=== PATIENT | male | born 1955 | race American Indian/Alaskan Native ===

== ENCOUNTER 2019-07-21 01:32 | Emergency (ER) | payer OTHER ==
[2019-07-21] MEDS ORDERED: ONDANSETRON 4 MG/2 ML INJ ONE ×2 (02:03)
[2019-07-21] MEDS ORDERED: fentaNYL 100 MCG/2 ML INJ ONE (02:03)
[2019-07-21] MEDS ORDERED: fentaNYL 100 MCG/2 ML INJ IV ONE ×2 (02:05→20:05)
[2019-07-21] MEDS ORDERED: ONDANSETRON 4 MG/2 ML INJ IV ONE ×2 (02:05→20:05)
[2019-07-21] MEDS ORDERED: diphenhydrAMINE 50 MG/ML VIAL IV ONE (02:40)
[2019-07-21] MEDS ORDERED: HYDROmorphone 1 MG/1 ML INJ IV ONE (02:40)
[2019-07-21] MEDS ORDERED: methylPREDNISolone Sod Succinate 125 MG/2 ML INJ IV ONE (02:48)
--- NOTE | 2019-07-21 02:55 | Emergency Department Report ---
HPI - General Chief Complaint: Pain General Time Seen by Provider: 07/21/19 02:33 - HPI HPI: Room 26 The patient is a 64-year-old male presenting with chief complaint of pain from his pyoderma gangrenosum. Patient complains of pain in his left lower extremity and right ankle since yesterday. Patient states the pain is consistent with a "flareup" of his pyoderma gangrenosum. Patient states the pain is constant and he gives a score of 10/10. Patient denies any history of fever. Patient states he was unable to go to the [place] to receive his medication secondary to the pain Location: [See above] Duration: [See above] Quality: [See above] Severity: [See above] Timing: [See above] Context: [See above] Modifying factors: [See above] Associated signs and symptoms: [see above] ED Past Medical Hx - Past Medical History Previous Medical History?: Yes Hx Hypertension: Yes Additional medical history: pyoderma gangrenosum - Surgical History Past Surgical History?: No - Family History Family history: no significant - Social History Smoking Status: Never Smoker Substance Use Type: None - Medications Home Medications: Home Medications Medication Instructions Recorded Confirmed Last Taken Type Prednisone [predniSONE 10 mg 10 mg PO .TAPER #1 tab.ds.pk 07/21/19 Unknown Rx (6-Day Pack, 21 Tabs)] traMADol [Ultram] 50 mg PO Q6HR PRN #10 tablet 07/21/19 Unknown Rx ED Review of Systems ROS: Stated complaint: OPEN WOUNDS/PAIN Other details as noted in HPI Constitutional: denies: fever Eyes: denies: eye pain ENT: denies: throat pain Respiratory: no symptoms reported Cardiovascular: denies: chest pain Endocrine: no symptoms reported Gastrointestinal: denies: abdominal pain Genitourinary: denies: dysuria Musculoskeletal: myalgia Skin: lesions Physical Exam - Physical Exam Vital Signs: Vital Signs 07/21/19 07/21/19 01:51 02:08 Temperature 98.2 F Pulse Rate 98 H Respiratory 21 19 Rate Blood Pressure 131/106 Blood Pressure 131/106 [Right] O2 Sat by Pulse 95 Oximetry Physical Exam: GENERAL: The patient is well-developed well-nourished male lying on stretcher rocking back and forth appearing to be in moderate discomfort. [] HEENT: Normocephalic. Atraumatic. Extraocular motions are intact. Patient has moist mucous membranes. NECK: Supple. Trachea midline CHEST/LUNGS: Clear to auscultation. There is no respiratory distress noted. HEART/CARDIOVASCULAR: Regular. There is no tachycardia. There is no gallop rub or murmur. ABDOMEN: Abdomen is soft, nontender. Patient has normal bowel sounds. There is no abdominal distention. SKIN: There is a chronic appearing ulcer to the lateral aspect of the right ankle/heel. Multiple open sores to the left lower extremity. There is no diaphoresis. NEURO: The patient is awake, alert, and oriented. The patient is cooperative. The patient has normal speech MUSCULOSKELETAL: There is no evidence of acute injury. ED Course Vital Signs 07/21/19 07/21/19 01:51 02:08 Temperature 98.2 F Pulse Rate 98 H Respiratory 21 19 Rate Blood Pressure 131/106 Blood Pressure 131/106 [Right] O2 Sat by Pulse 95 Oximetry ED Medical Decision Making - Lab Data Result diagrams: 07/21/19 03:10 07/21/19 03:10 Laboratory Tests 07/21/19 07/21/19 03:10 03:10 WBC 11.8 H RBC 5.09 H Hgb 15.3 H Hct 45.5 MCV 89 MCH 30 MCHC 34 RDW 14.2 Plt Count 276 Lymph % (Auto) 12.8 L Hartley % (Auto) 6.8 Eos % (Auto) 0.6 Baso % (Auto) 0.6 Lymph # 1.5 Hartley # 0.8 Eos # 0.1 Baso # 0.1 Seg Neutrophils % 79.2 H Seg Neutrophils # 9.3 H Sodium 135 L Potassium 4.3 Chloride 98.2 Carbon Dioxide 19 L Anion Gap 22 BUN 17 Creatinine 1.2 Estimated GFR > 60 BUN/Creatinine Ratio 14 Glucose 119 H Calcium 8.8 - Differential Diagnosis pyoderma gangrenosum Critical care attestation.: If time is entered above; I have spent that time in minutes in the direct care of this critically ill patient, excluding procedure time. ED Disposition Clinical Impression: Left leg pain, Pyoderma gangrenosum Disposition: TO HOME OR SELFCARE Is pt being admited?: No Does the pt Need Aspirin: No Condition: Stable Additional Instructions: Return to the emergency department should you develop worsening symptoms, inability to tolerate food or liquids, high fever or any other concerns Prescriptions: Prednisone [predniSONE 10 mg (6-Day Pack, 21 Tabs)] 10 mg PO .TAPER #1 tab.ds.pk traMADol [Ultram] 50 mg PO Q6HR PRN #10 tablet PRN Reason: Pain Referrals: [facility] [Outside] - 3-5 Days Time of Disposition: 04:16
[2019-07-21 03:41] LABS: Basophils # (Auto) 0.1 K/mm3 (0.0-0.1); Basophils % (Auto) 0.6 % (0.0-1.8); Eosinophils # (Auto) 0.1 K/mm3 (0.0-0.4); Eosinophils % (Auto) 0.6 % (0.0-4.3); Hematocrit 45.5 % (35.5-45.6); Hemoglobin 15.3 gm/dl (11.8-15.2); Lymphocytes # (Auto) 1.5 K/mm3 (1.2-5.4); Lymphocytes % (Auto) 12.8 % (13.4-35.0); Mean Corpuscular HGB Conc 34 % (32-34); Mean Corpuscular Volume 89 fl (84-94); Monocytes # (Auto) 0.8 K/mm3 (0.0-0.8); Monocytes % (Auto) 6.8 % (0.0-7.3); Platelet Count 276 K/mm3 (140-440); Red Blood Count 5.09 M/mm3 (3.65-5.03); Red Cell Distribution Width 14.2 % (13.2-15.2)
[2019-07-21] MEDS ORDERED: KETOROLAC 30 MG/1 ML INJ IV ONE (03:51)
[2019-07-21] MEDS ORDERED: KETOROLAC 30 MG/1 ML INJ ONE (03:54)
[2019-07-21 04:04] LABS: BUN/Creatinine Ratio 14; Blood Urea Nitrogen 17 mg/dL (9-20); Calcium 8.8 mg/dL (8.4-10.2); Hemolysis Index 6
[2019-07-21 05:58] VITALS: BP 128/75
== END 2019-07-21 05:48 | disposition home or self-care (01) ==
LOC: ED 01:32
DX: L88 Pyoderma gangrenosum (principal); I10 Essential (primary) hypertension; Z79.899 Other long term (current) drug therapy
CPT/HCPCS: 36415; 80048; 85025; 96374; 96375; 99284; J1170; J1200; J1885; J2405; J2930; J3010

== ENCOUNTER 2020-07-05 21:40 | Observation (INO) | payer OTHER ==
[2020-07-05] MEDS ORDERED: ONDANSETRON 4 MG/2 ML INJ IV ONE (23:37)
[2020-07-05] MEDS ORDERED: HYDROmorphone 1 MG/1 ML INJ IV ONE (23:37)
--- NOTE | 2020-07-05 23:39 | Emergency Department Report ---
ED General Adult HPI - General Chief complaint: Chest Pain Stated complaint: CHEST PAIN PUI?: No Time Seen by Provider: 07/05/20 23:27 Source: patient, EMS ( EMS documentation not available at time of chart dictation ), RN notes reviewed, old records reviewed Mode of arrival: Wheelchair Limitations: Physical Limitation, Other (The patient is a very poor historian) - History of Present Illness Initial comments: The patient was evaluated in the emergency department for symptoms described in the history of present illness. He/she was evaluated in the context of the global COVID-19 pandemic, which necessitated consideration that the patient might be at risk for infection with the virus that causes COVID-19. Institutional protocols and algorithms that pertain to the evaluation of patients at risk for COVID-19 are in a state of rapid change based on information released by regulatory bodies including the CDC and federal and state organizations. These policies and algorithms were followed during the patient's care in the emergency department. Please note that these policies, procedures and recommendations changed on a rapid basis. The patient is a 65-year-old gentleman. He is not known to myself previously. Patient is a poor historian. He states he was recently diagnosed with blood clots at the [facility], and recently admitted to the [facility] this past Monday through Monday. He was subsequently discharged. He does not know what medications he was discharged on. He also states "my heart pumps at 20%." He presents to the ER today with complaint of nontraumatic diffuse abdominal pain, left upper quadrant pain, and left-sided numbing thoracic pain. He states his pain started earlier on this afternoon. He states this is more intense than previous previous pain. He states he has been having this left-sided pain for the past week. He feels mildly nauseous. He is not homicidal or suicidal. He denies recreational drug use. He denies dysuria. He denies defecation of blood. He reports that he coughed or spit up blood earlier on today. He also reports a history of pyoderma, and reports that he is currently on Humira. He reports that all of his prescriptions are through the [facility]. He does not know what prescriptions he takes. He is not accompanied by friends or family at this time to provide additional information or collateral information. -: Gradual, hour(s) Location: chest, abdomen Consistency: constant Improves with: rest Worsens with: movement - Related Data Previous Rx's Medication Instructions Recorded Last Taken Type Prednisone [predniSONE 10 mg 10 mg PO .TAPER #1 tab.ds.pk 07/21/19 Unknown Rx (6-Day Pack, 21 Tabs)] Allergies Allergy/AdvReac Type Severity Reaction Status Date / Time No Known Allergies Allergy Verified 07/21/19 02:06 ED Review of Systems ROS: Stated complaint: CHEST PAIN Other details as noted in HPI Constitutional: malaise. denies: fever Eyes: denies: eye discharge Respiratory: cough Cardiovascular: chest pain Gastrointestinal: abdominal pain, nausea Genitourinary: denies: dysuria Musculoskeletal: myalgia Skin: lesions (Chronic lower extremity lesion) Neurological: weakness (Chronic global weakness) Hematological/Lymphatic: denies: easy bleeding ED Past Medical Hx - Past Medical History Previous Medical History?: Yes Hx Hypertension: Yes Hx Congestive Heart Failure: Yes Hx Pulmonary Embolism: Yes (Recent blood clot) Additional medical history: pyoderma gangrenosum - Surgical History Past Surgical History?: No - Social History Smoking Status: Never Smoker - Medications Home Medications: Home Medications Medication Instructions Recorded Confirmed Last Taken Type Prednisone [predniSONE 10 mg 10 mg PO .TAPER #1 tab.ds.pk 07/21/19 04/18/20 Unknown Rx (6-Day Pack, 21 Tabs)] ED Physical Exam - General Limitations: Physical Limitation General appearance: alert, anxious - Head Head exam: Present: atraumatic, normocephalic - Eye Eye exam: Present: normal appearance, EOMI. Absent: nystagmus - ENT ENT exam: Present: normal exam, normal orophraynx, mucous membranes moist, normal external ear exam - Neck Neck exam: Present: normal inspection, full ROM. Absent: tenderness, meningismus - Respiratory Respiratory exam: Present: normal lung sounds bilaterally. Absent: respiratory distress, wheezes, rales, rhonchi, stridor, decreased breath sounds - Cardiovascular Cardiovascular Exam: Present: normal rhythm, tachycardia, normal heart sounds. Absent: bradycardia, irregular rhythm, systolic murmur, diastolic murmur, rubs, gallop - GI/Abdominal GI/Abdominal exam: Present: soft, tenderness, other (There is mild diffuse abdominal tenderness). Absent: distended, guarding, rebound, rigid, pulsatile mass - Rectal Rectal exam: Present: deferred - Extremities Exam Extremities exam: Present: full ROM (Chronic pyoderma lesions noted on the left lower extremity. There is no pus, streaking or tenderness. Superficial varicosities are noted. There is no lower extremity tenderness.), pedal edema, other (2+ pulses noted in the bilateral upper and lower extremities. There is no palpable cord. negative Homans sign. Muscular compartments are soft. The pelvis is stable.). Absent: normal inspection, calf tenderness - Back Exam Back exam: Present: normal inspection, full ROM. Absent: tenderness, CVA tenderness (R), muscle spasm, paraspinal tenderness, vertebral tenderness - Neurological Exam Neurological exam: Present: alert, other (No facial droop. Tongue midline. Extraocular movements intact bilaterally. Facial sensation intact to light touch in V1, V2, V3 distribution bilaterally. 5 and a 5 strength in 4 extremities. Sensation intact to light touch in 4 extremities.). Absent: motor sensory deficit - Psychiatric Psychiatric exam: Present: anxious - Skin Skin exam: Present: warm ED Course Vital Signs 07/05/20 07/05/20 07/06/20 23:06 23:52 00:01 Temperature 97.4 F L Pulse Rate 100 H 100 H 103 H Respiratory 16 17 Rate Blood Pressure 101/80 81/59 Blood Pressure [Left] O2 Sat by Pulse 97 95 Oximetry 07/06/20 07/06/20 07/06/20 00:07 00:15 00:25 Temperature Pulse Rate 100 H 101 H Respiratory 16 13 Rate Blood Pressure 114/79 Blood Pressure 122/82 [Left] O2 Sat by Pulse 93 96 98 Oximetry 07/06/20 07/06/20 07/06/20 00:30 00:45 01:10 Temperature Pulse Rate 98 H 102 H 90 Respiratory 11 L 14 Rate Blood Pressure 120/73 121/83 121/83 Blood Pressure [Left] O2 Sat by Pulse 96 96 Oximetry 07/06/20 07/06/20 07/06/20 01:15 01:30 01:45 Temperature Pulse Rate 97 H 94 H 96 H Respiratory 15 11 L 11 L Rate Blood Pressure 126/78 125/81 117/82 Blood Pressure [Left] O2 Sat by Pulse 99 96 97 Oximetry - Reevaluation(s) Reevaluation #1: 07/05/20 23:46 Differential diagnosis, including but not limited to: Pneumonia, pneumothorax, pulmonary embolism, pericarditis, myocarditis, acute coronary syndrome, AAA, intraperitoneal bleed, colitis, diverticulitis, pancreatitis Assessment and plan: 65-year-old gentleman who is a very poor historian, does not know the exact details of his past medical history, reports what peers to be cardiomyopathy, re ports recent diagnosis of pulmonary embolism, presenting today with left-sided chest pain, abdominal pain, nausea, malaise and fatigue. EKG abnormal, with changes when compared to prior EKG. EKG today is not consistent with a STEMI. We will treat his pain aggressively. We will obtain CT scan of the chest, abdomen/pelvis. We have requested old medical records from the [facility]. Anticipate admission to this medical service once initial diagnostics have resulted. Discussed plan of care with the patient, who verbalized understanding, and who is amenable to this plan of care. Reevaluation #2: 07/06/20 00:33 Feeling improved. Resting comfortably in stretcher, and in no acute distress. Repeat EKG shows sinus, with sinus arrhythmia. Laboratory studies pending. Old medical records are reviewed. Patient had a CT scan performed on July 01, which showed an acute pulmonary emboli extending from the distal right main pulmonary artery into the right upp er lobe artery, interlobar artery, proximal right middle lobar artery, as well as segmental branches of the right lower lobe. He was also found to have cardiomegaly with IV contrast within the right-sided heart chambers, and intra- hepatic IVC, hepatic veins, suspicious for elevated right-sided cardiac pressures. He also had vague groundglass opacities present in the upper lobes, suspicious for inflammatory versus infectious pathology, with small bilateral pleural effusions. In addition, it appears that the patient left the [facility] AGAINST MEDICAL ADVICE. 07/06/20 00:39 Reevaluation #3: 07/06/20 00:45 Elevated troponin reviewed and appreciated. However, we will need to withhold systemic anticoagulation pending results of CT scan of the abdomen pelvis and chest, to make certain that there is no acute surgical condition. Reevaluation #4: 07/06/20 01:57 CT scan shows pulmonary emboli, pneumonia versus pneumonitis, question bladder outlet obstruction. Antibiotics ordered, Lovenox ordered, fluids ordered DR Rachele Joyce to admit Patient had a positive COVID test at this hospital March 2020, therefore, I think this is unlikely to be COVID. Patient resting comfortably in his stretcher at this time, and he is in no acute distress. 07/06/20 02:02 ED Medical Decision Making - Lab Data Result diagrams: 07/05/20 23:27 07/05/20 23:27 Vital Signs 07/05/20 23:06 Temperature 97.4 F L Pulse Rate 100 H Respiratory 16 Rate Blood Pressure 101/80 O2 Sat by Pulse 97 Oximetry Vital Signs 07/05/20 07/06/20 07/06/20 23:06 00:07 00:25 Temperature 97.4 F L Pulse Rate 100 H 100 H Respiratory 16 16 Rate Blood Pressure 101/80 Blood Pressure 122/82 [Left] O2 Sat by Pulse 97 93 98 Oximetry Lab Results 07/05/20 07/05/20 07/05/20 Range/Units 23:27 23:39 23:39 Sodium 137 (137-145) mmol/L Potassium 3.3 L (3.6-5.0) mmol/L Chloride 99.6 (98-107) mmol/L Carbon Dioxide 19 L (22-30) mmol/L Anion Gap 22 mmol/L BUN 21 H (9-20) mg/dL Creatinine 1.5 H (0.8-1.3) mg/dL Estimated GFR 57 ml/min BUN/Creatinine Ratio 14 % Glucose 130 H (75-100) mg/dL Calcium 9.0 (8.4-10.2) mg/dL Magnesium 2.60 H (1.7-2.3) mg/dL Total Bilirubin 0.60 (0.1-1.2) mg/dL Direct Bilirubin < 0.2 (0-0.2) mg/dL Indirect Bilirubin 0.4 mg/dL AST 14 (5-40) units/L ALT 13 (7-56) units/L Alkaline Phosphatase 65 (35-129) units/L Total Creatine Kinase 51 L (55-170) units/L Troponin T 0.047 H (0.00-0.029) ng/mL NT-Pro-B Natriuret Pep 4906 H (0-900) pg/mL Total Protein 7.7 (6.3-8.2) g/dL Albumin 3.3 L (3.9-5) g/dL Albumin/Globulin Ratio 0.8 % Lipase 29 (13-60) units/L Acetaminophen 5.0 L (10.0-30.0) ug/mL Plasma/Serum Alcohol (0-0.07) % 07/05/20 Range/Units 23:39 Sodium (137-145) mmol/L Potassium (3.6-5.0) mmol/L Chloride (98-107) mmol/L Carbon Dioxide (22-30) mmol/L Anion Gap mmol/L BUN (9-20) mg/dL Creatinine (0.8-1.3) mg/dL Estimated GFR ml/min BUN/Creatinine Ratio % Glucose (75-100) mg/dL Calcium (8.4-10.2) mg/dL Magnesium (1.7-2.3) mg/dL Total Bilirubin (0.1-1.2) mg/dL Direct Bilirubin (0-0.2) mg/dL Indirect Bilirubin mg/dL AST (5-40) units/L ALT (7-56) units/L Alkaline Phosphatase (35-129) units/L Total Creatine Kinase (55-170) units/L Troponin T (0.00-0.029) ng/mL NT-Pro-B Natriuret Pep (0-900) pg/mL Total Protein (6.3-8.2) g/dL Albumin (3.9-5) g/dL Albumin/Globulin Ratio % Lipase (13-60) units/L Acetaminophen (10.0-30.0) ug/mL Plasma/Serum Alcohol < 0.01 (0-0.07) % - EKG Data -: EKG Interpreted by Tx EKG shows normal: sinus rhythm Rate: tachycardia - EKG Data 07/05/20 23:48 EKG has motion artifact. Sinus rhythm, tachycardia, 110 bpm, the QTC is prolonged, 489 ms, T wave inversions which are new and 2, aVF, V4, V5 and V6. Atrial enlargement. Significant motion artifact. Not a STEMI. When compared to prior EKG from March 2020, nonspecific changes are noted. - Radiology Data Radiology results: pending, report reviewed, image reviewed Print Report Referring Physician: ANUSHA BURROUGHS Patient Name: JORGE LUIS KING Date of : 1955 Sex: Male Report Date: 2020-07-05 Report Status: Finalized Findings [facility] [address] [address] XRay Report Signed Patient: JORGE LUIS KING MR#: [id number] : 1955 Acct:[id number] Age/Sex: 65 / M ADM Date: 07/05/20 Loc: ED Attending Dr: Ordering Physician: ANUSHA BURROUGHS MD Date of Service: 07/05/20 Procedure(s): XR chest 1V ap Accession Number(s): [id number] cc: ANUSHA BURROUGHS MD Fluoro Time In Minutes: CHEST 1 VIEW INDICATION: Chest Pain. COMPARISON: 04/18/2020. FINDINGS: Support devices: None. Heart: Stable cardiomegaly. Lungs/Pleura: Moderate infiltrate right lower lobe. Infiltrate was also seen in this region on the previous exam but more prominent. Additional findings: None. IMPRESSION: Infiltrate right base has the appearance of pneumonia. Follow-up to complete resolution is recommended to exclude an underlying mass as infiltrate was seen in this region on the previous exam. Signer Name: Wild Frazier MD Signed: 07/05/2020 11:48 PM Workstation Name: [id number] Transcribed By: ES Dictated By: Wild Frazier MD Electronically Authenticated By: Wild Frazier MD Signed Date/Time: 07/05/202347 DD/ 46 TD/TT: Print Report Referring Physician: ANUSHA BURROUGHS Patient Name: JORGE LUIS KING Date of : 1955 Sex: Male Report Date: 2020-07-06 Report Status: Finalized Findings [address] [address] Cat Scan Report Signed Patient: JORGE LUIS KING MR#: [id number] : 1955 Acct:[id number] Age/Sex: 65 / M ADM Date: 07/05/20 Loc: ED Attending Dr: Ordering Physician: ANUSHA BURROUGHS MD Date of Service: 07/05/20 Procedure(s): CT angio chest Accession Number(s): [id number] cc: ANUSHA BURROUGHS MD CT abdomen pelvis w con, CT angio chest INDICATION / CLINICAL INFORMATION: diffuse abd pain, left chest pain. TECHNIQUE: Axial CT images were obtained after injection of Omnipaque 350, 100 cc IV injection. IV contrast using CTA protocol. 3 plane MIP / 3D reconstructions were produced. All CT scans at this location are performed using CT dose reduction for ALARA by means of automated exposure control. COMPARISON: CT abdomen and pelvis 04/18/2020. CTA CHEST: Evaluation of the lungs demonstrates mild parenchymal change at the lingula laterally and the left base posteriorly. More extensive changes are seen at the left base where there are areas of soft tissue with mild underlying mixed cystic change and a small amount of fluid. No significant pleural fluid. Contracted appearing clot seen at the right main pulmonary artery extending into the lower lobe greater than the middle and upper lobe. A small amount of similar appearing clot is seen at the left lower lobe. No mediastinal mass or adenopathy. CT abdomen: Evaluation of the parenchymal organs demonstrates a few small low- density liver lesions which are too small to characterize. The right kidney contains small cysts. The remaining parenchymal organs are unremarkable. Negative for abdominal mass, fluid or inflammation. The bowel is not dilated or thickened. Fluid is scattered within the colon and small bowel. CT PELVIS: Persistent prostate enlargement. The bladder is distended and demonstrates a diverticulum superiorly. Negative for pelvic mass or fluid collection. The reji endix is normal. IMPRESSION: 1. Bilateral pulmonary emboli right greater than left have a chronic appearance. 2. Changes at the lung bases right greater than left are favored to be infectious/inflammatory. Follow-up is recommended to ensure clearing. 3. Enlarged prostate with element of bladder outlet obstruction. 4. Small liver lesions are likely incidental cysts. Signer Name: Wild Frazier MD Signed: 07/06/2020 1:45 AM Workstation Name: [id number] Transcribed By: ES Dictated By: Wild Frazier MD Electronically Authenticated By: Wild Frazier MD Signed Date/Time: 07/06/20 0145 DD/ 0130 Critical Care Time: Yes Critical care time in (mins) excluding proc time.: 35 Critical care attestation.: If time is entered above; I have spent that time in minutes in the direct care of this critically ill patient, excluding procedure time. ED Disposition Clinical Impression: Elevated troponin, Dehydration, Hypokalemia, Metabolic acidosis, Acute abdominal pain, Acute chest pain, SIRS (systemic inflammatory response syndrome), Acute electrocardiogram changes Pulmonary embolism Qualifiers: Pulmonary embolism type: other Chronicity: unspecified Acute cor pulmonale presence: without acute cor pulmonale Qualified Code(s): I26.99 - Other pulmonary embolism without acute cor pulmonale Disposition: OP ADMIT IP TO THIS HOSP Is pt being admited?: Yes Does the pt Need Aspirin: No Condition: Serious Instructions: Chest Pain (ED) Referrals: PRIMARY CARE, [Primary Care Provider] - 3-5 Days
[2020-07-05] MEDS ORDERED: NITROGLYCERIN 0.4 MG TAB SUBL SL PRN (23:48)
--- NOTE | 2020-07-05 23:53 | XRay Report ---
CHEST 1 VIEW INDICATION: Chest Pain. COMPARISON: 04/18/2020. FINDINGS: Support devices: None. Heart: Stable cardiomegaly. Lungs/Pleura: Moderate infiltrate right lower lobe. Infiltrate was also seen in this region on the pr evious exam but more prominent. Additional findings: None. IMPRESSION: Infiltrate right base has the appearance of pneumonia. Follow-up to complete resolution i s recommended to exclude an underlying mass as infiltrate was seen in this region on the previous exa m. Signer Name: Wild Frazier MD Signed: 07/05/2020 11:48 PM Workstation Name: [id number]
[2020-07-06 00:39] LABS: Alanine Aminotransferase 13 units/L (7-56); Albumin 3.3 g/dL (3.9-5)
[2020-07-06] MEDS ORDERED: POTASSIUM CHLORIDE 20 MEQ 20 MEQ/100 ML BAG IV ONE (00:43)
[2020-07-06] MEDS ORDERED: SODIUM CHLORIDE 0.9% 250ML 250 ML IV ONE (00:43)
[2020-07-06 00:44] LABS: Bilirubin,Direct < 0.2 mg/dL (0-0.2)
[2020-07-06 00:50] LABS: Hematocrit 44.4 % (35.5-45.6); Hemoglobin 15.1 gm/dl (11.8-15.2); Mean Corpuscular HGB Conc 34 % (32-34); Mean Corpuscular Volume 92 fl (84-94); Platelet Count 369 K/mm3 (140-440); Red Blood Count 4.84 M/mm3 (3.65-5.03); Red Cell Distribution Width 14.3 % (13.2-15.2)
[2020-07-06 01:21] LABS: Chol/HDL Ratio 3.8 %
[2020-07-06] MEDS: POTASSIUM CHLORIDE ER 20 MEQ TAB PO ONE ×2 (01:28→01:32)
--- NOTE | 2020-07-06 01:50 | Cat Scan Report ---
CT abdomen pelvis w con, CT angio chest INDICATION / CLINICAL INFORMATION: diffuse abd pain, left chest pain. TECHNIQUE: Axial CT images were obtained after injection of Omnipaque 350, 100 cc IV injection. IV contrast usin g CTA protocol. 3 plane MIP / 3D reconstructions were produced. All CT scans at this location are per formed using CT dose reduction for ALARA by means of automated exposure control. COMPARISON: CT abdomen and pelvis 04/18/2020. CTA CHEST: Evaluation of the lungs demonstrates mild parenchymal change at the lingula laterally and the left base posteriorly. More extensive changes are seen at the left base where there are areas of soft tissue with mild underlying mixed cystic change and a small amount of fluid. No significant pleu ral fluid. Contracted appearing clot seen at the right main pulmonary artery extending into the lower lobe great er than the middle and upper lobe. A small amount of similar appearing clot is seen at the left lower lobe. No mediastinal mass or adenopathy. CT abdomen: Evaluation of the parenchymal organs demonstrates a few small low-density liver lesions w hich are too small to characterize. The right kidney contains small cysts. The remaining parenchymal organs are unremarkable. Negative for abdominal mass, fluid or inflammation. The bowel is not dilated or thickened. Fluid is s cattered within the colon and small bowel. CT PELVIS: Persistent prostate enlargement. The bladder is distended and demonstrates a diverticulum superiorly. Negative for pelvic mass or fluid collection. The appendix is normal. IMPRESSION: 1. Bilateral pulmonary emboli right greater than left have a chronic appearance. 2. Changes at the lung bases right greater than left are favored to be infectious/inflammatory. Follo w-up is recommended to ensure clearing. 3. Enlarged prostate with element of bladder outlet obstruction. 4. Small liver lesions are likely incidental cysts. Signer Name: Wild Frazier MD Signed: 07/06/2020 1:45 AM Workstation Name: [id number]
[2020-07-06] MEDS ORDERED: ENOXAPARIN 100 MG/1 ML INJ SUB-Q ONE ×2 (01:53→03:10)
[2020-07-06] MEDS ORDERED: AZITHROMYCIN 500 MG in SODIUM CHLORIDE 0.9% 250ML 250 ML IV ONE (01:53)
[2020-07-06] MEDS ORDERED: cefTRIAXone/NS 1 GM/50 ML 1 GM/50 ML BAG IV ONE (01:53)
[2020-07-06] MEDS ORDERED: ASPIRIN 81 MG TAB CHEW PO ONE (01:55)
[2020-07-06] MEDS ORDERED: SODIUM CHLORIDE 0.9% IV ONE (01:56)
[2020-07-06] MEDS ORDERED: SODIUM CHLORIDE 0.9% 250ML 250 ML ONE (02:26)
[2020-07-06] MEDS ORDERED: ONDANSETRON 4 MG/2 ML INJ IV PRN (02:33)
[2020-07-06] MEDS ORDERED: ACETAMINOPHEN 325 MG TAB PO PRN (02:33)
[2020-07-06] MEDS ORDERED: MAGNESIUM HYDROXIDE (MOM) ORAL LIQD UDC PO PRN (02:33)
--- NOTE | 2020-07-06 02:57 | History and Physical Report ---
History of Present Illness Date of examination: 07/06/20 Date of admission: 07/06/20 02:05 Chief complaint: Chest Pain History of present illness: Patient is a 65-year-old -Luxembourger male with known history of hypertension and CHF presents to the emergency room today complaining of left- sided chest pain and abdominal pain. Symptoms were said to have started earlier this afternoon. Patient was recently diagnosed with blood clots at the [facility] and admitted for couple of days however patient was said to have signed out AGAINST MEDICAL ADVICE because he had to go home to take care of his dog. Patient indicates that a cardiac catheterization was planned for later this week at the [facility] because of abnormalities found during his work-up. Patient is not a very good historian. He has had some mild nausea but no vomiting, no fever or chills, no headache or dizziness, no vomiting or diarrhea, no hematuria or dysuria. He had some cough today which has been productive of mildly blood-tinged sputum. Work-up in the emergency room today reveals significant leukocytosis of about 20, mild hypokalemia, elevated troponin, CT angiogram reveals pneumonia and pulmonary embolism. Patient has been started on empiric IV antibiotics and also started on subcutaneous Lovenox. Past History Past Medical History: heart failure, hypertension, other (Pyoderma Gangrenosum) Past Surgical History: No surgical history Social history: no significant social history Family history: no significant family history Medications and Allergies Allergies Allergy/AdvReac Type Severity Reaction Status Date / Time No Known Allergies Allergy Verified 07/21/19 02:06 Home Medications Medication Instructions Recorded Confirmed Last Taken Type Prednisone [predniSONE 10 mg 10 mg PO .TAPER #1 tab.ds.pk 07/21/19 04/18/20 Unknown Rx (6-Day Pack, 21 Tabs)] Active Meds: Active Medications Acetaminophen (Tylenol) 650 mg PO Q4H PRN PRN Reason: Pain MILD(1-3)/Fever >100.5/SARMIENTO Aspirin (Ecotrin) 325 mg PO QDAY MELVINA Sodium Chloride (Nacl 0.9% 1000 Ml) 1,000 mls @ 75 mls/hr IV DIRECT MELVINA Ceftriaxone Sodium (Rocephin/Ns 2 Gm/100 Ml) 2 gm in 100 mls @ 200 mls/hr IV Q24H MELVINA; Protocol Azithromycin 500 mg/ Sodium (Chloride) 250 mls @ 250 mls/hr IV Q24H MELVINA; Protocol Magnesium Hydroxide (Milk Of Magnesia) 30 ml PO Q4H PRN PRN Reason: Constipation Morphine Sulfate (Morphine) 2 mg IV Q5MIN PRN PRN Reason: Chest Pain unrelieved by NTG Nitroglycerin (Nitrostat) 0.4 mg SL .Q5MIN PRN PRN Reason: Chest Pain Ondansetron HCl (Zofran) 4 mg IV Q8H PRN PRN Reason: Nausea And Vomiting Sodium Chloride (Sodium Chloride Flush Syringe 10 Ml) 10 ml IV BID MELVINA Sodium Chloride (Sodium Chloride Flush Syringe 10 Ml) 10 ml IV PRN PRN PRN Reason: LINE FLUSH Review of Systems Constitutional: no fever, no chills Ears, nose, mouth and throat: no nasal congestion, no sore throat Cardiovascular: chest pain, no palpitations Respiratory: shortness of breath, no cough Gastrointestinal: no abdominal pain, no nausea, no vomiting, no diarrhea Genitourinary Male: no dysuria, no hematuria, no flank pain Musculoskeletal: no neck pain, no low back pain Integumentary: no rash, no pruritis Neurological: no headaches, no confusion Psychiatric: no anxiety, no depression Exam - Constitutional Vitals: Temp Pulse Resp BP Pulse Ox 97.4 F L 96 H 11 L 117/82 97 07/05/20 23:06 07/06/20 01:45 07/06/20 01:45 07/06/20 01:45 07/06/20 01:45 General appearance: Present: no acute distress, well-nourished - EENT Eyes: Present: PERRL, EOM intact. Absent: scleral icterus ENT: hearing intact, clear oral mucosa, dentition normal - Neck Neck: Present: supple, normal ROM - Respiratory Respiratory effort: normal Respiratory: bilateral: diminished - Cardiovascular Rhythm: regular Heart Sounds: Present: S1 & S2. Absent: gallop, systolic murmur, diastolic murmur, rub - Extremities Extremities: no ischemia, pulses intact, pulses symmetrical, No edema, Full ROM Extremity abnormal: other (Multiple areas of healed ulcers in both lower extremities) Peripheral Pulses: within normal limits - Abdominal General gastrointestinal: Present: soft, non-tender, non-distended, normal bowel sounds. Absent: mass - Integumentary Integumentary: Present: clear, warm, dry - Musculoskeletal Musculoskeletal: strength equal bilaterally - Psychiatric Psychiatric: appropriate mood/affect, intact judgment & insight, memory intact, cooperative - Neurologic Neurologic: CNII-XII intact, no focal deficits, moves all extremities HEART Score - HEART Score Troponin: Troponin T 0.047 ng/mL (0.00-0.029) H 07/05/20 23:27 Results - Labs CBC & Chem 7: 07/05/20 23:27 07/05/20 23:27 Labs: Abnormal lab results 07/05/20 07/05/20 07/05/20 Range/Units 23:27 23:27 23:39 WBC 20.3 H (4.5-11.0) K/mm3 Potassium 3.3 L (3.6-5.0) mmol/L Carbon Dioxide 19 L (22-30) mmol/L BUN 21 H (9-20) mg/dL Creatinine 1.5 H (0.8-1.3) mg/dL Glucose 130 H (75-100) mg/dL Magnesium 2.60 H (1.7-2.3) mg/dL Total Creatine Kinase 51 L (55-170) units/L Troponin T 0.047 H (0.00-0.029) ng/mL NT-Pro-B Natriuret Pep 4906 H (0-900) pg/mL Albumin 3.3 L (3.9-5) g/dL Cholesterol 209 H (50-199) mg/dL LDL Cholesterol Direct 135 H (50-130) mg/dL Salicylates (2.8-20.0) mg/dL Acetaminophen (10.0-30.0) ug/mL 07/05/20 07/05/20 Range/Units 23:39 23:39 WBC (4.5-11.0) K/mm3 Potassium (3.6-5.0) mmol/L Carbon Dioxide (22-30) mmol/L BUN (9-20) mg/dL Creatinine (0.8-1.3) mg/dL Glucose (75-100) mg/dL Magnesium (1.7-2.3) mg/dL Total Creatine Kinase (55-170) units/L Troponin T (0.00-0.029) ng/mL NT-Pro-B Natriuret Pep (0-900) pg/mL Albumin (3.9-5) g/dL Cholesterol (50-199) mg/dL LDL Cholesterol Direct (50-130) mg/dL Salicylates < 0.3 L (2.8-20.0) mg/dL Acetaminophen 5.0 L (10.0-30.0) ug/mL Assessment and Plan - Patient Problems (1) Pneumonia Current Visit: Yes Status: Acute Plan to address problem: Patient placed on empiric IV antibiotics (2) Acute chest pain Current Visit: Yes Status: Acute Plan to address problem: We will check serial cardiac enzymes and continue anticoagulation. Consult has been placed to installation technician for evaluation and further recommendation. (3) History of pyoderma gangrenosum Current Visit: Yes Status: Acute Plan to address problem: Patient currently on Humira. Dose unknown. (4) Pulmonary embolism Current Visit: Yes Status: Acute Qualifiers: Pulmonary embolism type: other Chronicity: unspecified Acute cor pulmonale presence: without acute cor pulmonale Qualified Code(s): I26.99 - Other pulmonary embolism without acute cor pulmonale Plan to address problem: Patient has been placed on anticoagulation. (5) Full code status Current Visit: Yes Status: Acute
[2020-07-06] MEDS ORDERED: ASPIRIN 81 MG TAB CHEW ONE (03:11)
[2020-07-06] MEDS ORDERED: SODIUM CHLORIDE 0.9% 1000 ML 1,000 ML ONE (03:12)
[2020-07-06 04:27] LABS: Bacteria,Urine 1+ /HPF (Negative); Bilirubin,Urine NEG (Negative); Blood,Urine MOD (Negative); Color,Urine Yellow (Yellow); Hyaline Casts,Urine 13 /LPF; Mucus,Urine 3+ /HPF; Urobilinogen,Urine < 2.0 mg/dL (<2.0)
[2020-07-06 04:39] LABS: Basophils % (Manual) 0 % (0.0-1.8); Eosinophils % (Manual) 0 % (0.0-4.3); Total Cells Counted 100
[2020-07-06 04:41] LABS: Anisocytosis Few; Burr Cells Rare; Platelet Estimate Consistent w Auto
[2020-07-06] MEDS: SODIUM CHLORIDE 0.9% 1000 ML 1,000 ML IV SCH ×2 (05:17→16:03)
--- NOTE | 2020-07-06 10:58 | Consultation ---
History of Present Illness Consult date: 07/06/20 Requesting physician: TONE UREÑA Consult reason: chest pain, elevated troponin History of present illness: The patient is a 65-year-old male with a past medical history of HTN, reported HF, pyoderma. He is previously unknown to our practice, is seen at the [place]. He is COVID-19 PUI and thus HPI is obtained per the chart. He presented with c/o left- sided chest pain and abdominal pain which were present for approx 1 day prior to arrival. Patient reports he was recently diagnosed with blood clots at the [facility] and admitted for couple of days however patient was said to have signed out AGAINST MEDICAL ADVICE because he had to go home to take care of his dog. Patient indicates that a cardiac catheterization was planned for later this week at the [facility] because of abnormalities found during his work-up. Patient is not a very good historian. He has had some mild nausea but no vomiting, no fever or chills, no headache or dizziness, no vomiting or diarrhea, no hematuria or dysuria. He had some cough today which has been productive of mildly blood- tinged sputum. Work-up in the ED revealed leukocytosis with WBC 20, Cr 1.5, mild hypokalemia, elevated troponin (0.047 -> 0.046 -> 0.029). Chest CTA, abd/pelvis CTA shows bilateral PE R>L with chronic appearance, changes at lung bases R>L c/w infectious/inflammatory process, enlarged prostate with element of bladder outlet obstruction. Patient has been started on empiric IV antibiotics and also started on subcutaneous Lovenox. Past History Past Medical History: heart failure, hypertension, other (Pyoderma Gangrenosum) Past Surgical History: No surgical history Social history: no significant social history Family history: no significant family history Medications and Allergies Allergies Allergy/AdvReac Type Severity Reaction Status Date / Time No Known Allergies Allergy Verified 07/21/19 02:06 Active Meds: Active Medications Acetaminophen (Tylenol) 650 mg PO Q4H PRN PRN Reason: Pain MILD(1-3)/Fever >100.5/SARMIENTO Aspirin (Ecotrin) 325 mg PO QDAY MELVINA Enoxaparin Sodium (Enoxaparin) 100 mg SUB-Q Q12H MELVINA; Protocol Sodium Chloride (Nacl 0.9% 1000 Ml) 1,000 mls @ 75 mls/hr IV DIRECT MELVINA Last Admin: 07/06/20 05:17 Dose: 75 mls/hr Documented by: Ceftriaxone Sodium (Rocephin/Ns 2 Gm/100 Ml) 2 gm in 100 mls @ 200 mls/hr IV Q24H MELVINA; Protocol Azithromycin 500 mg/ Sodium (Chloride) 250 mls @ 250 mls/hr IV Q24H MELVINA; Protocol Magnesium Hydroxide (Milk Of Magnesia) 30 ml PO Q4H PRN PRN Reason: Constipation Morphine Sulfate (Morphine) 2 mg IV Q5MIN PRN PRN Reason: Chest Pain unrelieved by NTG Nitroglycerin (Nitrostat) 0.4 mg SL .Q5MIN PRN PRN Reason: Chest Pain Ondansetron HCl (Zofran) 4 mg IV Q8H PRN PRN Reason: Nausea And Vomiting Sodium Chloride (Sodium Chloride Flush Syringe 10 Ml) 10 ml IV BID MELVINA Sodium Chloride (Sodium Chloride Flush Syringe 10 Ml) 10 ml IV PRN PRN PRN Reason: LINE FLUSH Review of Systems All systems: negative (as per HPI) Physical Examination Vital Signs Temp Pulse Resp BP Pulse Ox 97.4 F L 100 H 16 101/80 97 07/05/20 23:06 07/05/20 23:06 07/05/20 23:06 07/05/20 23:06 07/05/20 23:06 Narrative exam: agree with physical examination per primary Results 07/05/20 23:27 07/05/20 23:27 Cardiac Enzymes 07/05/20 Range/Units 23:39 AST 14 (5-40) units/L Lipids 07/05/20 Range/Units 23:27 Triglycerides 137 (2-149) mg/dL Cholesterol 209 H (50-199) mg/dL HDL Cholesterol 55 (40-59) mg/dL Cholesterol/HDL Ratio 3.80 % CBC 07/05/20 Range/Units 23:27 WBC 20.3 H (4.5-11.0) K/mm3 RBC 4.84 (3.65-5.03) M/mm3 Hgb 15.1 (11.8-15.2) gm/dl Hct 44.4 (35.5-45.6) % Plt Count 369 (140-440) K/mm3 Comprehensive Metabolic Panel 09/13/20 09/13/20 Range/Units 23:27 23:39 Sodium 137 (137-145) mmol/L Potassium 3.3 L (3.6-5.0) mmol/L Chloride 99.6 (98-107) mmol/L Carbon Dioxide 19 L (22-30) mmol/L BUN 21 H (9-20) mg/dL Creatinine 1.5 H (0.8-1.3) mg/dL Glucose 130 H (75-100) mg/dL Calcium 9.0 (8.4-10.2) mg/dL Direct Bilirubin < 0.2 (0-0.2) mg/dL Indirect Bilirubin 0.4 mg/dL AST 14 (5-40) units/L ALT 13 (7-56) units/L Alkaline Phosphatase 65 (35-129) units/L Total Protein 7.7 (6.3-8.2) g/dL Albumin 3.3 L (3.9-5) g/dL - Imaging and Cardiology Echo: pending EKG: report reviewed, image reviewed EKG interpretations - Telemetry EKG Rhythm: Sinus Rhythm - EKG Sinus rhythms and dysrhythmias: sinus rhythm Repolarization changes or abnormalities: nonspecific abnormality, ST segment, and/or T wave Assessment and Plan Currently stable cardiac status. Agree with present cardiac management. Minimal troponin elevation appears nonspecific at this time. Cont to trend Ailyn and f/u ECG in AM. Can consider stress testing once medically stabilized - can be done as OP. COVID-19 testing is pending. Plan to obtain echo pending COVID test results. Will follow. The patient has been seen in conjunction with Dr. Sands who agrees with the assessment and plan of care. - Patient Problems (1) Bilateral pulmonary embolism Current Visit: Yes Status: Acute (2) Pneumonia Current Visit: Yes Status: Suspected (3) Suspected COVID-19 virus infection Current Visit: Yes Status: Acute (4) Elevated troponin Current Visit: Yes Status: Acute (5) ROBSON (acute kidney injury) Current Visit: Yes Status: Acute (6) Bladder outlet obstruction Current Visit: Yes Status: Chronic (7) Hypokalemia Current Visit: Yes Status: Acute
[2020-07-06] MEDS: ENOXAPARIN 100 MG/1 ML INJ SUB-Q SCH ×2 (12:18→21:56)
[2020-07-06] MEDS: MORPHINE 2 MG/1 ML INJ IV PRN ×3 (12:19→21:56)
--- NOTE | 2020-07-06 18:38 | Progress Note ---
Assessment and Plan Assessment and plan: --Recently diagnosed COVID-19/04/19/2020 Current Visit: Yes Status: Acute Plan to address problem: Patient reports that his phobic testing [facility] was negative Will maintain contact and droplet isolation Check COVID-19 test Obtain medical records from [place] -- Pneumonia possible community-acquired Current Visit: Yes Status: Acute Plan to address problem: Patient placed on empiric IV antibiotics --Atypical chest pain Current Visit: Yes Status: Acute Plan to address problem: We will check serial cardiac enzymes and continue anticoagulation. Cardiology evaluated --History of pyoderma gangrenosum Current Visit: Yes Status: Acute Plan to address problem: Patient currently on Humira. Supportive care, ID consult if needed -- Pulmonary embolism Current Visit: Yes Status: Acute Plan to address problem: Patient has been placed on anticoagulation. Oxygen titrate O2 sats to more than 90% Check lower extremity venous Doppler --Full code status Current Visit: Yes Status: Acute We will closely monitor the patient and adjust management as needed Plan of care reviewed with the patient and his nurse Advance care 35 minutes History Interval history: 65-year-old male patient was admitted early this morning with chest pain Work-up is consistent with PE on full dose Lovenox Cardiology consulted for chest pain Patient feels slightly better still has intermittent chest pain Mild shortness of breath Vital signs reviewed Hospitalist Physical - Constitutional Vitals: Temp Pulse Resp BP Pulse Ox 97.6 F 74 15 123/82 98 07/06/20 12:05 07/06/20 15:00 07/06/20 16:26 07/06/20 12:05 07/06/20 13:04 General appearance: Present: no acute distress, well-nourished - EENT Eyes: Present: PERRL, EOM intact - Neck Neck: Present: supple, normal ROM - Respiratory Respiratory effort: normal Respiratory: bilateral: diminished, rhonchi, negative: rales, wheezing - Cardiovascular Rhythm: regular Heart Sounds: Present: S1 & S2 - Extremities Extremities: no ischemia, No edema - Abdominal General gastrointestinal: soft, non-tender, non-distended, normal bowel sounds - Integumentary Integumentary: Present: clear, warm - Psychiatric Psychiatric: appropriate mood/affect, cooperative - Neurologic Neurologic: moves all extremities HEART Score - HEART Score Troponin: Troponin T 0.029 ng/mL (0.00-0.029) 07/06/20 07:09 Results - Labs CBC & Chem 7: 07/05/20 23:27 07/05/20 23:27 Labs: Laboratory Last Values WBC 20.3 K/mm3 (4.5-11.0) H 07/05/20 23:27 RBC 4.84 M/mm3 (3.65-5.03) 07/05/20 23:27 Hgb 15.1 gm/dl (11.8-15.2) 07/05/20 23: Hct 44.4 % (35.5-45.6) 07/05/20 23: MCV 92 fl (84-94) 07/05/20 23: MCH 31 pg (28-32) 07/05/20 23: MCHC 34 % (32-34) 07/05/20 23: RDW 14.3 % (13.2-15.2) 07/05/20 23:27 Plt Count 369 K/mm3 (140-440) 07/05/20 23:27 Add Manual Diff Complete 07/05/20 23: Total Counted 100 07/05/20 23:27 Seg Neuts % (Manual) 78.0 % (40.0-70.0) H 07/05/20 23:27 Band Neutrophils % 0 % 07/05/20 23:27 Lymphocytes % (Manual) 13.0 % (13.4-35.0) L 07/05/20 23:27 Reactive Lymphs % (Man) 0 % 07/05/20 23:27 Monocytes % (Manual) 9.0 % (0.0-7.3) H 07/05/20 23:27 Eosinophils % (Manual) 0 % (0.0-4.3) 07/05/20 23:27 Basophils % (Manual) 0 % (0.0-1.8) 07/05/20 23:27 Metamyelocytes % 0 % 07/05/20 23:27 Myelocytes % 0 % 07/05/20 23:27 Promyelocytes % 0 % 07/05/20 23:27 Blast Cells % 0 % 07/05/20 23:27 Nucleated RBC % Not Reportable 07/05/20 23: Seg Neutrophils # Man 15.8 K/mm3 (1.8-7.7) H 07/05/20 23:27 Band Neutrophils # 0.0 K/mm3 07/05/20 23:27 Lymphocytes # (Manual) 2.6 K/mm3 (1.2-5.4) 07/05/20 23:27 Abs React Lymphs (Man) 0.0 K/mm3 07/05/20 23:27 Monocytes # (Manual) 1.8 K/mm3 (0.0-0.8) H 07/05/20 23:27 Eosinophils # (Manual) 0.0 K/mm3 (0.0-0.4) 07/05/20 23:27 Basophils # (Manual) 0.0 K/mm3 (0.0-0.1) 07/05/20 23:27 Metamyelocytes # 0.0 K/mm3 07/05/20 23:27 Myelocytes # 0.0 K/mm3 07/05/20 23:27 Promyelocytes # 0.0 K/mm3 07/05/20 23:27 Blast Cells # 0.0 K/mm3 07/05/20 23:27 WBC Morphology Not Reportable 07/05/20 23:27 Hypersegmented Neuts Not Reportable 07/05/20 23:27 Hyposegmented Neuts Not Reportable 07/05/20 23:27 Hypogranular Neuts Not Reportable 07/05/20 23:27 Smudge Cells Not Reportable 07/05/20 23:27 Toxic Granulation Not Reportable 07/05/20 23:27 Toxic Vacuolation Not Reportable 07/05/20 23:27 Dohle Bodies Not Reportable 07/05/20 23:27 Pelger-Huet Anomaly Not Reportable 07/05/20 23:27 Kalyani Rods Not Reportable 07/05/20 23:27 Platelet Estimate Consistent w auto 07/05/20 23:27 Clumped Platelets Not Reportable 07/05/20 23:27 Plt Clumps, EDTA Not Reportable 07/05/20 23:27 Large Platelets Not Reportable 07/05/20 23:27 Giant Platelets Not Reportable 07/05/20 23:27 Platelet Satelliting Not Reportable 07/05/20 23:27 Plt Morphology Comment Not Reportable 07/05/20 23:27 RBC Morphology Not Reportable 07/05/20 23:27 Dimorphic RBCs Not Reportable 07/05/20 23:27 Polychromasia Not Reportable 07/05/20 23:27 Hypochromasia Not Reportable 07/05/20 23:27 Poikilocytosis Not Reportable 07/05/20 23:27 Anisocytosis Few 07/05/20 23:27 Microcytosis Not Reportable 07/05/20 23:27 Macrocytosis Not Reportable 07/05/20 23:27 Spherocytes Not Reportable 07/05/20 23:27 Pappenheimer Bodies Not Reportable 07/05/20 23:27 Sickle Cells Not Reportable 07/05/20 23:27 Target Cells Not Reportable 07/05/20 23:27 Tear Drop Cells Not Reportable 07/05/20 23:27 Ovalocytes Not Reportable 07/05/20 23:27 Helmet Cells Not Reportable 07/05/20 23:27 Cline-Mccaulley Bodies Not Reportable 07/05/20 23:27 [place] Rings Not Reportable 07/05/20 23:27 Ripley Cells Rare 07/05/20 23:27 Bite Cells Not Reportable 07/05/20 23:27 Crenated Cell Not Reportable 07/05/20 23:27 Elliptocytes Not Reportable 07/05/20 23:27 Acanthocytes (Spur) Not Reportable 07/05/20 23:27 Rouleaux Not Reportable 07/05/20 23:27 Hemoglobin C Crystals Not Reportable 07/05/20 23:27 Schistocytes Not Reportable 07/05/20 23:27 Malaria parasites Not Reportable 07/05/20 23:27 Pradeep Bodies Not Reportable 07/05/20 23:27 Hem Pathologist Commnt No 07/05/20 23:27 Sodium 137 mmol/L (137-145) 07/05/20 23:27 Potassium 3.3 mmol/L (3.6-5.0) L 07/05/20 23:27 Chloride 99.6 mmol/L (98-107) 07/05/20 23:27 Carbon Dioxide 19 mmol/L (22-30) L 07/05/20 23:27 Anion Gap 22 mmol/L 07/05/20 23:27 BUN 21 mg/dL (9-20) H 07/05/20 23:27 Creatinine 1.5 mg/dL (0.8-1.3) H 07/05/20 23:27 Estimated GFR 57 ml/min 07/05/20 23:27 BUN/Creatinine Ratio 14 % 07/05/20 23:27 Glucose 130 mg/dL (75-100) H 07/05/20 23:27 Lactic Acid 1.10 mmol/L (0.7-2.0) 07/06/20 02:26 Calcium 9.0 mg/dL (8.4-10.2) 07/05/20 23:27 Magnesium 2.60 mg/dL (1.7-2.3) H 07/05/20 23:39 Total Bilirubin 0.60 mg/dL (0.1-1.2) 07/05/20 23:39 Direct Bilirubin < 0.2 mg/dL (0-0.2) 07/05/20 23:39 Indirect Bilirubin 0.4 mg/dL 07/05/20 23:39 AST 14 units/L (5-40) 07/05/20 23:39 ALT 13 units/L (7-56) 07/05/20 23:39 Alkaline Phosphatase 65 units/L (35-129) 07/05/20 23:39 Total Creatine Kinase 51 units/L (55-170) L 07/05/20 23:39 Troponin T 0.029 ng/mL (0.00-0.029) 07/06/20 07:09 NT-Pro-B Natriuret Pep 4906 pg/mL (0-900) H 07/05/20 23:39 Total Protein 7.7 g/dL (6.3-8.2) 07/05/20 23:39 Albumin 3.3 g/dL (3.9-5) L 07/05/20 23:39 Albumin/Globulin Ratio 0.8 % 07/05/20 23:39 Triglycerides 137 mg/dL (2-149) 07/05/20 23:27 Cholesterol 209 mg/dL (50-199) H 07/05/20 23:27 LDL Cholesterol Direct 135 mg/dL (50-130) H 07/05/20 23:27 HDL Cholesterol 55 mg/dL (40-59) 07/05/20 23:27 Cholesterol/HDL Ratio 3.80 % 07/05/20 23:27 Lipase 29 units/L (13-60) 07/05/20 23:39 Urine Color Yellow (Yellow) 07/06/20 03:36 Urine Turbidity Slightly-cloudy (Clear) 07/06/20 03:36 Urine pH 5.0 (5.0-7.0) 07/06/20 03:36 Ur Specific Amalia 1.023 (1.003-1.030) 07/06/20 03:36 Urine Protein 30 mg/dl mg/dL (Negative) 07/06/20 03:36 Urine Glucose (UA) Neg mg/dL (Negative) 07/06/20 03:36 Urine Ketones 20 mg/dL (Negative) 07/06/20 03:36 Urine Blood Mod (Negative) 07/06/20 03:36 Urine Nitrite Neg (Negative) 07/06/20 03:36 Urine Bilirubin Neg (Negative) 07/06/20 03:36 Urine Urobilinogen < 2.0 mg/dL (<2.0) 07/06/20 03:36 Ur Leukocyte Esterase Neg (Negative) 07/06/20 03:36 Urine WBC (Auto) 10.0 /HPF (0.0-6.0) H 07/06/20 03:36 Urine RBC (Auto) 8.0 /HPF (0.0-6.0) 07/06/20 03:36 U Epithel Cells (Auto) 4.0 /HPF (0-13.0) 07/06/20 03:36 Urine Bacteria (Auto) 1+ /HPF (Negative) 07/06/20 03:36 Hyaline Casts 13 /LPF 07/06/20 03:36 Urine Mucus 3+ /HPF 07/06/20 03:36 Salicylates < 0.3 mg/dL (2.8-20.0) L 07/05/20 23:39 Acetaminophen 5.0 ug/mL (10.0-30.0) L 07/05/20 23:39 Plasma/Serum Alcohol < 0.01 % (0-0.07) 07/05/20 23:39 Microbiology: Microbiology 07/06/20 02:24 Peripheral/Venous Blood Culture - Preliminary Culture in Progress 07/06/20 02:30 Peripheral/Venous Blood Culture - Preliminary Culture in Progress Justin/IV: Voiding Method Urinal IV Catheter Type [Left INT / Saline Lock Antecubital] Active Medications - Current Medications Current Medications: Generic Name Dose Route Start Last Admin Trade Name Freq PRN Reason Stop Dose Admin Acetaminophen 650 mg 07/06/20 02:33 Tylenol PO Q4H PRN Pain MILD(1-3)/Fever >100.5/SARMIENTO Aspirin 81 mg 07/07/20 10:00 Baby Aspirin PO QDAY MELVINA Enoxaparin Sodium 90 mg 07/06/20 11:00 07/06/20 12:18 Enoxaparin SUB-Q 90 mg Q12HR MELVINA Administration Protocol Sodium Chloride 1,000 mls @ 75 mls/hr 07/06/20 02:45 07/06/20 16:03 Nacl 0.9% 1000 Ml IV 75 mls/hr DIRECT MELVINA Administration Ceftriaxone Sodium 2 gm in 100 mls @ 200 mls/hr 07/06/20 22:00 Rocephin/Ns 2 Gm/100 Ml IV Q24H [facility] Protocol Azithromycin 500 mg/ Sodium 250 mls @ 250 mls/hr 07/06/20 22:00 Chloride IV Q24H [facility] Protocol Magnesium Hydroxide 30 ml 07/06/20 02:33 Milk Of Magnesia PO Q4H PRN Constipation Morphine Sulfate 2 mg 07/06/20 02:44 07/06/20 15:56 Morphine IV 2 mg Q5MIN PRN Administration Chest Pain unrelieved by NTG Nitroglycerin 0.4 mg 07/05/20 23:48 Nitrostat SL .Q5MIN PRN Chest Pain Ondansetron HCl 4 mg 07/06/20 02:33 Zofran IV Q8H PRN Nausea And Vomiting Sodium Chloride 10 ml 07/06/20 10:00 07/06/20 12:19 Sodium Chloride Flush Syringe 10 Ml IV 10 ml BID MELVINA Administration Sodium Chloride 10 ml 07/06/20 02:33 Sodium Chloride Flush Syringe 10 Ml IV PRN PRN LINE FLUSH
[2020-07-06] MEDS ORDERED: cefTRIAXone/NS 2 GM/100 ML 2 GM/100 ML BAG IV SCH (22:00)
[2020-07-06] MEDS ORDERED: AZITHROMYCIN 500 MG in SODIUM CHLORIDE 0.9% 250ML 250 ML IV SCH (22:00)
[2020-07-07 05:00] LABS: Basophils # (Auto) 0.1 K/mm3 (0.0-0.1); Basophils % (Auto) 0.7 % (0.0-1.8); Eosinophils # (Auto) 0.1 K/mm3 (0.0-0.4); Hematocrit 37.4 % (35.5-45.6); Hemoglobin 12.9 gm/dl (11.8-15.2); Lymphocytes # (Auto) 2.1 K/mm3 (1.2-5.4); Lymphocytes % (Auto) 18.1 % (13.4-35.0); Mean Corpuscular HGB Conc 34 % (32-34); Mean Corpuscular Volume 88 fl (84-94); Monocytes % (Auto) 8.5 % (0.0-7.3); Platelet Count 248 K/mm3 (140-440); Red Blood Count 4.25 M/mm3 (3.65-5.03); Red Cell Distribution Width 14.4 % (13.2-15.2)
[2020-07-07 05:09] LABS: INR 1.16 (0.87-1.13)
[2020-07-07 05:10] LABS: Partial Thromboplastin Time 32.3 Sec. (24.2-36.6)
[2020-07-07 05:18] LABS: Blood Urea Nitrogen 10 mg/dL (9-20); Calcium 8.2 mg/dL (8.4-10.2); Hemolysis Index 17
[2020-07-07 05:19] LABS: BUN/Creatinine Ratio 14
[2020-07-07] MEDS: SODIUM CHLORIDE 0.9% 1000 ML 1,000 ML IV SCH (06:46)
[2020-07-07] MEDS ORDERED: POTASSIUM CHLORIDE ER 20 MEQ TAB PO ONE (09:00)
[2020-07-07] MEDS ORDERED: ASPIRIN EC 325 MG TAB PO SCH (10:00)
[2020-07-07] MEDS ORDERED: APIXABAN 5 MG TAB PO SCH (10:00)
[2020-07-07] MEDS ORDERED: ASPIRIN 81 MG TAB CHEW PO SCH (10:00)
--- NOTE | 2020-07-07 10:11 | Progress Note ---
Assessment and Plan Currently stable cardiac status. Agree with present cardiac management. Minimal troponin elevation appears nonspecific at this time. Can consider stress testing once medically stabilized - can be done as OP. COVID-19 testing is pending. Plan to obtain echo pending COVID test results. Will follow. The patient has been seen in conjunction with Dr. Sands who agrees with the assessment and plan of care. - Patient Problems (1) Bilateral pulmonary embolism Current Visit: Yes Status: Acute (2) Pneumonia Current Visit: Yes Status: Suspected (3) Suspected COVID-19 virus infection Current Visit: Yes Status: Acute (4) Elevated troponin Current Visit: Yes Status: Acute (5) ROBSON (acute kidney injury) Current Visit: Yes Status: Acute (6) Bladder outlet obstruction Current Visit: Yes Status: Chronic (7) Hypokalemia Current Visit: Yes Status: Acute Subjective Date of service: 07/07/20 Principal diagnosis: PE; PNA; ? COVID Interval history: tele reviewed - in SR/ST overnight, 3 beat run NSVT noted yesterday evening. Objective Last Vital Signs Temp 98.9 F 07/07/20 04:00 Pulse 110 H 07/07/20 04:00 Resp 18 07/07/20 05:00 BP 127/87 07/07/20 04:00 Pulse Ox 94 07/07/20 07:30 - Physical Examination Narrative exam: agree with physical examination per primary - Labs and Meds Coagulation 07/07/20 Range/Units 04:14 PT 14.9 (12.2-14.9) Sec. INR 1.16 H (0.87-1.13) APTT 32.3 (24.2-36.6) Sec. CBC 07/07/20 Range/Units 04:14 WBC 11.8 H (4.5-11.0) K/mm3 RBC 4.25 (3.65-5.03) M/mm3 Hgb 12.9 (11.8-15.2) gm/dl Hct 37.4 D (35.5-45.6) % Plt Count 248 (140-440) K/mm3 Lymph # 2.1 (1.2-5.4) K/mm3 [place] # 1.0 H (0.0-0.8) K/mm3 Eos # 0.1 (0.0-0.4) K/mm3 Baso # 0.1 (0.0-0.1) K/mm3 Comprehensive Metabolic Panel 07/07/20 Range/Units 04:14 Sodium 137 (137-145) mmol/L Potassium 3.4 L (3.6-5.0) mmol/L Chloride 102.5 (98-107) mmol/L Carbon Dioxide 19 L (22-30) mmol/L BUN 10 (9-20) mg/dL Creatinine 0.7 L D (0.8-1.3) mg/dL Glucose 94 (75-100) mg/dL Calcium 8.2 L (8.4-10.2) mg/dL - Imaging and Cardiology EKG: report reviewed, image reviewed Echo: pending - EKG Sinus rhythms and dysrhythmias: sinus rhythm Repolarization changes or abnormalities: nonspecific abnormality, ST segment, and/or T wave
[2020-07-07] MEDS: MORPHINE 2 MG/1 ML INJ IV PRN (11:00)
--- NOTE | 2020-07-07 15:26 | Discharge Summary ---
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 Patient reports he was recently diagnosed with blood clots at the [facility] and admitted for couple of days however patient was said to have signed out AGAINST MEDICAL ADVICE because he had to go home to take care of his dog. Work-up in the ED revealed leukocytosis with WBC 20, Cr 1.5, mild hypokalemia, elevated troponin (0.047 -> 0.046 -> 0.029). Chest CTA, abd/pelvis CTA shows bilateral PE R>L with chronic appearance, changes at lung bases R>L c/w infectious/inflammatory process, enlarged prostate with element of bladder outlet obstruction. Patient has been started on empiric IV antibiotics and also started on subcutaneous Lovenox, admitted to telemetry for further evaluation and management. Patient denies any issue with urination, he refused 2D echocardiogram. COVID-19 test was negative. Patient was seen by cardiology and recommended medical management. Patient was then placed on therapeutic dose of Eliquis and recommended to follow-up at the [place]. Patient also recommended to follow-up with urologist at the [place]. Discharge diagnosis: --Recently diagnosed COVID-19/04/19/2020 Repeat test today was negative -- Pneumonia possible community-acquired continue zithromax to complete regimen --Atypical chest pain/NSTEMI type 2 Likely from underlying PE and bilateral pneumonia Cardiology recommended medical management and patient refused 2D echocardiogram Can consider stress testing once medically stabilized - can be done as OP. --History of pyoderma gangrenosum Patient currently on Humira. --Bilateral pulmonary embolism Placed on Eliquis, will follow-up at [place] --Hypokalemia, repleted --Enlarged prostate/BPH Placed on Flomax and recommended to follow-up outpatient Patient did not have any issue with urination Disposition: DC-01 TO HOME OR SELFCARE Time spent for discharge: 34 minutes Core Measure Documentation - Palliative Care Palliative Care/ Comfort Measures: Not Applicable - Core Measures Any of the following diagnoses?: history only Exam - Physical Exam Narrative exam: General appearance: Present: no acute distress, well-nourished - EENT Eyes: Present: PERRL, EOM intact - Neck Neck: Present: supple, normal ROM - Respiratory Respiratory effort: normal Respiratory: bilateral: diminished, rhonchi, negative: rales, wheezing - Cardiovascular Rhythm: regular Heart Sounds: Present: S1 & S2 - Extremities Extremities: no ischemia, No edema - Abdominal General gastrointestinal: soft, non-tender, non-distended, normal bowel sounds - Integumentary Integumentary: Present: clear, warm - Psychiatric Psychiatric: appropriate mood/affect, cooperative - Neurologic Neurologic: moves all extremities - Constitutional Vitals: Temp Pulse Resp BP Pulse Ox 98.9 F 110 H 18 127/87 94 07/07/20 04:00 07/07/20 04:00 07/07/20 05:00 07/07/20 04:00 07/07/20 07:30 Plan Activity: advance as tolerated Weight Bearing Status: Non-Weight Bearing Diet: low fat, low salt Additional Instructions: Follow-up with Dr. Saldaña at [place] Follow up with: PRIMARY CARE, [Primary Care Provider] - 3-5 Days Forms: AMA Form Prescriptions: Apixaban [Eliquis] 5 mg PO Q12HR #60 tablet Tamsulosin [Flomax] 0.4 mg PO QDAY #30 cap Azithromycin [Zithromax TAB] 500 mg PO Q24H #4 tablet
[2020-07-07 18:13] VITALS: BP 154/96
[2020-07-07] MEDS ORDERED: AZITHROMYCIN 250 MG TAB PO SCH (22:00)
== END 2020-07-07 16:00 | disposition home or self-care (01) ==
LOC: ED 21:40 → 4A 07-06 02:05
PROVIDERS: ADMIT Internal Medicine Geriatric Medicine; ATTEND Internal Medicine
DX: J18.9 Pneumonia, unspecified organism (principal); Z20.828 Contact with and (suspected) exposure to other viral communicable diseases; R65.10 Systemic inflammatory response syndrome (SIRS) of non-infectious origin without acute organ dysfunction; R07.89 Other chest pain; I11.0 Hypertensive heart disease with heart failure; I50.9 Heart failure, unspecified; I26.99 Other pulmonary embolism without acute cor pulmonale; E87.2 Acidosis; E87.6 Hypokalemia; E86.0 Dehydration; R79.89 Other specified abnormal findings of blood chemistry; R94.31 Abnormal electrocardiogram [ECG] [EKG]; L88 Pyoderma gangrenosum; R10.9 Unspecified abdominal pain; Z79.82 Long term (current) use of aspirin
CPT/HCPCS: 36415; 71045; 71275; 74177; 80048; 80061; 80076; 81001; 82140; 82550; 83690; 83735; 83880; 84484; 85007; 85025; 85610; 85730; 87040; 87086; 87116; 93005; 94760; 96361; 96365; 96366; 96367; 96368; 96372; 96375; 96376; 99291; G0378; J0456; J0696; J1170; J1650; J2270; J2405; J3480; J7030; J7050; Q9967; U0003; 80320; 87641; G0480

== ENCOUNTER 2020-07-24 12:03 | Observation (INO) | payer OTHER ==
[2020-07-24] MEDS ORDERED: APIXABAN 5 MG TAB PO STA (12:18)
[2020-07-24] MEDS ORDERED: SODIUM CHLORIDE 0.9% 500 ML 500 ML IV ONE (12:20)
[2020-07-24] MEDS ORDERED: SUCRALFATE 1 GM/10 ML ORAL LIQD PO ONE (12:20)
[2020-07-24] MEDS ORDERED: FAMOTIDINE 20 MG TAB PO ONE (12:20)
[2020-07-24] MEDS ORDERED: ACETAMINOPHEN 325 MG TAB PO ONE (12:20)
--- NOTE | 2020-07-24 12:21 | Emergency Department Report ---
<ANUSHA BURROUGHS - Last Filed: 07/24/20 15:56> ED General Adult HPI - General Chief complaint: Medical Clearance Stated complaint: CHEST PAIN PUI?: No Time Seen by Provider: 07/24/20 12:05 Source: patient, police, EMS ( EMS documentation not available at time of chart dictation ), RN notes reviewed, old records reviewed Mode of arrival: Stretcher Limitations: No Limitations - History of Present Illness Initial comments: The patient was evaluated in the emergency department for symptoms described in the history of present illness. He/she was evaluated in the context of the global COVID-19 pandemic, which necessitated consideration that the patient might be at risk for infection with the virus that causes COVID-19. Institutional protocols and algorithms that pertain to the evaluation of patie nts at risk for COVID-19 are in a state of rapid change based on information released by regulatory bodies including the CDC and federal and state organizations. These policies and algorithms were followed during the patient's care in the emergency department. Please note that these policies, procedures and recommendations changed on a rapid basis. This is a 65-year-old gentleman. I have evaluated this patient in the past. The patient was recently admitted to this hospital by myself. His past medical history includes hypertension, reported heart failure, and pyoderma. He typically follows at the [facility]. Recently admitted to this hospital with a complaint of chest pain and abdominal pain, reportedly diagnosed with "blood clots" at the [facility], where he subsequently signed out AGAINST MEDICAL ADVICE, recently admitted to this hospital with a right lower lobe pneumonia/pneumonitis, and chronic pulmonary emboli. Seen in consultation with cardiology, who advised outpatient stress testing, and outpatient echocardiogram. It was felt that the patient had probable community-acquired pneumonia, a type II myocardial infarction, and they specifically recommended outpatient stress testing. Today, the patient is brought to the hospital in police custody with a complaint of coughing up blood, and persistent left-sided chest pressure. The patient states that he was taking his prescription medications, up until 3 days ago, when he got arrested. While in [facility], the patient did not receive his outpatient medications, including Eliquis. Patient denies headache, neck pain, right lower quadrant abdominal pain, denies urinary symptoms, denies extremity weakness/numbness, denies hematemesis and bright red blood per rectum, and states "I think I will get checked out while I am here." He is not homicidal or suicidal. He states he is excited to be discharged because "I made Bail and I can go home." -: days(s) Location: chest Quality: aching Consistency: intermittent Improves with: none Worsens with: none - Related Data Previous Rx's Medication Instructions Recorded Last Taken Type Apixaban [Eliquis] 5 mg PO Q12HR #60 tablet 07/07/20 Unknown Rx Azithromycin [Zithromax TAB] 500 mg PO Q24H #4 tablet 07/07/20 Unknown Rx Tamsulosin [Flomax] 0.4 mg PO QDAY #30 cap 07/07/20 Unknown Rx Allergies Allergy/AdvReac Type Severity Reaction Status Date / Time No Known Allergies Allergy Verified 07/21/19 02:06 ED Review of Systems Constitutional: denies: malaise Eyes: denies: eye discharge ENT: denies: throat pain Respiratory: cough Cardiovascular: chest pain Gastrointestinal: denies: nausea, vomiting, hematemesis, melena, hematochezia Genitourinary: denies: dysuria Skin: lesions (Chronic skin lesion) Psychiatric: denies: suicidal thoughts ED Past Medical Hx - Past Medical History Hx Hypertension: Yes Hx Congestive Heart Failure: Yes Hx Diabetes: No Hx Pulmonary Embolism: Yes (Recent blood clot) Hx COPD: No Additional medical history: pyoderma gangrenosum - Social History Smoking Status: Never Smoker - Medications Home Medications: Home Medications Medication Instructions Recorded Confirmed Last Taken Type Apixaban [Eliquis] 5 mg PO Q12HR #60 tablet 07/07/20 Unknown Rx Azithromycin [Zithromax TAB] 500 mg PO Q24H #4 tablet 07/07/20 Unknown Rx Tamsulosin [Flomax] 0.4 mg PO QDAY #30 cap 07/07/20 Unknown Rx ED Physical Exam - General Limitations: No Limitations General appearance: alert, in no apparent distress - Head Head exam: Present: atraumatic, normocephalic - Eye Eye exam: Present: normal appearance, EOMI. Absent: nystagmus - ENT ENT exam: Present: normal exam, normal orophraynx, mucous membranes moist, normal external ear exam - Neck Neck exam: Present: normal inspection, full ROM. Absent: tenderness, meningismus - Respiratory Respiratory exam: Present: normal lung sounds bilaterally. Absent: respiratory distress, wheezes, rales, rhonchi, stridor, decreased breath sounds - Cardiovascular Cardiovascular Exam: Present: regular rate, normal rhythm, normal heart sounds. Absent: bradycardia, tachycardia, irregular rhythm, systolic murmur, diastolic murmur, rubs, gallop - GI/Abdominal GI/Abdominal exam: Present: soft. Absent: distended, tenderness, rebound, rigid, pulsatile mass - Rectal Rectal exam: Present: deferred - Extremities Exam Extremities exam: Present: normal inspection (Chronic findings consistent with pyoderma noted in the right lower extremity), other (2+ pulses noted in the bilateral upper and lower extremities. There is no palpable cord. negative Homans sign. Muscular compartments are soft. The pelvis is stable.). Absent: tenderness, calf tenderness - Back Exam Back exam: Present: normal inspection. Absent: tenderness, CVA tenderness (R), CVA tenderness (L), paraspinal tenderness, vertebral tenderness - Neurological Exam Neurological exam: Present: alert, oriented X3, other (No facial droop. Tongue midline. Extraocular movements intact bilaterally. Facial sensation intact to light touch in V1, V2, V3 distribution bilaterally. 5 and a 5 strength in 4 extremities. Sensation intact to light touch in 4 extremities.). Absent: motor sensory deficit - Psychiatric Psychiatric exam: Present: normal affect, normal mood. Absent: homicidal ideation, suicidal ideation - Skin Skin exam: Present: warm, dry, intact, normal color. Absent: rash ED Course - Reevaluation(s) Reevaluation #1: 07/24/20 15:23 Differential diagnosis, including but not limited to: Bronchitis, bronchiectasis, pneumonia, pulmonary embolism, costochondritis, coronary artery disease Assessment and plan: 65-year-old gentleman with numerous chronic medical issues. He reports that after being discharged from this hospital last month, he followed up with his communications administrator at the [place], who is planning on catheterizing him next week, and he reports that he had an echocardiogram, which he felt was unremarkable, but he is not quite sure. In the emergency room, he is afebrile with reassuring vital signs, with resolved tachycardia. He is saturating well on room air, and his physical exam today appears to be consistent with my prior examination from a few weeks ago. EKG appears to be unchanged x2. Troponin negative x1, EKG also unchanged from prior. Patient does not have focal pulmonary findings, his chest x-ray appears to be more impressive than on prior examination, but this may be the natural radiographic history of right lower lobe pneumonia/pneumonitis. Clinically we do not suspect that he has an acute pneumonia today. We will check troponin x2, d-dimer was elevated, therefore, CT scan of the chest will be obtained. If patient does not have any significant findings on CT scan, would consider him suitable for discharge with outpatient follow-up. Reevaluation #2: 07/24/20 15:26 X-ray of the chest is reviewed and appreciated. Patient is not having right- sided chest pain. He has no focal pulmonary findings on his examination. I do not clinically suspect acute pneumonitis. CT scan of the chest is pending. Hypokalemia reviewed and appreciated. Potassium supplementation is ordered Reevaluation #3: 07/24/20 15:56 Care will be transferred to the oncoming ER physician, Dr. Sandi Mullins, to follow-up on CT scan of the chest and arrange final disposition. ED Medical Decision Making - Lab Data Result diagrams: 07/24/20 12:35 07/24/20 12:35 Vital Signs 07/24/20 07/24/20 07/24/20 12:19 12:32 13:23 Temperature 98.2 F Pulse Rate 105 H Respiratory 18 18 18 Rate Blood Pressure 160/96 Blood Pressure 160/96 [Right] O2 Sat by Pulse 100 100 Oximetry 07/24/20 14:52 Temperature Pulse Rate 89 Respiratory Rate Blood Pressure 147/93 Blood Pressure [Right] O2 Sat by Pulse Oximetry Lab Results 07/24/20 07/24/20 07/24/20 Range/Units 12:35 12:35 12:35 Hgb 13.1 (11.8-15.2) gm/dl Hct 37.2 (35.5-45.6) % Plt Count 205 (140-440) K/mm3 PT 13.4 (12.2-14.9) Sec. INR 1.00 (0.87-1.13) D-Dimer 1250.15 H (0-234) ng/mlDDU Sodium 143 (137-145) mmol/L Potassium 2.9 L* (3.6-5.0) mmol/L Chloride 100.3 (98-107) mmol/L Carbon Dioxide 21 L (22-30) mmol/L Anion Gap 25 mmol/L BUN 12 (9-20) mg/dL Creatinine 1.2 (0.8-1.3) mg/dL Estimated GFR > 60 ml/min BUN/Creatinine Ratio 10 % Glucose 80 (75-100) mg/dL Calcium 9.2 (8.4-10.2) mg/dL Magnesium 2.00 (1.7-2.3) mg/dL Total Creatine Kinase 66 (55-170) units/L Troponin T 0.017 (0.00-0.029) ng/mL - EKG Data 07/24/20 15:25 EKG #1, EKG #2 appears to be unchanged when compared to prior EKG from June 2020 EKG #1 shows a sinus rhythm, tachycardia, 102 bpm, there is a borderline leftward axis deviation, PVCs, left ventricular hypertrophy and motion artifact. This EKG is not a STEMI. This EKG is abnormal. EKG #2 appears to be unchanged from prior EKGs. Again, neither EKG is a STEMI. - Radiology Data Radiology results: report reviewed, image reviewed Print Report Referring Physician: ANUSHA BURROUGHS Patient Name: JORGE LUIS KING Date of : 1955 Sex: Male Report Date: 2020-07-24 Report Status: Finalized Findings [address] [address] XRay Report Signed Patient: JORGE LUIS KING MR#: [id number] : 1955 Acct:[id number] Age/Sex: 65 / M ADM Date: 07/24/20 Loc: ED Attending Dr: Ordering Physician: ANUSHA BURROUGHS MD Date of Service: 07/24/20 Procedure(s): XR chest 1V ap Accession Number(s): [id number] cc: ANUSHA BURROUGHS MD Fluoro Time In Minutes: CHEST 1 VIEW 1222 INDICATION / CLINICAL INFORMATION: Chest Pain COMPARISON: 07/05/2020 FINDINGS: SUPPORT DEVICES: None HEART / MEDIASTINUM: No significant abnormality. LUNGS / PLEURA: Infiltrate seen previously in the right base has significantly worsened. There is also now mild patchy infiltrate in the left base. No pneumothorax. ADDITIONAL FINDINGS: No significant additional findings. IMPRESSION: Worsening of infiltrates, particularly on the right, consistent with worsening pneumonitis Signer Name: Shayne De Santiago MD Signed: 07/24/2020 1:18 PM Workstation Name: [id number] Transcribed By: TIARRA Dictated By: Shayne De Santiago MD Electronically Authenticated By: Shayne De Santiago MD Signed Date/Time: 07/24/201317 DD/ 16 TD/TT: ED Disposition Clinical Impression: Elevated troponin, Suspected COVID-19 virus infection, Hypokalemia Bilateral pneumonia Qualifiers: Pneumonia type: due to unspecified organism Lung location: unspecified part of lung Qualified Code(s): J18.9 - Pneumonia, unspecified organism Disposition: DC-09 OP ADMIT IP TO THIS HOSP Condition: Critical <ZANDER MULLINS III - Last Filed: 07/24/20 16:50> ED Review of Systems ROS: Stated complaint: CHEST PAIN Other details as noted in HPI ED Course Vital Signs 07/24/20 07/24/20 07/24/20 12:19 12:32 13:23 Temperature 98.2 F Pulse Rate 105 H Respiratory 18 18 18 Rate Blood Pressure 160/96 Blood Pressure 160/96 [Right] O2 Sat by Pulse 100 100 Oximetry 07/24/20 07/24/20 14:23 14:52 Temperature Pulse Rate 89 Respiratory 18 Rate Blood Pressure 147/93 Blood Pressure [Right] O2 Sat by Pulse Oximetry - Reevaluation(s) Reevaluation #3: Patient was signed out to me from previous physician to follow-up on pending CTA. 07/24/20 16:01 Reevaluation #4: Patient CTA resulted and shows a worsening bilateral pneumonia. Patient's antibiotics ordered. I discussed all results with patient. I discussed plan of care with patient. Patient agrees with plan of care and admission. Patient to be admitted to the hospitalist service. 07/24/20 16:48 - Consultations Consultation #1: Hospitalist consulted for admission. Hospitalist to admit patient. Dr. Chong to assume care. 07/24/20 16:49 Consultation #2: Infectious disease consulted. COVID-19 panel ordered. 07/24/20 16:50 ED Medical Decision Making - Lab Data Result diagrams: 07/24/20 12:35 07/24/20 12:35 Critical care attestation.: If time is entered above; I have spent that time in minutes in the direct care of this critically ill patient, excluding procedure time. ED Disposition Is pt being admited?: Yes Does the pt Need Aspirin: No Time of Disposition: 16:50
[2020-07-24 13:03] LABS: Hematocrit 37.2 % (35.5-45.6); Hemoglobin 13.1 gm/dl (11.8-15.2)
--- NOTE | 2020-07-24 13:22 | XRay Report ---
CHEST 1 VIEW 1222 INDICATION / CLINICAL INFORMATION: Chest Pain COMPARISON: 07/05/2020 FINDINGS: SUPPORT DEVICES: None HEART / MEDIASTINUM: No significant abnormality. LUNGS / PLEURA: Infiltrate seen previously in the right base has significantly worsened. There is als o now mild patchy infiltrate in the left base. No pneumothorax. ADDITIONAL FINDINGS: No significant additional findings. IMPRESSION: Worsening of infiltrates, particularly on the right, consistent with worsening pneumoniti s Signer Name: Shayne De Santiago MD Signed: 07/24/2020 1:18 PM Workstation Name: [id number]
[2020-07-24 13:26] LABS: BUN/Creatinine Ratio 10; Blood Urea Nitrogen 12 mg/dL (9-20); Calcium 9.2 mg/dL (8.4-10.2); Hemolysis Index 3
[2020-07-24] MEDS ORDERED: POTASSIUM CHLORIDE ER 20 MEQ TAB PO ONE (13:43)
[2020-07-24] MEDS ORDERED: METOPROLOL TARTRATE 50 MG TAB PO ONE (13:44)
[2020-07-24] MEDS: POTASSIUM CHLORIDE 10 MEQ 10 MEQ/100 ML BAG IV SCH ×4 (14:53→18:28)
[2020-07-24] MEDS: TAMSULOSIN 0.4 MG CAP PO SCH (15:13)
--- NOTE | 2020-07-24 16:08 | Cat Scan Report ---
CTA CHEST WITH IV CONTRAST INDICATION: cp, pna, hemoptysis, hx of pe CONTRAST: 100 cc Omnipaque 350 IV COMPARISON: CTA chest 07/05/2020, portable chest x-ray today Three-plane MIP reconstructions were produced. All CT scans at this location are performed using CT d ose reduction for ALARA by means of automated exposure control. FINDINGS: No significant axillary or chest wall abnormalities are seen. Visualized portions of the up per abdomen show fatty infiltration of the liver. The kidneys are only partially visualized but there is now the appearance of bilateral moderate collecting system dilatation which was not obvious previ ously. Heart is mildly enlarged. No mediastinal masses are seen. Multiple small mediastinal nodes are seen. A precarinal node is mildly enlarged and has a short axis diameter of 12 mm. This area was difficult to visualize previously due to artifact but does not appear obviously changed. There probably is mild bilateral hilar adenopathy which is more noticeable. Small bilateral pleural effusions have increased in prominence, greater on the right. No pneumothorax or pneumomediastinum are seen. No endobronchial lesions are noted. Bilateral lower lobe atelectatic changes are seen. Patchy pneumonitis in the right lower lobe and right middle lobe are not significan tly changed. Increased markings in the left lower lobe have improved however. Mild probable atelectas is is seen in the lingula. The aorta is not opacified for internal evaluation but shows no aneurysmal dilatation. Good opacification of the pulmonary arterial system was achieved. I do not currently see evidence of pulmonary thromboembolism. The bilateral PTE seen on previous examination has resolved. In a mid leve l right lower lobe artery there is a cyst small peripheral and which is probably minimal chronic watkins ge. IMPRESSION: 1. No evidence of acute pulmonary thromboembolism with resolution of previous bilateral PTE 2. Continued evidence of moderate pneumonitis in the right lower lobe and to a lesser degree in the r ight middle lobe. Infiltrate in the left lower lobe has nearly cleared. 3. Small bilateral pleural effusions, greater on the right, increase from previous study. 4. Mild mediastinal and hilar faustino prominence, probably reactive. Recommend follow-up. 5. An interval change from study 2 weeks ago is the partially visualized appearance of moderate bilat eral renal collecting system dilatation. This would suggest bilateral obstruction which in a male of this age particularly might indicate bladder outlet obstruction. CT abdomen and pelvis may be useful in further evaluation. Signer Name: Shayne De Santiago MD Signed: 07/24/2020 4:04 PM Workstation Name: [id number]
[2020-07-24] MEDS ORDERED: cefTRIAXone/NS 2 GM/100 ML 2 GM/100 ML BAG IV ONE ×2 (16:44→17:19)
[2020-07-24] MEDS ORDERED: dexAMETHasone 4 MG/ML VIAL IV ONE (16:44)
[2020-07-24] MEDS ORDERED: AZITHROMYCIN 500 MG in SODIUM CHLORIDE 0.9% 250ML 250 ML IV ONE (16:44)
--- NOTE | 2020-07-24 16:55 | History and Physical Report ---
History of Present Illness Chief complaint: I am sick, I am coughing and it has a little blood in it History of present illness: 65 YO Male with HTN, PG, CHF, Covid 19 Infection S/P Full coarse treatment presents to ED for evaluation. Patient states that he had experienced generalized weakness, malaise, cough productive of blood-tinged sputum, nausea. Patient is currently in the custody of law enforcement. Patient transported to [facility] for further care and evaluation of the aforementioned symptoms. Patient seen and evaluated in the emergency department. All lab and imaging studies reviewed. Patient underwent chest x-ray and was found to have evidence of bilateral pneumonia. Patient initiated on coronavirus protocol prior to my evaluation in the emergency department. Patient admitted to medical floor and treated with supportive care. Patient also found to have hypokalemia, acidosis and accelerated hypertension. Patient denies chills, chest pain, palpitations, skin rash, recent ill contacts. Patient is uncertain regarding exposure to COVID-19. Prior admission on 07/06/2020 reviewed. All medication listed at time of admission has been reconciled. Advanced care planning conducted in ED. Past History Past Medical History: heart failure, hypertension, other (See HPI) Past Surgical History: No surgical history, Other (Reviewed) Social history: single. denies: smoking, alcohol abuse, prescription drug abuse Family history: hypertension Medications and Allergies Allergies Allergy/AdvReac Type Severity Reaction Status Date / Time No Known Allergies Allergy Verified 07/21/19 02:06 Home Medications Medication Instructions Recorded Confirmed Last Taken Type Apixaban [Eliquis] 5 mg PO Q12HR #60 tablet 07/07/20 Unknown Rx Azithromycin [Zithromax TAB] 500 mg PO Q24H #4 tablet 07/07/20 Unknown Rx Tamsulosin [Flomax] 0.4 mg PO QDAY #30 cap 07/07/20 Unknown Rx Active Meds: Active Medications Potassium Chloride (Kcl 10meq/100ml) 10 meq in 100 mls @ 100 mls/hr IV Q1H MELVINA Stop: 07/24/20 17:59 Last Admin: 07/24/20 16:08 Dose: 100 mls/hr Documented by: Azithromycin 500 mg/ Sodium (Chloride) 250 mls @ 250 mls/hr IV ONCE ONE; Protocol Stop: 07/24/20 17:43 Ceftriaxone Sodium (Rocephin/Ns 2 Gm/100 Ml) 2 gm in 100 mls @ 200 mls/hr IV ONCE ONE; Protocol Stop: 07/24/20 17:13 Tamsulosin HCl (Flomax) 0.4 mg PO QDAY MELVINA Last Admin: 07/24/20 15:13 Dose: 0.4 mg Documented by: Review of Systems Constitutional: fever, weakness, malaise, lethargy, no sweats, no night sweats Ears, nose, mouth and throat: no ear pain, no ear discharge, no tinnitis, no decreased hearing, no nasal congestion Cardiovascular: no chest pain, no orthopnea, no palpitations Respiratory: cough, cough with sputum, hemoptysis, no dyspnea on exertion, no pain, no pain on inspiration Gastrointestinal: no abdominal pain, no nausea, no vomiting, no diarrhea Genitourinary Male: no hematuria, no flank pain, no discharge Rectal: no pain, no incontinence, no bleeding Musculoskeletal: no neck stiffness, no neck pain, no shooting arm pain, no low back pain, no leg numbness/tingling Integumentary: no rash, no pruritis, no redness, no sores, no wounds Neurological: no head injury, no transient paralysis, no paralysis, no parathesias, no tingling, no seizures, no syncope Psychiatric: no anxiety, no memory loss, no change in sleep habits, no insomnia, no change in libido, no suicidal ideation, no disorientation Endocrine: no cold intolerance, no heat intolerance, no excessive thirst, no polyuria, no nocturia Hematologic/Lymphatic: no easy bruising, no easy bleeding, no lymphedema Allergic/Immunologic: no urticaria, no allergic rhinitis, no persistent infections Exam - Constitutional Vitals: Temp Pulse Resp BP Pulse Ox 98.5 F 89 18 147/93 100 07/24/20 12:19 07/24/20 14:52 07/24/20 14:23 07/24/20 14:52 07/24/20 12:32 General appearance: Present: mild distress - EENT Eyes: Present: PERRL ENT: hearing intact, clear oral mucosa - Neck Neck: Present: supple, normal ROM - Respiratory Respiratory effort: labored, accessory muscle use, stridor Respiratory: bilateral: diminished - Cardiovascular Heart Sounds: Present: S1 & S2. Absent: rub, click - Extremities Extremities: pulses symmetrical, No edema Peripheral Pulses: within normal limits - Abdominal General gastrointestinal: Present: soft, non-tender, non-distended, normal bowel sounds Male genitourinary: Present: normal - Integumentary Integumentary: Present: clear, warm, dry - Musculoskeletal Musculoskeletal: gait normal, strength equal bilaterally - Psychiatric Psychiatric: appropriate mood/affect, intact judgment & insight - Neurologic Neurologic: CNII-XII intact, moves all extremities HEART Score - HEART Score Troponin: Troponin T 0.015 ng/mL (0.00-0.029) 07/24/20 14:45 Results - Labs CBC & Chem 7: 07/24/20 16:44 07/24/20 16:50 Labs: Abnormal lab results 07/24/20 07/24/20 Range/Units 12:35 12:35 D-Dimer 1250.15 H (0-234) ng/mlDDU Potassium 2.9 L* (3.6-5.0) mmol/L Carbon Dioxide 21 L (22-30) mmol/L Assessment and Plan - Patient Problems (1) Bilateral pneumonia Current Visit: Yes Status: Acute Qualifiers: Pneumonia type: due to unspecified organism Lung location: unspecified part of lung Qualified Code(s): J18.9 - Pneumonia, unspecified organism Plan to address problem: Pneumonia protocol: CBC, CMP, chest x-ray, supplemental oxygen, pulse oximetry, nebulizer therapy, noninvasive positive pressure ventilation as clinically indicated, blood culture. (2) Hypokalemia Current Visit: Yes Status: Acute Plan to address problem: Dietary repletion, repeat BMP in a.m. (3) Acidosis Current Visit: Yes Status: Acute Plan to address problem: BMP, repeat BMP in a.m. (4) CHF (congestive heart failure) Current Visit: Yes Status: Acute Qualifiers: Heart failure chronicity: chronic Plan to address problem: Strict I's/O, monitor urine output every shift, daily weight, blood pressure control, supportive care. (5) Suspected COVID-19 virus infection Current Visit: Yes Status: Acute Plan to address problem: Coronavirus protocol: Coronavirus PCR ordered in the emergency department. Prone positioning while in bed, isolation precautions, contact precautions, IV steroid therapy, pulse oximetry. (6) Accelerated hypertension Current Visit: Yes Status: Acute Plan to address problem: Monitor blood pressure every shift, continue medical management. (7) DVT prophylaxis Current Visit: Yes Status: Acute Plan to address problem: SCD to bilateral lower extremities while in bed, prophylactic anticoagulation (8) Advance care planning Current Visit: Yes Status: Acute Plan to address problem: Disease education conducted, prognosis discussed, patient is full code, patient knowledges understanding and agreement with care plan, +30 minutes.
[2020-07-24] MEDS ORDERED: ALBUTEROL 2.5 MG/3 ML NEBU IH PRN (17:00)
[2020-07-24] MEDS ORDERED: ACETAMINOPHEN 325 MG TAB PO PRN (17:00)
[2020-07-24] MEDS ORDERED: ONDANSETRON 4 MG/2 ML INJ IV PRN (17:00)
[2020-07-24 17:04] LABS: Basophils # (Auto) 0.1 K/mm3 (0.0-0.1); Basophils % (Auto) 0.8 % (0.0-1.8); Eosinophils # (Auto) 0.1 K/mm3 (0.0-0.4); Eosinophils % (Auto) 0.5 % (0.0-4.3); Hematocrit 35.2 % (35.5-45.6); Hemoglobin 12.6 gm/dl (11.8-15.2); Lymphocytes # (Auto) 1.7 K/mm3 (1.2-5.4); Lymphocytes % (Auto) 17.4 % (13.4-35.0); Mean Corpuscular HGB Conc 36 % (32-34); Mean Corpuscular Volume 88 fl (84-94); Monocytes # (Auto) 0.9 K/mm3 (0.0-0.8); Monocytes % (Auto) 8.8 % (0.0-7.3); Platelet Count 197 K/mm3 (140-440); Red Blood Count 4.02 M/mm3 (3.65-5.03); Red Cell Distribution Width 14.5 % (13.2-15.2)
[2020-07-24] MEDS ORDERED: oxyCODONE /ACETAMINOPHEN 5-325MG TAB ONE (17:17)
[2020-07-24] MEDS: oxyCODONE /ACETAMINOPHEN 5-325MG TAB PO PRN (17:19)
[2020-07-24] MEDS ORDERED: POTASSIUM CHLORIDE 10 MEQ 10 MEQ/100 ML BAG IV ONE (18:26)
[2020-07-24] MEDS ORDERED: amLODIPine 5 MG TAB PO SCH (20:40)
[2020-07-24] MEDS ORDERED: hydroCHLOROthiazide 12.5 MG CAP PO SCH (20:40)
[2020-07-24] MEDS: methylPREDNISolone Sod Succinate 40 MG/1 ML INJ IV SCH (21:06)
[2020-07-24] MEDS: LISINOPRIL 5 MG TAB PO SCH (21:06)
[2020-07-24] MEDS: METOPROLOL TARTRATE 25 MG TAB PO SCH (21:06)
[2020-07-25 05:10] LABS: Basophils % (Auto) 0.4 % (0.0-1.8); Hematocrit 33.9 % (35.5-45.6); Hemoglobin 12.1 gm/dl (11.8-15.2); Lymphocytes # (Auto) 0.7 K/mm3 (1.2-5.4); Lymphocytes % (Auto) 17.4 % (13.4-35.0); Mean Corpuscular HGB Conc 36 % (32-34); Mean Corpuscular Volume 87 fl (84-94); Monocytes # (Auto) 0.1 K/mm3 (0.0-0.8); Monocytes % (Auto) 1.7 % (0.0-7.3); Platelet Count 212 K/mm3 (140-440); Red Blood Count 3.89 M/mm3 (3.65-5.03); Red Cell Distribution Width 14.4 % (13.2-15.2)
[2020-07-25 05:30] LABS: Alanine Aminotransferase 13 units/L (7-56); Albumin 3.5 g/dL (3.9-5); BUN/Creatinine Ratio 8; Blood Urea Nitrogen 11 mg/dL (9-20); Calcium 8.5 mg/dL (8.4-10.2); Hemolysis Index 6
--- NOTE | 2020-07-25 08:45 | Progress Note ---
Assessment and Plan Assessment and plan: 65 YO Male with HTN, PG, CHF, Covid 19 Infection S/P Full coarse treatment presents to ED for evaluation. Patient states that he had experienced generalized weakness, malaise, cough productive of blood-tinged sputum, nausea. Patient is currently in the custody of law enforcement. Patient transported to [facility] for further care and evaluation of the aforementioned symptoms. Patient seen and evaluated in the emergency department. All lab and imaging studies reviewed. Patient underwent chest x-ray and was found to have evidence of bilateral pneumonia. Patient initiated on coronavirus protocol prior to my evaluation in the emergency department. Patient admitted to medical floor and treated with supportive care. Patient also found to have hypokalemia, acidosis and accelerated hypertension. Patient denies chills, chest pain, palpitations, skin rash, recent ill contacts. Patient is uncertain regarding exposure to COVID-19. Prior admission on 07/06/2020 reviewed. All medication listed at time of admission has been reconciled. Advanced care planning conducted in ED. (1) Bilateral pneumonia Current Visit: Yes Status: Acute Qualifiers: Pneumonia type: due to unspecified organism Lung location: unspecified part of lung Qualified Code(s): J18.9 - Pneumonia, unspecified organism Plan to address problem: Pneumonia protocol: CBC, CMP, chest x-ray, supplemental oxygen, pulse oximetry, nebulizer therapy, noninvasive positive pressure ventilation as clinically indicated, blood culture. (2) Hypokalemia Current Visit: Yes Status: Acute Plan to address problem: Dietary repletion, repeat BMP in a.m. (3) Acidosis Current Visit: Yes Status: Acute Plan to address problem: BMP, repeat BMP in a.m. (4) CHF (congestive heart failure) Current Visit: Yes Status: Acute Qualifiers: Heart failure chronicity: chronic Plan to address problem: Strict I's/O, monitor urine output every shift, daily weight, blood pressure control, supportive care. (5) Suspected COVID-19 virus infection Current Visit: Yes Status: Acute Plan to address problem: Coronavirus protocol: Coronavirus PCR ordered in the emergency department. Prone positioning while in bed, isolation precautions, contact precautions, IV steroid therapy, pulse oximetry. (6) Accelerated hypertension Current Visit: Yes Status: Acute Plan to address problem: Monitor blood pressure every shift, continue medical management. (7) DVT prophylaxis Current Visit: Yes Status: Acute Plan to address problem: SCD to bilateral lower extremities while in bed, prophylactic anticoagulation (8) Advance care planning Current Visit: Yes Status: Acute Plan to address problem: Disease education conducted, prognosis discussed, patient is full code, patient knowledges understanding and agreement with care plan, +30 minutes. Hospitalist Physical - Constitutional Vitals: Temp Pulse Resp BP Pulse Ox 98.0 F 106 H 20 127/83 94 07/25/20 06:21 07/25/20 06:21 07/25/20 06:21 07/25/20 06:21 07/25/20 06:21 General appearance: Present: mild distress HEART Score - HEART Score Troponin: Troponin T 0.015 ng/mL (0.00-0.029) 07/24/20 14:45 Results - Labs CBC & Chem 7: 07/25/20 04:09 07/25/20 04:09 Labs: Laboratory Last Values WBC 3.9 K/mm3 (4.5-11.0) L 07/25/20 04:09 RBC 3.89 M/mm3 (3.65-5.03) 07/25/20 04:09 Hgb 12.1 gm/dl (11.8-15.2) 07/25/20 04:09 Hct 33.9 % (35.5-45.6) L 07/25/20 04:09 MCV 87 fl (84-94) 07/25/20 04:09 MCH 31 pg (28-32) 07/25/20 04:09 MCHC 36 % (32-34) H 07/25/20 04:09 RDW 14.4 % (13.2-15.2) 07/25/20 04:09 Plt Count 212 K/mm3 (140-440) 07/25/20 04:09 Lymph % (Auto) 17.4 % (13.4-35.0) 07/25/20 04:09 Benzie % (Auto) 1.7 % (0.0-7.3) 07/25/20 04:09 Eos % (Auto) 0.0 % (0.0-4.3) 07/25/20 04:09 Baso % (Auto) 0.4 % (0.0-1.8) 07/25/20 04:09 Lymph # (Auto) 0.7 K/mm3 (1.2-5.4) L 07/25/20 04:09 Benzie # (Auto) 0.1 K/mm3 (0.0-0.8) 07/25/20 04:09 Eos # (Auto) 0.0 K/mm3 (0.0-0.4) 07/25/20 04:09 Baso # (Auto) 0.0 K/mm3 (0.0-0.1) 07/25/20 04:09 Seg Neutrophils % 80.5 % (40.0-70.0) H 07/25/20 04:09 Seg Neutrophils # 3.2 K/mm3 (1.8-7.7) 07/25/20 04:09 PT 13.4 Sec. (12.2-14.9) 07/24/20 12:35 INR 1.00 (0.87-1.13) 07/24/20 12:35 D-Dimer 1089.24 ng/mlDDU (0-234) H 07/24/20 16:50 Sodium 137 mmol/L (137-145) 07/25/20 04:09 Potassium 3.6 mmol/L (3.6-5.0) D 07/25/20 04:09 Chloride 98.8 mmol/L (98-107) 07/25/20 04:09 Carbon Dioxide 21 mmol/L (22-30) L 07/25/20 04:09 Anion Gap 21 mmol/L 07/25/20 04:09 BUN 11 mg/dL (9-20) 07/25/20 04:09 Creatinine 1.3 mg/dL (0.8-1.3) 07/25/20 04:09 Estimated GFR > 60 ml/min 07/25/20 04:09 BUN/Creatinine Ratio 8 % 07/25/20 04:09 Glucose 165 mg/dL (75-100) H 07/25/20 04:09 Calcium 8.5 mg/dL (8.4-10.2) 07/25/20 04:09 Magnesium 2.00 mg/dL (1.7-2.3) 07/24/20 12:35 Ferritin 384.6 ng/mL (30.0-300.0) H 07/24/20 16:50 Total Bilirubin 0.60 mg/dL (0.1-1.2) 07/25/20 04:09 AST 16 units/L (5-40) 07/25/20 04:09 ALT 13 units/L (7-56) 07/25/20 04:09 Alkaline Phosphatase 93 units/L (35-129) 07/25/20 04:09 Lactate Dehydrogenase 286 units/L (91-180) H 07/24/20 16:50 Total Creatine Kinase 66 units/L (55-170) 07/24/20 12:35 Troponin T 0.015 ng/mL (0.00-0.029) 07/24/20 14:45 C-Reactive Protein 3.00 mg/dL (0.00-1.30) H 07/24/20 16:50 Total Protein 6.6 g/dL (6.3-8.2) 07/25/20 04:09 Albumin 3.5 g/dL (3.9-5) L 07/25/20 04:09 Albumin/Globulin Ratio 1.1 % 07/25/20 04:09 Justin/IV: Voiding Method Bedside Commode IV Catheter Type [Left Forearm INT / Saline Lock ] Active Medications - Current Medications Current Medications: Generic Name Dose Route Start Last Admin Trade Name Freq PRN Reason Stop Dose Admin Acetaminophen 650 mg 07/24/20 17:00 Tylenol PO Q4H PRN Pain MILD(1-3)/Fever >100.5/SARMIENTO Albuterol 2.5 mg 07/24/20 17:00 Proventil IH Q4HRT PRN Shortness Of Breath Enoxaparin Sodium 30 mg 07/25/20 10:00 Enoxaparin SUB-Q QDAY [facility] Protocol Furosemide 20 mg 07/25/20 10:00 Lasix IV QDAY MELVINA Ceftriaxone Sodium 2 gm in 100 mls @ 200 mls/hr 07/25/20 10:00 Rocephin/Ns 2 Gm/100 Ml IV Q24HR MELVINA Protocol Azithromycin 500 mg/ Sodium 250 mls @ 250 mls/hr 07/25/20 10:00 Chloride IV Q24HR [facility] Protocol Lisinopril 5 mg 07/24/20 20:41 07/24/20 21:06 Zestril PO 5 mg QDAY MELVINA Administration Methylprednisolone Sodium Succinate 40 mg 07/24/20 22:00 07/24/20 21:06 Solu-Medrol IV 40 mg Q8HR MELVINA Administration Metoprolol Tartrate 25 mg 07/24/20 22:00 07/24/20 21:06 Metoprolol PO 25 mg BID MELVINA Administration Ondansetron HCl 4 mg 07/24/20 17:00 07/24/20 17:22 Zofran IV 4 mg Q8H PRN Administration Nausea And Vomiting Oxycodone/Acetaminophen 1 tab 07/24/20 17:00 07/24/20 17:19 Percocet 5/325 PO 1 tab Q6H PRN Administration Pain, Moderate (4-6) Sodium Chloride 10 ml 07/24/20 22:00 07/24/20 21:09 Sodium Chloride Flush Syringe 10 Ml IV 10 ml BID MELVINA Administration Sodium Chloride 10 ml 07/24/20 17:00 Sodium Chloride Flush Syringe 10 Ml IV PRN PRN LINE FLUSH Tamsulosin HCl 0.4 mg 07/24/20 14:00 07/24/20 15:13 Flomax PO 0.4 mg QDAY MELVINA Administration
[2020-07-25] MEDS: LISINOPRIL 5 MG TAB PO SCH (09:21)
[2020-07-25] MEDS: METOPROLOL TARTRATE 25 MG TAB PO SCH (09:22)
[2020-07-25] MEDS: TAMSULOSIN 0.4 MG CAP PO SCH (09:23)
[2020-07-25] MEDS: oxyCODONE /ACETAMINOPHEN 5-325MG TAB PO PRN (09:34)
[2020-07-25] MEDS: methylPREDNISolone Sod Succinate 40 MG/1 ML INJ IV SCH (09:34)
[2020-07-25] MEDS ORDERED: FUROSEMIDE 20 MG/2 ML INJ IV SCH (10:00)
[2020-07-25] MEDS ORDERED: ENOXAPARIN 30 MG/0.3 ML INJ SUB-Q SCH (10:00)
[2020-07-25] MEDS ORDERED: cefTRIAXone/NS 2 GM/100 ML 2 GM/100 ML BAG IV SCH (10:00)
[2020-07-25] MEDS ORDERED: APIXABAN 5 MG TAB PO SCH ×2 (10:00→22:00)
[2020-07-25] MEDS ORDERED: AZITHROMYCIN 500 MG in SODIUM CHLORIDE 0.9% 250ML 250 ML IV SCH (10:00)
--- NOTE | 2020-07-25 11:30 | Cat Scan Report ---
CT ABDOMEN AND PELVIS WITHOUT CONTRAST INDICATION: History of pneumonia. Evaluate for bladder outlet obstruction. TECHNICAL: Multiple axial CT images of the abdomen and pelvis were acquired without intravenous contr ast. Sagittal and coronal reformats were obtained. All CTs at this facility utilize dose reduction techniques including automated exposure control, iterative reconstruction and weight based dosing whe n appropriate to reduce patient radiation dose to as low as reasonable achievable. COMPARISON: CT of the abdomen and pelvis, 07/06/2020 FINDINGS: Limited imaging of the bilateral lung bases again demonstrate right lower lobe airspace disease which has a nodular appearance with small bilateral pleural effusions. Abdomen: Within the limitations of today's noncontrast study, the liver, gallbladder, spleen, pancrea s and bilateral adrenal glands show no evidence of acute abnormality. There is mild bilateral hydrone phrosis and hydroureter. Contrast is noted within the collecting system from patient's recent CT of t he chest. The abdominal aorta is normal in caliber. There is no evidence of bowel obstruction or free fluid. The appendix is visualized and appears normal. Pelvis: The urinary bladder is moderately distended, as demonstrated on prior studies. The prostate g land is moderately enlarged and indents the base of the bladder. Bones and Soft Tissues: Evaluation of bony structures demonstrates a nonspecific 9 mm sclerotic lesi on in the right iliac wing. There are minimally displaced fractures of the left lateral eighth, ninth , 10th and 11th ribs. IMPRESSION: 1. Mild bilateral hydronephrosis and moderate distention of the urinary bladder. If the patient has a history of bladder outlet obstruction, the cause may be the markedly enlarged prostate gland. 2. Nonspecific sclerotic lesion within the right iliac wing. 3. Stable appearance of right lower lobe airspace disease with small bilateral pleural effusions. 4. Minimally displaced left-sided rib fractures of indeterminate age. Signer Name: Betty Acosta MD Signed: 07/25/2020 11:26 AM Workstation Name: [id number]
--- NOTE | 2020-07-25 14:10 | Discharge Summary ---
<SILKE ZHENG - Last Filed: 07/25/20 14:43> Providers - Providers Date of Admission: 07/24/20 17:01 Date of discharge: 07/25/20 Attending physician: JOSÉ MIGUEL SUAZO MD Primary care physician: SCALE AGENT Hospitalization Condition: Stable Hospital course: 65 YO Male with HTN, PG, CHF, Covid 19 Infection S/P Full coarse treatment pres ents to ED for evaluation. Patient states that he had experienced generalized weakness, malaise, cough productive of blood-tinged sputum, nausea. Patient is currently in the custody of law enforcement. Patient transported to [facility] for further care and evaluation of the aforementioned symptoms. Patient seen and evaluated in the emergency department. All lab and imaging studies reviewed. Patient underwent chest x-ray and was found to have evidence of bilateral pneumonia. Patient initiated on coronavirus protocol prior to my evaluation in the emergency department. Patient admitted to medical floor and treated with supportive care. Patient also found to have hypokalemia, acidosis and accelerated hypertension. Patient denies chills, chest pain, palpitations, skin rash, recent ill contacts. Patient is uncertain regarding exposure to COVID-19. Prior admission on 07/06/2020 reviewed. All medication listed at time of admission has been reconciled. Advanced care planning conducted in ED. Bilateral pneumonia Will d/c on oral antibiotic with augmentin (2) Hypokalemia-replaced and resolved (3) Acidosis-resolved (4) CHF (congestive heart failure) Seen by oyster culturist in this admission-advised to follow up out patient for stress test and ECHO Patient advised to monitor I/O at home and monitor blood pressure at home. (5) Suspected COVID-19 virus infection patient seen sitting at the side of the bed Patient not in any distress-on room air (6) Accelerated hypertension-stable 118/77 Advised to Monitor blood pressure at home Discussed medication compliance and follow up appointment-pt voiced understanding. (7) Hx of pulmonary embolism Discharged on eliqis Bilateraly Hydronephrolsis CT of the abdomen and pelvis Shows- 1. Mild bilateral hydronephrosis and hydroureter. 2. There is no evidence of bowel obstruction or free fluid. Patient advised to follow up with Urologist Diarrhea Patient reports episode of diarrhea today He denies abdominal pain, nausea and vomiting Will d/c on Imodium PRN Patient seen at bedside-with officer in the room. Patient denies chest pain, abdominal pain and n/v Reviewed lab, mar, and v/s. patient calm and not acute distress Reviewed ED noted-patient hx of CHF-oyster culturist recommended out patient follow up for stress test and ECHO Patient advised and education on the importance of medication compliance and follo wup appointment. Disposition: DC- TO HOME OR SELFCARE Core Measure Documentation - Palliative Care Palliative Care/ Comfort Measures: Not Applicable - Core Measures Any of the following diagnoses?: none Exam - Constitutional Vitals: Temp Pulse Resp BP Pulse Ox 97.5 F L 94 H 22 118/77 95 07/25/20 11:32 07/25/20 11:32 07/25/20 11:32 07/25/20 11:32 07/25/20 11:32 General appearance: Present: no acute distress, well-nourished - EENT Eyes: Present: PERRL ENT: hearing intact, clear oral mucosa - Neck Neck: Present: supple, normal ROM - Respiratory Respiratory effort: normal Respiratory: bilateral: CTA - Cardiovascular Heart Sounds: Present: S1 & S2. Absent: rub, click - Extremities Extremities: pulses symmetrical, No edema Peripheral Pulses: within normal limits - Abdominal General gastrointestinal: Present: soft, non-tender, non-distended, normal bowel sounds Male genitourinary: Present: normal - Integumentary Integumentary: Present: clear, warm, dry - Musculoskeletal Musculoskeletal: gait normal, strength equal bilaterally - Psychiatric Psychiatric: appropriate mood/affect, intact judgment & insight - Neurologic Neurologic: CNII-XII intact, moves all extremities Plan Diet: low fat, low cholesterol, low salt, low carbohydrate Follow up with: PRIMARY CAREMD [Primary Care Provider] - 7 Days AMY HAMPTON MD [Staff Physician] - 7 Days Prescriptions: Amoxicillin/K Clav Tab [Augmentin 875MG TAB] 1 each PO Q12HR 10 Days #20 tablet Apixaban [Eliquis] 10 mg PO Q12HR 7 Days #14 tablet Apixaban [Eliquis] 5 mg PO Q12HR 30 Days #60 tablet Tamsulosin [Flomax] 0.4 mg PO QDAY 30 Days #30 capsule Tamsulosin [Flomax] 0.4 mg PO QDAY 30 Days #30 cap Loperamide [Imodium] 2 mg PO Q2H PRN 4 Days #14 capsule PRN Reason: Diarrhea Metoprolol [Lopressor TAB] 25 mg PO BID 30 Days #60 tablet lisinopriL [Zestril TAB] 5 mg PO QDAY 30 Days #30 tablet Azithromycin [Zithromax TAB] 500 mg PO Q24H 5 Days #4 tablet <JOSÉ MIGUEL SUAZO - Last Filed: 07/26/20 07:22> Providers - Providers Date of Admission: 07/24/20 17:01 Attending physician: JOSÉ MIGUEL SUAZO MD Primary care physician: SCALE AGENT Hospitalization Hospital course: I saw and evaluated the patient. I agree with the findings and the plan of care as documented in the Nurse Practitioner's~note, with the following corrections and additions. Exam - Constitutional Vitals: Temp Pulse Resp BP Pulse Ox 97.9 F 105 H 20 137/94 99 07/25/20 17:12 07/25/20 17:12 07/25/20 17:12 07/25/20 17:12 07/25/20 17:12
[2020-07-25] MEDS ORDERED: LOPERAMIDE 2 MG CAP PO PRN (14:28)
[2020-07-25] MEDS ORDERED: AMOXICILLIN/K CLAV 875/125MG TAB PO SCH (16:00)
[2020-07-25] MEDS ORDERED: APIXABAN 5 MG TAB PO ONE (16:00)
[2020-07-25 17:47] VITALS: BP 137/94
[2020-08-01] MEDS ORDERED: APIXABAN 5 MG TAB PO SCH (22:00)
== END 2020-07-25 19:54 | disposition home or self-care (01) ==
LOC: ED 12:03 → 3A 17:01 → EEVIPCON 17:01 → INTOOBSV 17:01 → 3A 17:19
PROVIDERS: ADMIT Internal Medicine; ATTEND Internal Medicine
DX: J18.9 Pneumonia, unspecified organism (principal); Z20.828 Contact with and (suspected) exposure to other viral communicable diseases; E87.6 Hypokalemia; E87.2 Acidosis; I11.0 Hypertensive heart disease with heart failure; I50.9 Heart failure, unspecified; Z86.711 Personal history of pulmonary embolism; N13.30 Unspecified hydronephrosis; Z79.01 Long term (current) use of anticoagulants; Z79.899 Other long term (current) drug therapy
CPT/HCPCS: 36415; 71045; 71275; 74176; 80048; 80053; 82550; 82728; 82947; 83615; 83735; 84145; 84484; 85014; 85018; 85025; 85049; 85379; 85610; 86140; 93005; 96365; 96366; 96367; 96375; 96376; 99285; G0378; J0456; J0696; J1100; J1940; J2405; J2920; J3480; J7040; J7050; Q9967; U0003; 96372

== ENCOUNTER 2020-09-03 04:42 | Emergency (ER) | payer OTHER ==
[2020-09-03 05:51] VITALS: BP 140/108
--- NOTE | 2020-09-03 08:38 | XRay Report ---
CHEST 2 VIEWS INDICATION / CLINICAL INFORMATION: SOB. COMPARISON: 07/24/2020 FINDINGS: SUPPORT DEVICES: None. HEART / MEDIASTINUM: No significant abnormality. LUNGS / PLEURA: Right basilar pleural-parenchymal disease is present. This was present on prior chest 07/24/2020 but appears slightly worse and now with loculated appearing small right pleural effusion. Right upper lung field is clear. Patchy parenchymal disease now present in the left lung base. No pne umothorax. ADDITIONAL FINDINGS: No significant additional findings. IMPRESSION: 1. Bibasilar parenchymal disease. Small loculated appearing right pleural effusion. Findings are worr isome for pneumonia. Please correlate clinically. Signer Name: Clara Baer MD Signed: 09/03/2020 6:26 AM Workstation Name: [id number]
[2020-09-03 08:39] LABS: Basophils # (Auto) 0.1 K/mm3 (0.0-0.1); Eosinophils % (Auto) 0.4 % (0.0-4.3); Hematocrit 38.6 % (35.5-45.6); Hemoglobin 13.1 gm/dl (11.8-15.2); Lymphocytes # (Auto) 1.8 K/mm3 (1.2-5.4); Lymphocytes % (Auto) 17.1 % (13.4-35.0); Mean Corpuscular HGB Conc 34 % (32-34); Mean Corpuscular Volume 88 fl (84-94); Platelet Count 228 K/mm3 (140-440); Red Blood Count 4.38 M/mm3 (3.65-5.03); Red Cell Distribution Width 15.5 % (13.2-15.2)
[2020-09-03 08:48] LABS: Albumin 3.7 g/dL (3.9-5); Calcium 9.1 mg/dL (8.4-10.2)
== END 2020-09-03 10:15 | disposition left against medical advice (07) ==
LOC: ED 04:42
DX: R06.02 Shortness of breath (principal); Z53.21 Procedure and treatment not carried out due to patient leaving prior to being seen by health care provider
CPT/HCPCS: 36415; 71046; 80053; 85025; 93005

== ENCOUNTER 2020-12-26 19:52 | Inpatient (IN) | payer OTHER, MEDICARE ==
[2020-12-26] MEDS ORDERED: SODIUM CHLORIDE 0.9% 500 ML 500 ML IV ONE ×2 (20:26→22:59)
[2020-12-26] MEDS ORDERED: ONDANSETRON 4 MG/2 ML INJ IV ONE (20:34)
--- NOTE | 2020-12-26 20:38 | Emergency Department Report ---
ED General Adult HPI - General Stated complaint: TAO,LOW BP,LOW BGL Time Seen by Provider: 12/26/20 20:24 Source: patient, EMS - History of Present Illness Initial comments: Patient is 65 years old male with history of hypertension congestive heart failure. Patient tested positive for COVID-19 in July of last year. Patient brought to the emergency room via EMS from home for evaluation of failure to thrive. Patient stated that he did not eat food for approximately 2 weeks because he does not have appetite and he does not have taste. Patient denied any fever, cough, chest pain or shortness of breath. Patient stated that he was admitted to [facility] approximately 10 days ago for 3 days and discharge. He stated that he tested negative for COVID-19 at that time. - Related Data Previous Rx's Medication Instructions Recorded Last Taken Type Apixaban [Eliquis] 5 mg PO Q12HR 30 Days #60 tablet 07/25/20 Unknown Rx Apixaban [Eliquis] 10 mg PO Q12HR 7 Days #14 tablet 07/25/20 Unknown Rx Loperamide [Imodium] 2 mg PO Q2H PRN 4 Days #14 capsule 07/25/20 Unknown Rx Metoprolol [Lopressor TAB] 25 mg PO BID 30 Days #60 tablet 07/25/20 Unknown Rx Tamsulosin [Flomax] 0.4 mg PO QDAY 30 Days #30 cap 07/25/20 Unknown Rx lisinopriL [Zestril TAB] 5 mg PO QDAY 30 Days #30 tablet 07/25/20 Unknown Rx Allergies Allergy/AdvReac Type Severity Reaction Status Date / Time No Known Allergies Allergy Verified 07/21/19 02:06 ED Review of Systems ROS: Stated complaint: TAO,LOW BP,LOW BGL Other details as noted in HPI Comment: All other systems reviewed and negative Constitutional: denies: chills, fever Respiratory: denies: cough, shortness of breath, SOB with exertion, SOB at rest Cardiovascular: denies: chest pain, palpitations Gastrointestinal: nausea. denies: abdominal pain, vomiting, diarrhea, constipation, hematemesis, melena, hematochezia Musculoskeletal: denies: back pain Neurological: weakness. denies: headache, numbness, paresthesias, confusion, abnormal gait ED Past Medical Hx - Past Medical History Hx Hypertension: Yes Hx Heart Attack/AMI: No Hx Congestive Heart Failure: Yes Hx Diabetes: No Hx Deep Vein Thrombosis: No Hx Pulmonary Embolism: Yes Hx GERD: No Hx Liver Disease: No Hx Renal Disease: No Hx Sickle Cell Disease: No Hx Arthritis: No Hx Seizures: No Hx Kidney Stones: No Hx Asthma: No Hx COPD: No Hx Tuberculosis: No Hx Dementia: No Hx HIV: No Additional medical history: pyoderma gangrenosum - Surgical History Hx Coronary Stent: No Hx Pacemaker: No Hx Internal Defibrillator: No - Social History Smoking Status: Never Smoker Substance Use Type: None - Medications Home Medications: Home Medications Medication Instructions Recorded Confirmed Last Taken Type Apixaban [Eliquis] 5 mg PO Q12HR 30 Days #60 tablet 07/25/20 12/27/20 Unknown Rx Apixaban [Eliquis] 10 mg PO Q12HR 7 Days #14 tablet 07/25/20 12/27/20 Unknown Rx Loperamide [Imodium] 2 mg PO Q2H PRN 4 Days #14 capsule 07/25/20 12/27/20 Unknown Rx Metoprolol [Lopressor TAB] 25 mg PO BID 30 Days #60 tablet 07/25/20 12/27/20 Unknown Rx Tamsulosin [Flomax] 0.4 mg PO QDAY 30 Days #30 cap 07/25/20 12/27/20 Unknown Rx lisinopriL [Zestril TAB] 5 mg PO QDAY 30 Days #30 tablet 07/25/20 12/27/20 Unknown Rx ED Physical Exam - General General appearance: alert, in no apparent distress, cachectic - Head Head exam: Present: atraumatic - Eye Eye exam: Present: normal appearance, PERRL - ENT ENT exam: Present: mucous membranes dry - Neck Neck exam: Present: normal inspection, full ROM. Absent: tenderness, meningismus - Respiratory Respiratory exam: Present: normal lung sounds bilaterally - Cardiovascular Cardiovascular Exam: Present: regular rate, normal rhythm, normal heart sounds - GI/Abdominal GI/Abdominal exam: Present: soft, normal bowel sounds. Absent: distended, tenderness, guarding, rebound, rigid, organomegaly, mass, bruit, pulsatile mass, hernia - Extremities Exam Extremities exam: Present: normal inspection, full ROM, normal capillary refill. Absent: tenderness - Back Exam Back exam: Present: normal inspection, full ROM. Absent: CVA tenderness (R), CVA tenderness (L) - Neurological Exam Neurological exam: Present: alert, oriented X3, CN II-XII intact - Psychiatric Psychiatric exam: Present: flat affect. Absent: homicidal ideation, suicidal ideation - Skin Skin exam: Present: warm, intact, normal color ED Course Vital Signs 12/26/20 12/26/20 12/26/20 20:27 20:30 20:31 Temperature 97.5 F L Pulse Rate 83 86 Respiratory 15 23 19 Rate Blood Pressure Blood Pressure 85/49 [Right] O2 Sat by Pulse 95 100 Oximetry 12/26/20 12/26/20 12/26/20 20:45 21:01 21:15 Temperature Pulse Rate 94 H 83 82 Respiratory 20 20 24 Rate Blood Pressure 85/45 87/57 Blood Pressure [Right] O2 Sat by Pulse 66 L Oximetry 12/26/20 12/26/20 12/26/20 21:31 21:45 22:01 Temperature Pulse Rate 93 H 89 87 Respiratory 13 20 13 Rate Blood Pressure 87/57 95/54 97/58 Blood Pressure [Right] O2 Sat by Pulse Oximetry 12/26/20 12/26/20 12/26/20 22:03 22:15 22:31 Temperature Pulse Rate 82 85 Respiratory 23 11 L 12 Rate Blood Pressure 101/64 94/61 Blood Pressure [Right] O2 Sat by Pulse 93 100 Oximetry 12/26/20 12/26/20 12/26/20 22:45 23:01 23:15 Temperature Pulse Rate 81 82 89 Respiratory 19 11 L 13 Rate Blood Pressure 97/55 92/62 92/62 Blood Pressure [Right] O2 Sat by Pulse 100 95 Oximetry 12/26/20 12/26/20 12/26/20 23:31 23:44 23:45 Temperature Pulse Rate 96 H 89 88 Respiratory 19 21 19 Rate Blood Pressure 76/52 95/67 95/67 Blood Pressure [Right] O2 Sat by Pulse 51 L Oximetry 12/27/20 12/27/20 12/27/20 00:01 00:15 00:30 Temperature Pulse Rate 84 107 H Respiratory 16 21 Rate Blood Pressure 100/67 100/67 106/77 Blood Pressure [Right] O2 Sat by Pulse Oximetry ED Medical Decision Making - Lab Data Result diagrams: 12/27/20 07:03 12/27/20 07:03 - EKG Data -: EKG Interpreted by [facility] EKG shows normal: sinus rhythm Rate: normal - EKG Data Interpretation: no acute changes - Radiology Data Radiology results: report reviewed - Medical Decision Making Patient is 65 years old male with history of hypertension congestive heart failure. Patient tested positive for COVID-19 in July of last year. Patient brought to the emergency room via EMS from home for evaluation of failure to thrive. Patient stated that he did not eat food for approximately 2 weeks because he does not have appetite and he does not have taste. Patient denied any fever, cough, chest pain or shortness of breath. Patient stated that he was admitted to [facility] approximately 10 days ago for 3 days and discharge. He stated that he tested negative for COVID-19 at that time. Labs reviewed and showed a hemoglobin of 6.7. Patient BNP is more than 4000. Order for 1 units of PRBC. Lactic acid of 3.5. Patient received normal saline. Chest x-ray is unremarkable. I discussed the patient with Dr. Joyce, He agreed to admit the patient to medical service for further management. Critical care attestation.: If time is entered above; I have spent that time in minutes in the direct care of this critically ill patient, excluding procedure time. ED Disposition Clinical Impression: Metabolic acidosis, Acute anemia, CHF exacerbation, Generalized weakness, Failure to thrive Disposition: DC09 OP ADMIT IP TO THIS HOSP Is pt being admited?: Yes Condition: Stable
[2020-12-26 20:46] LABS: Basophils # (Auto) 0.1 K/mm3 (0.0-0.1); Basophils % (Auto) 1.4 % (0.0-1.8); Eosinophils % (Auto) 0.6 % (0.0-4.3); Hemoglobin 6.7 gm/dl (11.8-15.2); Lymphocytes # (Auto) 1.5 K/mm3 (1.2-5.4); Lymphocytes % (Auto) 20.5 % (13.4-35.0); Mean Corpuscular HGB Conc 34 % (32-34); Mean Corpuscular Volume 83 fl (84-94); Monocytes # (Auto) 0.4 K/mm3 (0.0-0.8); Monocytes % (Auto) 6.1 % (0.0-7.3); Platelet Count 154 K/mm3 (140-440); Red Blood Count 2.34 M/mm3 (3.65-5.03); Red Cell Distribution Width 19.8 % (13.2-15.2)
[2020-12-26 20:55] LABS: INR 1.06 (0.87-1.13)
[2020-12-26 20:56] LABS: Partial Thromboplastin Time 30.1 Sec. (24.2-36.6)
--- NOTE | 2020-12-26 21:03 | XRay Report ---
CHEST 1 VIEW 12/26/2020 8:49 PM INDICATION / CLINICAL INFORMATION: Weakness. COMPARISON: 2 views of the chest from 09/03/2020. FINDINGS: SUPPORT DEVICES: None. HEART / MEDIASTINUM: No significant abnormality. LUNGS / PLEURA: Chronic-appearing parenchymal changes are seen along the lung bases. The lungs are ot herwise clear. No significant pleural effusion. No pneumothorax. ADDITIONAL FINDINGS: No significant additional findings. IMPRESSION: 1. No acute abnormality of the chest. Signer Name: Jan Nugent MD Signed: 12/26/2020 8:59 PM Workstation Name: [id number]
[2020-12-26 21:08] LABS: BUN/Creatinine Ratio 51; Blood Urea Nitrogen 61 mg/dL (9-20); Calcium 8.6 mg/dL (8.4-10.2); Hemolysis Index 4
[2020-12-26 21:11] LABS: Albumin 2.8 g/dL (3.9-5); Bilirubin,Direct 0.5 mg/dL (0-0.2)
[2020-12-26] MEDS ORDERED: ONDANSETRON 4 MG/2 ML INJ IV PRN (23:35)
[2020-12-26] MEDS ORDERED: MORPHINE 2 MG/1 ML INJ IV PRN (23:35)
--- NOTE | 2020-12-26 23:58 | History and Physical Report ---
History of Present Illness Date of examination: 12/26/20 Date of admission: 12/26/2020 Chief complaint: Decreased oral intake Generalized weakness. History of present illness: 65-year-old male with known history of hypertension, congestive heart failure and history of pulmonary embolism on Eliquis presenting to the emergency room today via EMS for evaluation of failure to thrive. Patient indicates that he has been having loss of appetite, generalized weakness over the past 2 weeks. He has also been losing his sense of taste. He denies any nausea or vomiting, no diarrhea and no abdominal pain. He denies any chest pain or shortness of breath. He however indicates that he has been having progressive loss of weight over the past few months. Denies any night sweats. He denies any sick contacts and no recent travel. Denies any contact with any one with COVID-19. Patient tested positive for COVID-19 sometime in July 2020 however he states he was Covid negative about a week ago. Records of recent visits sometime in July 2020 were reviewed. Patient had a CT of the abdomen and pelvis in July 2020 which reveals:1. Mild bilateral hydronephrosis and moderate distention of the urinary bladder. If the patient has a history of bladder outlet obstruction, the cause may be the markedly enlarged prostate gland. 2. Nonspecific sclerotic lesion within the right iliac wing. 3. Stable appearance of right lower lobe airspace disease with small bilateral pleural effusions. 4. Minimally displaced left-sided rib fractures of indeterminate age. Evaluation in the emergency room today reveals a lactic acid of 3.5, elevated BNP of about 4000. Hemoglobin was found to be about 6.7. Chest x-ray was unremarkable. Was found to be slightly hypotensive upon arrival in the emergency room and got a bolus of IV fluid. During the course of his stay in the emergency room, patient was said to have had a bloody stool. Patient is being admitted for failure to thrive, CHF exacerbation and anemia. Past History Past Medical History: heart failure, hypertension, pulmonary embolism, other (Pyoderma Gangrenosum) Past Surgical History: No surgical history Social history: no significant social history Family history: no significant family history Medications and Allergies Allergies Allergy/AdvReac Type Severity Reaction Status Date / Time No Known Allergies Allergy Verified 07/21/19 02:06 Home Medications Medication Instructions Recorded Confirmed Last Taken Type Apixaban [Eliquis] 5 mg PO Q12HR #60 tablet 07/07/20 Unknown Rx Amoxicillin/K Clav Tab [Augmentin 1 each PO Q12HR 10 Days #20 tablet 07/25/20 Unknown Rx 875MG TAB] Apixaban [Eliquis] 5 mg PO Q12HR 30 Days #60 tablet 07/25/20 Unknown Rx Apixaban [Eliquis] 10 mg PO Q12HR 7 Days #14 tablet 07/25/20 Unknown Rx Azithromycin [Zithromax TAB] 500 mg PO Q24H 5 Days #4 tablet 07/25/20 Unknown Rx Loperamide [Imodium] 2 mg PO Q2H PRN 4 Days #14 capsule 07/25/20 Unknown Rx Metoprolol [Lopressor TAB] 25 mg PO BID 30 Days #60 tablet 07/25/20 Unknown Rx Tamsulosin [Flomax] 0.4 mg PO QDAY 30 Days #30 cap 07/25/20 Unknown Rx Tamsulosin [Flomax] 0.4 mg PO QDAY 30 Days #30 capsule 07/25/20 Unknown Rx lisinopriL [Zestril TAB] 5 mg PO QDAY 30 Days #30 tablet 07/25/20 Unknown Rx Active Meds: Active Medications Acetaminophen (Acetaminophen 325 Mg Tab) 650 mg PO Q4H PRN PRN Reason: Pain MILD(1-3)/Fever >100.5/SARMIENTO Furosemide (Furosemide 20 Mg/2 Ml Inj) 20 mg IV BID@0600,1800 MELVINA Morphine Sulfate (Morphine 2 Mg/1 Ml Inj) 2 mg IV Q4H PRN PRN Reason: Pain, Moderate (4-6) Ondansetron HCl (Ondansetron 4 Mg/2 Ml Inj) 4 mg IV Q8H PRN PRN Reason: Nausea And Vomiting Sodium Chloride (Sodium Chloride 0.9% 10 Ml Flush Syringe) 10 ml IV BID MELVINA Sodium Chloride (Sodium Chloride 0.9% 10 Ml Flush Syringe) 10 ml IV PRN PRN PRN Reason: LINE FLUSH Review of Systems Constitutional: weight loss, weakness, poor appetite, no fever, no chills Ears, nose, mouth and throat: no nasal congestion, no sore throat Cardiovascular: no chest pain, no palpitations Respiratory: no cough, no shortness of breath Gastrointestinal: loss of appetite, no abdominal pain, no nausea, no vomiting Genitourinary Male: no dysuria, no hematuria, no nocturia Musculoskeletal: no neck pain, no low back pain Integumentary: no rash, no pruritis Neurological: changes in smell/taste, no headaches, no confusion Psychiatric: no anxiety, no depression Exam - Constitutional Vitals: Temp Pulse Resp BP Pulse Ox 97.5 F L 96 H 19 76/52 51 L 12/26/20 20:30 12/26/20 23:31 12/26/20 23:31 12/26/20 23:31 12/26/20 23:31 General appearance: Present: no acute distress, well-nourished, cachectic - EENT Eyes: Present: PERRL, EOM intact. Absent: scleral icterus ENT: hearing intact, clear oral mucosa, dentition normal - Neck Neck: Present: supple, normal ROM - Respiratory Respiratory effort: normal Respiratory: bilateral: CTA - Cardiovascular Rhythm: regular Heart Sounds: Present: S1 & S2. Absent: gallop, systolic murmur, diastolic murmur, rub, click - Extremities Extremities: no ischemia, pulses intact, pulses symmetrical, No edema, normal temperature, normal color, Full ROM, abnormal (Areas of healed ulcers on lower extremities bilaterally. Skin appears very dry.) Peripheral Pulses: within normal limits - Abdominal General gastrointestinal: Present: soft, non-tender, non-distended, normal bowel sounds. Absent: mass - Integumentary Integumentary: Present: clear, warm, dry, pale. Absent: rash - Musculoskeletal Musculoskeletal: strength equal bilaterally - Psychiatric Psychiatric: appropriate mood/affect, intact judgment & insight, memory intact, cooperative - Neurologic Neurologic: CNII-XII intact, no focal deficits, moves all extremities HEART Score - HEART Score Troponin: Troponin T < 0.010 ng/mL (0.00-0.029) 12/26/20 22:36 Results - Labs CBC & Chem 7: 12/26/20 20:36 12/26/20 20:36 Labs: Abnormal lab results 12/26/20 12/26/20 12/26/20 Range/Units 20:31 20:36 20:36 RBC 2.34 L (3.65-5.03) M/mm3 Hgb 6.7 L (11.8-15.2) gm/dl Hct 20.0 L (35.5-45.6) % MCV 83 L (84-94) fl RDW 19.8 H (13.2-15.2) % Seg Neutrophils % 71.4 H (40.0-70.0) % Sodium 136 L (137-145) mmol/L Carbon Dioxide 21 L (22-30) mmol/L BUN 61 H (9-20) mg/dL POC Glucose 62 L (70-105) mg/dL Lactic Acid (0.7-2.0) mmol/L Direct Bilirubin (0-0.2) mg/dL NT-Pro-B Natriuret Pep (0-900) pg/mL Total Protein (6.3-8.2) g/dL Albumin (3.9-5) g/dL 12/26/20 12/26/20 12/26/20 Range/Units 20:36 20:36 20:59 RBC (3.65-5.03) M/mm3 Hgb (11.8-15.2) gm/dl Hct (35.5-45.6) % MCV (84-94) fl RDW (13.2-15.2) % Seg Neutrophils % (40.0-70.0) % Sodium (137-145) mmol/L Carbon Dioxide (22-30) mmol/L BUN (9-20) mg/dL POC Glucose (70-105) mg/dL Lactic Acid 3.50 H* (0.7-2.0) mmol/L Direct Bilirubin 0.5 H (0-0.2) mg/dL NT-Pro-B Natriuret Pep 4048 H (0-900) pg/mL Total Protein 5.5 L (6.3-8.2) g/dL Albumin 2.8 L (3.9-5) g/dL 12/26/20 Range/Units 22:36 RBC (3.65-5.03) M/mm3 Hgb (11.8-15.2) gm/dl Hct (35.5-45.6) % MCV (84-94) fl RDW (13.2-15.2) % Seg Neutrophils % (40.0-70.0) % Sodium (137-145) mmol/L Carbon Dioxide (22-30) mmol/L BUN (9-20) mg/dL POC Glucose (70-105) mg/dL Lactic Acid 2.30 H* (0.7-2.0) mmol/L Direct Bilirubin (0-0.2) mg/dL NT-Pro-B Natriuret Pep (0-900) pg/mL Total Protein (6.3-8.2) g/dL Albumin (3.9-5) g/dL Assessment and Plan - Patient Problems (1) Acute anemia Current Visit: Yes Status: Acute Plan to address problem: Probably chronic. Patient will be transfused with packed red blood cells and will monitor CBC. (2) CHF exacerbation Current Visit: Yes Status: Acute Plan to address problem: We will monitor inputs and outputs and also monitor daily weights. Patient be scheduled for echocardiogram. Patient will be gently diuresed in view of his low blood pressure. We will place consult to cardiology for evaluation and recommendation. (3) Failure to thrive Current Visit: Yes Status: Acute Plan to address problem: Etiology unclear. We will place dietary consult for evaluation and recommendation. (4) Generalized weakness Current Visit: Yes Status: Acute Plan to address problem: Possibly secondary to decreased oral intake. We will await dietary consult evaluation. (5) Pulmonary embolism Current Visit: No Status: Acute Qualifiers: Pulmonary embolism type: other Chronicity: unspecified Acute cor pulmonale presence: without acute cor pulmonale Qualified Code(s): I26.99 - Other pulmonary embolism without acute cor pulmonale Plan to address problem: Patient currently on anticoagulation. (6) GI bleed Current Visit: Yes Status: Acute Plan to address problem: Patient will be made n.p.o. Consult placed to gastroenterology for evaluation. (7) DVT prophylaxis Current Visit: No Status: Acute Plan to address problem: Patient on anticoagulation. (8) Full code status Current Visit: No Status: Acute Plan to address problem: Patient is full code.
[2020-12-27] MEDS: ACETAMINOPHEN 325 MG TAB PO PRN (01:40)
[2020-12-27] MEDS ORDERED: SODIUM CHLORIDE 0.9% 500 ML 500 ML IV ONE ×3 (02:30→06:43)
[2020-12-27 04:17] LABS: Bilirubin,Urine NEG (Negative); Blood,Urine LG (Negative); Color,Urine Red (Yellow); RBC,Urine > 182.0 /HPF (0.0-6.0); Urobilinogen,Urine < 2.0 mg/dL (<2.0); WBC,Urine > 182.0 /HPF (0.0-6.0)
[2020-12-27] MEDS ORDERED: FUROSEMIDE 20 MG/2 ML INJ IV SCH (06:00)
[2020-12-27 07:20] LABS: Basophils # (Auto) 0.1 K/mm3 (0.0-0.1); Eosinophils # (Auto) 0.1 K/mm3 (0.0-0.4); Eosinophils % (Auto) 0.6 % (0.0-4.3); Lymphocytes # (Auto) 1.3 K/mm3 (1.2-5.4); Mean Corpuscular HGB Conc 35 % (32-34); Mean Corpuscular Volume 85 fl (84-94); Monocytes # (Auto) 0.6 K/mm3 (0.0-0.8); Monocytes % (Auto) 5.6 % (0.0-7.3); Platelet Count 112 K/mm3 (140-440); Red Blood Count 1.88 M/mm3 (3.65-5.03)
[2020-12-27 07:30] LABS: INR 1.23 (0.87-1.13)
[2020-12-27 07:33] LABS: Hemoglobin 5.5 gm/dl (11.8-15.2); Red Cell Distribution Width 20.4 % (13.2-15.2)
[2020-12-27 07:38] LABS: BUN/Creatinine Ratio 48; Blood Urea Nitrogen 63 mg/dL (9-20); Calcium 8.1 mg/dL (8.4-10.2); Hemolysis Index 7
[2020-12-27] MEDS ORDERED: SODIUM CHLORIDE 0.9% 500 ML 500 ML IV SCH (08:00)
[2020-12-27] MEDS: cefTRIAXone/NS 1 GM/50 ML 1 GM/50 ML BAG IV SCH (08:35)
--- NOTE | 2020-12-27 09:01 | Progress Note ---
Assessment and Plan Assessment and plan: Sepsis. Patient meets criteria given the tachycardia, tachypnea and diagnosis of UTI. UTI. Patient with previous CT July 2020 which revealed Mild bilateral hydronephrosis and moderate distention of the urinary bladder Melena. Anemia. Etiology likely secondary to acute blood loss anemia. Weight loss. 40 pound weight loss in 2 weeks History pulmonary embolism. Patient on home Eliquis. 12/27/2020. Patient's urinalysis reveals UTI and patient has significant lactic acidosis. Follow-up blood and urine cultures. Initiate antibiotics of Rocephin and consult ID for further evaluation. Patient will receive 2 more units of PRBCs and follow-up occult stool. GI consultation pending. Start Protonix drip. Hold Eliquis. History Interval history: Nurse reports patient with black tarry stools. Hospitalist Physical - Constitutional Vitals: Temp Pulse Resp BP Pulse Ox 98.5 F 94 H 20 88/51 94 12/27/20 06:50 12/27/20 06:50 12/27/20 06:50 12/27/20 06:50 12/27/20 06:50 General appearance: Present: no acute distress, well-nourished, cachectic - EENT Eyes: Present: PERRL, EOM intact ENT: hearing intact, clear oral mucosa, dentition normal - Neck Neck: Present: supple, normal ROM - Respiratory Respiratory effort: normal Respiratory: bilateral: CTA - Cardiovascular Rhythm: regular Heart Sounds: Present: S1 & S2. Absent: gallop, rub - Extremities Extremities: no ischemia, No edema, Full ROM - Abdominal General gastrointestinal: soft, non-tender, non-distended, normal bowel sounds - Integumentary Integumentary: Present: clear, warm, dry - Neurologic Neurologic: CNII-XII intact, moves all extremities HEART Score - HEART Score Troponin: Troponin T < 0.010 ng/mL (0.00-0.029) 12/26/20 22:36 Results - Labs CBC & Chem 7: 12/27/20 07:03 12/27/20 07:03 Labs: Laboratory Last Values WBC 10.0 K/mm3 (4.5-11.0) 12/27/20 07:03 RBC 1.88 M/mm3 (3.65-5.03) L 12/27/20 07:03 Hgb 5.5 gm/dl (11.8-15.2) L* 12/27/20 07:03 Hct 16.0 % (35.5-45.6) L* 12/27/20 07:03 MCV 85 fl (84-94) 12/27/20 07:03 MCH 29 pg (28-32) 12/27/20 07:03 MCHC 35 % (32-34) H 12/27/20 07:03 RDW 20.4 % (13.2-15.2) H 12/27/20 07:03 Plt Count 112 K/mm3 (140-440) L 12/27/20 07:03 Lymph % (Auto) 13.0 % (13.4-35.0) L 12/27/20 07:03 [place] % (Auto) 5.6 % (0.0-7.3) 12/27/20 07:03 Eos % (Auto) 0.6 % (0.0-4.3) 12/27/20 07:03 Baso % (Auto) 1.0 % (0.0-1.8) 12/27/20 07:03 Lymph # (Auto) 1.3 K/mm3 (1.2-5.4) 12/27/20 07:03 [place] # (Auto) 0.6 K/mm3 (0.0-0.8) 12/27/20 07:03 Eos # (Auto) 0.1 K/mm3 (0.0-0.4) 12/27/20 07:03 Baso # (Auto) 0.1 K/mm3 (0.0-0.1) 12/27/20 07:03 Seg Neutrophils % 79.8 % (40.0-70.0) H 12/27/20 07:03 Seg Neutrophils # 7.9 K/mm3 (1.8-7.7) H 12/27/20 07:03 PT 15.3 Sec. (12.2-14.9) H 12/27/20 07:03 INR 1.23 (0.87-1.13) H 12/27/20 07:03 APTT 30.1 Sec. (24.2-36.6) 12/26/20 20:36 Sodium 135 mmol/L (137-145) L 12/27/20 07:03 Potassium 4.0 mmol/L (3.6-5.0) 12/27/20 07:03 Chloride 103.6 mmol/L (98-107) 12/27/20 07:03 Carbon Dioxide 17 mmol/L (22-30) L 12/27/20 07:03 Anion Gap 18 mmol/L 12/27/20 07:03 BUN 63 mg/dL (9-20) H 12/27/20 07:03 Creatinine 1.3 mg/dL (0.8-1.3) 12/27/20 07:03 Estimated GFR > 60 ml/min 12/27/20 07:03 BUN/Creatinine Ratio 48 % 12/27/20 07:03 Glucose 92 mg/dL (75-100) 12/27/20 07:03 POC Glucose 62 mg/dL (70-105) L 12/26/20 20:31 Lactic Acid 4.60 mmol/L (0.7-2.0) H* 12/27/20 08:04 Calcium 8.1 mg/dL (8.4-10.2) L 12/27/20 07:03 Total Bilirubin 0.90 mg/dL (0.1-1.2) 12/26/20 20:36 Direct Bilirubin 0.5 mg/dL (0-0.2) H 12/26/20 20:36 Indirect Bilirubin 0.4 mg/dL 12/26/20 20:36 AST 15 units/L (5-40) 12/26/20 20:36 ALT 9 units/L (7-56) 12/26/20 20:36 Alkaline Phosphatase 65 units/L (35-129) 12/26/20 20:36 Troponin T < 0.010 ng/mL (0.00-0.029) 12/26/20 22:36 NT-Pro-B Natriuret Pep 4048 pg/mL (0-900) H 12/26/20 20:36 Total Protein 5.5 g/dL (6.3-8.2) L 12/26/20 20:36 Albumin 2.8 g/dL (3.9-5) L 12/26/20 20:36 Albumin/Globulin Ratio 1.0 % 12/26/20 20:36 Urine Color Red (Yellow) 12/27/20 03:49 Urine Turbidity Slightly-cloudy (Clear) 12/27/20 03:49 Urine pH 5.0 (5.0-7.0) 12/27/20 03:49 Ur Specific [place] 1.014 (1.003-1.030) 12/27/20 03:49 Urine Protein 100 mg/dl mg/dL (Negative) 12/27/20 03:49 Urine Glucose (UA) Neg mg/dL (Negative) 12/27/20 03:49 Urine Ketones Neg mg/dL (Negative) 12/27/20 03:49 Urine Blood Lg (Negative) 12/27/20 03:49 Urine Nitrite Neg (Negative) 12/27/20 03:49 Urine Bilirubin Neg (Negative) 12/27/20 03:49 Urine Urobilinogen < 2.0 mg/dL (<2.0) 12/27/20 03:49 Ur Leukocyte Esterase Mod (Negative) 12/27/20 03:49 Urine WBC (Auto) > 182.0 /HPF (0.0-6.0) H 12/27/20 03:49 Urine RBC (Auto) > 182.0 /HPF (0.0-6.0) 12/27/20 03:49 U Epithel Cells (Auto) 2.0 /HPF (0-13.0) 12/27/20 03:49 Urine WBC Clumps 2+ /HPF 12/27/20 03:49 Blood Type B POSITIVE 12/26/20 23:05 Antibody Screen Negative 12/26/20 23:05 Crossmatch See Detail 12/26/20 23:05 Microbiology: Microbiology 12/26/20 21:01 Peripheral/Venous Blood Culture - Preliminary Culture in Progress 12/26/20 20:59 Peripheral/Venous Blood Culture - Preliminary Culture in Progress Justin/IV: Voiding Method Urinal Active Medications - Current Medications Current Medications: Generic Name Dose Route Start Last Admin Trade Name Freq PRN Reason Stop Dose Admin Acetaminophen 650 mg 12/26/20 23:35 12/27/20 01:40 Acetaminophen 325 Mg Tab PO 650 mg Q4H PRN Administration Pain MILD(1-3)/Fever >100.5/SARMIENTO Ceftriaxone Sodium 1 gm in 50 mls @ 100 mls/hr 12/27/20 08:00 12/27/20 08:35 Rocephin/Ns 1 Gm/50 Ml IV 100 mls/hr Q24H MELVINA Administration Protocol Sodium Chloride 500 mls @ 0 mls/hr 12/27/20 08:00 Nacl 0.9% 500 Ml IV 12/27/20 18:00 ONCE MELVINA As Directed Morphine Sulfate 2 mg 12/26/20 23:35 Morphine 2 Mg/1 Ml Inj IV Q4H PRN Pain, Moderate (4-6) Ondansetron HCl 4 mg 12/26/20 23:35 Ondansetron 4 Mg/2 Ml Inj IV Q8H PRN Nausea And Vomiting Sodium Chloride 10 ml 12/27/20 10:00 Sodium Chloride 0.9% 10 Ml Flush Syringe IV BID MELVINA Sodium Chloride 10 ml 12/26/20 23:35 Sodium Chloride 0.9% 10 Ml Flush Syringe IV PRN PRN LINE FLUSH Nutrition/Malnutrition Assess - Dietary Evaluation Nutrition/Malnutrition Findings: Nutrition Notes Start: 12/27/20 07:22 Freq: Status: Active Protocol: Document 12/27/20 07:22 LP (Rec: 12/27/20 07:33 LP [id number]) Nutrition Notes 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 Pt did not answer phone. Pt noted to have COVID in July 2020 and did not eat for 2 weeks due to no appetite and no taste. 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 No Is Patient Ambulatory and/or Out of Bed Yes REE-([place]-ambulatory/OOB) [ 1907.919 [id number]] Calculation Used for Recommendations [place] Additional Notes Pending accurate wt Nutrition Intervention Change Diet Order: Advance diet as feasible Goal #1 Advance diet as feasible Follow-Up By: 12/28/20 Additional Comments Follow for assessment, wt
--- NOTE | 2020-12-27 10:04 | Event Note ---
full consult dictated thx
[2020-12-27] MEDS ORDERED: PANTOPRAZOLE 40 MG INJ IV ONE (10:28)
--- NOTE | 2020-12-27 10:40 | Consultation ---
REFERRING PHYSICIAN: Hospitalist service. INDICATIONS: Advice and opinion regarding shortness of breath. HISTORY OF PRESENT ILLNESS: The patient is a pleasant 65-year-old -[place] gentleman with history of hypertension, congestive heart failure, bilateral pulmonary embolus, presents here with a loss of appetite, weakness over 2 weeks, describes some shortness of breath, no chest pain, no syncope or presyncope. Feels really weak and tired, was here in July, had a negative COVID test, but also has had bilateral PEs, seen on telemetry. Denies any abdominal pains, syncope, presyncope or leg pain. Does endorse dark tarry stools for some time. He is afebrile. Tele reveals sinus rhythm in the 70s and 80s. O2 sats 94% on room air, blood pressure is 100/60. PAST MEDICAL HISTORY: As aforementioned. PAST SURGICAL HISTORY: Noted. FAMILY HISTORY: No family history of premature heart disease. ALLERGIES: No known drug, food, or environmental allergies. MEDICATIONS: Inpatient and outpatient medications reviewed. REVIEW OF SYSTEMS: As per HPI. PHYSICAL EXAMINATION: VITALS: Blood pressure is 100/70, is afebrile. O2 sats 98% on 2 liters, respirations 16, tele reveals sinus rhythm in the 80s. HEENT: Sclerae icteric, pale. NECK: Supple, no masses, no JVD. CHEST: Clear to auscultation bilaterally. Good air movement. CARDIOVASCULAR: Regular rhythm, S1, S2. ABDOMEN: Soft, nontender, nondistended. Normoactive bowel sounds in 4 quadrants. No mass or bruits. EXTREMITIES: No cyanosis, clubbing, edema. Good peripheral pulses. SKIN: Dry, intact. No rashes. LABORATORY DATA: Coronavirus testing is pending. CT abdomen and pelvis is pending. Lab data reveals a WBC of 10, hemoglobin is 5.5, hematocrit 16, platelets are 112. Lactic acid was 2.3 yesterday, today is 5.0 and 4.6. UA is unremarkable. ECG is not found on the chart, we will repeat. Troponin is negative x 1. ASSESSMENT: In summary, the patient is a pleasant 65-year-old -[place] gentleman who presented with a history of recent bilateral pulmonary embolus, on Eliquis, hypertension, congestive heart failure, unclear etiology, who presents here with constitutional symptoms and generalized weakness. Also, has loss of sense of taste. COVID test is pending. The patient is actively being transfused. He has severe symptomatic anemia and is in fact pancytopenic. Consider Hematology consult, obviously avoid antiplatelets and anticoagulants, follow up echocardiogram once COVID testing is negative. Agree with IV fluids and volume resuscitation. We will need GI consultation as well. We will follow along. Thank you for this consultation. JOB# [id number] SBM/NTS
--- NOTE | 2020-12-27 11:09 | Consultation ---
History of Present Illness - Reason for Consult Consult date: 12/27/20 GI bleed Requesting physician: ESTHER TAMAYO - History of Present Illness Mr. Bess is a 65-year-old man with hypertension, congestive heart failure, pulmonary embolus on Eliquis for about a month and noncompliant, who presented with loss of appetite x2 weeks, decreased taste, and profound weakness. He complains of orthostatic symptoms for at least 3 weeks. He usually has bowel movements 2 or 3 times a day but over the last 3 weeks weeks, he has been having much more frequent black tarry liquid bowel movements here, he was noted to have a hemoglobin that was 6.7 on admission and down to 45.5 today. His hemoglobin was normal at 12.3 in July 252019. He denies abdominal pain nausea or vomiting. He denies hematochezia. He denies prior history of peptic ulcer disease. He denies at NSAID use but he was taking baby aspirin until recently. He takes his Eliquis in a spotty fashion and states he has not taken it for 2 or 3 days. He states he has congestive heart failure with an ejection fraction of 20%. He also notes that he has lost 40 pounds over the last 2 months. He denies early satiety or dysphagia. He did have Covid infection in July 2020. He denies alcohol abuse. Meds reviewed. Past History Past Medical History: heart failure (LVEF = 20%.), hypertension, pulmonary embolism, other (Pyoderma Gangrenosum) Past Surgical History: No surgical history. denies: thyroidectomy Social history: no significant social history Family history: no significant family history Medications and Allergies Allergies Allergy/AdvReac Type Severity Reaction Status Date / Time No Known Allergies Allergy Verified 07/21/19 02:06 Home Medications Medication Instructions Recorded Confirmed Last Taken Type RX: Apixaban [Eliquis] 5 mg PO Q12HR 30 Days #60 tablet 07/25/20 12/27/20 Unknown Rx RX: Apixaban [Eliquis] 10 mg PO Q12HR 7 Days #14 tablet 07/25/20 12/27/20 Unkn own Rx RX: Loperamide [Imodium] 2 mg PO Q2H PRN 4 Days #14 capsule 07/25/20 12/27/20 Unknown Rx RX: Metoprolol [Lopressor TAB] 25 mg PO BID 30 Days #60 tablet 07/25/20 12/27/20 Unknown Rx RX: Tamsulosin [Flomax] 0.4 mg PO QDAY 30 Days #30 cap 07/25/20 12/27/20 Unknown Rx RX: lisinopriL [Zestril TAB] 5 mg PO QDAY 30 Days #30 tablet 07/25/20 12/27/20 Unknown Rx Active Meds: Active Medications Acetaminophen (Acetaminophen 325 Mg Tab) 650 mg PO Q4H PRN PRN Reason: Pain MILD(1-3)/Fever >100.5/SARMIENTO Last Admin: 12/27/20 01:40 Dose: 650 mg Documented by: Ceftriaxone Sodium (Rocephin/Ns 1 Gm/50 Ml) 1 gm in 50 mls @ 100 mls/hr IV Q24H MELVINA; Protocol Last Admin: 12/27/20 08:35 Dose: 100 mls/hr Documented by: Sodium Chloride (Nacl 0.9% 500 Ml) 500 mls @ 0 mls/hr IV ONCE MELVINA Stop: 12/27/20 18:00 Pantoprazole Sodium 80 mg/ (Sodium Chloride) 100 mls @ 10 mls/hr IV DIRECT MELVINA Morphine Sulfate (Morphine 2 Mg/1 Ml Inj) 2 mg IV Q4H PRN PRN Reason: Pain, Moderate (4-6) Ondansetron HCl (Ondansetron 4 Mg/2 Ml Inj) 4 mg IV Q8H PRN PRN Reason: Nausea And Vomiting Sodium Chloride (Sodium Chloride 0.9% 10 Ml Flush Syringe) 10 ml IV BID MELVINA Sodium Chloride (Sodium Chloride 0.9% 10 Ml Flush Syringe) 10 ml IV PRN PRN PRN Reason: LINE FLUSH Review of Systems All systems: negative (as noted in HPI) Exam - Constitutional Vitals: Temp Pulse Resp BP Pulse Ox 97.0 F L 41 L 18 99/57 63 L 12/27/20 10:15 12/27/20 10:15 12/27/20 10:15 12/27/20 10:15 12/27/20 10:15 General appearance: Present: cachectic - EENT Eyes: Present: PERRL, EOM intact ENT: hearing intact, clear oral mucosa - Respiratory Respiratory effort: normal Respiratory: bilateral: CTA - Cardiovascular Rhythm: regular Heart Sounds: Present: S1 & S2 - Extremities Extremities: No edema - Abdominal General gastrointestinal: Present: soft, non-tender Results - Labs CBC & Chem 7: 12/27/20 07:03 12/27/20 07:03 Labs: Abnormal lab results 12/26/20 12/26/20 12/26/20 Range/Units 20:31 20:36 20:36 RBC 2.34 L (3.65-5.03) M/mm3 Hgb 6.7 L (11.8-15.2) gm/dl Hct 20.0 L (35.5-45.6) % MCV 83 L (84-94) fl MCHC (32-34) % RDW 19.8 H (13.2-15.2) % Plt Count (140-440) K/mm3 Lymph % (Auto) (13.4-35.0) % Seg Neutrophils % 71.4 H (40.0-70.0) % Seg Neutrophils # (1.8-7.7) K/mm3 PT (12.2-14.9) Sec. INR (0.87-1.13) Sodium 136 L (137-145) mmol/L Carbon Dioxide 21 L (22-30) mmol/L BUN 61 H (9-20) mg/dL POC Glucose 62 L (70-105) mg/dL Lactic Acid (0.7-2.0) mmol/L Calcium (8.4-10.2) mg/dL Direct Bilirubin (0-0.2) mg/dL NT-Pro-B Natriuret Pep (0-900) pg/mL Total Protein (6.3-8.2) g/dL Albumin (3.9-5) g/dL Urine WBC (Auto) (0.0-6.0) /HPF Crossmatch 12/26/20 12/26/20 12/26/20 Range/Units 20:36 20:36 20:59 RBC (3.65-5.03) M/mm3 Hgb (11.8-15.2) gm/dl Hct (35.5-45.6) % MCV (84-94) fl MCHC (32-34) % RDW (13.2-15.2) % Plt Count (140-440) K/mm3 Lymph % (Auto) (13.4-35.0) % Seg Neutrophils % (40.0-70.0) % Seg Neutrophils # (1.8-7.7) K/mm3 PT (12.2-14.9) Sec. INR (0.87-1.13) Sodium (137-145) mmol/L Carbon Dioxide (22-30) mmol/L BUN (9-20) mg/dL POC Glucose (70-105) mg/dL Lactic Acid 3.50 H* (0.7-2.0) mmol/L Calcium (8.4-10.2) mg/dL Direct Bilirubin 0.5 H (0-0.2) mg/dL NT-Pro-B Natriuret Pep 4048 H (0-900) pg/mL Total Protein 5.5 L (6.3-8.2) g/dL Albumin 2.8 L (3.9-5) g/dL Urine WBC (Auto) (0.0-6.0) /HPF Crossmatch 12/26/20 12/26/20 12/27/20 Range/Units 22:36 23:05 03:49 RBC (3.65-5.03) M/mm3 Hgb (11.8-15.2) gm/dl Hct (35.5-45.6) % MCV (84-94) fl MCHC (32-34) % RDW (13.2-15.2) % Plt Count (140-440) K/mm3 Lymph % (Auto) (13.4-35.0) % Seg Neutrophils % (40.0-70.0) % Seg Neutrophils # (1.8-7.7) K/mm3 PT (12.2-14.9) Sec. INR (0.87-1.13) Sodium (137-145) mmol/L Carbon Dioxide (22-30) mmol/L BUN (9-20) mg/dL POC Glucose (70-105) mg/dL Lactic Acid 2.30 H* (0.7-2.0) mmol/L Calcium (8.4-10.2) mg/dL Direct Bilirubin (0-0.2) mg/dL NT-Pro-B Natriuret Pep (0-900) pg/mL Total Protein (6.3-8.2) g/dL Albumin (3.9-5) g/dL Urine WBC (Auto) > 182.0 H (0.0-6.0) /HPF Crossmatch See Detail 12/27/20 12/27/20 12/27/20 Range/Units 07:03 07:03 07:03 RBC 1.88 L (3.65-5.03) M/mm3 Hgb 5.5 L* (11.8-15.2) gm/dl Hct 16.0 L* (35.5-45.6) % MCV (84-94) fl MCHC 35 H (32-34) % RDW 20.4 H (13.2-15.2) % Plt Count 112 L (140-440) K/mm3 Lymph % (Auto) 13.0 L (13.4-35.0) % Seg Neutrophils % 79.8 H (40.0-70.0) % Seg Neutrophils # 7.9 H (1.8-7.7) K/mm3 PT 15.3 H (12.2-14.9) Sec. INR 1.23 H (0.87-1.13) Sodium (137-145) mmol/L Carbon Dioxide (22-30) mmol/L BUN (9-20) mg/dL POC Glucose (70-105) mg/dL Lactic Acid 5.00 H* (0.7-2.0) mmol/L Calcium (8.4-10.2) mg/dL Direct Bilirubin (0-0.2) mg/dL NT-Pro-B Natriuret Pep (0-900) pg/mL Total Protein (6.3-8.2) g/dL Albumin (3.9-5) g/dL Urine WBC (Auto) (0.0-6.0) /HPF Crossmatch 12/27/20 12/27/20 Range/Units 07:03 08:04 RBC (3.65-5.03) M/mm3 Hgb (11.8-15.2) gm/dl Hct (35.5-45.6) % MCV (84-94) fl MCHC (32-34) % RDW (13.2-15.2) % Plt Count (140-440) K/mm3 Lymph % (Auto) (13.4-35.0) % Seg Neutrophils % (40.0-70.0) % Seg Neutrophils # (1.8-7.7) K/mm3 PT (12.2-14.9) Sec. INR (0.87-1.13) Sodium 135 L (137-145) mmol/L Carbon Dioxide 17 L (22-30) mmol/L BUN 63 H (9-20) mg/dL POC Glucose (70-105) mg/dL Lactic Acid 4.60 H* (0.7-2.0) mmol/L Calcium 8.1 L (8.4-10.2) mg/dL Direct Bilirubin (0-0.2) mg/dL NT-Pro-B Natriuret Pep (0-900) pg/mL Total Protein (6.3-8.2) g/dL Albumin (3.9-5) g/dL Urine WBC (Auto) (0.0-6.0) /HPF Crossmatch Assessment and Plan 1. GI bleed -by history, going on for at least 2 to 3 weeks. Patient's seems to have stopped his Eliquis several days ago. Differential diagnosis includes peptic ulcer disease or malignancy. Varices unlikely given no history of liver disease. Small bowel or lower GI source of bleeding is less likely but still a possibility. -Monitor H&H closely and transfuse. -Await cardiac evaluation. -Empiric proton pump inhibitor drip. -Upper endoscopy tomorrow.
[2020-12-27] MEDS: PANTOPRAZOLE 80 MG in SODIUM CHLORIDE 0.9% 100 ML IV SCH ×2 (11:55→22:51)
--- NOTE | 2020-12-27 17:30 | Cat Scan Report ---
CT ABDOMEN AND PELVIS WITHOUT CONTRAST HISTORY: MAIN. Covid patient with UTI, concern for hydronephrosis COMPARISON: CT abdomen/pelvis and CTA chest from 07/25/2020 TECHNIQUE: CT images of the abdomen and pelvis were obtained without administration of intravenous co ntrast. All CT scans at this location are performed using CT dose reduction for ALARA by means of au tomated exposure control. FINDINGS: Lungs/bones: There is mild scarring versus atelectasis in the right lung base and there is a somewha t rounded masslike structure in the lingula measuring up to 2.5 cm in maximal dimension on image #7 o f series 6. There are degenerative changes in the spine and pelvis with nothing acute. Bone [place] ag ain noted in the right iliac wing. Abdomen/pelvis: The prostate is again enlarged and indents the bladder base. The urinary bladder rem ains significantly distended with circumferential wall thickening. There is persistent moderate bilat eral hydronephrosis with no obstructive stone disease or obvious mass. The liver, gallbladder, spleen, pancreas, adrenals, and proximal GI tract appear unremarkable. No pelvic free fluid or acute colonic abnormality identified. IMPRESSION: 1. Persistent gross distention of the urinary bladder which may at least in part be related to chroni c outlet obstruction. Persistent moderate bilateral hydronephrosis again noted. 2. New rounded masslike structure in the lingula measuring 2.5 cm. Differential considerations includ e a true mass or nodular scarring. Please see below recommendations. INCIDENTAL PULMONARY NODULE RECOMMENDATION RECOMMENDATION: Solid Nodule size >8 mm -- Single - Low Risk or High Risk Patient: Consider CT at 3 months, PET/CT, or tissue sampling Note These recommendations do not apply to lung cancer screening, patients with immunosuppression, o r patients with known primary cancer. Note Newly detected indeterminate nodule in persons 35 years of age or older. Persons under the age of 35 should not receive follow-up unless there is a known primary cancer. Note A Perifissural Nodule is a fissure-attached/subpleural, homogeneous, solid nodule that had smoo th margins and an oval, lentiform, or triangular shape. They represent about 20% of nodules detected in lung cancer screening, are invariably benign, and do not require follow-up. Nodules 10 mm or large r (or those with suspicious features) will continue to be managed based on the size criteria. Low Risk Patient -- minimal or absent history of smoking and of other known risk factors. High Risk Patient -- history of smoking or of other known risk factors. Nodule dimensions are average of long and short axes, rounded to the nearest millimeter. Based on 2017 Fleischner Society Guidelines found in Radiology 2017 284:228-243. https://doi.org/10.1148/radiol.9227344708 https://www.ncbi.nlm.nih.gov/pmc/articles/SVE1598109/ Signer Name: Thanh Cox MD Signed: 12/27/2020 5:25 PM Workstation Name: [id number]
[2020-12-28 06:28] LABS: Basophils # (Auto) 0.1 K/mm3 (0.0-0.1); Basophils % (Auto) 0.9 % (0.0-1.8); Eosinophils # (Auto) 0.1 K/mm3 (0.0-0.4); Eosinophils % (Auto) 0.5 % (0.0-4.3); Hematocrit 23.4 % (35.5-45.6); Lymphocytes # (Auto) 1.8 K/mm3 (1.2-5.4); Lymphocytes % (Auto) 12.7 % (13.4-35.0); Mean Corpuscular HGB Conc 34 % (32-34); Mean Corpuscular Volume 85 fl (84-94); Monocytes # (Auto) 1.1 K/mm3 (0.0-0.8); Monocytes % (Auto) 7.4 % (0.0-7.3); Platelet Count 115 K/mm3 (140-440); Red Blood Count 2.74 M/mm3 (3.65-5.03); Red Cell Distribution Width 19.2 % (13.2-15.2)
[2020-12-28 06:44] LABS: Calcium 8.5 mg/dL (8.4-10.2)
--- NOTE | 2020-12-28 07:55 | Progress Note ---
Assessment and Plan Assessment and plan: Sepsis. Patient meets criteria given the tachycardia, tachypnea and diagnosis of UTI. COVID-19 pneumonia UTI. Patient with previous CT July 2020 which revealed Mild bilateral hydronephrosis and moderate distention of the urinary bladder GI bleed/melena. Anemia. Etiology likely secondary to acute blood loss anemia. Weight loss. 40 pound weight loss in 2 weeks History pulmonary embolism. Patient on home Eliquis. Pyoderma gangrenosum 12/27/2020. Patient's urinalysis reveals UTI and patient has significant lactic acidosis. Follow-up blood and urine cultures. Initiate antibiotics of Rocephin and consult ID for further evaluation. Patient will receive 2 more units of PRBCs and follow-up occult stool. GI consultation pending. Start Protonix drip. Hold Eliquis. 12/28/2020. Patient reportedly with positive Covid testing on 04/19/2020 and subsequent negative testing on 07/07 and 07/25. Patient now with new positive testing on 12/27/2020. Consult ID for further evaluation. Continue to hold Eliquis for GI bleed. Gastroenterology following. Etiology likely secondary to peptic ulcer disease versus malignancy. Endoscopy per GI. CT of the abdomen pelvis reveals persistent gross distention of the urinary bladder related to chronic outlet obstruction. Persistent moderate bilateral hydronephrosis. Urology consultation. Also, new rounded masslike structure in the lingula measuring 2.5 cm. Consider pulmonary consultation History Interval history: Nurse reports patient with black tarry stools. Hospitalist Physical - Constitutional Vitals: Temp Pulse Resp BP Pulse Ox 97.5 F L 96 H 22 93/53 96 12/28/20 04:47 12/28/20 04:47 12/28/20 04:47 12/28/20 04:47 12/28/20 07:35 General appearance: Present: cachectic - EENT Eyes: Present: PERRL, EOM intact ENT: hearing intact, clear oral mucosa, dentition normal - Neck Neck: Present: supple, normal ROM - Respiratory Respiratory effort: normal Respiratory: bilateral: CTA - Cardiovascular Rhythm: regular Heart Sounds: Present: S1 & S2. Absent: gallop, rub - Extremities Extremities: no ischemia, No edema, Full ROM - Abdominal General gastrointestinal: soft, non-tender, non-distended, normal bowel sounds - Integumentary Integumentary: Present: clear, warm, dry - Neurologic Neurologic: CNII-XII intact, moves all extremities HEART Score - HEART Score Troponin: Troponin T < 0.010 ng/mL (0.00-0.029) 12/26/20 22:36 Results - Labs CBC & Chem 7: 12/28/20 05:25 12/28/20 05:25 Labs: Laboratory Last Values WBC 14.3 K/mm3 (4.5-11.0) H 12/28/20 05:25 RBC 2.74 M/mm3 (3.65-5.03) L 12/28/20 05:25 Hgb 8.0 gm/dl (11.8-15.2) L 12/28/20 05:25 Hct 23.4 % (35.5-45.6) L D 12/28/20 05:25 MCV 85 fl (84-94) 12/28/20 05:25 MCH 29 pg (28-32) 12/28/20 05:25 MCHC 34 % (32-34) 12/28/20 05:25 RDW 19.2 % (13.2-15.2) H 12/28/20 05:25 Plt Count 115 K/mm3 (140-440) L 12/28/20 05:25 Lymph % (Auto) 12.7 % (13.4-35.0) L 12/28/20 05:25 [place] % (Auto) 7.4 % (0.0-7.3) H 12/28/20 05:25 Eos % (Auto) 0.5 % (0.0-4.3) 12/28/20 05:25 Baso % (Auto) 0.9 % (0.0-1.8) 12/28/20 05:25 Lymph # (Auto) 1.8 K/mm3 (1.2-5.4) 12/28/20 05:25 [place] # (Auto) 1.1 K/mm3 (0.0-0.8) H 12/28/20 05:25 Eos # (Auto) 0.1 K/mm3 (0.0-0.4) 12/28/20 05:25 Baso # (Auto) 0.1 K/mm3 (0.0-0.1) 12/28/20 05:25 Seg Neutrophils % 78.5 % (40.0-70.0) H 12/28/20 05:25 Seg Neutrophils # 11.2 K/mm3 (1.8-7.7) H 12/28/20 05:25 PT 15.3 Sec. (12.2-14.9) H 12/27/20 07:03 INR 1.23 (0.87-1.13) H 12/27/20 07:03 APTT 30.1 Sec. (24.2-36.6) 12/26/20 20:36 ABG pH 7.390 (7.320-7.450) 12/28/20 01:45 POC ABG pCO2 33.8 mmHg (32.0-48.0) 12/28/20 01:45 POC ABG pO2 188.9 mmHg (83-108) H 12/28/20 01:45 POC ABG HCO3 20.0 12/28/20 01:45 POC ABG Base Excess -4.5 12/28/20 01:45 ABG Hemoglobin 7.2 (12.0-17.5) L 12/28/20 01:45 ABG Sodium 135.3 mmol/L (136.0-145.0) L 12/28/20 01:45 ABG Potassium 3.9 mmol/L (3.40-4.50) 12/28/20 01:45 ABG Chloride 111.0 mmol/L (98-107) H 12/28/20 01:45 ABG Glucose 76 mg/dL (65-95) 12/28/20 01:45 FiO2 31 12/28/20 01:45 Sodium 139 mmol/L (137-145) 12/28/20 05:25 Potassium 4.3 mmol/L (3.6-5.0) 12/28/20 05:25 Chloride 106.1 mmol/L (98-107) 12/28/20 05:25 Carbon Dioxide 21 mmol/L (22-30) L 12/28/20 05:25 Anion Gap 16 mmol/L 12/28/20 05:25 BUN 71 mg/dL (9-20) H 12/28/20 05:25 Creatinine 1.6 mg/dL (0.8-1.3) H 12/28/20 05:25 Estimated GFR 53 ml/min 12/28/20 05:25 BUN/Creatinine Ratio 44 % 12/28/20 05:25 Glucose 82 mg/dL (75-100) 12/28/20 05:25 POC Glucose 70 mg/dL (70-105) 12/27/20 12:05 Lactic Acid 1.60 mmol/L (0.7-2.0) 12/27/20 19:46 Calcium 8.5 mg/dL (8.4-10.2) 12/28/20 05:25 Total Bilirubin 0.90 mg/dL (0.1-1.2) 12/26/20 20:36 Direct Bilirubin 0.5 mg/dL (0-0.2) H 12/26/20 20:36 Indirect Bilirubin 0.4 mg/dL 12/26/20 20:36 AST 15 units/L (5-40) 12/26/20 20:36 ALT 9 units/L (7-56) 12/26/20 20:36 Alkaline Phosphatase 65 units/L (35-129) 12/26/20 20:36 Troponin T < 0.010 ng/mL (0.00-0.029) 12/26/20 22:36 NT-Pro-B Natriuret Pep 4048 pg/mL (0-900) H 12/26/20 20:36 Total Protein 5.5 g/dL (6.3-8.2) L 12/26/20 20:36 Albumin 2.8 g/dL (3.9-5) L 12/26/20 20:36 Albumin/Globulin Ratio 1.0 % 12/26/20 20:36 Arterial Blood Glucose 76 mg/dL (65-95) 12/28/20 01:45 Arterial Blood Ionized Calcium 4.6 mg/dL (4.6-5.3) 12/28/20 01:45 Urine Color Red (Yellow) 12/27/20 03:49 Urine Turbidity Slightly-cloudy (Clear) 12/27/20 03:49 Urine pH 5.0 (5.0-7.0) 12/27/20 03:49 Ur Specific [place] 1.014 (1.003-1.030) 12/27/20 03:49 Urine Protein 100 mg/dl mg/dL (Negative) 12/27/20 03:49 Urine Glucose (UA) Neg mg/dL (Negative) 12/27/20 03:49 Urine Ketones Neg mg/dL (Negative) 12/27/20 03:49 Urine Blood Lg (Negative) 12/27/20 03:49 Urine Nitrite Neg (Negative) 12/27/20 03:49 Urine Bilirubin Neg (Negative) 12/27/20 03:49 Urine Urobilinogen < 2.0 mg/dL (<2.0) 12/27/20 03:49 Ur Leukocyte Esterase Mod (Negative) 12/27/20 03:49 Urine WBC (Auto) > 182.0 /HPF (0.0-6.0) H 12/27/20 03:49 Urine RBC (Auto) > 182.0 /HPF (0.0-6.0) 12/27/20 03:49 U Epithel Cells (Auto) 2.0 /HPF (0-13.0) 12/27/20 03:49 Urine WBC Clumps 2+ /HPF 12/27/20 03:49 Coronavirus (PCR) Positive (Negative) A 12/27/20 09:48 Blood Type B POSITIVE 12/26/20 23:05 Antibody Screen Negative 12/26/20 23:05 Crossmatch See Detail 12/26/20 23:05 Microbiology: Microbiology 12/26/20 21:01 Peripheral/Venous Blood Culture - Preliminary NO GROWTH AFTER 24 HOURS 12/26/20 20:59 Peripheral/Venous Blood Culture - Preliminary NO GROWTH AFTER 24 HOURS 12/27/20 08:38 Peripheral/Venous Blood Culture - Preliminary Culture in Progress 12/27/20 08:04 Peripheral/Venous Blood Culture - Preliminary Culture in Progress Justin/IV: Voiding Method Incontinent Active Medications - Current Medications Current Medications: Generic Name Dose Route Start Last Admin Trade Name Freq PRN Reason Stop Dose Admin Acetaminophen 650 mg 12/26/20 23:35 12/27/20 01:40 Acetaminophen 325 Mg Tab PO 650 mg Q4H PRN Administration Pain MILD(1-3)/Fever >100.5/SARMIENTO Dexamethasone 4 mg 12/28/20 10:00 Dexamethasone 4 Mg/Ml Vial IV DAILY MELVINA Ceftriaxone Sodium 1 gm in 50 mls @ 100 mls/hr 12/27/20 08:00 12/27/20 08:35 Rocephin/Ns 1 Gm/50 Ml IV 100 mls/hr Q24H MELVINA Administration Protocol Pantoprazole Sodium 80 mg/ 100 mls @ 10 mls/hr 12/27/20 10:00 12/27/20 22:51 Sodium Chloride IV 8 mg/hr DIRECT MELVINA 10 mls/hr Administration 8 MG/HR Morphine Sulfate 2 mg 12/26/20 23:35 Morphine 2 Mg/1 Ml Inj IV Q4H PRN Pain, Moderate (4-6) Ondansetron HCl 4 mg 12/26/20 23:35 Ondansetron 4 Mg/2 Ml Inj IV Q8H PRN Nausea And Vomiting Sodium Chloride 10 ml 12/27/20 10:00 12/27/20 22:55 Sodium Chloride 0.9% 10 Ml Flush Syringe IV 10 ml BID MELVINA Administration Sodium Chloride 10 ml 12/26/20 23:35 Sodium Chloride 0.9% 10 Ml Flush Syringe IV PRN PRN LINE FLUSH Nutrition/Malnutrition Assess - Dietary Evaluation Nutrition/Malnutrition Findings: Nutrition Notes Start: 12/27/20 07:22 Freq: Status: Active Protocol: Document 12/27/20 07:22 LP (Rec: 12/27/20 07:33 LP [id number]) Nutrition Notes 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 Pt did not answer phone. Pt noted to have COVID in July 2020 and did not eat for 2 weeks due to no appetite and no taste. Burn Absent Trauma Absent GI Symptoms Other Minimum of two criteria No physical signs of malnutrition #1 Nutrition Diagnosis Predicted suboptimal energy intake,Altered GI function Etiology poor appetite [employer]HOU[employer] As Evidenced by Signs and Symptoms Pt currently NPO and with black tarry stool Is patient on ventilator? No Is Patient Ambulatory and/or Out of Bed Yes REE-(Drumright-St. Jeor-ambulatory/OOB) [ 1907.919 [id number]] Calculation [facility] Additional Notes Pending accurate wt Nutrition Intervention Change Diet Order: Advance diet as feasible Goal #1 Advance diet as feasible Follow-Up By: 12/28/20 Additional Comments Follow for assessment, wt
[2020-12-28] MEDS ORDERED: SODIUM CHLORIDE 0.9% 1000 ML 1,000 ML IV SCH (09:15)
--- NOTE | 2020-12-28 09:53 | Progress Note ---
Assessment and Plan Cont present cardiac management. F/u tte results. COVID-19 testing is positive. Continue to hold Eliquis for GI bleed. Gastroenterology following. Etiology likely secondary to peptic ulcer disease versus malignancy. Endoscopy per GI. CT of the abdomen pelvis reveals persistent gross distention of the urinary bladder related to chronic outlet obstruction. Persistent moderate bilateral hydronephrosis. Urology consultation. Also, new rounded masslike structure in the lingula measuring 2.5 cm. Consider pulmonary consultation. The patient has been seen in conjunction with Dr. Alpesh Ewing who agrees with the assessment and plan of care. - Patient Problems (1) COVID-19 virus infection Current Visit: Yes Status: Acute (2) Pneumonia Current Visit: Yes Status: Suspected (3) History of pulmonary embolism Current Visit: Yes Status: Chronic (4) Symptomatic anemia Current Visit: Yes Status: Acute (5) Thrombocytopenia Current Visit: Yes Status: Acute (6) GI bleed Current Visit: Yes Status: Acute (7) ROBSON (acute kidney injury) Current Visit: Yes Status: Acute (8) UTI (urinary tract infection) Current Visit: Yes Status: Acute (9) Failure to thrive Current Visit: Yes Status: Acute Subjective Date of service: 12/28/20 Principal diagnosis: COVID Interval history: tele reviewed - SR HR 70s. Objective Last Vital Signs Temp 97.5 F L 12/28/20 04:47 Pulse 96 H 12/28/20 04:47 Resp 22 12/28/20 04:47 BP 93/53 12/28/20 04:47 Pulse Ox 96 12/28/20 07:35 - Physical Examination Narrative exam: agree with physical examination per primary team - Labs and Meds CBC 12/28/20 Range/Units 05:25 WBC 14.3 H (4.5-11.0) K/mm3 RBC 2.74 L (3.65-5.03) M/mm3 Hgb 8.0 L (11.8-15.2) gm/dl Hct 23.4 L D (35.5-45.6) % Plt Count 115 L (140-440) K/mm3 Lymph # (Auto) 1.8 (1.2-5.4) K/mm3 [place] # (Auto) 1.1 H (0.0-0.8) K/mm3 Eos # (Auto) 0.1 (0.0-0.4) K/mm3 Baso # (Auto) 0.1 (0.0-0.1) K/mm3 Comprehensive Metabolic Panel 12/28/20 Range/Units 05:25 Sodium 139 (137-145) mmol/L Potassium 4.3 (3.6-5.0) mmol/L Chloride 106.1 (98-107) mmol/L Carbon Dioxide 21 L (22-30) mmol/L BUN 71 H (9-20) mg/dL Creatinine 1.6 H (0.8-1.3) mg/dL Glucose 82 (75-100) mg/dL Calcium 8.5 (8.4-10.2) mg/dL
[2020-12-28] MEDS ORDERED: WATER FOR IRRIG STERILE 1,000 ML BOTTLE ONE (10:19)
[2020-12-28] MEDS ORDERED: WATER FOR IRRIG STERILE 250 ML BOTTLE IR ONE (10:19)
--- NOTE | 2020-12-28 10:27 | Anesthesia Day of Surgery ---
Anesthesia Day of Surgery - Day of Surgery Patient Examined: Yes Patient H&P Reviewed: Yes Patient is NPO: Yes
[2020-12-28] MEDS ORDERED: LIDOCAINE MPF (2%) 20 MG/1 ML VIAL 5 ML ONE (10:29)
[2020-12-28] MEDS ORDERED: propofoL 200 MG/20 ML VIAL IV ONE (10:30)
[2020-12-28] MEDS ORDERED: KETAMINE/STERILE WATER 50 MG/ML SYRINGE ONE (10:30)
--- NOTE | 2020-12-28 10:32 | Anesthesia Consultation ---
Anesthesia Consult and Med Hx Date of service: 12/28/20 - Airway Anesthetic Teeth Evaluation: Bridges ROM Head & Neck: Adequate Mental/Hyoid Distance: Adequate Mallampati Class: Class II Intubation Access Assessment: Good - Pre-Operative Health Status ASA Pre-Surgery Classification: ASA4 Proposed Anesthetic Plan: MAC - Pulmonary Hx Smoking: No Hx Asthma: No Hx Respiratory Symptoms: Yes (PE) SOB: Yes COPD: No Hx Pneumonia: Yes (COVID and bacterial) Hx Sleep Apnea: No - Cardiovascular System Hx Hypertension: Yes Hx Coronary Artery Disease: No (CHF exacerbation) Hx Heart Attack/AMI: No Hx Angina: No Hx Percutaneous Transluminal Coronary Angioplasty (PTCA): No Hx Pacemaker: No Hx Internal Defibrillator: No Hx Valvular Heart Disease: No Hx Heart Murmur: No Hx Peripheral Vascular Disease: No - Central Nervous System Hx Seizures: No CVA: No Hx Psychiatric Problems: No - Gastrointestinal Hx Ulcer: Yes (GI Bleed) - Endocrine Hx Renal Disease: Yes (UTI; DOOLEY) Hx End Stage Renal Disease: No Hx Liver Disease: No Hx Hypothyroidism: No Hx Hyperthyroidism: No - Hematic Hx Anemia: Yes Hx Sickle Cell Disease: No - Other Systems Hx Cancer: No Hx Obesity: No - Additional Comments Anesthesia Medical History Comments: Failure to thrive
[2020-12-28] MEDS ORDERED: EPINEPHrine 1 MG/10 ML SYRINGE ONE (10:52)
[2020-12-28] MEDS ORDERED: PHENYLEPHRINE/NS 1,000 MCG/10 ML SYRINGE (OR USE) IV ONE (11:00)
--- NOTE | 2020-12-28 11:11 | Post Operative Note ---
Pre-op diagnosis: GI bleed Post-op diagnosis: other (Giant angularis ulcer with visible vessel, old blood and clot in stomach.) Findings: 1. 3-4 cm white fibrotic based ulcer in angularis with visible vessel. No active bleeding. Injected around vessel with 6 ml EPI in 1 ml aliquots. Then, vessel and surroundings ablated with GoldProbe. No bleeding during procedure. 2. Old and fresh clot noted in gastric lumen, precluding visualization. 3. Normal antrum 4. Visualized gastric mucosa o/w normal. 5. Normal esophagus and duodenum. Procedure: EGD with epi injection and cautery Anesthesia: MAC Surgeon: YRN GRANT Estimated blood loss: none Pathology: none Condition: stable Disposition: floor (Monitor closely, cont PPI drip, and if rebleeds, needs IR and possibly surgery. No further role for endoscopy.)
--- NOTE | 2020-12-28 11:26 | Operative Report ---
PROCEDURE: Upper endoscopy with epinephrine injection and cautery. PREOPERATIVE DIAGNOSIS: Gastrointestinal bleed. POSTOPERATIVE DIAGNOSIS: Angularis ulcer with visible vessel. SEDATION: MAC by Anesthesia. HISTORY: The patient is a 65-year-old man with multiple medical problems who had been on Eliquis for a pulmonary embolus that he stopped several days ago. He notes a 2-week history of profound weakness and orthostatic symptoms. He had melena and had a hemoglobin that came down to 5.5 on admission. DESCRIPTION OF PROCEDURE: Indications, risks, and benefits were explained and consent was obtained. The patient was placed in left lateral decubitus position and sedated. Video endoscope was passed through the mouth and oropharynx into the descending duodenum. Scope was then gradually withdrawn with close inspection of mucosa. FINDINGS: 1. Normal-appearing esophagus with no varices. 2. A 3-4 cm ulcer located on the angularis with sharp edges. It had a white fibrotic base. A visible vessel was noted in the center of it. This was not actively bleeding. The area around the visible vessel was injected with 6 mL of 1:10,000 epinephrine in 1 mL aliquots. Then, the Gold Probe was used and the area of the vessel and around it was ablated. No bleeding was noted during or after the procedure. 3. Normal-appearing gastric antrum. 4. Visualized gastric mucosa along the lesser curvature was normal appearing. A large portion of the stomach could not be visualized properly due to the presence of old blood and clot. 5. Normal-appearing duodenal bulb and duodenum. The patient tolerated the procedure well without immediate complication. IMPRESSION: 1. Large angularis ulcer with fibrotic base and visible vessel. Treated with epinephrine and cautery to reduce risk of rebleeding. 2. Otherwise, normal endoscopy, though stomach not well visualized. RECOMMENDATIONS: 1. Continue proton-pump inhibitor drip. 2. Monitor H and H closely and transfuse as needed. 3. If rebleeds, contact Interventional Radiology or General Surgery as there is no further role for endoscopic management. 4. If does well, he will need a repeat endoscopy either later this admission or as an outpatient to reassess the ulcer and biopsy to exclude malignancy. This would also be done to clear the remainder of the stomach. [facility]# [id number] HRC/NTS
--- NOTE | 2020-12-28 11:30 | Event Note ---
Date: 12/28/20 65-year-old male with multiple medical issues including pulmonary embolism, and recent upper GI bleed with 3 cm ulceration requiring endoscopic cauterization and epinephrine injection. If patient has further bleeding, then targeted or empiric embolization can be performed. Given anticoagulation with history of pulmonary embolism, ordered bilateral lower extremity DVT studies. Ordered SCDs. If DVT study is positive, may need IVC filter. Will attempt to see patient later today.
[2020-12-28] MEDS: cefTRIAXone/NS 1 GM/50 ML 1 GM/50 ML BAG IV SCH (12:13)
[2020-12-28] MEDS: dexAMETHasone 4 MG/ML VIAL IV SCH (12:13)
--- NOTE | 2020-12-28 12:31 | Consultation ---
History of Present Illness - Reason for Consult Consult date: 12/28/20 COVID-19 Requesting physician: ESTHER TAMAYO - History of Present Illness The patient is a 65-year-old male with hypertension, CHF, history of PE was admitted to the hospital with decreased oral intake, fatigue over the last 2 weeks. Patient had COVID-19 back in March 2020 when he did not have hypoxia and did not receive remdesivir. Upon evaluation in the ER at this time, noted to have anemia, elevated lactate. Patient again tested positive for COVID-19, hence infectious diseases was consulted. Chest x-ray does not reveal any obvious infiltrates. He has remained afebrile. Review of Systems: reviewed in the chart, unable to obtain, minimize risk of transmission Past History Past Medical History: heart failure (LVEF = 20%.), hypertension, pulmonary embolism, other (Pyoderma Gangrenosum) Past Surgical History: No surgical history. denies: thyroidectomy Social history: no significant social history Family history: no significant family history Medications and Allergies Allergies Allergy/AdvReac Type Severity Reaction Status Date / Time No Known Allergies Allergy Verified 07/21/19 02:06 Home Medications Medication Instructions Recorded Confirmed Last Taken Type Apixaban [Eliquis] 5 mg PO Q12HR 30 Days #60 tablet 07/25/20 12/27/20 Unknown Rx Apixaban [Eliquis] 10 mg PO Q12HR 7 Days #14 tablet 07/25/20 12/27/20 Unknown Rx Loperamide [Imodium] 2 mg PO Q2H PRN 4 Days #14 capsule 07/25/20 12/27/20 Unknown Rx Metoprolol [Lopressor TAB] 25 mg PO BID 30 Days #60 tablet 07/25/20 12/27/20 Unknown Rx Tamsulosin [Flomax] 0.4 mg PO QDAY 30 Days #30 cap 07/25/20 12/27/20 Unknown Rx lisinopriL [Zestril TAB] 5 mg PO QDAY 30 Days #30 tablet 07/25/20 12/27/20 Unknown Rx Active Meds: Active Medications Acetaminophen (Acetaminophen 325 Mg Tab) 650 mg PO Q4H PRN PRN Reason: Pain MILD(1-3)/Fever >100.5/SARMIENTO Last Admin: 12/27/20 01:40 Dose: 650 mg Documented by: Dexamethasone (Dexamethasone 4 Mg/Ml Vial) 4 mg IV DAILY [facility] Stop: 01/06/21 10:01 Last Admin: 12/28/20 12:13 Dose: 4 mg Documented by: Ceftriaxone Sodium (Rocephin/Ns 1 Gm/50 Ml) 1 gm in 50 mls @ 100 mls/hr IV Q24H MELVINA; Protocol Last Admin: 12/28/20 12:13 Dose: 100 mls/hr Documented by: Pantoprazole Sodium 80 mg/ (Sodium Chloride) 100 mls @ 10 mls/hr IV DIRECT MELVINA Last Admin: 12/27/20 22:51 Dose: 8 mg/hr, 10 mls/hr Documented by: Sodium Chloride (Nacl 0.9% 1000 Ml) 1,000 mls @ 50 mls/hr IV DIRECT MELVINA Stop: 12/29/20 09:14 Morphine Sulfate (Morphine 2 Mg/1 Ml Inj) 2 mg IV Q4H PRN PRN Reason: Pain, Moderate (4-6) Last Admin: 12/28/20 08:53 Dose: 2 mg Documented by: Ondansetron HCl (Ondansetron 4 Mg/2 Ml Inj) 4 mg IV Q8H PRN PRN Reason: Nausea And Vomiting Last Admin: 12/28/20 08:53 Dose: 4 mg Documented by: Sodium Chloride (Sodium Chloride 0.9% 10 Ml Flush Syringe) 10 ml IV BID MELVINA Last Admin: 12/28/20 10:36 Dose: 10 ml Documented by: Sodium Chloride (Sodium Chloride 0.9% 10 Ml Flush Syringe) 10 ml IV PRN PRN PRN Reason: LINE FLUSH Physical Examination - Physical Exam Narrative exam: Physical Exam (reviewed in chart to minimize risk of transmission) Constitutional: deferred Head, Ears, Nose: deferred Eyes: deferred Neck: deferred Oral: deferred Cardiovascular: deferred Respiratory: deferred GI: deferred Musculoskeletal: deferred Skin: deferred Hem/Lymphatic: deferred Psych: deferred Neurological: deferred - Constitutional Vitals: Vital Signs Temp Pulse Resp BP Pulse Ox 97.5 F L 96 H 22 93/53 96 12/28/20 04:47 12/28/20 04:47 12/28/20 04:47 12/28/20 04:47 12/28/20 07:35 Temperature -Last 24 Hours Temperature 97.5 F Temperature 98.3 F Results - Labs CBC & Chem 7: 12/28/20 05:25 12/28/20 05:25 Labs: Abnormal lab results 12/26/20 12/27/20 12/28/20 Range/Units 23:05 09:48 01:45 WBC (4.5-11.0) K/mm3 RBC (3.65-5.03) M/mm3 Hgb (11.8-15.2) gm/dl Hct (35.5-45.6) % RDW (13.2-15.2) % Plt Count (140-440) K/mm3 Lymph % (Auto) (13.4-35.0) % [place] % (Auto) (0.0-7.3) % [place] # (Auto) (0.0-0.8) K/mm3 Seg Neutrophils % (40.0-70.0) % Seg Neutrophils # (1.8-7.7) K/mm3 POC ABG pO2 188.9 H (83-108) mmHg ABG Hemoglobin 7.2 L (12.0-17.5) ABG Sodium 135.3 L (136.0-145.0) mmol/L ABG Chloride 111.0 H (98-107) mmol/L Carbon Dioxide (22-30) mmol/L BUN (9-20) mg/dL Creatinine (0.8-1.3) mg/dL Coronavirus (PCR) Positive A (Negative) Crossmatch See Detail 12/28/20 12/28/20 Range/Units 05:25 05:25 WBC 14.3 H (4.5-11.0) K/mm3 RBC 2.74 L (3.65-5.03) M/mm3 Hgb 8.0 L (11.8-15.2) gm/dl Hct 23.4 L D (35.5-45.6) % RDW 19.2 H (13.2-15.2) % Plt Count 115 L (140-440) K/mm3 Lymph % (Auto) 12.7 L (13.4-35.0) % [place] % (Auto) 7.4 H (0.0-7.3) % [place] # (Auto) 1.1 H (0.0-0.8) K/mm3 Seg Neutrophils % 78.5 H (40.0-70.0) % Seg Neutrophils # 11.2 H (1.8-7.7) K/mm3 POC ABG pO2 (83-108) mmHg ABG Hemoglobin (12.0-17.5) ABG Sodium (136.0-145.0) mmol/L ABG Chloride (98-107) mmol/L Carbon Dioxide 21 L (22-30) mmol/L BUN 71 H (9-20) mg/dL Creatinine 1.6 H (0.8-1.3) mg/dL Coronavirus (PCR) (Negative) Crossmatch - Imaging and Cardiology Chest x-ray: report reviewed, image reviewed (no pneumonia seen) Assessment and Plan Cultures: SARS CoV2 PCR: 12/26/2020 blood culture: No growth 12/27/2020 blood culture: No growth A/P: 65-year-old male with hypertension, CHF, history of PE was admitted to the hospital with decreased oral intake, fatigue over the last 2 weeks. Patient had COVID-19 back in March 2020 when he did not have hypoxia and did not receive remdesivir. Upon evaluation in the ER at this time, noted to have anemia,: #COVID-19: Likely reinfection since previous COVID-19 was back in March 2020. #Acute hypoxic respiratory failure: Was hypoxic on admission. #Possible UTI: UA with severe pyuria, hematuria. On empiric ceftriaxone. #ROBSON: Creatinine increased to 1.6. #GI bleed, anemia: Status post EGD which revealed a gastric ulcer. Recs: -Continue steroids for now -IV remdesivir added -Check markers for severe COVID-19 -continue Ceftriaxone for now Eyal Dixon MD, FACP [facility] O: [phone] F: [phone]
--- NOTE | 2020-12-28 12:51 | Post Anesthesia Evaluation ---
- Post Anesthesia Evaluation Patient Participated: Yes Airway Patent: Yes Stable Respiratory Function: Yes Nausea/Vomiting: No Temp > 96.8F: Yes Pain Manageable: Yes Adequeate Hydration: Yes Anesthesia Complications: No Block Receding Appropriately: Not Applicable Patient on Ventilator: No
[2020-12-28] MEDS ORDERED: REMDESIVIR 100 MG VIAL IV ONE (14:00)
[2020-12-28] MEDS ORDERED: REMDESIVIR 200 MG in SODIUM CHLORIDE 0.9% 250ML 250 ML IV ONE (14:00)
--- NOTE | 2020-12-28 14:48 | Vascular Lab Report ---
DUPLEX DOPPLER LOWER EXTREMITY VEINS, BILATERAL INDICATION / CLINICAL INFORMATION: swelling, PE. TECHNIQUE: Duplex doppler imaging was performed through the veins of both lower extremities using venous lisa matt and other maneuvers. COMPARISON: None available. FINDINGS: RIGHT COMMON FEMORAL VEIN: Negative. RIGHT FEMORAL VEIN: Negative. RIGHT POPLITEAL VEIN: Negative. RIGHT CALF VEINS: Negative. LEFT COMMON FEMORAL VEIN: Negative. LEFT FEMORAL VEIN: Chronic DVT distal femoral vein LEFT POPLITEAL VEIN: Chronic thrombus. No acute thrombus. LEFT CALF VEINS: Negative. ADDITIONAL FINDINGS: None. IMPRESSION: 1. No sonographic evidence for acute DVT in either lower extremity. 2. Chronic thrombus distal left femoral and popliteal veins Signer Name: Drew Carrera MD Signed: 12/28/2020 2:44 PM Workstation Name: [id number]
[2020-12-28] MEDS: SODIUM CHLORIDE 0.9% 50 ML IVPB IV SCH (16:47)
[2020-12-29 05:13] LABS: Basophils % (Auto) 0.1 % (0.0-1.8); Hemoglobin 7.6 gm/dl (11.8-15.2); Lymphocytes % (Auto) 9.8 % (13.4-35.0); Mean Corpuscular HGB Conc 35 % (32-34); Mean Corpuscular Volume 86 fl (84-94); Monocytes # (Auto) 0.2 K/mm3 (0.0-0.8); Monocytes % (Auto) 1.6 % (0.0-7.3); Platelet Count 125 K/mm3 (140-440); Red Blood Count 2.56 M/mm3 (3.65-5.03); Red Cell Distribution Width 19.8 % (13.2-15.2)
[2020-12-29 05:31] LABS: Alanine Aminotransferase 8 units/L (7-56); Albumin 2.7 g/dL (3.9-5); BUN/Creatinine Ratio 45; Blood Urea Nitrogen 63 mg/dL (9-20); Calcium 8.7 mg/dL (8.4-10.2); Hemolysis Index 0
[2020-12-29 05:32] LABS: BUN/Creatinine Ratio 44; Blood Urea Nitrogen 61 mg/dL (9-20); Calcium 8.5 mg/dL (8.4-10.2); Hemolysis Index 0
--- NOTE | 2020-12-29 07:32 | Progress Note ---
Assessment and Plan Assessment and plan: Sepsis. Patient meets criteria given the tachycardia, tachypnea and diagnosis of UTI. COVID-19 pneumonia UTI. Patient with previous CT July 2020 which revealed Mild bilateral hydronephrosis and moderate distention of the urinary bladder GI bleed/melena. Anemia. Etiology likely secondary to acute blood loss anemia. Weight loss. 40 pound weight loss in 2 weeks History pulmonary embolism. Patient on home Eliquis. Pyoderma gangrenosum 12/27/2020. Patient's urinalysis reveals UTI and patient has significant lactic acidosis. Follow-up blood and urine cultures. Initiate antibiotics of Rocephin and consult ID for further evaluation. Patient will receive 2 more units of PRBCs and follow-up occult stool. GI consultation pending. Start Protonix drip. Hold Eliquis. 12/28/2020. Patient reportedly with positive Covid testing on 04/19/2020 and subsequent negative testing on 07/07 and 07/25. Patient now with new positive testing on 12/27/2020. Consult ID for further evaluation. Continue to hold Eliquis for GI bleed. Gastroenterology following. Etiology likely secondary to peptic ulcer disease versus malignancy. Endoscopy per GI. CT of the abdomen pelvis reveals persistent gross distention of the urinary bladder related to chronic outlet obstruction. Persistent moderate bilateral hydronephrosis. Urology consultation. Also, new rounded masslike structure in the lingula measuring 2.5 cm. Consider pulmonary consultation. 12/29/2020; COVID-19 infection continue with remdesivir and Decadron. Evaluated by ID and recommend to continue Rocephin empirically. Severe anemia status post transfusion of 3 units of blood this morning with 8. GI bleed; GI was consulted and did EGD and found gastric ulcer and epinephrine injection was done. 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 Eliquis was on hold because of GI bleed. Vascular surgery was consulted and is considering to do IVC filter. CT of the abdomen pelvis reveals persistent gross distention of the urinary bladder related to chronic outlet obstruction. Persistent moderate bilateral hydronephrosis. Urology consulted. Also, new rounded masslike structure in the lingula measuring 2.5 cm. Consider pulmonary consultation. Pulmonary consulted and recommend outpatient repeat imaging. Evaluated by urology and recommend to continue with Justin catheter, he also recommends prostate biopsy given his weight loss, patient is positive for Covid, wanting biopsy can be done at this time. Covid test is positive on 12/27/2020. History Interval history: Patient was seen and evaluated this morning Patient did not have any complaints Patient did not have any bowel movements today Hospitalist Physical - Physical exam Narrative exam: Not in cardiopulmonary distress. The patient appeared well nourished and normally developed. Vital signs as documented. Head exam is unremarkable. No scleral icterus . Neck is without jugular venous distension, thyromegaly, or carotid bruits. Lungs are clear to auscultation. Cardiac exam reveals regular rate and Rhythm. Abdominal exam reveals normal bowel sounds, nontender, no organomegaly. Extremities are nonedematous and both femoral and pedal pulses are normal. [employer]: Alert and oriented 3. No focal weakness. - Constitutional Vitals: Temp Pulse Resp BP Pulse Ox 97.3 F L 71 20 80/47 100 12/28/20 23:17 12/29/20 05:29 12/29/20 05:29 12/29/20 05:29 12/29/20 05:29 General appearance: Present: cachectic HEART Score - HEART Score Troponin: Troponin T < 0.010 ng/mL (0.00-0.029) 12/26/20 22:36 Results - Labs CBC & Chem 7: 12/29/20 04:07 12/29/20 04:07 Labs: Laboratory Last Values WBC 10.1 K/mm3 (4.5-11.0) 12/29/20 04:07 RBC 2.56 M/mm3 (3.65-5.03) L 12/29/20 04:07 Hgb 7.6 gm/dl (11.8-15.2) L 12/29/20 04:07 Hct 22.0 % (35.5-45.6) L 12/29/20 04:07 MCV 86 fl (84-94) 12/29/20 04:07 MCH 30 pg (28-32) 12/29/20 04:07 MCHC 35 % (32-34) H 12/29/20 04:07 RDW 19.8 % (13.2-15.2) H 12/29/20 04:07 Plt Count 125 K/mm3 (140-440) L 12/29/20 04:07 Lymph % (Auto) 9.8 % (13.4-35.0) L 12/29/20 04:07 [place] % (Auto) 1.6 % (0.0-7.3) 12/29/20 04:07 Eos % (Auto) 0.0 % (0.0-4.3) 12/29/20 04:07 Baso % (Auto) 0.1 % (0.0-1.8) 12/29/20 04:07 Lymph # (Auto) 1.0 K/mm3 (1.2-5.4) L 12/29/20 04:07 [place] # (Auto) 0.2 K/mm3 (0.0-0.8) 12/29/20 04:07 Eos # (Auto) 0.0 K/mm3 (0.0-0.4) 12/29/20 04:07 Baso # (Auto) 0.0 K/mm3 (0.0-0.1) 12/29/20 04:07 Seg Neutrophils % 88.5 % (40.0-70.0) H 12/29/20 04:07 Seg Neutrophils # 9.0 K/mm3 (1.8-7.7) H 12/29/20 04:07 PT 15.3 Sec. (12.2-14.9) H 12/27/20 07:03 INR 1.23 (0.87-1.13) H 12/27/20 07:03 APTT 30.1 Sec. (24.2-36.6) 12/26/20 20:36 D-Dimer 423.53 ng/mlDDU (0-234) H 12/29/20 04:07 ABG pH 7.390 (7.320-7.450) 12/28/20 01:45 POC ABG pCO2 33.8 mmHg (32.0-48.0) 12/28/20 01:45 POC ABG pO2 188.9 mmHg (83-108) H 12/28/20 01:45 POC ABG HCO3 20.0 12/28/20 01:45 POC ABG Base Excess -4.5 12/28/20 01:45 ABG Hemoglobin 7.2 (12.0-17.5) L 12/28/20 01:45 ABG Sodium 135.3 mmol/L (136.0-145.0) L 12/28/20 01:45 ABG Potassium 3.9 mmol/L (3.40-4.50) 12/28/20 01:45 ABG Chloride 111.0 mmol/L (98-107) H 12/28/20 01:45 ABG Glucose 76 mg/dL (65-95) 12/28/20 01:45 FiO2 31 12/28/20 01:45 Sodium 137 mmol/L (137-145) 12/29/20 04:07 Sodium 138 mmol/L (137-145) 12/29/20 04:07 Potassium 4.4 mmol/L (3.6-5.0) 12/29/20 04:07 Potassium 4.4 mmol/L (3.6-5.0) 12/29/20 04:07 Chloride 105.0 mmol/L (98-107) 12/29/20 04:07 Chloride 106.3 mmol/L (98-107) 12/29/20 04:07 Carbon Dioxide 22 mmol/L (22-30) 12/29/20 04:07 Carbon Dioxide 22 mmol/L (22-30) 12/29/20 04:07 Anion Gap 14 mmol/L 12/29/20 04:07 Anion Gap 14 mmol/L 12/29/20 04:07 BUN 61 mg/dL (9-20) H 12/29/20 04:07 BUN 63 mg/dL (9-20) H 12/29/20 04:07 Creatinine 1.4 mg/dL (0.8-1.3) H 12/29/20 04:07 Creatinine 1.4 mg/dL (0.8-1.3) H 12/29/20 04:07 Estimated GFR > 60 ml/min 12/29/20 04:07 Estimated GFR > 60 ml/min 12/29/20 04:07 BUN/Creatinine Ratio 44 % 12/29/20 04:07 BUN/Creatinine Ratio 45 % 12/29/20 04:07 Glucose 98 mg/dL (75-100) 12/29/20 04:07 Glucose 101 mg/dL (75-100) H 12/29/20 04:07 POC Glucose 74 mg/dL (70-105) 12/28/20 17:22 Lactic Acid 1.60 mmol/L (0.7-2.0) 12/27/20 19:46 Calcium 8.5 mg/dL (8.4-10.2) 12/29/20 04:07 Calcium 8.7 mg/dL (8.4-10.2) 12/29/20 04:07 Ferritin 473.1 ng/mL (30.0-300.0) H 12/29/20 04:07 Total Bilirubin 0.70 mg/dL (0.1-1.2) 12/29/20 04:07 Direct Bilirubin 0.5 mg/dL (0-0.2) H 12/26/20 20:36 Indirect Bilirubin 0.4 mg/dL 12/26/20 20:36 AST 11 units/L (5-40) 12/29/20 04:07 ALT 8 units/L (7-56) 12/29/20 04:07 Alkaline Phosphatase 62 units/L (35-129) 12/29/20 04:07 Lactate Dehydrogenase 135 units/L (91-180) 12/29/20 04:07 Troponin T < 0.010 ng/mL (0.00-0.029) 12/26/20 22:36 C-Reactive Protein 6.50 mg/dL (0.00-1.30) H 12/29/20 04:07 NT-Pro-B Natriuret Pep 4048 pg/mL (0-900) H 12/26/20 20:36 Total Protein 5.8 g/dL (6.3-8.2) L 12/29/20 04:07 Albumin 2.7 g/dL (3.9-5) L 12/29/20 04:07 Albumin/Globulin Ratio 0.9 % 12/29/20 04:07 Arterial Blood Glucose 76 mg/dL (65-95) 12/28/20 01:45 Arterial Blood Ionized Calcium 4.6 mg/dL (4.6-5.3) 12/28/20 01:45 Urine Color Red (Yellow) 12/27/20 03:49 Urine Turbidity Slightly-cloudy (Clear) 12/27/20 03:49 Urine pH 5.0 (5.0-7.0) 12/27/20 03:49 Ur Specific [place] 1.014 (1.003-1.030) 12/27/20 03:49 Urine Protein 100 mg/dl mg/dL (Negative) 12/27/20 03:49 Urine Glucose (UA) Neg mg/dL (Negative) 12/27/20 03:49 Urine Ketones Neg mg/dL (Negative) 12/27/20 03:49 Urine Blood Lg (Negative) 12/27/20 03:49 Urine Nitrite Neg (Negative) 12/27/20 03:49 Urine Bilirubin Neg (Negative) 12/27/20 03:49 Urine Urobilinogen < 2.0 mg/dL (<2.0) 12/27/20 03:49 Ur Leukocyte Esterase Mod (Negative) 12/27/20 03:49 Urine WBC (Auto) > 182.0 /HPF (0.0-6.0) H 12/27/20 03:49 Urine RBC (Auto) > 182.0 /HPF (0.0-6.0) 12/27/20 03:49 U Epithel Cells (Auto) 2.0 /HPF (0-13.0) 12/27/20 03:49 Urine WBC Clumps 2+ /HPF 12/27/20 03:49 Coronavirus (PCR) Positive (Negative) A 12/27/20 09:48 Blood Type B POSITIVE 12/26/20 23:05 Antibody Screen Negative 12/26/20 23:05 Crossmatch See Detail 12/26/20 23:05 Microbiology: Microbiology 12/26/20 21:01 Peripheral/Venous Blood Culture - Preliminary NO GROWTH AFTER 48 HOURS 12/26/20 20:59 Peripheral/Venous Blood Culture - Preliminary NO GROWTH AFTER 48 HOURS 12/27/20 04:45 Nares - Left MRSA Culture - Preliminary 12/27/20 08:38 Peripheral/Venous Blood Culture - Preliminary NO GROWTH AFTER 24 HOURS 12/27/20 08:04 Peripheral/Venous Blood Culture - Preliminary NO GROWTH AFTER 24 HOURS Justin/IV: Voiding Method Condom Catheter Active Medications - Current Medications Current Medications: Generic Name Dose Route Start Last Admin Trade Name Freq PRN Reason Stop Dose Admin Acetaminophen 650 mg 12/26/20 23:35 12/27/20 01:40 Acetaminophen 325 Mg Tab PO 650 mg Q4H PRN Administration Pain MILD(1-3)/Fever >100.5/SARMIENTO Dexamethasone 4 mg 12/28/20 10:00 12/28/20 12:13 Dexamethasone 4 Mg/Ml Vial IV 01/06/21 10:01 4 mg DAILY MELVINA Administration Ceftriaxone Sodium 1 gm in 50 mls @ 100 mls/hr 12/27/20 08:00 12/28/20 16:47 Rocephin/Ns 1 Gm/50 Ml IV Infused Q24H MELVINA Infusion Protocol Pantoprazole Sodium 80 mg/ 100 mls @ 10 mls/hr 12/27/20 10:00 12/27/20 22:51 Sodium Chloride IV 8 mg/hr DIRECT MELVINA 10 mls/hr Administration 8 MG/HR Sodium Chloride 1,000 mls @ 50 mls/hr 12/28/20 09:15 Nacl 0.9% 1000 Ml IV 12/29/20 09:14 DIRECT MELVINA REMDESIVIR 100 mg/ Sodium 250 mls @ 500 mls/hr 12/29/20 21:00 Chloride IV 01/01/21 21:29 Q24HR@2100 MELVINA Morphine Sulfate 2 mg 12/26/20 23:35 12/28/20 08:53 Morphine 2 Mg/1 Ml Inj IV 2 mg Q4H PRN Administration Pain, Moderate (4-6) Ondansetron HCl 4 mg 12/26/20 23:35 12/28/20 08:53 Ondansetron 4 Mg/2 Ml Inj IV 4 mg Q8H PRN Administration Nausea And Vomiting Sodium Chloride 10 ml 12/27/20 10:00 12/28/20 22:00 Sodium Chloride 0.9% 10 Ml Flush Syringe IV 10 ml BID MELVINA Administration Sodium Chloride 10 ml 12/26/20 23:35 Sodium Chloride 0.9% 10 Ml Flush Syringe IV PRN PRN LINE FLUSH Sodium Chloride 50 ml 12/28/20 14:00 12/28/20 16:47 Sodium Chloride 0.9% 50 Ml Ivpb IV 01/01/21 21:01 50 ml Q24HR@2100 MELVINA Administration Nutrition/Malnutrition Assess - Dietary Evaluation Nutrition/Malnutrition Findings: Nutrition Notes Start: 12/27/20 07:22 Freq: Status: Active Protocol: Document 12/28/20 13:07 PAWAN (Rec: 12/28/20 13:13 PAWAN [id number]) Nutrition Notes Initial or Follow up Brief Note Current Diagnosis Hypertension,Heart Failure Other Pertinent Diagnosis black tarry stool, PE, COVID Current Diet Regular Height 6 ft 3 in Weight 59.4 kg [place] Body Weight (kg) 89.09 BMI 16.3 Subjective/Other Information FU for assessement. Pt did not answer phone x2. Pt diet advanced for lunch. Pt had procedure this AM that found pt with gastric ulcer. Nutrition Intervention Follow-Up By: 12/29/20 Additional Comments FU for assessment and intakes
--- NOTE | 2020-12-29 08:09 | Consultation ---
History of Present Illness Consult date: 12/29/20 Requesting physician: CROW ORDONEZ Reason for consult: abnormal CXR/CT History of present illness: 65 y/o male originally admitted for failure to thrive now found to have covid for the second time (first time was march H and P) found to have an abnormality close to his lingula vs left lower lobe on CT abdomen pelvis so pulmonary was consulted. Patient with known CHF systolic and EF of 15%. BNP was >4k on admission. Past History Past Medical History: heart failure (LVEF = 20%.), hypertension, pulmonary embolism, other (Pyoderma Gangrenosum) Past Surgical History: No surgical history. denies: thyroidectomy Social history: no significant social history Family history: no significant family history Medications and Allergies Allergies Allergy/AdvReac Type Severity Reaction Status Date / Time No Known Allergies Allergy Verified 07/21/19 02:06 Home Medications Medication Instructions Recorded Confirmed Last Taken Type Apixaban [Eliquis] 5 mg PO Q12HR 30 Days #60 tablet 07/25/20 12/27/20 Unknown Rx Apixaban [Eliquis] 10 mg PO Q12HR 7 Days #14 tablet 07/25/20 12/27/20 Unknown Rx Loperamide [Imodium] 2 mg PO Q2H PRN 4 Days #14 capsule 07/25/20 12/27/20 Unknown Rx Metoprolol [Lopressor TAB] 25 mg PO BID 30 Days #60 tablet 07/25/20 12/27/20 Unknown Rx Tamsulosin [Flomax] 0.4 mg PO QDAY 30 Days #30 cap 07/25/20 12/27/20 Unknown Rx lisinopriL [Zestril TAB] 5 mg PO QDAY 30 Days #30 tablet 07/25/20 12/27/20 Unknown Rx Active Meds: Active Medications Acetaminophen (Acetaminophen 325 Mg Tab) 650 mg PO Q4H PRN PRN Reason: Pain MILD(1-3)/Fever >100.5/SARMIENTO Last Admin: 12/27/20 01:40 Dose: 650 mg Documented by: Dexamethasone (Dexamethasone 4 Mg/Ml Vial) 4 mg IV DAILY MELVINA Stop: 01/06/21 10:01 Last Admin: 12/28/20 12:13 Dose: 4 mg Documented by: Ceftriaxone Sodium (Rocephin/Ns 1 Gm/50 Ml) 1 gm in 50 mls @ 100 mls/hr IV Q24H MELVINA; Protocol Last Infusion: 12/28/20 16:47 Dose: Infused Documented by: Pantoprazole Sodium 80 mg/ (Sodium Chloride) 100 mls @ 10 mls/hr IV DIRECT MELVINA Last Admin: 12/27/20 22:51 Dose: 8 mg/hr, 10 mls/hr Documented by: Sodium Chloride (Nacl 0.9% 1000 Ml) 1,000 mls @ 50 mls/hr IV DIRECT MELVINA Stop: 12/29/20 09:14 REMDESIVIR 100 mg/ Sodium (Chloride) 250 mls @ 500 mls/hr IV Q24HR@2100 MELVINA Stop: 01/01/21 21:29 Morphine Sulfate (Morphine 2 Mg/1 Ml Inj) 2 mg IV Q4H PRN PRN Reason: Pain, Moderate (4-6) Last Admin: 12/28/20 08:53 Dose: 2 mg Documented by: Ondansetron HCl (Ondansetron 4 Mg/2 Ml Inj) 4 mg IV Q8H PRN PRN Reason: Nausea And Vomiting Last Admin: 12/28/20 08:53 Dose: 4 mg Documented by: Sodium Chloride (Sodium Chloride 0.9% 10 Ml Flush Syringe) 10 ml IV BID MELVINA Last Admin: 12/28/20 22:00 Dose: 10 ml Documented by: Sodium Chloride (Sodium Chloride 0.9% 10 Ml Flush Syringe) 10 ml IV PRN PRN PRN Reason: LINE FLUSH Sodium Chloride (Sodium Chloride 0.9% 50 Ml Ivpb) 50 ml IV Q24HR@2100 MELVINA Stop: 01/01/21 21:01 Last Admin: 12/28/20 16:47 Dose: 50 ml Documented by: Physical Examination Vital signs: Vital Signs Pulse Resp 83 15 12/26/20 20:27 12/26/20 20:27 Results - Laboratory Findings CBC and BMP: 12/29/20 04:07 12/29/20 04:07 ABG ABG pH 7.390 (7.320-7.450) 12/28/20 01:45 POC ABG pCO2 33.8 mmHg (32.0-48.0) 12/28/20 01:45 POC ABG pO2 188.9 mmHg (83-108) H 12/28/20 01:45 POC ABG HCO3 20.0 03/08/21 01:45 PT/INR, D-dimer PT 15.3 Sec. (12.2-14.9) H 12/27/20 07:03 INR 1.23 (0.87-1.13) H 12/27/20 07:03 D-Dimer 423.53 ng/mlDDU (0-234) H 12/29/20 04:07 Abnormal lab findings: Abnormal Labs 12/26/20 12/26/20 12/26/20 20:31 20:36 20:36 WBC RBC 2.34 L Hgb 6.7 L Hct 20.0 L MCV 83 L MCHC RDW 19.8 H Plt Count Lymph % (Auto) [place] % (Auto) Lymph # (Auto) [place] # (Auto) Seg Neutrophils % 71.4 H Seg Neutrophils # PT INR D-Dimer POC ABG pO2 ABG Hemoglobin ABG Sodium ABG Chloride Sodium 136 L Carbon Dioxide 21 L BUN 61 H Creatinine Glucose POC Glucose 62 L Lactic Acid Calcium Ferritin Direct Bilirubin C-Reactive Protein NT-Pro-B Natriuret Pep Total Protein Albumin Urine WBC (Auto) Coronavirus (PCR) Crossmatch 12/26/20 12/26/20 12/26/20 20:36 20:36 20:59 WBC RBC Hgb Hct MCV MCHC RDW Plt Count Lymph % (Auto) [place] % (Auto) Lymph # (Auto) [place] # (Auto) Seg Neutrophils % Seg Neutrophils # PT INR D-Dimer POC ABG pO2 ABG Hemoglobin ABG Sodium ABG Chloride Sodium Carbon Dioxide BUN Creatinine Glucose POC Glucose Lactic Acid 3.50 H* Calcium Ferritin Direct Bilirubin 0.5 H C-Reactive Protein NT-Pro-B Natriuret Pep 4048 H Total Protein 5.5 L Albumin 2.8 L Urine WBC (Auto) Coronavirus (PCR) Crossmatch 12/26/20 12/26/20 12/27/20 22:36 23:05 03:49 WBC RBC Hgb Hct MCV MCHC RDW Plt Count Lymph % (Auto) [place] % (Auto) Lymph # (Auto) [place] # (Auto) Seg Neutrophils % Seg Neutrophils # PT INR D-Dimer POC ABG pO2 ABG Hemoglobin ABG Sodium ABG Chloride Sodium Carbon Dioxide BUN Creatinine Glucose POC Glucose Lactic Acid 2.30 H* Calcium Ferritin Direct Bilirubin C-Reactive Protein NT-Pro-B Natriuret Pep Total Protein Albumin Urine WBC (Auto) > 182.0 H Coronavirus (PCR) Crossmatch See Detail 12/27/20 12/27/20 12/27/20 07:03 07:03 07:03 WBC RBC 1.88 L Hgb 5.5 L* Hct 16.0 L* MCV MCHC 35 H RDW 20.4 H Plt Count 112 L Lymph % (Auto) 13.0 L [place] % (Auto) Lymph # (Auto) [place] # (Auto) Seg Neutrophils % 79.8 H Seg Neutrophils # 7.9 H PT 15.3 H INR 1.23 H D-Dimer POC ABG pO2 ABG Hemoglobin ABG Sodium ABG Chloride Sodium Carbon Dioxide BUN Creatinine Glucose POC Glucose Lactic Acid 5.00 H* Calcium Ferritin Direct Bilirubin C-Reactive Protein NT-Pro-B Natriuret Pep Total Protein Albumin Urine WBC (Auto) Coronavirus (PCR) Crossmatch 12/27/20 12/27/20 12/27/20 07:03 08:04 09:48 WBC RBC Hgb Hct MCV MCHC RDW Plt Count Lymph % (Auto) [place] % (Auto) Lymph # (Auto) [place] # (Auto) Seg Neutrophils % Seg Neutrophils # PT INR D-Dimer POC ABG pO2 ABG Hemoglobin ABG Sodium ABG Chloride Sodium 135 L Carbon Dioxide 17 L BUN 63 H Creatinine Glucose POC Glucose Lactic Acid 4.60 H* Calcium 8.1 L Ferritin Direct Bilirubin C-Reactive Protein NT-Pro-B Natriuret Pep Total Protein Albumin Urine WBC (Auto) Coronavirus (PCR) Positive A Crossmatch 12/28/20 12/28/20 12/28/20 01:45 05:25 05:25 WBC 14.3 H RBC 2.74 L Hgb 8.0 L Hct 23.4 L D MCV MCHC RDW 19.2 H Plt Count 115 L Lymph % (Auto) 12.7 L [place] % (Auto) 7.4 H Lymph # (Auto) [place] # (Auto) 1.1 H Seg Neutrophils % 78.5 H Seg Neutrophils # 11.2 H PT INR D-Dimer POC ABG pO2 188.9 H ABG Hemoglobin 7.2 L ABG Sodium 135.3 L ABG Chloride 111.0 H Sodium Carbon Dioxide 21 L BUN 71 H Creatinine 1.6 H Glucose POC Glucose Lactic Acid Calcium Ferritin Direct Bilirubin C-Reactive Protein NT-Pro-B Natriuret Pep Total Protein Albumin Urine WBC (Auto) Coronavirus (PCR) Crossmatch 12/29/20 12/29/20 12/29/20 04:07 04:07 04:07 WBC RBC 2.56 L Hgb 7.6 L Hct 22.0 L MCV MCHC 35 H RDW 19.8 H Plt Count 125 L Lymph % (Auto) 9.8 L [place] % (Auto) Lymph # (Auto) 1.0 L [place] # (Auto) Seg Neutrophils % 88.5 H Seg Neutrophils # 9.0 H PT INR D-Dimer 423.53 H POC ABG pO2 ABG Hemoglobin ABG Sodium ABG Chloride Sodium Carbon Dioxide BUN 61 H Creatinine 1.4 H Glucose POC Glucose Lactic Acid Calcium Ferritin Direct Bilirubin C-Reactive Protein 6.50 H NT-Pro-B Natriuret Pep Total Protein Albumin Urine WBC (Auto) Coronavirus (PCR) Crossmatch 12/29/20 12/29/20 04:07 04:07 WBC RBC Hgb Hct MCV MCHC RDW Plt Count Lymph % (Auto) [place] % (Auto) Lymph # (Auto) [place] # (Auto) Seg Neutrophils % Seg Neutrophils # PT INR D-Dimer POC ABG pO2 ABG Hemoglobin ABG Sodium ABG Chloride Sodium Carbon Dioxide BUN 63 H Creatinine 1.4 H Glucose 101 H POC Glucose Lactic Acid Calcium Ferritin 473.1 H Direct Bilirubin C-Reactive Protein NT-Pro-B Natriuret Pep Total Protein 5.8 L Albumin 2.7 L Urine WBC (Auto) Coronavirus (PCR) Crossmatch - Diagnostic Findings Chest x-ray: image reviewed CT scan - chest: image reviewed Assessment and Plan 65 y/o male with rounded lesion located in this lingula vs left lower lobe, concern for mass. 1. Given well defined edges, surrounding atelectatic tail and measuring of housfiled units in the fluid range, I suspect this to be a small effusion confined to the fissure with surrounding atelectasis or just rounded atelectasis. This lesion was not seen on a CXR 1 day prior. Patient is a nonsmoker. Suggest continued diuresis and this imaging can be repeated as an outpatient with a dedicated CT of the chest without contrast to make sure there is resolution with fluid removal. If not or increase in size, would persue PET CT vs biopsy. Call if questions.
--- NOTE | 2020-12-29 10:30 | Progress Note ---
Assessment and Plan Echo 12/26/2020: EF 15-20%, Left ventricle severely dilated, atria are mildly dilated. Mild AR, Mild MR, Mild HI. Mild TR. No current clinical evidence of acutely decompensated heart failure. Patient has reported hx of reduced EF, although he is a rather poor historian. Patient states may have had stress test at [facility] in 06/2020. Records have been requested. Continue current cardiac management. No BB, ACEI/ARB in setting of hypotension. Gastroenterology performed endoscopy: 4cm gastric ulcer was ablated. Urology consult noted: keep henderson. Pulmonology consult for lung mass: suspected small effusion, recommend outpatient f/u. Patient has hx of PE. Continue to hold Eliquis in setting of GI bleed. Recommend resuming Eliquis if/when okayed per GI team. Will follow. The patient has been seen in conjunction with Dr. Alpesh Ewing who agrees with the assessment and plan of care. - Patient Problems (1) COVID-19 virus infection Current Visit: Yes Status: Acute (2) Pneumonia Current Visit: Yes Status: Suspected (3) History of pulmonary embolism Current Visit: Yes Status: Chronic (4) Symptomatic anemia Current Visit: Yes Status: Acute (5) Thrombocytopenia Current Visit: Yes Status: Acute (6) GI bleed Current Visit: Yes Status: Acute (7) ROBSON (acute kidney injury) Current Visit: Yes Status: Acute (8) UTI (urinary tract infection) Current Visit: Yes Status: Acute (9) Failure to thrive Current Visit: Yes Status: Acute (10) Cardiomyopathy Current Visit: Yes Status: Acute Subjective Date of service: 12/29/20 Principal diagnosis: COVID Interval history: Patient is resting in bed, alert and oriented. He has no new cardiac complaints. Pt states he is frustrated with his care. He expressed mental health concerns to the primary RN. Tele reviewed: SR 69, Episode of SVT, HR 140 overnight for about 12 seconds. Objective Last Vital Signs Temp 97.3 F L 12/28/20 23:17 Pulse 71 12/29/20 05:29 Resp 20 12/29/20 05:29 BP 80/47 12/29/20 05:29 Pulse Ox 100 12/29/20 05:29 - Physical Examination General: No Apparent Distress HEENT: Positive: PERRL, Normocephaly, Mucus Membranes Moist Neck: Positive: neck supple, trachea midline Cardiac: Positive: Reg Rate and Rhythm, S1/S2 Lungs: Positive: clear to auscultation, Normal Breath Sounds Neuro: Positive: Grossly Intact Abdomen: Positive: Unremarkable Skin: Negative: Rash, Wound Extremities: Present: upper extr. pulses, lower extr. pulses. Absent: edema - Labs and Meds Cardiac Enzymes 12/29/20 12/29/20 Range/Units 04:07 04:07 AST 11 (5-40) units/L Lactate Dehydrogenase 135 (91-180) units/L CBC 12/29/20 Range/Units 04:07 WBC 10.1 (4.5-11.0) K/mm3 RBC 2.56 L (3.65-5.03) M/mm3 Hgb 7.6 L (11.8-15.2) gm/dl Hct 22.0 L (35.5-45.6) % Plt Count 125 L (140-440) K/mm3 Lymph # (Auto) 1.0 L (1.2-5.4) K/mm3 [place] # (Auto) 0.2 (0.0-0.8) K/mm3 Eos # (Auto) 0.0 (0.0-0.4) K/mm3 Baso # (Auto) 0.0 (0.0-0.1) K/mm3 Comprehensive Metabolic Panel 12/29/20 12/29/20 Range/Units 04:07 04:07 Sodium 138 137 (137-145) mmol/L Potassium 4.4 4.4 (3.6-5.0) mmol/L Chloride 106.3 105.0 (98-107) mmol/L Carbon Dioxide 22 22 (22-30) mmol/L BUN 61 H 63 H (9-20) mg/dL Creatinine 1.4 H 1.4 H (0.8-1.3) mg/dL Glucose 98 101 H (75-100) mg/dL Calcium 8.5 8.7 (8.4-10.2) mg/dL AST 11 (5-40) units/L ALT 8 (7-56) units/L Alkaline Phosphatase 62 (35-129) units/L Total Protein 5.8 L (6.3-8.2) g/dL Albumin 2.7 L (3.9-5) g/dL - Imaging and Cardiology EKG: report reviewed, image reviewed Echo: report reviewed (EF 15-20%, Left ventricle severely dilated, atria are mildly dilated. Mild AR, Mild MR, Mild HI. Mild TR.)
[2020-12-29] MEDS: cefTRIAXone/NS 1 GM/50 ML 1 GM/50 ML BAG IV SCH (10:49)
[2020-12-29] MEDS: dexAMETHasone 4 MG/ML VIAL IV SCH (10:49)
--- NOTE | 2020-12-29 10:59 | Progress Note ---
Assessment and Plan asymetrical prostate retention keep henderson psa needs eval severe wt loss Subjective Date of service: 12/29/20 Principal diagnosis: COVID Objective - Constitutional Vitals: Vital Signs - 12hr 12/28/20 12/28/20 12/29/20 23:17 23:19 05:29 Temperature 97.3 F L Pulse Rate 77 71 Respiratory 19 20 Rate Blood Pressure 78/44 80/47 Blood Pressure 81/43 [Right] O2 Sat by Pulse 100 100 Oximetry 12/29/20 10:00 Temperature Pulse Rate Respiratory Rate Blood Pressure Blood Pressure [Right] O2 Sat by Pulse 96 Oximetry General appearance: Present: cachectic - Neck Neck: supple Extremities: no ischemia - Gastrointestinal General gastrointestinal: Present: soft, non-tender Rectal Exam: other (firm asymetrical ) - Genitourinary Male genitourinary: symmetrical (atrophic henderson ) - Labs CBC & Chem 7: 12/29/20 04:07 12/29/20 04:07 Labs: Abnormal lab results 12/29/20 12/29/20 12/29/20 Range/Units 04:07 04:07 04:07 RBC 2.56 L (3.65-5.03) M/mm3 Hgb 7.6 L (11.8-15.2) gm/dl Hct 22.0 L (35.5-45.6) % MCHC 35 H (32-34) % RDW 19.8 H (13.2-15.2) % Plt Count 125 L (140-440) K/mm3 Lymph % (Auto) 9.8 L (13.4-35.0) % Lymph # (Auto) 1.0 L (1.2-5.4) K/mm3 Seg Neutrophils % 88.5 H (40.0-70.0) % Seg Neutrophils # 9.0 H (1.8-7.7) K/mm3 D-Dimer 423.53 H (0-234) ng/mlDDU BUN 61 H (9-20) mg/dL Creatinine 1.4 H (0.8-1.3) mg/dL Glucose (75-100) mg/dL Ferritin (30.0-300.0) ng/mL C-Reactive Protein 6.50 H (0.00-1.30) mg/dL Total Protein (6.3-8.2) g/dL Albumin (3.9-5) g/dL 12/29/20 12/29/20 Range/Units 04:07 04:07 RBC (3.65-5.03) M/mm3 Hgb (11.8-15.2) gm/dl Hct (35.5-45.6) % MCHC (32-34) % RDW (13.2-15.2) % Plt Count (140-440) K/mm3 Lymph % (Auto) (13.4-35.0) % Lymph # (Auto) (1.2-5.4) K/mm3 Seg Neutrophils % (40.0-70.0) % Seg Neutrophils # (1.8-7.7) K/mm3 D-Dimer (0-234) ng/mlDDU BUN 63 H (9-20) mg/dL Creatinine 1.4 H (0.8-1.3) mg/dL Glucose 101 H (75-100) mg/dL Ferritin 473.1 H (30.0-300.0) ng/mL C-Reactive Protein (0.00-1.30) mg/dL Total Protein 5.8 L (6.3-8.2) g/dL Albumin 2.7 L (3.9-5) g/dL Medications & Allergies - Medications Allergies/Adverse Reactions: Allergies No Known Allergies Allergy (Verified 07/21/19 02:06) Home Medications: Home Medications Medication Instructions Recorded Confirmed Last Taken Type Apixaban [Eliquis] 5 mg PO Q12HR 30 Days #60 tablet 07/25/20 12/27/20 Unknown Rx Apixaban [Eliquis] 10 mg PO Q12HR 7 Days #14 tablet 07/25/20 12/27/20 Unknown Rx Loperamide [Imodium] 2 mg PO Q2H PRN 4 Days #14 capsule 07/25/20 12/27/20 Unknown Rx Metoprolol [Lopressor TAB] 25 mg PO BID 30 Days #60 tablet 07/25/20 12/27/20 Unknown Rx Tamsulosin [Flomax] 0.4 mg PO QDAY 30 Days #30 cap 07/25/20 12/27/20 Unknown Rx lisinopriL [Zestril TAB] 5 mg PO QDAY 30 Days #30 tablet 07/25/20 12/27/20 Unknown Rx Active Medications: Generic Name Dose Route Start Last Admin Trade Name Tamy PRN Reason Stop Dose Admin Acetaminophen 650 mg 12/26/20 23:35 12/27/20 01:40 Acetaminophen 325 Mg Tab PO 650 mg Q4H PRN Administration Pain MILD(1-3)/Fever >100.5/SARMIENTO Dexamethasone 4 mg 12/28/20 10:00 12/29/20 10:49 Dexamethasone 4 Mg/Ml Vial IV 01/06/21 10:01 4 mg DAILY MELVINA Administration Ceftriaxone Sodium 1 gm in 50 mls @ 100 mls/hr 12/27/20 08:00 12/29/20 10:49 Rocephin/Ns 1 Gm/50 Ml IV 100 mls/hr Q24H MELVINA Administration Protocol Pantoprazole Sodium 80 mg/ 100 mls @ 10 mls/hr 12/27/20 10:00 12/27/20 22:51 Sodium Chloride IV 8 mg/hr DIRECT MELVINA 10 mls/hr Administration 8 MG/HR REMDESIVIR 100 mg/ Sodium 250 mls @ 500 mls/hr 12/29/20 21:00 Chloride IV 01/01/21 21:29 Q24HR@2100 MELVINA Morphine Sulfate 2 mg 12/26/20 23:35 12/28/20 08:53 Morphine 2 Mg/1 Ml Inj IV 2 mg Q4H PRN Administration Pain, Moderate (4-6) Ondansetron HCl 4 mg 12/26/20 23:35 12/28/20 08:53 Ondansetron 4 Mg/2 Ml Inj IV 4 mg Q8H PRN Administration Nausea And Vomiting Sodium Chloride 10 ml 12/27/20 10:00 12/29/20 10:50 Sodium Chloride 0.9% 10 Ml Flush Syringe IV 10 ml BID MELVINA Administration Sodium Chloride 10 ml 12/26/20 23:35 Sodium Chloride 0.9% 10 Ml Flush Syringe IV PRN PRN LINE FLUSH Sodium Chloride 50 ml 12/28/20 14:00 12/28/20 16:47 Sodium Chloride 0.9% 50 Ml Ivpb IV 01/01/21 21:01 50 ml Q24HR@2100 MELVINA Administration HEART Score - HEART Score Troponin: Troponin T < 0.010 ng/mL (0.00-0.029) 12/26/20 22:36
--- NOTE | 2020-12-29 15:12 | Progress Note ---
Assessment and Plan Cultures: SARS CoV2 PCR: positive 12/26/2020 blood culture: No growth 12/27/2020 blood culture: No growth A/P: 65-year-old male with hypertension, CHF, history of PE was admitted to the hospital with decreased oral intake, fatigue over the last 2 weeks. Patient had COVID-19 back in March 2020 when he did not have hypoxia and did not receive remdesivir. Upon evaluation in the ER at this time, noted to have anemia,: #COVID-19: Likely reinfection since previous COVID-19 was back in March 2020. D- dimer 423.5, ferritin 473, CRP 6.5, procalcitonin 2.1. #Acute hypoxic respiratory failure: Was hypoxic on admission. #Possible UTI: UA with severe pyuria, hematuria. On empiric ceftriaxone. #ROBSON: Creatinine improving. #GI bleed, anemia: Status post EGD which revealed a gastric ulcer. Recs: -Continue steroids x 10 days -continue IV remdesivir, D2 -Azithromycin 500 mg x 3 days -complete empiric course of Ceftriaxone Eyal Dixon MD, FACP [facility] ([facility] O: [phone] F: [phone] Subjective Date of service: 12/29/20 Principal diagnosis: COVID Interval history: Afebrile. Remains on supplemental oxygen by nasal cannula. Objective - Exam Narrative Exam: Physical Exam (reviewed in chart to minimize risk of transmission) Constitutional: deferred Head, Ears, Nose: deferred Eyes: deferred Neck: deferred Oral: deferred Cardiovascular: deferred Respiratory: deferred GI: deferred Musculoskeletal: deferred Skin: deferred Hem/Lymphatic: deferred Psych: deferred Neurological: deferred - Constitutional Vitals: Vital Signs Temp Pulse Resp BP Pulse Ox 97.3 F L 72 20 92/51 94 12/28/20 23:17 12/29/20 14:19 12/29/20 05:29 12/29/20 14:19 12/29/20 14:19 Temperature -Last 24 Hours Temperature 97.3 F Temperature 96.4 F - Labs CBC & Chem 7: 12/29/20 04:07 12/29/20 04:07 Labs: Abnormal lab results 12/29/20 12/29/20 12/29/20 Range/Units 04:07 04:07 04:07 RBC 2.56 L (3.65-5.03) M/mm3 Hgb 7.6 L (11.8-15.2) gm/dl Hct 22.0 L (35.5-45.6) % MCHC 35 H (32-34) % RDW 19.8 H (13.2-15.2) % Plt Count 125 L (140-440) K/mm3 Lymph % (Auto) 9.8 L (13.4-35.0) % Lymph # (Auto) 1.0 L (1.2-5.4) K/mm3 Seg Neutrophils % 88.5 H (40.0-70.0) % Seg Neutrophils # 9.0 H (1.8-7.7) K/mm3 D-Dimer 423.53 H (0-234) ng/mlDDU BUN 61 H (9-20) mg/dL Creatinine 1.4 H (0.8-1.3) mg/dL Glucose (75-100) mg/dL Ferritin (30.0-300.0) ng/mL C-Reactive Protein 6.50 H (0.00-1.30) mg/dL Total Protein (6.3-8.2) g/dL Albumin (3.9-5) g/dL 12/29/20 12/29/20 Range/Units 04:07 04:07 RBC (3.65-5.03) M/mm3 Hgb (11.8-15.2) gm/dl Hct (35.5-45.6) % MCHC (32-34) % RDW (13.2-15.2) % Plt Count (140-440) K/mm3 Lymph % (Auto) (13.4-35.0) % Lymph # (Auto) (1.2-5.4) K/mm3 Seg Neutrophils % (40.0-70.0) % Seg Neutrophils # (1.8-7.7) K/mm3 D-Dimer (0-234) ng/mlDDU BUN 63 H (9-20) mg/dL Creatinine 1.4 H (0.8-1.3) mg/dL Glucose 101 H (75-100) mg/dL Ferritin 473.1 H (30.0-300.0) ng/mL C-Reactive Protein (0.00-1.30) mg/dL Total Protein 5.8 L (6.3-8.2) g/dL Albumin 2.7 L (3.9-5) g/dL
--- NOTE | 2020-12-29 15:48 | Progress Note ---
Assessment and Plan 1. GI bleed - due to large gastric ulcer. No evidence of ongoing bleed. - monitor H/H and transfuse if needed. - if rebleeds, IR or surgery. - continue PPI drip. - may adv diet tomorrow to regular, if continues to do well. - no blood thinners for 1 wk if avoidable. 2. COVID reinfection - per ID. Subjective Date of service: 12/29/20 Principal diagnosis: COVID Interval history: Pt not seen given COVID. Per RN, pt doing well. Demetrio clears. No BMs. Objective - Exam Narrative Exam: Not seen due to active COVID infection. - Constitutional Vitals: Vital Signs - 12hr 12/29/20 12/29/20 12/29/20 05:29 10:00 14:19 Pulse Rate 71 72 Respiratory 20 Rate Blood Pressure 80/47 92/51 O2 Sat by Pulse 100 96 94 Oximetry - Labs CBC & Chem 7: 12/29/20 04:07 12/29/20 04:07 Labs: Abnormal lab results 12/29/20 12/29/20 12/29/20 Range/Units 04:07 04:07 04:07 RBC 2.56 L (3.65-5.03) M/mm3 Hgb 7.6 L (11.8-15.2) gm/dl Hct 22.0 L (35.5-45.6) % MCHC 35 H (32-34) % RDW 19.8 H (13.2-15.2) % Plt Count 125 L (140-440) K/mm3 Lymph % (Auto) 9.8 L (13.4-35.0) % Lymph # (Auto) 1.0 L (1.2-5.4) K/mm3 Seg Neutrophils % 88.5 H (40.0-70.0) % Seg Neutrophils # 9.0 H (1.8-7.7) K/mm3 D-Dimer 423.53 H (0-234) ng/mlDDU BUN 61 H (9-20) mg/dL Creatinine 1.4 H (0.8-1.3) mg/dL Glucose (75-100) mg/dL Ferritin (30.0-300.0) ng/mL C-Reactive Protein 6.50 H (0.00-1.30) mg/dL Total Protein (6.3-8.2) g/dL Albumin (3.9-5) g/dL 12/29/20 12/29/20 Range/Units 04:07 04:07 RBC (3.65-5.03) M/mm3 Hgb (11.8-15.2) gm/dl Hct (35.5-45.6) % MCHC (32-34) % RDW (13.2-15.2) % Plt Count (140-440) K/mm3 Lymph % (Auto) (13.4-35.0) % Lymph # (Auto) (1.2-5.4) K/mm3 Seg Neutrophils % (40.0-70.0) % Seg Neutrophils # (1.8-7.7) K/mm3 D-Dimer (0-234) ng/mlDDU BUN 63 H (9-20) mg/dL Creatinine 1.4 H (0.8-1.3) mg/dL Glucose 101 H (75-100) mg/dL Ferritin 473.1 H (30.0-300.0) ng/mL C-Reactive Protein (0.00-1.30) mg/dL Total Protein 5.8 L (6.3-8.2) g/dL Albumin 2.7 L (3.9-5) g/dL Medications & Allergies - Medications Allergies/Adverse Reactions: Allergies No Known Allergies Allergy (Verified 07/21/19 02:06) Home Medications: Home Medications Medication Instructions Recorded Confirmed Last Taken Type Apixaban [Eliquis] 5 mg PO Q12HR 30 Days #60 tablet 07/25/20 12/27/20 Unknown Rx Apixaban [Eliquis] 10 mg PO Q12HR 7 Days #14 tablet 07/25/20 12/27/20 Unknown Rx Loperamide [Imodium] 2 mg PO Q2H PRN 4 Days #14 capsule 07/25/20 12/27/20 Unknown Rx Metoprolol [Lopressor TAB] 25 mg PO BID 30 Days #60 tablet 07/25/20 12/27/20 Unknown Rx Tamsulosin [Flomax] 0.4 mg PO QDAY 30 Days #30 cap 07/25/20 12/27/20 Unknown Rx lisinopriL [Zestril TAB] 5 mg PO QDAY 30 Days #30 tablet 07/25/20 12/27/20 Unknown Rx Active Medications: Generic Name Dose Route Start Last Admin Trade Name Freq PRN Reason Stop Dose Admin Acetaminophen 650 mg 12/26/20 23:35 12/27/20 01:40 Acetaminophen 325 Mg Tab PO 650 mg Q4H PRN Administration Pain MILD(1-3)/Fever >100.5/SARMIENTO Dexamethasone 4 mg 12/28/20 10:00 12/29/20 10:49 Dexamethasone 4 Mg/Ml Vial IV 01/06/21 10:01 4 mg DAILY MELVINA Administration Ceftriaxone Sodium 1 gm in 50 mls @ 100 mls/hr 12/27/20 08:00 12/29/20 10:49 Rocephin/Ns 1 Gm/50 Ml IV 100 mls/hr Q24H MELVINA Administration Protocol Pantoprazole Sodium 80 mg/ 100 mls @ 10 mls/hr 12/27/20 10:00 12/27/20 22:51 Sodium Chloride IV 8 mg/hr DIRECT MELVINA 10 mls/hr Administration 8 MG/HR REMDESIVIR 100 mg/ Sodium 250 mls @ 500 mls/hr 12/29/20 21:00 Chloride IV 01/01/21 21:29 Q24HR@2100 MELVINA Azithromycin 500 mg in 250 mls @ 250 mls/hr 12/29/20 16:00 Zithromax/Ns IV 01/01/21 15:59 Q24H MELVINA Morphine Sulfate 2 mg 12/26/20 23:35 12/28/20 08:53 Morphine 2 Mg/1 Ml Inj IV 2 mg Q4H PRN Administration Pain, Moderate (4-6) Ondansetron HCl 4 mg 12/26/20 23:35 12/28/20 08:53 Ondansetron 4 Mg/2 Ml Inj IV 4 mg Q8H PRN Administration Nausea And Vomiting Sodium Chloride 10 ml 12/27/20 10:00 12/29/20 10:50 Sodium Chloride 0.9% 10 Ml Flush Syringe IV 10 ml BID MELVINA Administration Sodium Chloride 10 ml 12/26/20 23:35 Sodium Chloride 0.9% 10 Ml Flush Syringe IV PRN PRN LINE FLUSH Sodium Chloride 50 ml 12/28/20 14:00 12/28/20 16:47 Sodium Chloride 0.9% 50 Ml Ivpb IV 01/01/21 21:01 50 ml Q24HR@2100 MELVINA Administration HEART Score - HEART Score Troponin: Troponin T < 0.010 ng/mL (0.00-0.029) 12/26/20 22:36
[2020-12-29] MEDS: AZITHROMYCIN/NS 500 MG/250 ML 500 MG/250 ML BAG IV SCH (16:51)
[2020-12-29] MEDS: PANTOPRAZOLE 80 MG in SODIUM CHLORIDE 0.9% 100 ML IV SCH (21:09)
[2020-12-29] MEDS: ACETAMINOPHEN 325 MG TAB PO PRN (21:10)
[2020-12-29] MEDS: REMDESIVIR 100 MG in SODIUM CHLORIDE 0.9% 250ML 250 ML IV SCH (22:02)
--- NOTE | 2020-12-29 22:09 | Event Note ---
Date: 12/29/20 Reviewed ultrasound imaging and report. Chronic residual left lower extremity DVT noted. In an ideal situation, would recommend 3 more months of anticoagulation. However, given GI bleeding issues, this will not be possible. GI will determine when anticoagulation can be resumed. No need for IVC filter at this time. However, if patient develops new/worsening pain or swelling of the lower extremities, especially the left lower extremity, recommend new DVT study to exclude acute on chronic deep venous thrombosis. If new SOB occurs, will need CTPA study. If there is an acute thrombus, then IVC filter would be indicated. H&H has been stable. At this time, no vascular procedures required.
[2020-12-29] MEDS: SODIUM CHLORIDE 0.9% 50 ML IVPB IV SCH (22:32)
--- NOTE | 2020-12-30 00:16 | Consultation ---
HISTORY OF PRESENT ILLNESS: The patient is a gentleman who presents with COVID, sclerotic lesion of the iliac wing, urinary retention, progressive difficulty voiding, severe weight loss, sepsis and urinary retention, now presents for urological evaluation. PAST MEDICAL HISTORY: As mentioned above, had previous pulmonary embolism. PAST SURGICAL HISTORY: No history known. FAMILY HISTORY: Noncontributory. SOCIAL HISTORY: I think he has a significant history of previous smoking. ALLERGIES: Negative. REVIEW OF SYSTEMS: As mentioned above diminished flow, straining. No gross hematuria. PHYSICAL EXAMINATION: GENERAL: He is awake. He is cachectic. He looks chronically ill. ABDOMEN: Soft, nondistended. GENITALIA: Atrophic testis. Justin draining clear. Digital rectal exam, asymmetrical gland firm. IMPRESSION: Questionable sclerotic lesion, check PSA, urinary retention. We will need followup, would keep Justin catheter and possible cystoscopy, biopsy when he is medically cleared, recently diagnosed with COVID. He needs close followup. [facility]# [id number] KEON/RADHA
[2020-12-30] MEDS: ACETAMINOPHEN 325 MG TAB PO PRN (05:34)
[2020-12-30] MEDS ORDERED: SODIUM CHLORIDE 0.9% 500 ML 500 ML IV ONE (05:53)
--- NOTE | 2020-12-30 07:35 | Progress Note ---
Assessment and Plan Assessment and plan: Sepsis. Patient meets criteria given the tachycardia, tachypnea and diagnosis of UTI. COVID-19 pneumonia UTI. Patient with previous CT July 2020 which revealed Mild bilateral hydronephrosis and moderate distention of the urinary bladder GI bleed/melena. Anemia. Etiology likely secondary to acute blood loss anemia. Weight loss. 40 pound weight loss in 2 weeks History pulmonary embolism. Patient on home Eliquis. Pyoderma gangrenosum 12/27/2020. Patient's urinalysis reveals UTI and patient has significant lactic acidosis. Follow-up blood and urine cultures. Initiate antibiotics of Rocephin and consult ID for further evaluation. Patient will receive 2 more units of PRBCs and follow-up occult stool. GI consultation pending. Start Protonix drip. Hold Eliquis. 12/28/2020. Patient reportedly with positive Covid testing on 04/19/2020 and subsequent negative testing on 07/07 and 07/25. Patient now with new positive testing on 12/27/2020. Consult ID for further evaluation. Continue to hold Eliquis for GI bleed. Gastroenterology following. Etiology likely secondary to peptic ulcer disease versus malignancy. Endoscopy per GI. CT of the abdomen pelvis reveals persistent gross distention of the urinary bladder related to chronic outlet obstruction. Persistent moderate bilateral hydronephrosis. Urology consultation. Also, new rounded masslike structure in the lingula measuring 2.5 cm. Consider pulmonary consultation. 12/29/2020; COVID-19 infection continue with remdesivir and Decadron. Evaluated by ID and recommend to continue Rocephin empirically. Severe anemia status post transfusion of 3 units of blood this morning with 8. GI bleed; GI was consulted and did EGD and found gastric ulcer and epinephrine injection was done. 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 Eliquis was on hold because of GI bleed. Vascular surgery was consulted and is considering to do IVC filter. CT of the abdomen pelvis reveals persistent gross distention of the urinary bladder related to chronic outlet obstruction. Persistent moderate bilateral hydronephrosis. Urology consulted. Also, new rounded masslike structure in the lingula measuring 2.5 cm. Consider pulmonary consultation. Pulmonary consulted and recommend outpatient repeat imaging. Evaluated by urology and recommend to continue with Justin catheter, he also recommends prostate biopsy given his weight loss, patient is positive for Covid, wanting biopsy can be done at this time. Covid test is positive on 12/27/2020. 12/30/2020; continue remdesivir and Decadron for COVID-19 infection. H&H from this morning is pending. Anemia due to GI bleed and EGD was done and showed gastric ulcer, evaluated by GI and recommend to hold anticoagulation for at least a week, continue with PPI drip. Patient was evaluated by urology for hydronephrosis and recommended biopsy but patient has Covid and could not do a biopsy at this time. Pulmonary was consulted for lingual mass and recommend outpatient follow-up. Hemoglobin this morning is 6.7, patient did have bowel movement today but yesterday he had one episode of dark stool. We will transfuse him, continue to monitor. Patient has further bleeding, patient may need embolization and interventional radiology already consulted. History Interval history: Patient was seen and evaluated this morning Patient had dark bowel movement yesterday No Aashish red bleeding Patient did not have any complaints Hospitalist Physical - Physical exam Narrative exam: Not in cardiopulmonary distress. The patient appeared well nourished and normally developed. Vital signs as documented. Head exam is unremarkable. No scleral icterus . Neck is without jugular venous distension, thyromegaly, or carotid bruits. Lungs are clear to auscultation. Cardiac exam reveals regular rate and Rhythm. Abdominal exam reveals normal bowel sounds, nontender, no organomegaly. Extremities are nonedematous and both femoral and pedal pulses are normal. STEWARD/STEWARDESS ROOM: Alert and oriented 3. No focal weakness. - Constitutional Vitals: Temp Pulse Resp BP Pulse Ox 97.2 F L 86 20 77/47 84 12/30/20 05:18 12/30/20 05:18 12/29/20 21:46 12/30/20 05:18 12/30/20 05:18 General appearance: Present: cachectic HEART Score - HEART Score Troponin: Troponin T < 0.010 ng/mL (0.00-0.029) 12/26/20 22:36 Results - Labs CBC & Chem 7: 12/30/20 07:31 12/30/20 07:31 Labs: Laboratory Last Values WBC 10.1 K/mm3 (4.5-11.0) 12/29/20 04:07 RBC 2.56 M/mm3 (3.65-5.03) L 12/29/20 04:07 Hgb 7.6 gm/dl (11.8-15.2) L 12/29/20 04:07 Hct 22.0 % (35.5-45.6) L 12/29/20 04:07 MCV 86 fl (84-94) 12/29/20 04:07 MCH 30 pg (28-32) 12/29/20 04:07 MCHC 35 % (32-34) H 12/29/20 04:07 RDW 19.8 % (13.2-15.2) H 12/29/20 04:07 Plt Count 125 K/mm3 (140-440) L 12/29/20 04:07 Lymph % (Auto) 9.8 % (13.4-35.0) L 12/29/20 04:07 [place] % (Auto) 1.6 % (0.0-7.3) 12/29/20 04:07 Eos % (Auto) 0.0 % (0.0-4.3) 12/29/20 04:07 Baso % (Auto) 0.1 % (0.0-1.8) 12/29/20 04:07 Lymph # (Auto) 1.0 K/mm3 (1.2-5.4) L 12/29/20 04:07 [place] # (Auto) 0.2 K/mm3 (0.0-0.8) 12/29/20 04:07 Eos # (Auto) 0.0 K/mm3 (0.0-0.4) 12/29/20 04:07 Baso # (Auto) 0.0 K/mm3 (0.0-0.1) 12/29/20 04:07 Seg Neutrophils % 88.5 % (40.0-70.0) H 12/29/20 04:07 Seg Neutrophils # 9.0 K/mm3 (1.8-7.7) H 12/29/20 04:07 PT 15.3 Sec. (12.2-14.9) H 12/27/20 07:03 INR 1.23 (0.87-1.13) H 12/27/20 07:03 APTT 30.1 Sec. (24.2-36.6) 12/26/20 20:36 D-Dimer 423.53 ng/mlDDU (0-234) H 12/29/20 04:07 ABG pH 7.390 (7.320-7.450) 12/28/20 01:45 POC ABG pCO2 33.8 mmHg (32.0-48.0) 12/28/20 01:45 POC ABG pO2 188.9 mmHg (83-108) H 12/28/20 01:45 POC ABG HCO3 20.0 12/28/20 01:45 POC ABG Base Excess -4.5 12/28/20 01:45 ABG Hemoglobin 7.2 (12.0-17.5) L 12/28/20 01:45 ABG Sodium 135.3 mmol/L (136.0-145.0) L 12/28/20 01:45 ABG Potassium 3.9 mmol/L (3.40-4.50) 12/28/20 01:45 ABG Chloride 111.0 mmol/L (98-107) H 12/28/20 01:45 ABG Glucose 76 mg/dL (65-95) 12/28/20 01:45 FiO2 31 12/28/20 01:45 Sodium 137 mmol/L (137-145) 12/29/20 04:07 Sodium 138 mmol/L (137-145) 12/29/20 04:07 Potassium 4.4 mmol/L (3.6-5.0) 12/29/20 04:07 Potassium 4.4 mmol/L (3.6-5.0) 12/29/20 04:07 Chloride 105.0 mmol/L (98-107) 12/29/20 04:07 Chloride 106.3 mmol/L (98-107) 12/29/20 04:07 Carbon Dioxide 22 mmol/L (22-30) 12/29/20 04:07 Carbon Dioxide 22 mmol/L (22-30) 12/29/20 04:07 Anion Gap 14 mmol/L 12/29/20 04:07 Anion Gap 14 mmol/L 12/29/20 04:07 BUN 61 mg/dL (9-20) H 12/29/20 04:07 BUN 63 mg/dL (9-20) H 12/29/20 04:07 Creatinine 1.4 mg/dL (0.8-1.3) H 12/29/20 04:07 Creatinine 1.4 mg/dL (0.8-1.3) H 12/29/20 04:07 Estimated GFR > 60 ml/min 12/29/20 04:07 Estimated GFR > 60 ml/min 12/29/20 04:07 BUN/Creatinine Ratio 44 % 12/29/20 04:07 BUN/Creatinine Ratio 45 % 12/29/20 04:07 Glucose 98 mg/dL (75-100) 12/29/20 04:07 Glucose 101 mg/dL (75-100) H 12/29/20 04:07 POC Glucose 74 mg/dL (70-105) 12/28/20 17:22 Lactic Acid 1.60 mmol/L (0.7-2.0) 12/27/20 19:46 Calcium 8.5 mg/dL (8.4-10.2) 12/29/20 04:07 Calcium 8.7 mg/dL (8.4-10.2) 12/29/20 04:07 Ferritin 473.1 ng/mL (30.0-300.0) H 12/29/20 04:07 Total Bilirubin 0.70 mg/dL (0.1-1.2) 12/29/20 04:07 Direct Bilirubin 0.5 mg/dL (0-0.2) H 12/26/20 20:36 Indirect Bilirubin 0.4 mg/dL 12/26/20 20:36 AST 11 units/L (5-40) 12/29/20 04:07 ALT 8 units/L (7-56) 12/29/20 04:07 Alkaline Phosphatase 62 units/L (35-129) 12/29/20 04:07 Lactate Dehydrogenase 135 units/L (91-180) 12/29/20 04:07 Troponin T < 0.010 ng/mL (0.00-0.029) 12/26/20 22:36 C-Reactive Protein 6.50 mg/dL (0.00-1.30) H 12/29/20 04:07 NT-Pro-B Natriuret Pep 4048 pg/mL (0-900) H 12/26/20 20:36 Total Protein 5.8 g/dL (6.3-8.2) L 12/29/20 04:07 Albumin 2.7 g/dL (3.9-5) L 12/29/20 04:07 Albumin/Globulin Ratio 0.9 % 12/29/20 04:07 Prostate Specific Ag 0.31 ng/mL (0.00-4.00) 12/29/20 04:07 Procalcitonin 2.10 ng/mL (<0.15) 12/29/20 04:07 Arterial Blood Glucose 76 mg/dL (65-95) 12/28/20 01:45 Arterial Blood Ionized Calcium 4.6 mg/dL (4.6-5.3) 12/28/20 01:45 Urine Color Red (Yellow) 12/27/20 03:49 Urine Turbidity Slightly-cloudy (Clear) 12/27/20 03:49 Urine pH 5.0 (5.0-7.0) 12/27/20 03:49 Ur Specific [place] 1.014 (1.003-1.030) 12/27/20 03:49 Urine Protein 100 mg/dl mg/dL (Negative) 12/27/20 03:49 Urine Glucose (UA) Neg mg/dL (Negative) 12/27/20 03:49 Urine Ketones Neg mg/dL (Negative) 12/27/20 03:49 Urine Blood Lg (Negative) 12/27/20 03:49 Urine Nitrite Neg (Negative) 12/27/20 03:49 Urine Bilirubin Neg (Negative) 12/27/20 03:49 Urine Urobilinogen < 2.0 mg/dL (<2.0) 12/27/20 03:49 Ur Leukocyte Esterase Mod (Negative) 12/27/20 03:49 Urine WBC (Auto) > 182.0 /HPF (0.0-6.0) H 12/27/20 03:49 Urine RBC (Auto) > 182.0 /HPF (0.0-6.0) 12/27/20 03:49 U Epithel Cells (Auto) 2.0 /HPF (0-13.0) 12/27/20 03:49 Urine WBC Clumps 2+ /HPF 12/27/20 03:49 Coronavirus (PCR) Positive (Negative) A 12/27/20 09:48 Blood Type B POSITIVE 12/26/20 23:05 Antibody Screen Negative 12/26/20 23:05 Crossmatch See Detail 12/26/20 23:05 Microbiology: Microbiology 12/26/20 21:01 Peripheral/Venous Blood Culture - Preliminary NO GROWTH AFTER 72 HOURS 12/26/20 20:59 Peripheral/Venous Blood Culture - Preliminary NO GROWTH AFTER 72 HOURS 12/27/20 08:38 Peripheral/Venous Blood Culture - Preliminary NO GROWTH AFTER 48 HOURS 12/27/20 08:04 Peripheral/Venous Blood Culture - Preliminary NO GROWTH AFTER 48 HOURS Justin/IV: Voiding Method Indwelling Catheter Active Medications - Current Medications Current Medications: Generic Name Dose Route Start Last Admin Trade Name Freq PRN Reason Stop Dose Admin Acetaminophen 650 mg 12/26/20 23:35 12/30/20 05:34 Acetaminophen 325 Mg Tab PO 650 mg Q4H PRN Administration Pain MILD(1-3)/Fever >100.5/SARMIENTO Dexamethasone 4 mg 12/28/20 10:00 12/29/20 10:49 Dexamethasone 4 Mg/Ml Vial IV 01/06/21 10:01 4 mg DAILY MELVINA Administration Ceftriaxone Sodium 1 gm in 50 mls @ 100 mls/hr 12/27/20 08:00 12/29/20 10:49 Rocephin/Ns 1 Gm/50 Ml IV 100 mls/hr Q24H MELVINA Administration Protocol Pantoprazole Sodium 80 mg/ 100 mls @ 10 mls/hr 12/27/20 10:00 12/29/20 21:09 Sodium Chloride IV 8 mg/hr DIRECT MELVINA 10 mls/hr Administration 8 MG/HR REMDESIVIR 100 mg/ Sodium 250 mls @ 500 mls/hr 12/29/20 21:00 12/30/20 06:25 Chloride IV 01/01/21 21:29 Infused Q24HR@2100 MELVINA Infusion Azithromycin 500 mg in 250 mls @ 250 mls/hr 12/29/20 16:00 12/30/20 06:24 Zithromax/Ns IV 01/01/21 15:59 Infused Q24H MELVINA Infusion Morphine Sulfate 2 mg 12/26/20 23:35 12/28/20 08:53 Morphine 2 Mg/1 Ml Inj IV 2 mg Q4H PRN Administration Pain, Moderate (4-6) Ondansetron HCl 4 mg 12/26/20 23:35 12/28/20 08:53 Ondansetron 4 Mg/2 Ml Inj IV 4 mg Q8H PRN Administration Nausea And Vomiting Sodium Chloride 10 ml 12/27/20 10:00 12/29/20 21:13 Sodium Chloride 0.9% 10 Ml Flush Syringe IV 10 ml BID MELVINA Administration Sodium Chloride 10 ml 12/26/20 23:35 Sodium Chloride 0.9% 10 Ml Flush Syringe IV PRN PRN LINE FLUSH Sodium Chloride 50 ml 12/28/20 14:00 12/29/20 22:32 Sodium Chloride 0.9% 50 Ml Ivpb IV 01/01/21 21:01 50 ml Q24HR@2100 MELVINA Administration Nutrition/Malnutrition Assess - Dietary Evaluation Nutrition/Malnutrition Findings: Nutrition Notes Start: 12/27/20 07:22 Freq: Status: Active Protocol: Document 12/29/20 08:43 AT (Rec: 12/29/20 08:49 AT [email or web address]) Co-Sign 12/29/20 08:43 MK Nutrition Notes Initial or Follow up Assessment Current Diagnosis Acute Kidney Injury,Sepsis, Hypertension,Heart Failure Other Pertinent Diagnosis COVID(+), FTT, GIB, UTI, Anemia, PUD, pneu, Pyoderma Gangrenosum Current Diet Clear Liquids Labs/Tests BUN 63 Cr 1.4 Pertinent Medications Decadron NS at 50 mL/hr Height 6 ft 3 in Weight 62.2 kg Usual Body Weight 98.86 kg [place] Body Weight (kg) 89.09 BMI 17.1 Intake Prior to Admission Poor Weight change and time frame 26% weight loss since 09/03/20 (last adm) Weight Status Underweight Subjective/Other Information Follow up for assessment and intakes. Per chart, pt is consuming 50% of meals on average. Pt was NPO and advanced today to clear liquids. Preferences were recorded. Percent of energy/protein needs met: 0%/0% Burn Absent Trauma Absent GI Symptoms Other Food Allergy No Current % PO Negligible Minimum of two criteria Yes Energy Intake (non-severe) <75% Estimated Energy Requirement >7 days Interpretation of Weight Loss (severe) >7.5% in 3 months #1 Nutrition Diagnosis Malnutrition Etiology acute illness As Evidenced by Signs and Symptoms reported <75% of EER for > 7 days, 26% weight loss in 5 months Is patient on ventilator? No Is Patient Ambulatory and/or Out of Bed Yes REE-([facility]ambulatory/OOB) [ 1953.419 NUTR.[id number]] Kcal/Kg value to use for calculation 36 Approximate Energy Requirements Using 2239 kcal/Kg Calculation Used for Recommendations Kcal/kg Additional Notes PRO needs: 75-93 g (1.2-1.5 g/ kg) Fluid needs: 1 mL/kcal or per MD Nutrition Intervention Change Diet Order: Continue Clear Liquids and advance when medically feasible Add Supplement/Snack (indicate name/kcal Ensure Clear TID /protein ) Provides kCal: 720 Provides Protein (gm) 24 Goal #1 Weight gain and weight maintenance Goal #2 Meet energy and protein needs as best as possible Goal #3 Diet advancement Anticipated Discharge Needs: Cardiac Diet Follow-Up By: 12/31/20 Additional Comments F/U intakes, diet advancement
[2020-12-30] MEDS: cefTRIAXone/NS 1 GM/50 ML 1 GM/50 ML BAG IV SCH (07:42)
[2020-12-30 08:32] LABS: Basophils % (Auto) 0.3 % (0.0-1.8); Hemoglobin 6.7 gm/dl (11.8-15.2); Lymphocytes # (Auto) 1.1 K/mm3 (1.2-5.4); Lymphocytes % (Auto) 9.5 % (13.4-35.0); Mean Corpuscular HGB Conc 34 % (32-34); Mean Corpuscular Volume 86 fl (84-94); Monocytes # (Auto) 0.7 K/mm3 (0.0-0.8); Monocytes % (Auto) 5.5 % (0.0-7.3); Red Blood Count 2.29 M/mm3 (3.65-5.03); Red Cell Distribution Width 19.6 % (13.2-15.2)
[2020-12-30 08:37] LABS: Platelet Count 51 K/mm3 (140-440)
[2020-12-30 08:38] LABS: Hematocrit 19.8 % (35.5-45.6)
[2020-12-30] MEDS ORDERED: SODIUM CHLORIDE 0.9% 500 ML 500 ML IV NR ×2 (08:43→12:43)
[2020-12-30 08:51] LABS: Alanine Aminotransferase 9 units/L (7-56); Albumin 2.6 g/dL (3.9-5); BUN/Creatinine Ratio 42; Blood Urea Nitrogen 50 mg/dL (9-20); Hemolysis Index 17
[2020-12-30] MEDS: dexAMETHasone 4 MG/ML VIAL IV SCH (09:20)
--- NOTE | 2020-12-30 10:40 | Progress Note ---
Assessment and Plan Echo 12/26/2020: EF 15-20%, Left ventricle severely dilated, atria are mildly dilated. Mild AR, Mild MR, Mild DE. Mild TR. No current clinical evidence of acutely decompensated heart failure. Patient has reported hx of CMP and HFrEF, although unknown chronicity and etiology as he is a rather poor historian. Patient states may have had stress test at [facility] in 06/2020. Records have been requested. Continue current cardiac management. No BB, ACEI/ARB in setting of hypotension. Pt noted to have persistent anemia and thrombocytopenia, additional PRBC tx ordered for today per primary team. S/p EGD with cauterization of gastric ulcer on 12/28/2020. Per GI team, no blood thinners for 1 wk if avoidable. Cont to hold Eliquis. F/u CBC in AM. The patient has been seen in conjunction with Dr. Alpesh Ewing who agrees with the assessment and plan of care. - Patient Problems (1) COVID-19 virus infection Current Visit: Yes Status: Acute (2) Pneumonia Current Visit: Yes Status: Suspected (3) History of pulmonary embolism Current Visit: Yes Status: Chronic (4) Symptomatic anemia Current Visit: Yes Status: Acute (5) Thrombocytopenia Current Visit: Yes Status: Acute (6) GI bleed Current Visit: Yes Status: Acute (7) ROBSON (acute kidney injury) Current Visit: Yes Status: Acute (8) UTI (urinary tract infection) Current Visit: Yes Status: Acute (9) Failure to thrive Current Visit: Yes Status: Acute Subjective Date of service: 12/30/20 Principal diagnosis: COVID Interval history: tele reviewed - SR HR 70s, no acute events overnight. Objective Last Vital Signs Temp 97.2 F L 12/30/20 05:18 Pulse 86 12/30/20 05:18 Resp 20 12/29/20 21:46 BP 77/47 12/30/20 05:18 Pulse Ox 99 12/30/20 07:45 - Physical Examination Narrative exam: agree with physical examination per primary team - Labs and Meds Cardiac Enzymes 12/30/20 Range/Units 07:31 AST 12 (5-40) units/L CBC 12/30/20 Range/Units 07:31 WBC 11.9 H (4.5-11.0) K/mm3 RBC 2.29 L (3.65-5.03) M/mm3 Hgb 6.7 L (11.8-15.2) gm/dl Hct 19.8 L* (35.5-45.6) % Plt Count 51 L (140-440) K/mm3 Lymph # (Auto) 1.1 L (1.2-5.4) K/mm3 [place] # (Auto) 0.7 (0.0-0.8) K/mm3 Eos # (Auto) 0.0 (0.0-0.4) K/mm3 Baso # (Auto) 0.0 (0.0-0.1) K/mm3 Comprehensive Metabolic Panel 12/30/20 Range/Units 07:31 Sodium 134 L (137-145) mmol/L Potassium 4.5 (3.6-5.0) mmol/L Chloride 102.1 (98-107) mmol/L Carbon Dioxide 20 L (22-30) mmol/L BUN 50 H (9-20) mg/dL Creatinine 1.2 (0.8-1.3) mg/dL Glucose 95 (75-100) mg/dL Calcium 8.0 L (8.4-10.2) mg/dL AST 12 (5-40) units/L ALT 9 (7-56) units/L Alkaline Phosphatase 64 (35-129) units/L Total Protein 5.1 L (6.3-8.2) g/dL Albumin 2.6 L (3.9-5) g/dL - Imaging and Cardiology EKG: report reviewed, image reviewed Echo: report reviewed (EF 15-20%, Left ventricle severely dilated, atria are mildly dilated. Mild AR, Mild MR, Mild DE. Mild TR.) - Telemetry EKG Rhythm: Sinus Rhythm
--- NOTE | 2020-12-30 10:57 | Progress Note ---
Assessment and Plan 1. GI bleed - due to large gastric ulcer. Hgb dropped to 6.7, but no christa GI bleeding. - monitor H/H and transfuse if needed. - if rebleeds, IR or surgery. - continue PPI drip. - continue clear liquids, may adv if Hgb stable and no christa GI bleed. - no blood thinners for 1 wk if avoidable. 2. COVID reinfection - per ID. Subjective Date of service: 12/30/20 Principal diagnosis: COVID Interval history: Pt not seen given COVID. Pt without complaints, I spoke with pt. Demetrio clears, no pain. No BMs. Objective - Exam Narrative Exam: Not seen due to active COVID infection. - Constitutional Vitals: Vital Signs - 12hr 12/30/20 12/30/20 05:18 07:45 Temperature 97.2 F L Pulse Rate 86 Blood Pressure 77/47 O2 Sat by Pulse 84 99 Oximetry - Labs CBC & Chem 7: 12/30/20 07:31 12/30/20 07:31 Labs: Abnormal lab results 12/30/20 12/30/20 Range/Units 07:31 07:31 WBC 11.9 H (4.5-11.0) K/mm3 RBC 2.29 L (3.65-5.03) M/mm3 Hgb 6.7 L (11.8-15.2) gm/dl Hct 19.8 L* (35.5-45.6) % RDW 19.6 H (13.2-15.2) % Plt Count 51 L (140-440) K/mm3 Lymph % (Auto) 9.5 L (13.4-35.0) % Lymph # (Auto) 1.1 L (1.2-5.4) K/mm3 Seg Neutrophils % 84.7 H (40.0-70.0) % Seg Neutrophils # 10.1 H (1.8-7.7) K/mm3 Sodium 134 L (137-145) mmol/L Carbon Dioxide 20 L (22-30) mmol/L BUN 50 H (9-20) mg/dL Calcium 8.0 L (8.4-10.2) mg/dL Total Protein 5.1 L (6.3-8.2) g/dL Albumin 2.6 L (3.9-5) g/dL Medications & Allergies - Medications Allergies/Adverse Reactions: Allergies No Known Allergies Allergy (Verified 07/21/19 02:06) Home Medications: Home Medications Medication Instructions Recorded Confirmed Last Taken Type Apixaban [Eliquis] 5 mg PO Q12HR 30 Days #60 tablet 07/25/20 12/27/20 Unknown Rx Apixaban [Eliquis] 10 mg PO Q12HR 7 Days #14 tablet 07/25/20 12/27/20 Unknown Rx Loperamide [Imodium] 2 mg PO Q2H PRN 4 Days #14 capsule 07/25/20 12/27/20 U nknown Rx Metoprolol [Lopressor TAB] 25 mg PO BID 30 Days #60 tablet 07/25/20 12/27/20 Unknown Rx Tamsulosin [Flomax] 0.4 mg PO QDAY 30 Days #30 cap 07/25/20 12/27/20 Unknown Rx lisinopriL [Zestril TAB] 5 mg PO QDAY 30 Days #30 tablet 07/25/20 12/27/20 Unknown Rx Active Medications: Generic Name Dose Route Start Last Admin Trade Name Freq PRN Reason Stop Dose Admin Acetaminophen 650 mg 12/26/20 23:35 12/30/20 05:34 Acetaminophen 325 Mg Tab PO 650 mg Q4H PRN Administration Pain MILD(1-3)/Fever >100.5/SARMIENTO Dexamethasone 4 mg 12/28/20 10:00 12/30/20 09:20 Dexamethasone 4 Mg/Ml Vial IV 01/06/21 10:01 4 mg DAILY MELVINA Administration Ceftriaxone Sodium 1 gm in 50 mls @ 100 mls/hr 12/27/20 08:00 12/30/20 07:42 Rocephin/Ns 1 Gm/50 Ml IV 100 mls/hr Q24H MELVINA Administration Protocol Pantoprazole Sodium 80 mg/ 100 mls @ 10 mls/hr 12/27/20 10:00 12/29/20 21:09 Sodium Chloride IV 8 mg/hr DIRECT MELVINA 10 mls/hr Administration 8 MG/HR REMDESIVIR 100 mg/ Sodium 250 mls @ 500 mls/hr 12/29/20 21:00 12/30/20 06:25 Chloride IV 01/01/21 21:29 Infused Q24HR@2100 MELVINA Infusion Azithromycin 500 mg in 250 mls @ 250 mls/hr 12/29/20 16:00 12/30/20 06:24 Zithromax/Ns IV 01/01/21 15:59 Infused Q24H MELVINA Infusion Sodium Chloride 500 mls @ 0 mls/hr 12/30/20 08:43 Nacl 0.9% 500 Ml IV 12/31/20 08:42 ONCE NR As Directed Morphine Sulfate 2 mg 12/26/20 23:35 12/28/20 08:53 Morphine 2 Mg/1 Ml Inj IV 2 mg Q4H PRN Administration Pain, Moderate (4-6) Ondansetron HCl 4 mg 12/26/20 23:35 12/28/20 08:53 Ondansetron 4 Mg/2 Ml Inj IV 4 mg Q8H PRN Administration Nausea And Vomiting Sodium Chloride 10 ml 12/27/20 10:00 12/30/20 09:20 Sodium Chloride 0.9% 10 Ml Flush Syringe IV 10 ml BID MELVINA Administration Sodium Chloride 10 ml 12/26/20 23:35 Sodium Chloride 0.9% 10 Ml Flush Syringe IV PRN PRN LINE FLUSH Sodium Chloride 50 ml 12/28/20 14:00 12/29/20 22:32 Sodium Chloride 0.9% 50 Ml Ivpb IV 01/01/21 21:01 50 ml Q24HR@2100 MELVINA Administration HEART Score - HEART Score Troponin: Troponin T < 0.010 ng/mL (0.00-0.029) 12/26/20 22:36
[2020-12-30 11:07] LABS: Hemoglobin 6.5 gm/dl (11.8-15.2)
[2020-12-30 11:09] LABS: Hematocrit 19.6 % (35.5-45.6)
[2020-12-30] MEDS ORDERED: SODIUM CHLORIDE 0.9% 1000 ML 1,000 ML IV ONE (13:00)
--- NOTE | 2020-12-30 13:07 | Progress Note ---
Assessment and Plan Cultures: SARS CoV2 PCR: positive 12/26/2020 blood culture: No growth 12/27/2020 blood culture: No growth A/P: 65-year-old male with hypertension, CHF, history of PE was admitted to the hospital with decreased oral intake, fatigue over the last 2 weeks. Patient had COVID-19 back in March 2020 when he did not have hypoxia and did not receive remdesivir. Upon evaluation in the ER at this time, noted to have anemia,: #COVID-19: Likely reinfection since previous COVID-19 was back in March 2020. D- dimer 423.5, ferritin 473, CRP 6.5, procalcitonin 2.1. #Acute hypoxic respiratory failure: hypoxic, requiring NC oxygen. #Possible UTI: UA with severe pyuria, hematuria. On empiric ceftriaxone. #ROBSON: Creatinine improving. #GI bleed, anemia: Status post EGD which revealed a gastric ulcer. Recs: -Continue steroids x 10 days -continue IV remdesivir, D3 -continue Azithromycin 500 mg x 2 more days -complete empiric course of Ceftriaxone Eyal Dixon MD, FACP [facility] O: [phone] F: [phone] Subjective Date of service: 12/30/20 Principal diagnosis: COVID Interval history: No fever. Remains hypoxic, requiring nasal cannula oxygen. Objective - Exam Narrative Exam: Physical Exam (reviewed in chart to minimize risk of transmission) Constitutional: deferred Head, Ears, Nose: deferred Eyes: deferred Neck: deferred Oral: deferred Cardiovascular: deferred Respiratory: deferred GI: deferred Musculoskeletal: deferred Skin: deferred Hem/Lymphatic: deferred Psych: deferred Neurological: deferred - Constitutional Vitals: Vital Signs Temp Pulse Resp BP Pulse Ox 98.9 F 94 H 18 74/39 79 L 12/30/20 11:16 12/30/20 11:16 12/30/20 11:16 12/30/20 11:16 12/30/20 11:16 Temperature -Last 24 Hours Temperature 98.9 F Temperature 97.2 F Temperature 97.3 F - Labs CBC & Chem 7: 12/30/20 10:35 12/30/20 07:31 Labs: Abnormal lab results 12/30/20 12/30/20 12/30/20 Range/Units 07:31 07:31 10:35 WBC 11.9 H (4.5-11.0) K/mm3 RBC 2.29 L (3.65-5.03) M/mm3 Hgb 6.7 L (11.8-15.2) gm/dl Hct 19.8 L* (35.5-45.6) % RDW 19.6 H (13.2-15.2) % Plt Count 51 L (140-440) K/mm3 Lymph % (Auto) 9.5 L (13.4-35.0) % Lymph # (Auto) 1.1 L (1.2-5.4) K/mm3 Seg Neutrophils % 84.7 H (40.0-70.0) % Seg Neutrophils # 10.1 H (1.8-7.7) K/mm3 Sodium 134 L (137-145) mmol/L Carbon Dioxide 20 L (22-30) mmol/L BUN 50 H (9-20) mg/dL Calcium 8.0 L (8.4-10.2) mg/dL Total Protein 5.1 L (6.3-8.2) g/dL Albumin 2.6 L (3.9-5) g/dL Crossmatch See Detail 12/30/20 Range/Units 10:35 WBC (4.5-11.0) K/mm3 RBC (3.65-5.03) M/mm3 Hgb 6.5 L (11.8-15.2) gm/dl Hct 19.6 L* (35.5-45.6) % RDW (13.2-15.2) % Plt Count (140-440) K/mm3 Lymph % (Auto) (13.4-35.0) % Lymph # (Auto) (1.2-5.4) K/mm3 Seg Neutrophils % (40.0-70.0) % Seg Neutrophils # (1.8-7.7) K/mm3 Sodium (137-145) mmol/L Carbon Dioxide (22-30) mmol/L BUN (9-20) mg/dL Calcium (8.4-10.2) mg/dL Total Protein (6.3-8.2) g/dL Albumin (3.9-5) g/dL Crossmatch
[2020-12-30] MEDS ORDERED: MIDAZOLAM 2 MG/2 ML INJ ONE (13:28)
[2020-12-30] MEDS ORDERED: fentaNYL 100 MCG/2 ML INJ ONE (13:28)
[2020-12-30] MEDS ORDERED: HEPARIN/NS 5000 UNIT/500ML 1,000 ML IR ONE (13:29)
[2020-12-30] MEDS ORDERED: SODIUM CHLORIDE 0.9% 500 ML 500 ML ONE (13:41)
--- NOTE | 2020-12-30 13:47 | Event Note ---
Date: 12/30/20 Patient was seen and evaluated at the bedside and patient was complaining weakness, dizziness and palpitation. His hemoglobin dropped from 7.6 yesterday to 6.5. Blood pressure dropped to 67/41 mmhg. patient was hypotensive since admission but never been dropped to this low. Yesterday his blood pressure was on the low side of normal. GI notified and recommend to discuss with interventional radiology. Discussed with Dr. Iyer and his recommendations implemented. Ordered 4 units of blood, and 3 units of plasma. Patient has no vomiting of blood, he had dark stool yesterday but it was not massive.
--- NOTE | 2020-12-30 13:51 | Consultation ---
History of Present Illness - Reason for Consult Consult date: 12/30/20 GI bleeding Requesting physician: CROW ORDONEZ - History of Present Illness 65-year-old man with hypertension, congestive heart failure, pulmonary embolus on Eliquis for about a month and noncompliant, who presented with loss of appetite x2 weeks, decreased taste, and profound weakness. He complains of orthostatic syfrequent black tarry liquid bowel movemptoms for at least 3 weeks. He usually has bowel movements 2 or 3 times a day but over the last 3 weeks weeks, he has been having much more ments here, he was noted to have a hemoglobin that was 6.7 on admission and down to 4.5. His hemoglobin was normal at 12.3 in July [id number]. He denies abdominal pain nausea or vomiting. He denies hematochezia. He denies prior history of peptic ulcer disease. He denies at NSAID use but he was taking baby aspirin until recently. He takes his Eliquis in a spotty fashion and states he has not taken it for 2 or 3 days. He states he has congestive heart failure with an ejection fraction of 20%. He also notes that he has lost 40 pounds over the last 2 months. He denies early satiety or dysphagia. He did have Covid infection in July 2020. He denies alcohol abuse. EGD: 1. 3-4 cm white fibrotic based ulcer in angularis with visible vessel. No active bleeding. Injected around vessel with 6 ml EPI in 1 ml aliquots. Then, vessel and surroundings ablated with GoldProbe. No bleeding during procedure. 2. Old and fresh clot noted in gastric lumen, precluding visualization. 3. Normal antrum 4. Visualized gastric mucosa o/w normal. 5. Normal esophagus and duodenum. After endoscopy, the patient has had slow decline of hemoglobin with hemoglobin down to 6.5 today with worsening of his chronic hypotension, dizziness, with a dark bowel movement yesterday. Patient's platelet count has declined to 51. Hemoglobin has also declined today. Past History Past Medical History: heart failure (LVEF = 20%.), hypertension, pulmonary em bolism, other (Pyoderma Gangrenosum) Past Surgical History: No surgical history. denies: thyroidectomy Social history: no significant social history Family history: no significant family history Medications and Allergies Allergies Allergy/AdvReac Type Severity Reaction Status Date / Time No Known Allergies Allergy Verified 07/21/19 02:06 Home Medications Medication Instructions Recorded Confirmed Last Taken Type Apixaban [Eliquis] 5 mg PO Q12HR 30 Days #60 tablet 07/25/20 12/27/20 Unknown Rx Apixaban [Eliquis] 10 mg PO Q12HR 7 Days #14 tablet 07/25/20 12/27/20 Unknown Rx Loperamide [Imodium] 2 mg PO Q2H PRN 4 Days #14 capsule 07/25/20 12/27/20 Unknown Rx Metoprolol [Lopressor TAB] 25 mg PO BID 30 Days #60 tablet 07/25/20 12/27/20 Unknown Rx Tamsulosin [Flomax] 0.4 mg PO QDAY 30 Days #30 cap 07/25/20 12/27/20 Unknown Rx lisinopriL [Zestril TAB] 5 mg PO QDAY 30 Days #30 tablet 07/25/20 12/27/20 Unknown Rx Active Meds: Active Medications Acetaminophen (Acetaminophen 325 Mg Tab) 650 mg PO Q4H PRN PRN Reason: Pain MILD(1-3)/Fever >100.5/SARMIENTO Last Admin: 12/30/20 05:34 Dose: 650 mg Documented by: Dexamethasone (Dexamethasone 4 Mg/Ml Vial) 4 mg IV DAILY [facility] Stop: 01/06/21 10:01 Last Admin: 12/30/20 09:20 Dose: 4 mg Documented by: Ceftriaxone Sodium (Rocephin/Ns 1 Gm/50 Ml) 1 gm in 50 mls @ 100 mls/hr IV Q24H MEL[facility]INA; Protocol Last Admin: 12/30/20 07:42 Dose: 100 mls/hr Documented by: Pantoprazole Sodium 80 mg/ (Sodium Chloride) 100 mls @ 10 mls/hr IV DIRECT MELVINA Last Admin: 12/29/20 21:09 Dose: 8 mg/hr, 10 mls/hr Documented by: REMDESIVIR 100 mg/ Sodium (Chloride) 250 mls @ 500 mls/hr IV Q24HR@2100 [facility] Stop: 01/01/21 21:29 Last Infusion: 12/30/20 06:25 Dose: Infused Documented by: Azithromycin (Zithromax/Ns) 500 mg in 250 mls @ 250 mls/hr IV Q24H [facility] Stop: 01/01/21 15:59 Last Infusion: 12/30/20 06:24 Dose: Infused Documented by: Sodium Chloride (Nacl 0.9% 1000 Ml) 1,000 mls @ 999 mls/hr IV BOLUS ONE Stop: 12/30/20 14:00 Last Admin: 12/30/20 13:39 Dose: 999 mls/hr Documented by: Sodium Chloride (Nacl 0.9% 500 Ml) 500 mls @ 0 mls/hr IV ONCE NR Stop: 12/31/20 12:42 Morphine Sulfate (Morphine 2 Mg/1 Ml Inj) 2 mg IV Q4H PRN PRN Reason: Pain, Moderate (4-6) Last Admin: 12/28/20 08:53 Dose: 2 mg Documented by: Ondansetron HCl (Ondansetron 4 Mg/2 Ml Inj) 4 mg IV Q8H PRN PRN Reason: Nausea And Vomiting Last Admin: 12/28/20 08:53 Dose: 4 mg Documented by: Sodium Chloride (Sodium Chloride 0.9% 10 Ml Flush Syringe) 10 ml IV BID MELVINA Last Admin: 12/30/20 09:20 Dose: 10 ml Documented by: Sodium Chloride (Sodium Chloride 0.9% 10 Ml Flush Syringe) 10 ml IV PRN PRN PRN Reason: LINE FLUSH Sodium Chloride (Sodium Chloride 0.9% 50 Ml Ivpb) 50 ml IV Q24HR@2100 M[facility]INA Stop: 01/01/21 21:01 Last Admin: 12/29/20 22:32 Dose: 50 ml Documented by: Review of Systems All systems: negative (see HPI) Exam - Constitutional Vitals: Temp Pulse Resp BP Pulse Ox 98.9 F 94 H 18 74/39 79 L 12/30/20 11:16 12/30/20 11:16 12/30/20 11:16 12/30/20 11:16 12/30/20 11:16 General appearance: Present: other (Complains of dizziness, tiredness) - EENT Eyes: Present: EOM intact ENT: hearing intact Results - Labs CBC & Chem 7: 12/30/20 10:35 12/30/20 07:31 Labs: Abnormal lab results 12/30/20 12/30/20 12/30/20 Range/Units 07:31 07:31 10:35 WBC 11.9 H (4.5-11.0) K/mm3 RBC 2.29 L (3.65-5.03) M/mm3 Hgb 6.7 L (11.8-15.2) gm/dl Hct 19.8 L* (35.5-45.6) % RDW 19.6 H (13.2-15.2) % Plt Count 51 L (140-440) K/mm3 Lymph % (Auto) 9.5 L (13.4-35.0) % Lymph # (Auto) 1.1 L (1.2-5.4) K/mm3 Seg Neutrophils % 84.7 H (40.0-70.0) % Seg Neutrophils # 10.1 H (1.8-7.7) K/mm3 Sodium 134 L (137-145) mmol/L Carbon Dioxide 20 L (22-30) mmol/L BUN 50 H (9-20) mg/dL Calcium 8.0 L (8.4-10.2) mg/dL Total Protein 5.1 L (6.3-8.2) g/dL Albumin 2.6 L (3.9-5) g/dL Crossmatch See Detail 12/30/20 Range/Units 10:35 WBC (4.5-11.0) K/mm3 RBC (3.65-5.03) M/mm3 Hgb 6.5 L (11.8-15.2) gm/dl Hct 19.6 L* (35.5-45.6) % RDW (13.2-15.2) % Plt Count (140-440) K/mm3 Lymph % (Auto) (13.4-35.0) % Lymph # (Auto) (1.2-5.4) K/mm3 Seg Neutrophils % (40.0-70.0) % Seg Neutrophils # (1.8-7.7) K/mm3 Sodium (137-145) mmol/L Carbon Dioxide (22-30) mmol/L BUN (9-20) mg/dL Calcium (8.4-10.2) mg/dL Total Protein (6.3-8.2) g/dL Albumin (3.9-5) g/dL Crossmatch Assessment and Plan 65-year-old male with multiple medical issues including chronic hypotension, large gastric ulceration status post endoscopy cauterization, and anemia which has been recurrent during the patient's admission. Patient presented with significant anemia with the anemia trending down to 5.5. Patient had transfusion, bringing the hemoglobin back up to 8 which has now trended down to 6.5. Patient has had chronic hypotension during his admission which has worsened today and the patient is symptomatic with headaches, dizziness, and overall uneasiness. Patient has a chronic DVT in his left lower extremity and history of PE 1 month ago. Patient is cachectic. After discussion with Dr. Ordonez, I will assume this represents active GI bleeding although no significant amount of blood has been noted. Recommend transfusion of 3 units packed red blood cells, recommend transfusion of 2 units of platelets given platelet count of 51. Patient will be brought down to the [facility]. If no active extravasation or pseudoaneurysm is noted, then empiric embolization of the GDA will likely be performed to prevent recurrent anemia. Risks, benefits, and alternatives discussed. Patient agreed with procedure.
[2020-12-30] MEDS ORDERED: LIDOCAINE 2%/EPINEPHRINE 1:100,000 VIAL (20 ML) INFILTRATI SCH (14:00)
[2020-12-30] MEDS ORDERED: SODIUM CHLORIDE 0.9% 1000 ML 1,000 ML ONE (14:04)
--- NOTE | 2020-12-30 15:12 | Operative Report ---
Operative Report Operative Report: EXAM: 1. Ultrasound-guided access of the right common femoral artery. 2. Angiography of the right lower extremity. 3. Selection of the SMA with digital subtraction angiography 4. Selection of the celiac artery with digital subtraction angiography 5. Selection of the common hepatic artery with digital subtraction angiography 6. Selection of the gastroduodenal artery and right gastroepiploic artery with digital subtraction angiography. 7. Coil embolization of the right proximal gastroepiploic artery and the gastroduodenal artery with 6 mm x 20 cm interlock coils (4) DATE: 12/31/2020 CONSULTING SALES EXECUTIVE: ALLAN BLANCO MD INDICATION: Large prepyloric ulceration status post endoscopy with cauterization with hypotension and recurrent anemia. MEDICATIONS: Please see nursing report for full details. DEVICES: Interlock coil, 6 mm x 20 cm, 4 coils CONTRAST: Please see Final Rail Cutter for full details PROCEDURE: The risks, benefits, and alternatives were discussed with the patient; informed consent was obtained. Due to COVID-19 and patient being actively infected with COVID-19, I did not have him physically right on the paper and instead obtained verbal consent from him. This was done to prevent cross-contamination of the chart. Patient was brought to the angiography suite and his groins were prepped and draped in a sterile fashion. Ultrasound was used to evaluate the right common femoral artery which was patent. Under direct ultrasound guidance, the right common femoral artery was accessed with a 21-gauge micropuncture needle. 0.018 inch wire was passed into the aorta. Needle was exchanged for transitional dilator. Wire was exchanged for a 0.035 inch wire. Transitional dilator was ex changed for a 5 Setswana sheath. Digital subtraction angiography was performed demonstrating an appropriate puncture site, above the bifurcation and below the inferior epigastric artery. The right external iliac artery, common femoral artery, proximal superficial femoral artery, and profunda femoral artery were patent. SOS 2 catheter was then used to select the celiac artery and digital subtraction angiography was performed. The catheter flipped out of the celiac artery, but the proximal common hepatic artery, splenic artery, and gastric artery were noted. Catheter was then used to select the SMA and digital subtraction angiography was performed demonstrating no extravasation or pseudoaneurysm. Catheter was then exchanged for a Keenan 1 glide catheter which was formed over the aortoiliac bifurcation and used then to select the celiac artery. Digital subtraction angiography was performed. The common hepatic artery was selected. Digital subtraction angiography was performed. Digital subtraction angiography demonstrated no extravasation or pseudoaneurysm. There was a variant anatomy branching pattern with a replaced left hepatic artery from the left gastric artery. The splenic artery, gastroduodenal artery, and gastroepiploic arteries were patent without extravasation or pseudoaneurysm. Given the endoscopic report of a large ulceration in the prepyloric region of the stomach, and patient's persistent anemia and hypotension, I decided to perform empiric embolization of the gastroduodenal artery and proximal right gastroepiploic artery. Using an renegade STC microcatheter coaxially with a 0.014 inch Choice PT floppy wire, this was passed through the Vidimax 1 glide catheter and used to select the gastroduodenal artery and the right gastroepiploic artery. Digital subtraction angiography was performed confirming position. Coil embolization was then performed of the proximal right gastroepiploic artery with a 6 mm x 20 cm coil, and this was repeated in the right gastroduodenal artery with a 6 mm x 20 cm coil for a total of 4 coils. Microcatheter was removed and repeat digital subtraction angiography was performed, and there was some sluggish flow in the gastroduodenal artery and right proximal gastroepiploic artery. At this time, I determined the intervention was complete. The artery would thrombose over the next few hours. All wires, catheters, and sheaths were removed and pressure was held to the right groin and until hemostasis was achieved. Pressure dressing applied. Sterile dressing applied. Patient tolerated the procedure well. No immediate postprocedural complication. FINDINGS: Please see procedure note above IMPRESSION: Successful angiography as described above. Successful empiric coil embolization of the right gastro epiploic artery and gastroduodenal artery.
[2020-12-31] MEDS ORDERED: SODIUM CHLORIDE 0.9% 250ML 250 ML ONE (00:02)
[2020-12-31] MEDS: AZITHROMYCIN/NS 500 MG/250 ML 500 MG/250 ML BAG IV SCH ×2 (02:31→16:32)
[2020-12-31] MEDS ORDERED: SODIUM CHLORIDE 0.9% 250ML 250 ML IV ONE (03:37)
[2020-12-31] MEDS: REMDESIVIR 100 MG in SODIUM CHLORIDE 0.9% 250ML 250 ML IV SCH (03:58)
[2020-12-31] MEDS: SODIUM CHLORIDE 0.9% 50 ML IVPB IV SCH (05:14)
[2020-12-31 08:06] LABS: Basophils % (Auto) 0.1 % (0.0-1.8); Hematocrit 25.6 % (35.5-45.6); Hemoglobin 8.5 gm/dl (11.8-15.2); Lymphocytes # (Auto) 1.1 K/mm3 (1.2-5.4); Lymphocytes % (Auto) 9.1 % (13.4-35.0); Mean Corpuscular HGB Conc 33 % (32-34); Mean Corpuscular Volume 84 fl (84-94); Monocytes % (Auto) 8.3 % (0.0-7.3); Platelet Count 121 K/mm3 (140-440); Red Blood Count 3.04 M/mm3 (3.65-5.03); Red Cell Distribution Width 18.5 % (13.2-15.2)
[2020-12-31 08:16] LABS: INR 1.08 (0.87-1.13)
[2020-12-31 08:30] LABS: Alanine Aminotransferase 9 units/L (7-56); Albumin 2.6 g/dL (3.9-5); BUN/Creatinine Ratio 41; Blood Urea Nitrogen 37 mg/dL (9-20); Calcium 8.1 mg/dL (8.4-10.2); Hemolysis Index 0
--- NOTE | 2020-12-31 08:47 | Progress Note ---
Assessment and Plan Assessment and plan: Sepsis. Patient meets criteria given the tachycardia, tachypnea and diagnosis of UTI. COVID-19 pneumonia UTI. Patient with previous CT July 2020 which revealed Mild bilateral hydronephrosis and moderate distention of the urinary bladder GI bleed/melena. Anemia. Etiology likely secondary to acute blood loss anemia. Weight loss. 40 pound weight loss in 2 weeks History pulmonary embolism. Patient on home Eliquis. Pyoderma gangrenosum 12/27/2020. Patient's urinalysis reveals UTI and patient has significant lactic acidosis. Follow-up blood and urine cultures. Initiate antibiotics of Rocephin and consult ID for further evaluation. Patient will receive 2 more units of PRBCs and follow-up occult stool. GI consultation pending. Start Protonix drip. Hold Eliquis. 12/28/2020. Patient reportedly with positive Covid testing on 04/19/2020 and subsequent negative testing on 07/07 and 07/25. Patient now with new positive testing on 12/27/2020. Consult ID for further evaluation. Continue to hold Eliquis for GI bleed. Gastroenterology following. Etiology likely secondary to peptic ulcer disease versus malignancy. Endoscopy per GI. CT of the abdomen pelvis reveals persistent gross distention of the urinary bladder related to chronic outlet obstruction. Persistent moderate bilateral hydronephrosis. Urology consultation. Also, new rounded masslike structure in the lingula measuring 2.5 cm. Consider pulmonary consultation. 12/29/2020; COVID-19 infection continue with remdesivir and Decadron. Evaluated by ID and recommend to continue Rocephin empirically. Severe anemia status post transfusion of 3 units of blood this morning with 8. GI bleed; GI was consulted and did EGD and found gastric ulcer and epinephrine injection was done. 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 Eliquis was on hold because of GI bleed. Vascular surgery was consulted and is considering to do IVC filter. CT of the abdomen pelvis reveals persistent gross distention of the urinary bladder related to chronic outlet obstruction. Persistent moderate bilateral hydronephrosis. Urology consulted. Also, new rounded masslike structure in the lingula measuring 2.5 cm. Consider pulmonary consultation. Pulmonary consulted and recommend outpatient repeat imaging. Evaluated by urology and recommend to continue with Justin catheter, he also recommends prostate biopsy given his weight loss, patient is positive for Covid, wanting biopsy can be done at this time. Covid test is positive on 12/27/2020. 12/30/2020; continue remdesivir and Decadron for COVID-19 infection. H&H from this morning is pending. Anemia due to GI bleed and EGD was done and showed gastric ulcer, evaluated by GI and recommend to hold anticoagulation for at least a week, continue with PPI drip. Patient was evaluated by urology for hydronephrosis and recommended biopsy but patient has Covid and could not do a biopsy at this time. Pulmonary was consulted for lingual mass and recommend outpatient follow-up. Hemoglobin this morning is 6.7, patient did have bowel movement today but yesterday he had one episode of dark stool. We will transfuse him, continue to monitor. Patient has further bleeding, patient may need embolization and interventional radiology already consulted. 12/31/2020; patient's hemoglobin was low yesterday, transfused 2 more units of blood [total of 5 units], interventional radiology was consulted and did coil embolization of the right proximal gastroepiploic artery and gastroduodenal artery with 6 mm x 20 cm interlock coils. Hemoglobin this morning was 8.5. Patient had thrombocytopenia yesterday 51. Platelet was ordered yesterday but was not transfused and his platelet count is 121 this morning. No need for transfusion of platelet. Patient is on remdesivir and Decadron for COVID-19 infection. ID is following. GI is following. Continue inpatient care. History Interval history: Patient was seen and evaluated this morning No bleeding overnight Patient said he is feeling better today Hospitalist Physical - Physical exam Narrative exam: Not in cardiopulmonary distress. The patient appeared well nourished and normally developed. Vital signs as documented. Head exam is unremarkable. No scleral icterus . Neck is without jugular venous distension, thyromegaly, or carotid bruits. Lungs are clear to auscultation. Cardiac exam reveals regular rate and Rhythm. Abdominal exam reveals normal bowel sounds, nontender, no organomegaly. Extremities are nonedematous and both femoral and pedal pulses are normal. COMMODITIES CLERK: Alert and oriented 3. No focal weakness. - Constitutional Vitals: Temp Pulse Resp BP Pulse Ox 97.9 F 86 16 80/53 100 12/31/20 05:27 12/31/20 05:27 12/31/20 05:27 12/31/20 05:27 12/31/20 05:27 General appearance: Present: other (Complains of dizziness, tiredness) HEART Score - HEART Score Troponin: Troponin T < 0.010 ng/mL (0.00-0.029) 12/26/20 22:36 Results - Labs CBC & Chem 7: 12/31/20 07:33 12/31/20 07:33 Labs: Laboratory Last Values WBC 12.0 K/mm3 (4.5-11.0) H 12/31/20 07:33 RBC 3.04 M/mm3 (3.65-5.03) L 12/31/20 07:33 Hgb 8.5 gm/dl (11.8-15.2) L 12/31/20 07:33 Hct 25.6 % (35.5-45.6) L D 12/31/20 07:33 MCV 84 fl (84-94) 12/31/20 07:33 MCH 28 pg (28-32) 12/31/20 07:33 MCHC 33 % (32-34) 12/31/20 07:33 RDW 18.5 % (13.2-15.2) H 12/31/20 07:33 Plt Count 121 K/mm3 (140-440) L D 12/31/20 07:33 Lymph % (Auto) 9.1 % (13.4-35.0) L 12/31/20 07:33 [place] % (Auto) 8.3 % (0.0-7.3) H 12/31/20 07:33 Eos % (Auto) 0.0 % (0.0-4.3) 12/31/20 07:33 Baso % (Auto) 0.1 % (0.0-1.8) 12/31/20 07:33 Lymph # (Auto) 1.1 K/mm3 (1.2-5.4) L 12/31/20 07:33 [place] # (Auto) 1.0 K/mm3 (0.0-0.8) H 12/31/20 07:33 Eos # (Auto) 0.0 K/mm3 (0.0-0.4) 12/31/20 07:33 Baso # (Auto) 0.0 K/mm3 (0.0-0.1) 12/31/20 07:33 Seg Neutrophils % 82.5 % (40.0-70.0) H 12/31/20 07:33 Seg Neutrophils # 9.9 K/mm3 (1.8-7.7) H 12/31/20 07:33 PT 13.8 Sec. (12.2-14.9) 12/31/20 07:33 INR 1.08 (0.87-1.13) 12/31/20 07:33 APTT 30.1 Sec. (24.2-36.6) 12/26/20 20:36 Fibrinogen 299 mg/dl (211-480) 12/31/20 07:33 D-Dimer 423.53 ng/mlDDU (0-234) H 12/29/20 04:07 ABG pH 7.390 (7.320-7.450) 12/28/20 01:45 POC ABG pCO2 33.8 mmHg (32.0-48.0) 12/28/20 01:45 POC ABG pO2 188.9 mmHg (83-108) H 12/28/20 01:45 POC ABG HCO3 20.0 12/28/20 01:45 POC ABG Base Excess -4.5 12/28/20 01:45 ABG Hemoglobin 7.2 (12.0-17.5) L 12/28/20 01:45 ABG Sodium 135.3 mmol/L (136.0-145.0) L 12/28/20 01:45 ABG Potassium 3.9 mmol/L (3.40-4.50) 12/28/20 01:45 ABG Chloride 111.0 mmol/L (98-107) H 12/28/20 01:45 ABG Glucose 76 mg/dL (65-95) 12/28/20 01:45 FiO2 31 12/28/20 01:45 Sodium 135 mmol/L (137-145) L 12/31/20 07:33 Potassium 4.2 mmol/L (3.6-5.0) 12/31/20 07:33 Chloride 104.1 mmol/L (98-107) 12/31/20 07:33 Carbon Dioxide 23 mmol/L (22-30) 12/31/20 07:33 Anion Gap 12 mmol/L 12/31/20 07:33 BUN 37 mg/dL (9-20) H 12/31/20 07:33 Creatinine 0.9 mg/dL (0.8-1.3) 12/31/20 07:33 Estimated GFR > 60 ml/min 12/31/20 07:33 BUN/Creatinine Ratio 41 % 12/31/20 07:33 Glucose 89 mg/dL (75-100) 12/31/20 07:33 POC Glucose 109 mg/dL (70-105) H 12/30/20 16:15 Lactic Acid 1.60 mmol/L (0.7-2.0) 12/27/20 19:46 Calcium 8.1 mg/dL (8.4-10.2) L 12/31/20 07:33 Ferritin 473.1 ng/mL (30.0-300.0) H 12/29/20 04:07 Total Bilirubin 0.70 mg/dL (0.1-1.2) 12/31/20 07:33 Direct Bilirubin 0.5 mg/dL (0-0.2) H 12/26/20 20:36 Indirect Bilirubin 0.4 mg/dL 12/26/20 20:36 AST 11 units/L (5-40) 12/31/20 07:33 ALT 9 units/L (7-56) 12/31/20 07:33 Alkaline Phosphatase 57 units/L (35-129) 12/31/20 07:33 Lactate Dehydrogenase 135 units/L (91-180) 12/29/20 04:07 Troponin T < 0.010 ng/mL (0.00-0.029) 12/26/20 22:36 C-Reactive Protein 6.50 mg/dL (0.00-1.30) H 12/29/20 04:07 NT-Pro-B Natriuret Pep 4048 pg/mL (0-900) H 12/26/20 20:36 Total Protein 5.4 g/dL (6.3-8.2) L 12/31/20 07:33 Albumin 2.6 g/dL (3.9-5) L 12/31/20 07:33 Albumin/Globulin Ratio 0.9 % 12/31/20 07:33 Prostate Specific Ag 0.31 ng/mL (0.00-4.00) 12/29/20 04:07 Procalcitonin 2.10 ng/mL (<0.15) 12/29/20 04:07 Arterial Blood Glucose 76 mg/dL (65-95) 12/28/20 01:45 Arterial Blood Ionized Calcium 4.6 mg/dL (4.6-5.3) 12/28/20 01:45 Urine Color Red (Yellow) 12/27/20 03:49 Urine Turbidity Slightly-cloudy (Clear) 12/27/20 03:49 Urine pH 5.0 (5.0-7.0) 12/27/20 03:49 Ur Specific [place] 1.014 (1.003-1.030) 12/27/20 03:49 Urine Protein 100 mg/dl mg/dL (Negative) 12/27/20 03:49 Urine Glucose (UA) Neg mg/dL (Negative) 12/27/20 03:49 Urine Ketones Neg mg/dL (Negative) 12/27/20 03:49 Urine Blood Lg (Negative) 12/27/20 03:49 Urine Nitrite Neg (Negative) 12/27/20 03:49 Urine Bilirubin Neg (Negative) 12/27/20 03:49 Urine Urobilinogen < 2.0 mg/dL (<2.0) 12/27/20 03:49 Ur Leukocyte Esterase Mod (Negative) 12/27/20 03:49 Urine WBC (Auto) > 182.0 /HPF (0.0-6.0) H 12/27/20 03:49 Urine RBC (Auto) > 182.0 /HPF (0.0-6.0) 12/27/20 03:49 U Epithel Cells (Auto) 2.0 /HPF (0-13.0) 12/27/20 03:49 Urine WBC Clumps 2+ /HPF 12/27/20 03:49 Coronavirus (PCR) Positive (Negative) A 12/27/20 09:48 Blood Type B POSITIVE 12/30/20 10:35 Antibody Screen Negative 12/30/20 10:35 Crossmatch See Detail 12/30/20 10:35 Microbiology: Microbiology 12/26/20 21:01 Peripheral/Venous Blood Culture - Preliminary NO GROWTH AFTER 4 DAYS 12/26/20 20:59 Peripheral/Venous Blood Culture - Preliminary NO GROWTH AFTER 4 DAYS 12/27/20 08:38 Peripheral/Venous Blood Culture - Preliminary NO GROWTH AFTER 72 HOURS 12/27/20 08:04 Peripheral/Venous Blood Culture - Preliminary NO GROWTH AFTER 72 HOURS 12/27/20 04:45 Nares - Left MRSA Culture - Final Justin/IV: Voiding Method Indwelling Catheter Active Medications - Current Medications Current Medications: Generic Name Dose Route Start Last Admin Trade Name Freq PRN Reason Stop Dose Admin Acetaminophen 650 mg 12/26/20 23:35 12/30/20 05:34 Acetaminophen 325 Mg Tab PO 650 mg Q4H PRN Administration Pain MILD(1-3)/Fever >100.5/SARMIENTO Dexamethasone 4 mg 12/28/20 10:00 12/30/20 09:20 Dexamethasone 4 Mg/Ml Vial IV 01/06/21 10:01 4 mg DAILY MELVINA Administration Ceftriaxone Sodium 1 gm in 50 mls @ 100 mls/hr 12/27/20 08:00 12/30/20 07:42 Rocephin/Ns 1 Gm/50 Ml IV 100 mls/hr Q24H MELVINA Administration Protocol Pantoprazole Sodium 80 mg/ 100 mls @ 10 mls/hr 12/27/20 10:00 12/29/20 21:09 Sodium Chloride IV 8 mg/hr DIRECT MELVINA 10 mls/hr Administration 8 MG/HR REMDESIVIR 100 mg/ Sodium 250 mls @ 500 mls/hr 12/29/20 21:00 12/31/20 03:58 Chloride IV 01/01/21 21:29 500 mls/hr Q24HR@2100 MELVINA Administration Azithromycin 500 mg in 250 mls @ 250 mls/hr 12/29/20 16:00 12/31/20 03:31 Zithromax/Ns IV 01/01/21 15:59 Infused Q24H MELVINA Infusion Sodium Chloride 500 mls @ 0 mls/hr 12/30/20 12:43 12/31/20 08:29 Nacl 0.9% 500 Ml IV 12/31/20 12:42 30 mls/hr ONCE NR Administration As Directed Morphine Sulfate 2 mg 12/26/20 23:35 12/28/20 08:53 Morphine 2 Mg/1 Ml Inj IV 2 mg Q4H PRN Administration Pain, Moderate (4-6) Ondansetron HCl 4 mg 12/26/20 23:35 12/28/20 08:53 Ondansetron 4 Mg/2 Ml Inj IV 4 mg Q8H PRN Administration Nausea And Vomiting Sodium Chloride 10 ml 12/27/20 10:00 12/30/20 22:00 Sodium Chloride 0.9% 10 Ml Flush Syringe IV 10 ml BID MELVINA Administration Sodium Chloride 10 ml 12/26/20 23:35 Sodium Chloride 0.9% 10 Ml Flush Syringe IV PRN PRN LINE FLUSH Sodium Chloride 50 ml 12/28/20 14:00 12/31/20 05:14 Sodium Chloride 0.9% 50 Ml Ivpb IV 01/01/21 21:01 50 ml Q24HR@2100 MELVINA Administration Nutrition/Malnutrition Assess - Dietary Evaluation Nutrition/Malnutrition Findings: Nutrition Notes Start: 12/27/20 07:22 Freq: Status: Active Protocol: Document 12/29/20 08:43 AT (Rec: 12/29/20 08:49 AT [id number]) Co-Sign 12/29/20 08:43 MK Nutrition Notes Initial or Follow up Assessment Current Diagnosis Acute Kidney Injury,Sepsis, Hypertension,Heart Failure Other Pertinent Diagnosis COVID(+), FTT, GIB, UTI, Anemia, PUD, pneu, Pyoderma Gangrenosum Current Diet Clear Liquids Labs/Tests BUN 63 Cr 1.4 Pertinent Medications Decadron NS at 50 mL/hr Height 6 ft 3 in Weight 62.2 kg Usual Body Weight 98.86 kg [place] Body Weight (kg) 89.09 BMI 17.1 Intake Prior to Admission Poor Weight change and time frame 26% weight loss since 09/03/20 (last adm) Weight Status Underweight Subjective/Other Information Follow up for assessment and intakes. Per chart, pt is consuming 50% of meals on average. Pt was NPO and advanced today to clear liquids. Preferences were recorded. Percent of energy/protein needs met: 0%/0% Burn Absent Trauma Absent GI Symptoms Other Food Allergy No Current % PO Negligible Minimum of two criteria Yes Energy Intake (non-severe) <75% Estimated Energy Requirement >7 days Interpretation of Weight Loss (severe) >7.5% in 3 months #1 Nutrition Diagnosis Malnutrition Etiology acute illness As Evidenced by Signs and Symptoms reported <75% of EER for > 7 days, 26% weight loss in 5 months Is patient on ventilator? No Is Patient Ambulatory and/or Out of Bed Yes REE-([place] Jeor-ambulatory/OOB) [ 1953.419 NUTR.[id number]] Kcal/Kg value to use for calculation 36 Approximate Energy Requirements Using 2239 kcal/Kg Calculation Used for Recommendations Kcal/kg Additional Notes PRO needs: 75-93 g (1.2-1.5 g/ kg) Fluid needs: 1 mL/kcal or per MD Nutrition Intervention Change Diet Order: Continue Clear Liquids and advance when medically feasible Add Supplement/Snack (indicate name/kcal Ensure Clear TID /protein ) Provides kCal: 720 Provides Protein (gm) 24 Goal #1 Weight gain and weight maintenance Goal #2 Meet energy and protein needs as best as possible Goal #3 Diet advancement Anticipated Discharge Needs: Cardiac Diet Follow-Up By: 12/31/20 Additional Comments F/U intakes, diet advancement
[2020-12-31] MEDS: dexAMETHasone 4 MG/ML VIAL IV SCH (09:23)
[2020-12-31] MEDS: cefTRIAXone/NS 1 GM/50 ML 1 GM/50 ML BAG IV SCH (09:43)
[2020-12-31] MEDS: ACETAMINOPHEN 325 MG TAB PO PRN (10:16)
--- NOTE | 2020-12-31 10:20 | Progress Note ---
Assessment and Plan Echo 12/26/2020: EF 15-20%, Left ventricle severely dilated, atria are mildly dilated. Mild AR, Mild MR, Mild TN. Mild TR. No current clinical evidence of acutely decompensated heart failure. Patient has reported hx of CMP and HFrEF, although unknown chronicity and etiology as he is a rather poor historian. Patient states may have had stress test at [facility] in 06/2020. Records have been requested. Continue current cardiac management. No BB, ACEI/ARB in setting of hypotension. Pt noted to have persistent anemia and thrombocytopenia requiring PRBC. S/p EGD with cauterization of gastric ulcer on 12/28/2020. S/p angiography and empiric coil embolization of the right gastro epiploic artery and gastroduodenal artery per IR yesterday. Per GI team, no blood thinners for 1 wk if avoidable. F/u vascular recs regarding resumption of systemic AC, as well. Cont to hold Eliquis. F/u CBC in AM. The patient has been seen in conjunction with Dr. Alpesh Ewing who agrees with the assessment and plan of care. - Patient Problems (1) COVID-19 virus infection Current Visit: Yes Status: Acute (2) Pneumonia Current Visit: Yes Status: Suspected (3) History of pulmonary embolism Current Visit: Yes Status: Chronic (4) Symptomatic anemia Current Visit: Yes Status: Acute (5) Thrombocytopenia Current Visit: Yes Status: Acute (6) GI bleed Current Visit: Yes Status: Acute (7) ROBSON (acute kidney injury) Current Visit: Yes Status: Acute (8) UTI (urinary tract infection) Current Visit: Yes Status: Acute (9) Failure to thrive Current Visit: Yes Status: Acute Subjective Date of service: 12/31/20 Principal diagnosis: COVID Interval history: pt resting in bed, feeling better today. tele reviewed - SR HR 80s, no acute events overnight. Objective Last Vital Signs Temp 97.9 F 12/31/20 05:27 Pulse 86 12/31/20 05:27 Resp 16 12/31/20 05:27 BP 80/53 12/31/20 05:27 Pulse Ox 100 12/31/20 08:46 - Physical Examination General: No Apparent Distress HEENT: Positive: PERRL, Normocephaly, Mucus Membranes Moist Neck: Positive: neck supple, trachea midline Cardiac: Positive: Reg Rate and Rhythm, S1/S2 Lungs: Positive: Decreased Breath Sounds Neuro: Positive: Grossly Intact Abdomen: Positive: Unremarkable Skin: Negative: Rash, Wound Extremities: Present: upper extr. pulses, lower extr. pulses. Absent: edema - Labs and Meds Cardiac Enzymes 12/31/20 12/31/20 Range/Units 07:33 07:33 AST 11 (5-40) units/L Lactate Dehydrogenase 166 (91-180) units/L Coagulation 12/31/20 Range/Units 07:33 PT 13.8 (12.2-14.9) Sec. INR 1.08 (0.87-1.13) CBC 12/30/20 12/31/20 Range/Units 10:35 07:33 WBC 12.0 H (4.5-11.0) K/mm3 RBC 3.04 L (3.65-5.03) M/mm3 Hgb 6.5 L 8.5 L (11.8-15.2) gm/dl Hct 19.6 L* 25.6 L D (35.5-45.6) % Plt Count 121 L D (140-440) K/mm3 Lymph # (Auto) 1.1 L (1.2-5.4) K/mm3 [place] # (Auto) 1.0 H (0.0-0.8) K/mm3 Eos # (Auto) 0.0 (0.0-0.4) K/mm3 Baso # (Auto) 0.0 (0.0-0.1) K/mm3 Comprehensive Metabolic Panel 12/31/20 Range/Units 07:33 Sodium 135 L (137-145) mmol/L Potassium 4.2 (3.6-5.0) mmol/L Chloride 104.1 (98-107) mmol/L Carbon Dioxide 23 (22-30) mmol/L BUN 37 H (9-20) mg/dL Creatinine 0.9 (0.8-1.3) mg/dL Glucose 89 (75-100) mg/dL Calcium 8.1 L (8.4-10.2) mg/dL AST 11 (5-40) units/L ALT 9 (7-56) units/L Alkaline Phosphatase 57 (35-129) units/L Total Protein 5.4 L (6.3-8.2) g/dL Albumin 2.6 L (3.9-5) g/dL - Imaging and Cardiology EKG: report reviewed, image reviewed Echo: report reviewed (EF 15-20%, Left ventricle severely dilated, atria are mildly dilated. Mild AR, Mild MR, Mild TN. Mild TR.) - Telemetry EKG Rhythm: Sinus Rhythm
--- NOTE | 2020-12-31 11:27 | Progress Note ---
Assessment and Plan 1. GI bleed - due to large gastric ulcer. s/p embolization. Doing well. Hgb stable. - monitor H/H and transfuse if needed. - continue PPI drip x 24 more hours, and then may change to oral. - adv diet as tolerated - no blood thinners for 1 wk if avoidable. - repeat EGD as outpatient in ~ 4-6 wks, to exclude malignancy 2. COVID reinfection - per ID. Subjective Date of service: 12/31/20 Principal diagnosis: COVID Interval history: Pt empirically embolized yesterday. Doing well, spoke with staff. Objective - Exam Narrative Exam: Not seen due to active COVID infection. - Constitutional Vitals: Vital Signs - 12hr 12/30/20 12/31/20 12/31/20 23:31 00:15 00:30 Temperature 98.0 F 98.3 F 98.3 F Pulse Rate 88 87 87 Respiratory 18 18 18 Rate Blood Pressure 93/60 Blood Pressure 85/56 86/59 [Right] O2 Sat by Pulse 93 95 98 Oximetry 12/31/20 12/31/20 12/31/20 01:00 01:48 05:27 Temperature 97.3 F L 98.0 F 97.9 F Pulse Rate 89 93 H 86 Respiratory 18 16 16 Rate Blood Pressure 80/53 Blood Pressure 87/60 88/56 [Right] O2 Sat by Pulse 98 97 100 Oximetry 12/31/20 08:46 Temperature Pulse Rate Respiratory Rate Blood Pressure Blood Pressure [Right] O2 Sat by Pulse 100 Oximetry - Labs CBC & Chem 7: 12/31/20 07:33 12/31/20 07:33 Labs: Abnormal lab results 12/26/20 12/30/20 12/30/20 Range/Units 23:05 10:35 16:15 WBC (4.5-11.0) K/mm3 RBC (3.65-5.03) M/mm3 Hgb (11.8-15.2) gm/dl Hct (35.5-45.6) % RDW (13.2-15.2) % Plt Count (140-440) K/mm3 Lymph % (Auto) (13.4-35.0) % [place] % (Auto) (0.0-7.3) % Lymph # (Auto) (1.2-5.4) K/mm3 [place] # (Auto) (0.0-0.8) K/mm3 Seg Neutrophils % (40.0-70.0) % Seg Neutrophils # (1.8-7.7) K/mm3 Sodium (137-145) mmol/L BUN (9-20) mg/dL POC Glucose 109 H (70-105) mg/dL Calcium (8.4-10.2) mg/dL Total Protein (6.3-8.2) g/dL Albumin (3.9-5) g/dL Crossmatch See Detail See Detail 12/31/20 12/31/20 Range/Units 07:33 07:33 WBC 12.0 H (4.5-11.0) K/mm3 RBC 3.04 L (3.65-5.03) M/mm3 Hgb 8.5 L (11.8-15.2) gm/dl Hct 25.6 L D (35.5-45.6) % RDW 18.5 H (13.2-15.2) % Plt Count 121 L D (140-440) K/mm3 Lymph % (Auto) 9.1 L (13.4-35.0) % [place] % (Auto) 8.3 H (0.0-7.3) % Lymph # (Auto) 1.1 L (1.2-5.4) K/mm3 [place] # (Auto) 1.0 H (0.0-0.8) K/mm3 Seg Neutrophils % 82.5 H (40.0-70.0) % Seg Neutrophils # 9.9 H (1.8-7.7) K/mm3 Sodium 135 L (137-145) mmol/L BUN 37 H (9-20) mg/dL POC Glucose (70-105) mg/dL Calcium 8.1 L (8.4-10.2) mg/dL Total Protein 5.4 L (6.3-8.2) g/dL Albumin 2.6 L (3.9-5) g/dL Crossmatch Medications & Allergies - Medications Allergies/Adverse Reactions: Allergies No Known Allergies Allergy (Verified 07/21/19 02:06) Home Medications: Home Medications Medication Instructions Recorded Confirmed Last Taken Type Apixaban [Eliquis] 5 mg PO Q12HR 30 Days #60 tablet 07/25/20 12/27/20 Unknown Rx Apixaban [Eliquis] 10 mg PO Q12HR 7 Days #14 tablet 07/25/20 12/27/20 Unknown Rx Loperamide [Imodium] 2 mg PO Q2H PRN 4 Days #14 capsule 07/25/20 12/27/20 U nknown Rx Metoprolol [Lopressor TAB] 25 mg PO BID 30 Days #60 tablet 07/25/20 12/27/20 Unknown Rx Tamsulosin [Flomax] 0.4 mg PO QDAY 30 Days #30 cap 07/25/20 12/27/20 Unknown Rx lisinopriL [Zestril TAB] 5 mg PO QDAY 30 Days #30 tablet 07/25/20 12/27/20 Unknown Rx Active Medications: Generic Name Dose Route Start Last Admin Trade Name Freq PRN Reason Stop Dose Admin Acetaminophen 650 mg 12/26/20 23:35 12/31/20 10:16 Acetaminophen 325 Mg Tab PO 650 mg Q4H PRN Administration Pain MILD(1-3)/Fever >100.5/SARMIENTO Dexamethasone 4 mg 12/28/20 10:00 12/31/20 09:23 Dexamethasone 4 Mg/Ml Vial IV 01/06/21 10:01 4 mg DAILY MELVINA Administration Ceftriaxone Sodium 1 gm in 50 mls @ 100 mls/hr 12/27/20 08:00 12/31/20 09:43 Rocephin/Ns 1 Gm/50 Ml IV 100 mls/hr Q24H MELVINA Administration Protocol Pantoprazole Sodium 80 mg/ 100 mls @ 10 mls/hr 12/27/20 10:00 12/29/20 21:09 Sodium Chloride IV 8 mg/hr DIRECT MELVINA 10 mls/hr Administration 8 MG/HR REMDESIVIR 100 mg/ Sodium 250 mls @ 500 mls/hr 12/29/20 21:00 12/31/20 03:58 Chloride IV 01/01/21 21:29 500 mls/hr Q24HR@2100 MELVINA Administration Azithromycin 500 mg in 250 mls @ 250 mls/hr 12/29/20 16:00 12/31/20 03:31 Zithromax/Ns IV 01/01/21 15:59 Infused Q24H MELVINA Infusion Sodium Chloride 500 mls @ 0 mls/hr 12/30/20 12:43 12/31/20 08:29 Nacl 0.9% 500 Ml IV 12/31/20 12:42 30 mls/hr ONCE NR Administration As Directed Morphine Sulfate 2 mg 12/26/20 23:35 12/28/20 08:53 Morphine 2 Mg/1 Ml Inj IV 2 mg Q4H PRN Administration Pain, Moderate (4-6) Ondansetron HCl 4 mg 12/26/20 23:35 12/28/20 08:53 Ondansetron 4 Mg/2 Ml Inj IV 4 mg Q8H PRN Administration Nausea And Vomiting Sodium Chloride 10 ml 12/27/20 10:00 12/31/20 09:23 Sodium Chloride 0.9% 10 Ml Flush Syringe IV 10 ml BID MELVINA Administration Sodium Chloride 10 ml 12/26/20 23:35 Sodium Chloride 0.9% 10 Ml Flush Syringe IV PRN PRN LINE FLUSH Sodium Chloride 50 ml 12/28/20 14:00 12/31/20 05:14 Sodium Chloride 0.9% 50 Ml Ivpb IV 01/01/21 21:01 50 ml Q24HR@2100 MELVINA Administration HEART Score - HEART Score Troponin: Troponin T < 0.010 ng/mL (0.00-0.029) 12/26/20 22:36
--- NOTE | 2020-12-31 13:16 | Progress Note ---
Assessment and Plan Patient doing well following the GDA embolization prophylactically for GI bleed. Okay to be discharged home from an IR standpoint at any time. Subjective Date of service: 12/31/20 Principal diagnosis: COVID Interval history: Patient with a history of gastric ulcer status post endoscopic treatment and prophylactic GDA embolization. Patient is doing fine. Tolerating diet. No complaints of abdominal pain. Patient is feeling much better following blood transfusion Objective - Constitutional Vitals: Vital Signs - 12hr 12/31/20 12/31/20 12/31/20 01:48 05:27 08:46 Temperature 98.0 F 97.9 F Pulse Rate 93 H 86 Respiratory 16 16 Rate Blood Pressure 80/53 Blood Pressure 88/56 [Right] O2 Sat by Pulse 97 100 100 Oximetry 12/31/20 09:00 Temperature Pulse Rate Respiratory 18 Rate Blood Pressure Blood Pressure [Right] O2 Sat by Pulse Oximetry General appearance: Present: no acute distress - EENT Eyes: EOM intact ENT: hearing intact - Neck Neck: supple, normal ROM - Respiratory Respiratory effort: normal - Gastrointestinal Rectal Exam: deferred - Psychiatric Psychiatric: cooperative - Labs CBC & Chem 7: 12/31/20 07:33 12/31/20 07:33 Labs: Abnormal lab results 12/26/20 12/30/20 12/30/20 Range/Units 23:05 10:35 16:15 WBC (4.5-11.0) K/mm3 RBC (3.65-5.03) M/mm3 Hgb (11.8-15.2) gm/dl Hct (35.5-45.6) % RDW (13.2-15.2) % Plt Count (140-440) K/mm3 Lymph % (Auto) (13.4-35.0) % [place] % (Auto) (0.0-7.3) % Lymph # (Auto) (1.2-5.4) K/mm3 [place] # (Auto) (0.0-0.8) K/mm3 Seg Neutrophils % (40.0-70.0) % Seg Neutrophils # (1.8-7.7) K/mm3 Sodium (137-145) mmol/L BUN (9-20) mg/dL POC Glucose 109 H (70-105) mg/dL Calcium (8.4-10.2) mg/dL Total Protein (6.3-8.2) g/dL Albumin (3.9-5) g/dL Crossmatch See Detail See Detail 12/31/20 12/31/20 Range/Units 07:33 07:33 WBC 12.0 H (4.5-11.0) K/mm3 RBC 3.04 L (3.65-5.03) M/mm3 Hgb 8.5 L (11.8-15.2) gm/dl Hct 25.6 L D (35.5-45.6) % RDW 18.5 H (13.2-15.2) % Plt Count 121 L D (140-440) K/mm3 Lymph % (Auto) 9.1 L (13.4-35.0) % [place] % (Auto) 8.3 H (0.0-7.3) % Lymph # (Auto) 1.1 L (1.2-5.4) K/mm3 [place] # (Auto) 1.0 H (0.0-0.8) K/mm3 Seg Neutrophils % 82.5 H (40.0-70.0) % Seg Neutrophils # 9.9 H (1.8-7.7) K/mm3 Sodium 135 L (137-145) mmol/L BUN 37 H (9-20) mg/dL POC Glucose (70-105) mg/dL Calcium 8.1 L (8.4-10.2) mg/dL Total Protein 5.4 L (6.3-8.2) g/dL Albumin 2.6 L (3.9-5) g/dL Crossmatch Medications & Allergies - Medications Allergies/Adverse Reactions: Allergies No Known Allergies Allergy (Verified 07/21/19 02:06) Home Medications: Home Medications Medication Instructions Recorded Confirmed Last Taken Type Apixaban [Eliquis] 5 mg PO Q12HR 30 Days #60 tablet 07/25/20 12/27/20 Unknown Rx Apixaban [Eliquis] 10 mg PO Q12HR 7 Days #14 tablet 07/25/20 12/27/20 Unknown Rx Loperamide [Imodium] 2 mg PO Q2H PRN 4 Days #14 capsule 07/25/20 12/27/20 Unknown Rx Metoprolol [Lopressor TAB] 25 mg PO BID 30 Days #60 tablet 07/25/20 12/27/20 Unknown Rx Tamsulosin [Flomax] 0.4 mg PO QDAY 30 Days #30 cap 07/25/20 12/27/20 Unknown Rx lisinopriL [Zestril TAB] 5 mg PO QDAY 30 Days #30 tablet 07/25/20 12/27/20 Unknown Rx Active Medications: Generic Name Dose Route Start Last Admin Trade Name Freq PRN Reason Stop Dose Admin Acetaminophen 650 mg 12/26/20 23:35 12/31/20 10:16 Acetaminophen 325 Mg Tab PO 650 mg Q4H PRN Administration Pain MILD(1-3)/Fever >100.5/SARMIENTO Dexamethasone 4 mg 12/28/20 10:00 12/31/20 09:23 Dexamethasone 4 Mg/Ml Vial IV 01/06/21 10:01 4 mg DAILY MELVINA Administration Ceftriaxone Sodium 1 gm in 50 mls @ 100 mls/hr 12/27/20 08:00 12/31/20 09:43 Rocephin/Ns 1 Gm/50 Ml IV 100 mls/hr Q24H MELVINA Administration Protocol Pantoprazole Sodium 80 mg/ 100 mls @ 10 mls/hr 12/27/20 10:00 12/29/20 21:09 Sodium Chloride IV 8 mg/hr DIRECT MELVINA 10 mls/hr Administration 8 MG/HR REMDESIVIR 100 mg/ Sodium 250 mls @ 500 mls/hr 12/29/20 21:00 12/31/20 03:58 Chloride IV 01/01/21 21:29 500 mls/hr Q24HR@2100 MELVINA Administration Azithromycin 500 mg in 250 mls @ 250 mls/hr 12/29/20 16:00 12/31/20 03:31 Zithromax/Ns IV 01/01/21 15:59 Infused Q24H MELVINA Infusion Morphine Sulfate 2 mg 12/26/20 23:35 12/28/20 08:53 Morphine 2 Mg/1 Ml Inj IV 2 mg Q4H PRN Administration Pain, Moderate (4-6) Ondansetron HCl 4 mg 12/26/20 23:35 12/28/20 08:53 Ondansetron 4 Mg/2 Ml Inj IV 4 mg Q8H PRN Administration Nausea And Vomiting Sodium Chloride 10 ml 12/27/20 10:00 12/31/20 09:23 Sodium Chloride 0.9% 10 Ml Flush Syringe IV 10 ml BID MELVINA Administration Sodium Chloride 10 ml 12/26/20 23:35 Sodium Chloride 0.9% 10 Ml Flush Syringe IV PRN PRN LINE FLUSH Sodium Chloride 50 ml 12/28/20 14:00 12/31/20 05:14 Sodium Chloride 0.9% 50 Ml Ivpb IV 01/01/21 21:01 50 ml Q24HR@2100 MELVINA Administration HEART Score - HEART Score Troponin: Troponin T < 0.010 ng/mL (0.00-0.029) 12/26/20 22:36
--- NOTE | 2020-12-31 13:26 | Progress Note ---
Assessment and Plan Cultures: SARS CoV2 PCR: positive 12/26/2020 blood culture: No growth 12/27/2020 blood culture: No growth A/P: 65-year-old male with hypertension, CHF, history of PE was admitted to the hospital with decreased oral intake, fatigue over the last 2 weeks. Patient had COVID-19 back in March 2020 when he did not have hypoxia and did not receive remdesivir. Upon evaluation in the ER at this time, noted to have anemia,: #COVID-19: Likely reinfection since previous COVID-19 was back in March 2020. D- dimer 423.5, ferritin 473, CRP 6.5, procalcitonin 2.1. #Acute hypoxic respiratory failure: hypoxic, requiring [place] oxygen. #Possible UTI: UA with severe pyuria, hematuria. On empiric ceftriaxone. #ROBSON: Creatinine improving. #GI bleed, anemia: Status post EGD which revealed a gastric ulcer. Underwent IR embolization Recs: -Continue steroids x 10 days -continue IV remdesivir, D4 -continue Azithromycin 500 mg x 1 more day -last day of Ceftriaxone today -wean oxygen Eyal Dixon MD, FACP [facility] O: [phone] F: [phone] Subjective Date of service: 12/31/20 Principal diagnosis: COVID Interval history: No fever. On [place] oxygen. Objective - Exam Narrative Exam: Physical Exam (reviewed in chart to minimize risk of transmission) Constitutional: deferred Head, Ears, Nose: deferred Eyes: deferred Neck: deferred Oral: deferred Cardiovascular: deferred Respiratory: deferred GI: deferred Musculoskeletal: deferred Skin: deferred Hem/Lymphatic: deferred Psych: deferred Neurological: deferred - Constitutional Vitals: Vital Signs Temp Pulse Resp BP Pulse Ox 97.9 F 86 18 80/53 100 12/31/20 05:27 12/31/20 05:27 12/31/20 09:00 12/31/20 05:27 12/31/20 08:46 Temperature -Last 24 Hours Temperature 97.9 F Temperature 98.0 F Temperature 97.3 F Temperature 98.3 F Temperature 98.3 F Temperature 98.0 F Temperature 98.0 F Temperature 98.0 F Temperature 98.0 F Temperature 97.7 F Temperature 98.0 F Temperature 98.0 F Temperature 97.0 F Temperature 97.0 F Temperature 97.2 F Temperature 97.1 F Temperature 97.1 F - Labs CBC & Chem 7: 12/31/20 07:33 12/31/20 07:33 Labs: Abnormal lab results 12/26/20 12/30/20 12/30/20 Range/Units 23:05 10:35 16:15 WBC (4.5-11.0) K/mm3 RBC (3.65-5.03) M/mm3 Hgb (11.8-15.2) gm/dl Hct (35.5-45.6) % RDW (13.2-15.2) % Plt Count (140-440) K/mm3 Lymph % (Auto) (13.4-35.0) % [place] % (Auto) (0.0-7.3) % Lymph # (Auto) (1.2-5.4) K/mm3 [place] # (Auto) (0.0-0.8) K/mm3 Seg Neutrophils % (40.0-70.0) % Seg Neutrophils # (1.8-7.7) K/mm3 Sodium (137-145) mmol/L BUN (9-20) mg/dL POC Glucose 109 H (70-105) mg/dL Calcium (8.4-10.2) mg/dL Total Protein (6.3-8.2) g/dL Albumin (3.9-5) g/dL Crossmatch See Detail See Detail 12/31/20 12/31/20 Range/Units 07:33 07:33 WBC 12.0 H (4.5-11.0) K/mm3 RBC 3.04 L (3.65-5.03) M/mm3 Hgb 8.5 L (11.8-15.2) gm/dl Hct 25.6 L D (35.5-45.6) % RDW 18.5 H (13.2-15.2) % Plt Count 121 L D (140-440) K/mm3 Lymph % (Auto) 9.1 L (13.4-35.0) % [place] % (Auto) 8.3 H (0.0-7.3) % Lymph # (Auto) 1.1 L (1.2-5.4) K/mm3 [place] # (Auto) 1.0 H (0.0-0.8) K/mm3 Seg Neutrophils % 82.5 H (40.0-70.0) % Seg Neutrophils # 9.9 H (1.8-7.7) K/mm3 Sodium 135 L (137-145) mmol/L BUN 37 H (9-20) mg/dL POC Glucose (70-105) mg/dL Calcium 8.1 L (8.4-10.2) mg/dL Total Protein 5.4 L (6.3-8.2) g/dL Albumin 2.6 L (3.9-5) g/dL Crossmatch
[2020-12-31] MEDS: PANTOPRAZOLE 80 MG in SODIUM CHLORIDE 0.9% 100 ML IV SCH (13:58)
--- NOTE | 2020-12-31 15:39 | Vascular Lab Report ---
DUPLEX DOPPLER LOWER EXTREMITY VEINS, BILATERAL INDICATION / CLINICAL INFORMATION: reassess DVT, new onset dizziness, hypotension. TECHNIQUE: Duplex doppler imaging was performed through the veins of both lower extremities using venous lisa matt and other maneuvers. COMPARISON: None available. FINDINGS: Right Common Femoral vein: Negative. Right Femoral vein: Negative. Right Popliteal vein: Negative. Right Calf veins: Negative. Left Common Femoral vein: Negative. Left Femoral vein: Chronic nonocclusive. Left Popliteal vein: Chronic nonocclusive. Left Calf veins: Negative. Additional findings: None. IMPRESSION: Chronic nonocclusive thrombus identified within the distal aspect of the left SFA and the popliteal v eins. No right lower extremity DVT identified. Signer Name: Sachin Lorenzo MD Signed: 12/31/2020 3:35 PM Workstation Name: [id number]
[2020-12-31] MEDS ORDERED: SODIUM CHLORIDE 0.9% 500 ML 500 ML IV ONE (18:00)
[2020-12-31 20:03] LABS: Hematocrit 24.4 % (35.5-45.6); Hemoglobin 8.3 gm/dl (11.8-15.2)
[2021-01-01] MEDS: PANTOPRAZOLE 80 MG in SODIUM CHLORIDE 0.9% 100 ML IV SCH (00:31)
[2021-01-01] MEDS: REMDESIVIR 100 MG in SODIUM CHLORIDE 0.9% 250ML 250 ML IV SCH ×2 (00:31→21:38)
[2021-01-01] MEDS: SODIUM CHLORIDE 0.9% 50 ML IVPB IV SCH ×2 (01:07→22:10)
[2021-01-01 06:09] LABS: Basophils % (Auto) 0.1 % (0.0-1.8); Eosinophils % (Auto) 0.1 % (0.0-4.3); Hematocrit 25.1 % (35.5-45.6); Hemoglobin 8.4 gm/dl (11.8-15.2); Lymphocytes # (Auto) 1.6 K/mm3 (1.2-5.4); Lymphocytes % (Auto) 11.9 % (13.4-35.0); Mean Corpuscular HGB Conc 34 % (32-34); Mean Corpuscular Volume 84 fl (84-94); Monocytes # (Auto) 1.3 K/mm3 (0.0-0.8); Monocytes % (Auto) 9.6 % (0.0-7.3); Platelet Count 119 K/mm3 (140-440); Red Blood Count 2.98 M/mm3 (3.65-5.03); Red Cell Distribution Width 18.5 % (13.2-15.2)
[2021-01-01 06:18] LABS: Alanine Aminotransferase 11 units/L (7-56); Albumin 2.6 g/dL (3.9-5); BUN/Creatinine Ratio 36; Blood Urea Nitrogen 32 mg/dL (9-20); Hemolysis Index 93
--- NOTE | 2021-01-01 08:30 | Progress Note ---
Assessment and Plan Assessment and plan: Sepsis. Patient meets criteria given the tachycardia, tachypnea and diagnosis of UTI. COVID-19 pneumonia UTI. Patient with previous CT July 2020 which revealed Mild bilateral hydronephrosis and moderate distention of the urinary bladder GI bleed/melena. Anemia. Etiology likely secondary to acute blood loss anemia. Weight loss. 40 pound weight loss in 2 weeks History pulmonary embolism. Patient on home Eliquis. Pyoderma gangrenosum 12/27/2020. Patient's urinalysis reveals UTI and patient has significant lactic acidosis. Follow-up blood and urine cultures. Initiate antibiotics of Rocephin and consult ID for further evaluation. Patient will receive 2 more units of PRBCs and follow-up occult stool. GI consultation pending. Start Protonix drip. Hold Eliquis. 12/28/2020. Patient reportedly with positive Covid testing on 04/19/2020 and subsequent negative testing on 07/07 and 07/25. Patient now with new positive testing on 12/27/2020. Consult ID for further evaluation. Continue to hold Eliquis for GI bleed. Gastroenterology following. Etiology likely secondary to peptic ulcer disease versus malignancy. Endoscopy per GI. CT of the abdomen pelvis reveals persistent gross distention of the urinary bladder related to chronic outlet obstruction. Persistent moderate bilateral hydronephrosis. Urology consultation. Also, new rounded masslike structure in the lingula measuring 2.5 cm. Consider pulmonary consultation. 12/29/2020; COVID-19 infection continue with remdesivir and Decadron. Evaluated by ID and recommend to continue Rocephin empirically. Severe anemia status post transfusion of 3 units of blood this morning with 8. GI bleed; GI was consulted and did EGD and found gastric ulcer and epinephrine injection was done. 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 Eliquis was on hold because of GI bleed. Vascular surgery was consulted and is considering to do IVC filter. CT of the abdomen pelvis reveals persistent gross distention of the urinary bladder related to chronic outlet obstruction. Persistent moderate bilateral hydronephrosis. Urology consulted. Also, new rounded masslike structure in the lingula measuring 2.5 cm. Consider pulmonary consultation. Pulmonary consulted and recommend outpatient repeat imaging. Evaluated by urology and recommend to continue with Justin catheter, he also recommends prostate biopsy given his weight loss, patient is positive for Covid, wanting biopsy can be done at this time. Covid test is positive on 12/27/2020. 12/30/2020; continue remdesivir and Decadron for COVID-19 infection. H&H from this morning is pending. Anemia due to GI bleed and EGD was done and showed gastric ulcer, evaluated by GI and recommend to hold anticoagulation for at least a week, continue with PPI drip. Patient was evaluated by urology for hydronephrosis and recommended biopsy but patient has Covid and could not do a biopsy at this time. Pulmonary was consulted for lingual mass and recommend outpatient follow-up. Hemoglobin this morning is 6.7, patient did have bowel movement today but yesterday he had one episode of dark stool. We will transfuse him, continue to monitor. Patient has further bleeding, patient may need embolization and interventional radiology already consulted. 12/31/2020; patient's hemoglobin was low yesterday, transfused 2 more units of blood [total of 5 units], interventional radiology was consulted and did coil embolization of the right proximal gastroepiploic artery and gastroduodenal artery with 6 mm x 20 cm interlock coils. Hemoglobin this morning was 8.5. Patient had thrombocytopenia yesterday 51. Platelet was ordered yesterday but was not transfused and his platelet count is 121 this morning. No need for transfusion of platelet. Patient is on remdesivir and Decadron for COVID-19 infection. ID is following. GI is following. Continue inpatient care. 01/01/2021 -Patient's hemoglobin is stable, blood pressure is low and midodrine started. Patient will finish remdesivir today and will continue with Decadron for Covid infection. Patient need outpatient EGD in 4 to 6 weeks to evaluate for malignancy. Patient need prostate biopsy to rule out prostate cancer because patient has unintentional weight loss and asymmetric enlarged prostate. PT OT evaluation needed. Patient need to go to rehab after discharge. We will keep him here today History Interval history: Patient was seen and evaluated this morning No bleeding overnight Patient said he is feeling better today Hospitalist Physical - Physical exam Narrative exam: Not in cardiopulmonary distress. The patient appeared well nourished and normally developed. Vital signs as documented. Head exam is unremarkable. No scleral icterus . Neck is without jugular venous distension, thyromegaly, or carotid bruits. Lungs are clear to auscultation. Cardiac exam reveals regular rate and Rhythm. Abdominal exam reveals normal bowel sounds, nontender, no organomegaly. Extremities are nonedematous and both femoral and pedal pulses are normal. VIOLENT CRIMES DETECTIVE: Alert and oriented 3. No focal weakness. - Constitutional Vitals: Temp Pulse Resp BP Pulse Ox 97.4 F L 99 H 20 84/62 98 01/01/21 04:34 01/01/21 04:34 01/01/21 04:34 01/01/21 04:34 01/01/21 04:34 General appearance: Present: no acute distress HEART Score - HEART Score Troponin: Troponin T < 0.010 ng/mL (0.00-0.029) 12/26/20 22:36 Results - Labs CBC & Chem 7: 01/01/21 04:19 01/01/21 04:19 Labs: Laboratory Last Values WBC 13.7 K/mm3 (4.5-11.0) H 01/01/21 04:19 RBC 2.98 M/mm3 (3.65-5.03) L 01/01/21 04:19 Hgb 8.4 gm/dl (11.8-15.2) L 01/01/21 04:19 Hct 25.1 % (35.5-45.6) L 01/01/21 04:19 MCV 84 fl (84-94) 01/01/21 04:19 MCH 28 pg (28-32) 01/01/21 04:19 MCHC 34 % (32-34) 01/01/21 04:19 RDW 18.5 % (13.2-15.2) H 01/01/21 04:19 Plt Count 119 K/mm3 (140-440) L 01/01/21 04:19 Lymph % (Auto) 11.9 % (13.4-35.0) L 01/01/21 04:19 [place] % (Auto) 9.6 % (0.0-7.3) H 01/01/21 04:19 Eos % (Auto) 0.1 % (0.0-4.3) 01/01/21 04:19 Baso % (Auto) 0.1 % (0.0-1.8) 01/01/21 04:19 Lymph # (Auto) 1.6 K/mm3 (1.2-5.4) 01/01/21 04:19 [place] # (Auto) 1.3 K/mm3 (0.0-0.8) H 01/01/21 04:19 Eos # (Auto) 0.0 K/mm3 (0.0-0.4) 01/01/21 04:19 Baso # (Auto) 0.0 K/mm3 (0.0-0.1) 01/01/21 04:19 Seg Neutrophils % 78.3 % (40.0-70.0) H 01/01/21 04:19 Seg Neutrophils # 10.7 K/mm3 (1.8-7.7) H 01/01/21 04:19 PT 13.8 Sec. (12.2-14.9) 12/31/20 07:33 INR 1.08 (0.87-1.13) 12/31/20 07:33 APTT 30.1 Sec. (24.2-36.6) 12/26/20 20:36 Fibrinogen 299 mg/dl (211-480) 12/31/20 07:33 D-Dimer 423.53 ng/mlDDU (0-234) H 12/29/20 04:07 ABG pH 7.390 (7.320-7.450) 12/28/20 01:45 POC ABG pCO2 33.8 mmHg (32.0-48.0) 12/28/20 01:45 POC ABG pO2 188.9 mmHg (83-108) H 12/28/20 01:45 POC ABG HCO3 20.0 12/28/20 01:45 POC ABG Base Excess -4.5 12/28/20 01:45 ABG Hemoglobin 7.2 (12.0-17.5) L 12/28/20 01:45 ABG Sodium 135.3 mmol/L (136.0-145.0) L 12/28/20 01:45 ABG Potassium 3.9 mmol/L (3.40-4.50) 12/28/20 01:45 ABG Chloride 111.0 mmol/L (98-107) H 12/28/20 01:45 ABG Glucose 76 mg/dL (65-95) 12/28/20 01:45 FiO2 31 12/28/20 01:45 Sodium 136 mmol/L (137-145) L 01/01/21 04:19 Potassium 4.4 mmol/L (3.6-5.0) 01/01/21 04:19 Chloride 103.2 mmol/L (98-107) 01/01/21 04:19 Carbon Dioxide 22 mmol/L (22-30) 01/01/21 04:19 Anion Gap 15 mmol/L 01/01/21 04:19 BUN 32 mg/dL (9-20) H 01/01/21 04:19 Creatinine 0.9 mg/dL (0.8-1.3) 01/01/21 04:19 Estimated GFR > 60 ml/min 01/01/21 04:19 BUN/Creatinine Ratio 36 % 01/01/21 04:19 Glucose 76 mg/dL (75-100) 01/01/21 04:19 POC Glucose 109 mg/dL (70-105) H 12/30/20 16:15 Lactic Acid 1.60 mmol/L (0.7-2.0) 12/27/20 19:46 Calcium 8.0 mg/dL (8.4-10.2) L 01/01/21 04:19 Ferritin 473.1 ng/mL (30.0-300.0) H 12/29/20 04:07 Total Bilirubin 0.60 mg/dL (0.1-1.2) 01/01/21 04:19 Direct Bilirubin 0.5 mg/dL (0-0.2) H 12/26/20 20:36 Indirect Bilirubin 0.4 mg/dL 12/26/20 20:36 AST 18 units/L (5-40) 01/01/21 04:19 ALT 11 units/L (7-56) 01/01/21 04:19 Alkaline Phosphatase 59 units/L (35-129) 01/01/21 04:19 Lactate Dehydrogenase 166 units/L (91-180) 12/31/20 07:33 Troponin T < 0.010 ng/mL (0.00-0.029) 12/26/20 22:36 C-Reactive Protein 6.50 mg/dL (0.00-1.30) H 12/29/20 04:07 NT-Pro-B Natriuret Pep 4048 pg/mL (0-900) H 12/26/20 20:36 Total Protein 5.5 g/dL (6.3-8.2) L 01/01/21 04:19 Albumin 2.6 g/dL (3.9-5) L 01/01/21 04:19 Albumin/Globulin Ratio 0.9 % 01/01/21 04:19 Prostate Specific Ag 0.31 ng/mL (0.00-4.00) 12/29/20 04:07 Procalcitonin 2.10 ng/mL (<0.15) 12/29/20 04:07 Arterial Blood Glucose 76 mg/dL (65-95) 12/28/20 01:45 Arterial Blood Ionized Calcium 4.6 mg/dL (4.6-5.3) 12/28/20 01:45 Urine Color Red (Yellow) 12/27/20 03:49 Urine Turbidity Slightly-cloudy (Clear) 12/27/20 03:49 Urine pH 5.0 (5.0-7.0) 12/27/20 03:49 Ur Specific [place] 1.014 (1.003-1.030) 12/27/20 03:49 Urine Protein 100 mg/dl mg/dL (Negative) 12/27/20 03:49 Urine Glucose (UA) Neg mg/dL (Negative) 12/27/20 03:49 Urine Ketones Neg mg/dL (Negative) 12/27/20 03:49 Urine Blood Lg (Negative) 12/27/20 03:49 Urine Nitrite Neg (Negative) 12/27/20 03:49 Urine Bilirubin Neg (Negative) 12/27/20 03:49 Urine Urobilinogen < 2.0 mg/dL (<2.0) 12/27/20 03:49 Ur Leukocyte Esterase Mod (Negative) 12/27/20 03:49 Urine WBC (Auto) > 182.0 /HPF (0.0-6.0) H 12/27/20 03:49 Urine RBC (Auto) > 182.0 /HPF (0.0-6.0) 12/27/20 03:49 U Epithel Cells (Auto) 2.0 /HPF (0-13.0) 12/27/20 03:49 Urine WBC Clumps 2+ /HPF 12/27/20 03:49 Coronavirus (PCR) Positive (Negative) A 12/27/20 09:48 Blood Type B POSITIVE 12/30/20 10:35 Antibody Screen Negative 12/30/20 10:35 Crossmatch See Detail 12/30/20 10:35 Microbiology: Microbiology 12/26/20 21:01 Peripheral/Venous Blood Culture - Final NO GROWTH AFTER 5 DAYS 12/26/20 20:59 Peripheral/Venous Blood Culture - Final NO GROWTH AFTER 5 DAYS 12/27/20 08:38 Peripheral/Venous Blood Culture - Preliminary NO GROWTH AFTER 4 DAYS 12/27/20 08:04 Peripheral/Venous Blood Culture - Preliminary NO GROWTH AFTER 4 DAYS Justin/IV: Voiding Method Indwelling Catheter Active Medications - Current Medications Current Medications: Generic Name Dose Route Start Last Admin Trade Name Freq PRN Reason Stop Dose Admin Acetaminophen 650 mg 12/26/20 23:35 12/31/20 10:16 Acetaminophen 325 Mg Tab PO 650 mg Q4H PRN Administration Pain MILD(1-3)/Fever >100.5/SARMIENTO Dexamethasone 4 mg 12/28/20 10:00 12/31/20 09:23 Dexamethasone 4 Mg/Ml Vial IV 01/06/21 10:01 4 mg DAILY MELVINA Administration Pantoprazole Sodium 80 mg/ 100 mls @ 10 mls/hr 12/27/20 10:00 01/01/21 00:31 Sodium Chloride IV 8 mg/hr DIRECT MELVINA 10 mls/hr Administration 8 MG/HR REMDESIVIR 100 mg/ Sodium 250 mls @ 500 mls/hr 12/29/20 21:00 01/01/21 01:01 Chloride IV 01/01/21 21:29 Infused Q24HR@2100 MELVINA Infusion Azithromycin 500 mg in 250 mls @ 250 mls/hr 12/29/20 16:00 12/31/20 16:32 Zithromax/Ns IV 01/01/21 16:59 250 mls/hr Q24H MELVINA Administration Midodrine 2.5 mg 01/01/21 08:00 Midodrine 2.5 Mg Tab PO TID@0800,1200,1600 MELVINA Morphine Sulfate 2 mg 12/26/20 23:35 12/28/20 08:53 Morphine 2 Mg/1 Ml Inj IV 2 mg Q4H PRN Administration Pain, Moderate (4-6) Ondansetron HCl 4 mg 12/26/20 23:35 12/28/20 08:53 Ondansetron 4 Mg/2 Ml Inj IV 4 mg Q8H PRN Administration Nausea And Vomiting Sodium Chloride 10 ml 12/27/20 10:00 12/31/20 23:00 Sodium Chloride 0.9% 10 Ml Flush Syringe IV 10 ml BID MELVINA Administration Sodium Chloride 10 ml 12/26/20 23:35 Sodium Chloride 0.9% 10 Ml Flush Syringe IV PRN PRN LINE FLUSH Sodium Chloride 50 ml 12/28/20 14:00 01/01/21 01:07 Sodium Chloride 0.9% 50 Ml Ivpb IV 01/01/21 21:01 50 ml Q24HR@2100 MELVINA Administration Nutrition/Malnutrition Assess - Dietary Evaluation Nutrition/Malnutrition Findings: Nutrition Notes Start: 12/27/20 07:22 Freq: Status: Active Protocol: Document 12/31/20 08:54 AB (Rec: 12/31/20 09:04 AB [id number]) Co-Sign 12/31/20 08:54 MK Nutrition Notes Initial or Follow up Reassessment Current Diagnosis Acute Kidney Injury,Sepsis, Hypertension,Heart Failure Other Pertinent Diagnosis COVID(+), FTT, GIB, UTI, Anemia, PUD, pneu, Pyoderma Gangrenosum Current Diet Clear Liquid Labs/Tests 12/30 Na 134 BUN 50 Ca 8.0 Pertinent Medications Remdesivir Zithromax Height 6 ft 3 in Weight 62.2 kg [place] Body Weight (kg) 89.09 BMI 17.1 Weight change and time frame 6% wt gain in 4 days Weight Status Underweight Subjective/Other Information F/u for intakes and diet advancement. Per RN, pt is tolerating current diet, intakes at 75-100% and has no GI issues. Per RN, pt received a regular breakfast plate this morning by mistake. No diet advancement at this time but will advanced to GI soft for lunch today. Pt had empiric embolization procedure and blood transfusions on . Percent of energy/protein needs met: 59%/53% Burn Absent Trauma Absent GI Symptoms None Food Allergy No Current % PO Good (75-100%) Minimum of two criteria Yes Energy Intake (non-severe) <75% Estimated Energy Requirement >7 days Interpretation of Weight Loss (severe) >7.5% in 3 months #1 Nutrition Diagnosis Malnutrition Diagnosis Progress(for reassessment Continues documentation) Is patient on ventilator? No Is Patient Ambulatory and/or Out of Bed Yes REE-([place]-St. Jeor-ambulatory/OOB) [ 1953.419 [id number]] Kcal/Kg value to use for calculation 36 Approximate Energy Requirements Using 2239 kcal/Kg Calculation Used for Recommendations Kcal/kg Additional Notes Protein needs: 75-93 g (1.2-1. 5 g/kg) Fluid needs: 1 mL/kcal or per MD Nutrition Intervention Change Diet Order: Advance when medically feasible Add Supplement/Snack (indicate name/kcal Ensure Clear TID /protein ) Provides kCal: 720 Provides Protein (gm) 24 Goal #1 Weight gain and weight maintenance Goal #2 Meet energy and protein needs as best as possible Goal #3 Diet advancement Anticipated Discharge Needs: Cardiac Diet Follow-Up By: 01/04/21 Additional Comments F/U for intakes and diet advancement
--- NOTE | 2021-01-01 10:17 | Progress Note ---
Assessment and Plan Echo 12/26/2020: EF 15-20%, Left ventricle severely dilated, atria are mildly dilated. Mild AR, Mild MR, Mild NJ. Mild TR. No current clinical evidence of acutely decompensated heart failure. No apparent clinical evidence of acutely decompensated HF. Patient has reported hx of CMP and HFrEF, although unknown chronicity and etiology as he is a rather poor historian. Patient states may have had stress test at [facility] in 06/2020. Records have been requested. Continue current cardiac management. No BB, ACEI/ARB in setting of hypotension. Will likely defer ischemic evaluation to OP setting once COVID is adequately managed and pt is medically stabilized. Pt noted to have persistent anemia and thrombocytopenia requiring PRBC. S/p EGD with cauterization of gastric ulcer on 12/28/2020. S/p angiography and empiric coil embolization of the right gastro epiploic artery and gastroduodenal artery per IR yesterday. Per GI team, no blood thinners for 1 wk if avoidable. Per GI team, repeat EGD as outpatient in ~ 4-6 wks, to exclude malignancy. F/u vascular recs regarding resumption of systemic AC, as well. Cont to hold Eliquis. F/u CBC in AM. The patient has been seen in conjunction with Dr. Alpesh Ewing who agrees with the assessment and plan of care. - Patient Problems (1) COVID-19 virus infection Current Visit: Yes Status: Acute (2) Pneumonia Current Visit: Yes Status: Suspected (3) History of pulmonary embolism Current Visit: Yes Status: Chronic (4) Symptomatic anemia Current Visit: Yes Status: Acute (5) Thrombocytopenia Current Visit: Yes Status: Acute (6) GI bleed Current Visit: Yes Status: Acute (7) ROBSON (acute kidney injury) Current Visit: Yes Status: Acute (8) UTI (urinary tract infection) Current Visit: Yes Status: Acute (9) Failure to thrive Current Visit: Yes Status: Acute Subjective Date of service: 01/01/21 Principal diagnosis: COVID Interval history: pt resting in bed, feeling better today. tele reviewed - SR HR 80s, no acute events overnight. Objective Last Vital Signs Temp 97.4 F L 01/01/21 04:34 Pulse 99 H 01/01/21 04:34 Resp 20 01/01/21 04:34 BP 84/62 01/01/21 04:34 Pulse Ox 99 01/01/21 08:46 - Physical Examination Narrative exam: agree with physical examination per primary team - Labs and Meds Cardiac Enzymes 01/01/21 Range/Units 04:19 AST 18 (5-40) units/L CBC 12/31/20 01/01/21 Range/Units 19:38 04:19 WBC 13.7 H (4.5-11.0) K/mm3 RBC 2.98 L (3.65-5.03) M/mm3 Hgb 8.3 L 8.4 L (11.8-15.2) gm/dl Hct 24.4 L 25.1 L (35.5-45.6) % Plt Count 119 L (140-440) K/mm3 Lymph # (Auto) 1.6 (1.2-5.4) K/mm3 [place] # (Auto) 1.3 H (0.0-0.8) K/mm3 Eos # (Auto) 0.0 (0.0-0.4) K/mm3 Baso # (Auto) 0.0 (0.0-0.1) K/mm3 Comprehensive Metabolic Panel 01/01/21 Range/Units 04:19 Sodium 136 L (137-145) mmol/L Potassium 4.4 (3.6-5.0) mmol/L Chloride 103.2 (98-107) mmol/L Carbon Dioxide 22 (22-30) mmol/L BUN 32 H (9-20) mg/dL Creatinine 0.9 (0.8-1.3) mg/dL Glucose 76 (75-100) mg/dL Calcium 8.0 L (8.4-10.2) mg/dL AST 18 (5-40) units/L ALT 11 (7-56) units/L Alkaline Phosphatase 59 (35-129) units/L Total Protein 5.5 L (6.3-8.2) g/dL Albumin 2.6 L (3.9-5) g/dL - Imaging and Cardiology EKG: report reviewed, image reviewed Echo: report reviewed (EF 15-20%, Left ventricle severely dilated, atria are mildly dilated. Mild AR, Mild MR, Mild NJ. Mild TR.) - Telemetry EKG Rhythm: Sinus Rhythm
[2021-01-01] MEDS: MIDODRINE 2.5 MG TAB PO SCH ×3 (10:23→18:24)
[2021-01-01] MEDS: dexAMETHasone 4 MG/ML VIAL IV SCH (10:24)
--- NOTE | 2021-01-01 12:26 | Progress Note ---
Assessment and Plan Cultures: SARS CoV2 PCR: positive 12/26/2020 blood culture: No growth 12/27/2020 blood culture: No growth A/P: 65-year-old male with hypertension, CHF, history of PE was admitted to the hospital with decreased oral intake, fatigue over the last 2 weeks. Patient had COVID-19 back in March 2020 when he did not have hypoxia and did not receive remdesivir. Upon evaluation in the ER at this time, noted to have anemia,: #COVID-19: Likely reinfection since previous COVID-19 was back in March 2020. D- dimer 423.5, ferritin 473, CRP 6.5, procalcitonin 2.1. #Acute hypoxic respiratory failure: hypoxic, requiring NC oxygen. #Possible UTI: UA with severe pyuria, hematuria. On empiric ceftriaxone. #ROBSON: Creatinine improving. #GI bleed, anemia: Status post EGD which revealed a gastric ulcer. Underwent IR embolization Recs: -Continue steroids x 10 days -continue IV remdesivir, D5 of 5 today -completed abx today -wean oxygen, home oxygen eval prior to discharge Eyal Dixon MD, FACP [facility] O: [phone] F: [phone] Subjective Date of service: 01/01/21 Principal diagnosis: COVID Interval history: No fever. Remains on oxygen. Objective - Exam Narrative Exam: Physical Exam (reviewed in chart to minimize risk of transmission) Constitutional: deferred Head, Ears, Nose: deferred Eyes: deferred Neck: deferred Oral: deferred Cardiovascular: deferred Respiratory: deferred GI: deferred Musculoskeletal: deferred Skin: deferred Hem/Lymphatic: deferred Psych: deferred Neurological: deferred - Constitutional Vitals: Vital Signs Temp Pulse Resp BP Pulse Ox 97.3 F L 93 H 20 85/57 100 01/01/21 10:38 01/01/21 10:38 01/01/21 10:38 01/01/21 10:38 01/01/21 10:38 Temperature -Last 24 Hours Temperature 97.3 F Temperature 97.4 F Temperature 97.4 F - Labs CBC & Chem 7: 01/01/21 04:19 01/01/21 04:19 Labs: Abnormal lab results 12/30/20 12/31/20 01/01/21 Range/Units 10:35 19:38 04:19 WBC 13.7 H (4.5-11.0) K/mm3 RBC 2.98 L (3.65-5.03) M/mm3 Hgb 8.3 L 8.4 L (11.8-15.2) gm/dl Hct 24.4 L 25.1 L (35.5-45.6) % RDW 18.5 H (13.2-15.2) % Plt Count 119 L (140-440) K/mm3 Lymph % (Auto) 11.9 L (13.4-35.0) % [place] % (Auto) 9.6 H (0.0-7.3) % [place] # (Auto) 1.3 H (0.0-0.8) K/mm3 Seg Neutrophils % 78.3 H (40.0-70.0) % Seg Neutrophils # 10.7 H (1.8-7.7) K/mm3 Sodium (137-145) mmol/L BUN (9-20) mg/dL Calcium (8.4-10.2) mg/dL Total Protein (6.3-8.2) g/dL Albumin (3.9-5) g/dL Crossmatch See Detail 01/01/21 Range/Units 04:19 WBC (4.5-11.0) K/mm3 RBC (3.65-5.03) M/mm3 Hgb (11.8-15.2) gm/dl Hct (35.5-45.6) % RDW (13.2-15.2) % Plt Count (140-440) K/mm3 Lymph % (Auto) (13.4-35.0) % [place] % (Auto) (0.0-7.3) % [place] # (Auto) (0.0-0.8) K/mm3 Seg Neutrophils % (40.0-70.0) % Seg Neutrophils # (1.8-7.7) K/mm3 Sodium 136 L (137-145) mmol/L BUN 32 H (9-20) mg/dL Calcium 8.0 L (8.4-10.2) mg/dL Total Protein 5.5 L (6.3-8.2) g/dL Albumin 2.6 L (3.9-5) g/dL Crossmatch
[2021-01-01] MEDS: ACETAMINOPHEN 325 MG TAB PO PRN (13:29)
--- NOTE | 2021-01-01 14:34 | Progress Note ---
Assessment and Plan 1. GI bleed - due to large gastric ulcer. s/p embolization. Doing well. Hgb stable. - monitor H/H and transfuse if needed. - initiate bid oral PPI, drip stopped. - adv diet as tolerated - may resume blood thinners on 01/04 if needed. - repeat EGD as outpatient in ~ 4-6 wks, to exclude malignancy 2. COVID reinfection - per ID. Will sign off. Please call as needed. Subjective Date of service: 01/01/21 Principal diagnosis: COVID Interval history: Pt empirically embolized. No BMs. Demetrio diet. No abd pain, per RN. Objective - Exam Narrative Exam: Not seen due to active COVID infection. - Constitutional Vitals: Vital Signs - 12hr 01/01/21 01/01/21 01/01/21 04:34 08:46 10:38 Temperature 97.4 F L 97.3 F L Pulse Rate 99 H 93 H Respiratory 20 20 Rate Blood Pressure 85/57 Blood Pressure 84/62 [Right] O2 Sat by Pulse 98 99 100 Oximetry - Labs CBC & Chem 7: 01/01/21 04:19 01/01/21 04:19 Labs: Abnormal lab results 12/30/20 12/31/20 01/01/21 Range/Units 10:35 19:38 04:19 WBC 13.7 H (4.5-11.0) K/mm3 RBC 2.98 L (3.65-5.03) M/mm3 Hgb 8.3 L 8.4 L (11.8-15.2) gm/dl Hct 24.4 L 25.1 L (35.5-45.6) % RDW 18.5 H (13.2-15.2) % Plt Count 119 L (140-440) K/mm3 Lymph % (Auto) 11.9 L (13.4-35.0) % [place] % (Auto) 9.6 H (0.0-7.3) % [place] # (Auto) 1.3 H (0.0-0.8) K/mm3 Seg Neutrophils % 78.3 H (40.0-70.0) % Seg Neutrophils # 10.7 H (1.8-7.7) K/mm3 Sodium (137-145) mmol/L BUN (9-20) mg/dL Calcium (8.4-10.2) mg/dL Total Protein (6.3-8.2) g/dL Albumin (3.9-5) g/dL Crossmatch See Detail 01/01/21 Range/Units 04:19 WBC (4.5-11.0) K/mm3 RBC (3.65-5.03) M/mm3 Hgb (11.8-15.2) gm/dl Hct (35.5-45.6) % RDW (13.2-15.2) % Plt Count (140-440) K/mm3 Lymph % (Auto) (13.4-35.0) % [place] % (Auto) (0.0-7.3) % [place] # (Auto) (0.0-0.8) K/mm3 Seg Neutrophils % (40.0-70.0) % Seg Neutrophils # (1.8-7.7) K/mm3 Sodium 136 L (137-145) mmol/L BUN 32 H (9-20) mg/dL Calcium 8.0 L (8.4-10.2) mg/dL Total Protein 5.5 L (6.3-8.2) g/dL Albumin 2.6 L (3.9-5) g/dL Crossmatch Medications & Allergies - Medications Allergies/Adverse Reactions: Allergies No Known Allergies Allergy (Verified 07/21/19 02:06) Home Medications: Home Medications Medication Instructions Recorded Confirmed Last Taken Type Apixaban [Eliquis] 5 mg PO Q12HR 30 Days #60 tablet 07/25/20 12/27/20 Unknown Rx Apixaban [Eliquis] 10 mg PO Q12HR 7 Days #14 tablet 07/25/20 12/27/20 Unknown Rx Loperamide [Imodium] 2 mg PO Q2H PRN 4 Days #14 capsule 07/25/20 12/27/20 Unknown Rx Metoprolol [Lopressor TAB] 25 mg PO BID 30 Days #60 tablet 07/25/20 12/27/20 Unknown Rx Tamsulosin [Flomax] 0.4 mg PO QDAY 30 Days #30 cap 07/25/20 12/27/20 Unknown Rx lisinopriL [Zestril TAB] 5 mg PO QDAY 30 Days #30 tablet 07/25/20 12/27/20 Unknown Rx Active Medications: Generic Name Dose Route Start Last Admin Trade Name Milq PRN Reason Stop Dose Admin Acetaminophen 650 mg 12/26/20 23:35 01/01/21 13:29 Acetaminophen 325 Mg Tab PO 650 mg Q4H PRN Administration Pain MILD(1-3)/Fever >100.5/SARMIENTO Dexamethasone 4 mg 12/28/20 10:00 01/01/21 10:24 Dexamethasone 4 Mg/Ml Vial IV 01/06/21 10:01 4 mg DAILY MELVINA Administration REMDESIVIR 100 mg/ Sodium 250 mls @ 500 mls/hr 12/29/20 21:00 01/01/21 01:01 Chloride IV 01/01/21 21:29 Infused Q24HR@2100 MELVINA Infusion Azithromycin 500 mg in 250 mls @ 250 mls/hr 12/29/20 16:00 12/31/20 16:32 Zithromax/Ns IV 01/01/21 16:59 250 mls/hr Q24H MELVINA Administration Midodrine 2.5 mg 01/01/21 08:00 01/01/21 10:23 Midodrine 2.5 Mg Tab PO Not Given TID@0800,1200,1600 MELVINA Morphine Sulfate 2 mg 12/26/20 23:35 12/28/20 08:53 Morphine 2 Mg/1 Ml Inj IV 2 mg Q4H PRN Administration Pain, Moderate (4-6) Ondansetron HCl 4 mg 12/26/20 23:35 12/28/20 08:53 Ondansetron 4 Mg/2 Ml Inj IV 4 mg Q8H PRN Administration Nausea And Vomiting Sodium Chloride 10 ml 12/27/20 10:00 01/01/21 10:24 Sodium Chloride 0.9% 10 Ml Flush Syringe IV 10 ml BID MELVINA Administration Sodium Chloride 10 ml 12/26/20 23:35 Sodium Chloride 0.9% 10 Ml Flush Syringe IV PRN PRN LINE FLUSH Sodium Chloride 50 ml 12/28/20 14:00 01/01/21 01:07 Sodium Chloride 0.9% 50 Ml Ivpb IV 01/01/21 21:01 50 ml Q24HR@2100 MELVINA Administration HEART Score - HEART Score Troponin: Troponin T < 0.010 ng/mL (0.00-0.029) 12/26/20 22:36
[2021-01-01] MEDS: AZITHROMYCIN/NS 500 MG/250 ML 500 MG/250 ML BAG IV SCH (18:23)
[2021-01-01] MEDS: PANTOPRAZOLE 40 MG TAB PO SCH (18:23)
[2021-01-02 06:43] LABS: Eosinophils % (Auto) 0.1 % (0.0-4.3); Hematocrit 22.8 % (35.5-45.6); Lymphocytes # (Auto) 1.7 K/mm3 (1.2-5.4); Lymphocytes % (Auto) 12.1 % (13.4-35.0); Mean Corpuscular HGB Conc 35 % (32-34); Mean Corpuscular Volume 84 fl (84-94); Monocytes # (Auto) 1.3 K/mm3 (0.0-0.8); Monocytes % (Auto) 9.5 % (0.0-7.3); Platelet Count 123 K/mm3 (140-440); Red Blood Count 2.73 M/mm3 (3.65-5.03); Red Cell Distribution Width 18.8 % (13.2-15.2)
[2021-01-02 07:08] LABS: Blood Urea Nitrogen 27 mg/dL (9-20); Calcium 7.9 mg/dL (8.4-10.2); Hemolysis Index 2
[2021-01-02 07:26] LABS: BUN/Creatinine Ratio 39
--- NOTE | 2021-01-02 07:47 | Progress Note ---
Assessment and Plan Assessment and plan: Sepsis. Patient meets criteria given the tachycardia, tachypnea and diagnosis of UTI. COVID-19 pneumonia UTI. Patient with previous CT July 2020 which revealed Mild bilateral hydronephrosis and moderate distention of the urinary bladder GI bleed/melena. Anemia. Etiology likely secondary to acute blood loss anemia. Weight loss. 40 pound weight loss in 2 weeks History pulmonary embolism. Patient on home Eliquis. Pyoderma gangrenosum 12/27/2020. Patient's urinalysis reveals UTI and patient has significant lactic acidosis. Follow-up blood and urine cultures. Initiate antibiotics of Rocephin and consult ID for further evaluation. Patient will receive 2 more units of PRBCs and follow-up occult stool. GI consultation pending. Start Protonix drip. Hold Eliquis. 12/28/2020. Patient reportedly with positive Covid testing on 04/19/2020 and subsequent negative testing on 07/07 and 07/25. Patient now with new positive testing on 12/27/2020. Consult ID for further evaluation. Continue to hold Eliquis for GI bleed. Gastroenterology following. Etiology likely secondary to peptic ulcer disease versus malignancy. Endoscopy per GI. CT of the abdomen pelvis reveals persistent gross distention of the urinary bladder related to chronic outlet obstruction. Persistent moderate bilateral hydronephrosis. Urology consultation. Also, new rounded masslike structure in the lingula measuring 2.5 cm. Consider pulmonary consultation. 12/29/2020; COVID-19 infection continue with remdesivir and Decadron. Evaluated by ID and recommend to continue Rocephin empirically. Severe anemia status post transfusion of 3 units of blood this morning with 8. GI bleed; GI was consulted and did EGD and found gastric ulcer and epinephrine injection was done. 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 Eliquis was on hold because of GI bleed. Vascular surgery was consulted and is considering to do IVC filter. CT of the abdomen pelvis reveals persistent gross distention of the urinary bladder related to chronic outlet obstruction. Persistent moderate bilateral hydronephrosis. Urology consulted. Also, new rounded masslike structure in the lingula measuring 2.5 cm. Consider pulmonary consultation. Pulmonary consulted and recommend outpatient repeat imaging. Evaluated by urology and recommend to continue with Justin catheter, he also recommends prostate biopsy given his weight loss, patient is positive for Covid, wanting biopsy can be done at this time. Covid test is positive on 12/27/2020. 12/30/2020; continue remdesivir and Decadron for COVID-19 infection. H&H from this morning is pending. Anemia due to GI bleed and EGD was done and showed gastric ulcer, evaluated by GI and recommend to hold anticoagulation for at least a week, continue with PPI drip. Patient was evaluated by urology for hydronephrosis and recommended biopsy but patient has Covid and could not do a biopsy at this time. Pulmonary was consulted for lingual mass and recommend outpatient follow-up. Hemoglobin this morning is 6.7, patient did have bowel movement today but yesterday he had one episode of dark stool. We will transfuse him, continue to monitor. Patient has further bleeding, patient may need embolization and interventional radiology already consulted. 12/31/2020; patient's hemoglobin was low yesterday, transfused 2 more units of blood [total of 5 units], interventional radiology was consulted and did coil embolization of the right proximal gastroepiploic artery and gastroduodenal artery with 6 mm x 20 cm interlock coils. Hemoglobin this morning was 8.5. Patient had thrombocytopenia yesterday 51. Platelet was ordered yesterday but was not transfused and his platelet count is 121 this morning. No need for transfusion of platelet. Patient is on remdesivir and Decadron for COVID-19 infection. ID is following. GI is following. Continue inpatient care. 01/01/2021 -Patient's hemoglobin is stable, blood pressure is low and midodrine started. Patient will finish remdesivir today and will continue with Decadron for Covid infection. Patient need outpatient EGD in 4 to 6 weeks to evaluate for malignancy. Patient need prostate biopsy to rule out prostate cancer because patient has unintentional weight loss and asymmetric enlarged prostate. PT OT evaluation needed. Patient need to go to rehab after discharge. We will keep him here today 01/01/2021; she is doing well, H&H is stable. PPI drip changed to p.o. GI said anticoagulation could be resumed on 01/04/2021 if needed. History Interval history: Patient was seen and evaluated this morning No bleeding overnight Patient is doing well Hospitalist Physical - Physical exam Narrative exam: Not in cardiopulmonary distress. The patient appeared well nourished and normally developed. Vital signs as documented. Head exam is unremarkable. No scleral icterus . Neck is without jugular venous distension, thyromegaly, or carotid bruits. Lungs are clear to auscultation. Cardiac exam reveals regular rate and Rhythm. Abdominal exam reveals normal bowel sounds, nontender, no organomegaly. Extremities are nonedematous and both femoral and pedal pulses are normal. 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 No focal weakness. - Constitutional Vitals: Temp Pulse Resp BP Pulse Ox 97.0 F L 102 H 18 104/77 100 01/02/21 04:29 01/02/21 04:29 01/02/21 04:29 01/02/21 04:29 01/02/21 04:29 General appearance: Present: no acute distress HEART Score - HEART Score Troponin: Troponin T < 0.010 ng/mL (0.00-0.029) 12/26/20 22:36 Results - Labs CBC & Chem 7: 01/02/21 05:39 01/02/21 05:39 Labs: Laboratory Last Values WBC 14.0 K/mm3 (4.5-11.0) H 01/02/21 05:39 RBC 2.73 M/mm3 (3.65-5.03) L 01/02/21 05:39 Hgb 8.0 gm/dl (11.8-15.2) L 01/02/21 05:39 Hct 22.8 % (35.5-45.6) L 01/02/21 05:39 MCV 84 fl (84-94) 01/02/21 05:39 MCH 29 pg (28-32) 01/02/21 05:39 MCHC 35 % (32-34) H 01/02/21 05:39 RDW 18.8 % (13.2-15.2) H 01/02/21 05:39 Plt Count 123 K/mm3 (140-440) L 01/02/21 05:39 Lymph % (Auto) 12.1 % (13.4-35.0) L 01/02/21 05:39 [place] % (Auto) 9.5 % (0.0-7.3) H 01/02/21 05:39 Eos % (Auto) 0.1 % (0.0-4.3) 01/02/21 05:39 Baso % (Auto) 0.0 % (0.0-1.8) 01/02/21 05:39 Lymph # (Auto) 1.7 K/mm3 (1.2-5.4) 01/02/21 05:39 [place] # (Auto) 1.3 K/mm3 (0.0-0.8) H 01/02/21 05:39 Eos # (Auto) 0.0 K/mm3 (0.0-0.4) 01/02/21 05:39 Baso # (Auto) 0.0 K/mm3 (0.0-0.1) 01/02/21 05:39 Seg Neutrophils % 78.3 % (40.0-70.0) H 01/02/21 05:39 Seg Neutrophils # 10.9 K/mm3 (1.8-7.7) H 01/02/21 05:39 PT 13.8 Sec. (12.2-14.9) 12/31/20 07:33 INR 1.08 (0.87-1.13) 12/31/20 07:33 APTT 30.1 Sec. (24.2-36.6) 12/26/20 20:36 Fibrinogen 299 mg/dl (211-480) 12/31/20 07:33 D-Dimer 423.53 ng/mlDDU (0-234) H 12/29/20 04:07 ABG pH 7.390 (7.320-7.450) 12/28/20 01:45 POC ABG pCO2 33.8 mmHg (32.0-48.0) 12/28/20 01:45 POC ABG pO2 188.9 mmHg (83-108) H 12/28/20 01:45 POC ABG HCO3 20.0 12/28/20 01:45 POC ABG Base Excess -4.5 12/28/20 01:45 ABG Hemoglobin 7.2 (12.0-17.5) L 12/28/20 01:45 ABG Sodium 135.3 mmol/L (136.0-145.0) L 12/28/20 01:45 ABG Potassium 3.9 mmol/L (3.40-4.50) 12/28/20 01:45 ABG Chloride 111.0 mmol/L (98-107) H 12/28/20 01:45 ABG Glucose 76 mg/dL (65-95) 12/28/20 01:45 FiO2 31 12/28/20 01:45 Sodium 135 mmol/L (137-145) L 01/02/21 05:39 Potassium 3.6 mmol/L (3.6-5.0) 01/02/21 05:39 Chloride 103.8 mmol/L (98-107) 01/02/21 05:39 Carbon Dioxide 21 mmol/L (22-30) L 01/02/21 05:39 Anion Gap 14 mmol/L 01/02/21 05:39 BUN 27 mg/dL (9-20) H 01/02/21 05:39 Creatinine 0.7 mg/dL (0.8-1.3) L 01/02/21 05:39 Estimated GFR > 60 ml/min 01/02/21 05:39 BUN/Creatinine Ratio 39 % 01/02/21 05:39 Glucose 109 mg/dL (75-100) H 01/02/21 05:39 POC Glucose 109 mg/dL (70-105) H 12/30/20 16:15 Lactic Acid 1.60 mmol/L (0.7-2.0) 12/27/20 19:46 Calcium 7.9 mg/dL (8.4-10.2) L 01/02/21 05:39 Ferritin 473.1 ng/mL (30.0-300.0) H 12/29/20 04:07 Total Bilirubin 0.60 mg/dL (0.1-1.2) 01/01/21 04:19 Direct Bilirubin 0.5 mg/dL (0-0.2) H 12/26/20 20:36 Indirect Bilirubin 0.4 mg/dL 12/26/20 20:36 AST 18 units/L (5-40) 01/01/21 04:19 ALT 11 units/L (7-56) 01/01/21 04:19 Alkaline Phosphatase 59 units/L (35-129) 01/01/21 04:19 Lactate Dehydrogenase 166 units/L (91-180) 12/31/20 07:33 Troponin T < 0.010 ng/mL (0.00-0.029) 12/26/20 22:36 C-Reactive Protein 6.50 mg/dL (0.00-1.30) H 12/29/20 04:07 NT-Pro-B Natriuret Pep 4048 pg/mL (0-900) H 12/26/20 20:36 Total Protein 5.5 g/dL (6.3-8.2) L 01/01/21 04:19 Albumin 2.6 g/dL (3.9-5) L 01/01/21 04:19 Albumin/Globulin Ratio 0.9 % 01/01/21 04:19 Prostate Specific Ag 0.31 ng/mL (0.00-4.00) 12/29/20 04:07 Procalcitonin 2.10 ng/mL (<0.15) 12/29/20 04:07 Arterial Blood Glucose 76 mg/dL (65-95) 12/28/20 01:45 Arterial Blood Ionized Calcium 4.6 mg/dL (4.6-5.3) 12/28/20 01:45 Urine Color Red (Yellow) 12/27/20 03:49 Urine Turbidity Slightly-cloudy (Clear) 12/27/20 03:49 Urine pH 5.0 (5.0-7.0) 12/27/20 03:49 Ur Specific [place] 1.014 (1.003-1.030) 12/27/20 03:49 Urine Protein 100 mg/dl mg/dL (Negative) 12/27/20 03:49 Urine Glucose (UA) Neg mg/dL (Negative) 12/27/20 03:49 Urine Ketones Neg mg/dL (Negative) 12/27/20 03:49 Urine Blood Lg (Negative) 12/27/20 03:49 Urine Nitrite Neg (Negative) 12/27/20 03:49 Urine Bilirubin Neg (Negative) 12/27/20 03:49 Urine Urobilinogen < 2.0 mg/dL (<2.0) 12/27/20 03:49 Ur Leukocyte Esterase Mod (Negative) 12/27/20 03:49 Urine WBC (Auto) > 182.0 /HPF (0.0-6.0) H 12/27/20 03:49 Urine RBC (Auto) > 182.0 /HPF (0.0-6.0) 12/27/20 03:49 U Epithel Cells (Auto) 2.0 /HPF (0-13.0) 12/27/20 03:49 Urine WBC Clumps 2+ /HPF 12/27/20 03:49 Coronavirus (PCR) Positive (Negative) A 12/27/20 09:48 Blood Type B POSITIVE 12/30/20 10:35 Antibody Screen Negative 12/30/20 10:35 Crossmatch See Detail 12/30/20 10:35 Microbiology: Microbiology 12/27/20 08:38 Peripheral/Venous Blood Culture - Final NO GROWTH AFTER 5 DAYS 12/27/20 08:04 Peripheral/Venous Blood Culture - Final NO GROWTH AFTER 5 DAYS Justin/IV: Voiding Method Indwelling Catheter Active Medications - Current Medications Current Medications: Generic Name Dose Route Start Last Admin Trade Name Freq PRN Reason Stop Dose Admin Acetaminophen 650 mg 12/26/20 23:35 01/01/21 13:29 Acetaminophen 325 Mg Tab PO 650 mg Q4H PRN Administration Pain MILD(1-3)/Fever >100.5/SARMIENTO Dexamethasone 4 mg 12/28/20 10:00 01/01/21 10:24 Dexamethasone 4 Mg/Ml Vial IV 01/06/21 10:01 4 mg DAILY MELVINA Administration Midodrine 2.5 mg 01/01/21 08:00 01/01/21 18:24 Midodrine 2.5 Mg Tab PO Not Given TID@0800,1200,1600 MELVINA Morphine Sulfate 2 mg 12/26/20 23:35 12/28/20 08:53 Morphine 2 Mg/1 Ml Inj IV 2 mg Q4H PRN Administration Pain, Moderate (4-6) Ondansetron HCl 4 mg 12/26/20 23:35 12/28/20 08:53 Ondansetron 4 Mg/2 Ml Inj IV 4 mg Q8H PRN Administration Nausea And Vomiting Pantoprazole Sodium 40 mg 01/01/21 16:30 01/01/21 18:23 Pantoprazole 40 Mg Tab PO 40 mg BIDAC MELVINA Administration Sodium Chloride 10 ml 12/27/20 10:00 01/01/21 21:39 Sodium Chloride 0.9% 10 Ml Flush Syringe IV 10 ml BID MELVINA Administration Sodium Chloride 10 ml 12/26/20 23:35 Sodium Chloride 0.9% 10 Ml Flush Syringe IV PRN PRN LINE FLUSH Nutrition/Malnutrition Assess - Dietary Evaluation Nutrition/Malnutrition Findings: Nutrition Notes Start: 12/27/20 07:22 Freq: Status: Active Protocol: Document 12/31/20 08:54 AB (Rec: 12/31/20 09:04 AB [id number]) Co-Sign 12/31/20 08:54 MK Nutrition Notes Initial or Follow up Reassessment Current Diagnosis Acute Kidney Injury,Sepsis, Hypertension,Heart Failure Other Pertinent Diagnosis COVID(+), FTT, GIB, UTI, Anemia, PUD, pneu, Pyoderma Gangrenosum Current Diet Clear Liquid Labs/Tests 12/30 Na 134 BUN 50 Ca 8.0 Pertinent Medications Remdesivir Zithromax Height 6 ft 3 in Weight 62.2 kg [place] Body Weight (kg) 89.09 BMI 17.1 Weight change and time frame 6% wt gain in 4 days Weight Status Underweight Subjective/Other Information F/u for intakes and diet advancement. Per RN, pt is tolerating current diet, intakes at 75-100% and has no GI issues. Per RN, pt received a regular breakfast plate this morning by mistake. No diet advancement at this time but will advanced to GI soft for lunch today. Pt had empiric embolization procedure and blood transfusions on . Percent of energy/protein needs met: 59%/53% Burn Absent Trauma Absent GI Symptoms None Food Allergy No Current % PO Good (75-100%) Minimum of two criteria Yes Energy Intake (non-severe) <75% Estimated Energy Requirement >7 days Interpretation of Weight Loss (severe) >7.5% in 3 months #1 Nutrition Diagnosis Malnutrition Diagnosis Progress(for reassessment Continues documentation) Is patient on ventilator? No Is Patient Ambulatory and/or Out of Bed Yes REE-(Severn-St. Jeor-ambulatory/OOB) [ 1953.419 [id number]] Kcal/Kg value to use for calculation 36 Approximate Energy Requirements Using 2239 kcal/Kg Calculation Used for Recommendations Kcal/kg Additional Notes Protein needs: 75-93 g (1.2-1. 5 g/kg) Fluid needs: 1 mL/kcal or per MD Nutrition Intervention Change Diet Order: Advance when medically feasible Add Supplement/Snack (indicate name/kcal Ensure Clear TID /protein ) Provides kCal: 720 Provides Protein (gm) 24 Goal #1 Weight gain and weight maintenance Goal #2 Meet energy and protein needs as best as possible Goal #3 Diet advancement Anticipated Discharge Needs: Cardiac Diet Follow-Up By: 01/04/21 Additional Comments F/U for intakes and diet advancement
[2021-01-02] MEDS: PANTOPRAZOLE 40 MG TAB PO SCH ×2 (07:54→17:31)
[2021-01-02] MEDS: MIDODRINE 2.5 MG TAB PO SCH ×3 (08:19→17:37)
[2021-01-02] MEDS: dexAMETHasone 4 MG/ML VIAL IV SCH (09:02)
--- NOTE | 2021-01-02 12:42 | Progress Note ---
Assessment and Plan Assessment and Plan Echo 12/26/2020: EF 15-20%, Left ventricle severely dilated, atria are mildly dilated. Mild AR, Mild MR, Mild HI. Mild TR. No current clinical evidence of acutely decompensated heart failure. No apparent clinical evidence of acutely decompensated HF. Patient has reported hx of CMP and HFrEF, although unknown chronicity and etiology as he is a rather poor historian. Patient states may have had stress test at [facility] in 06/2020. Records have been requested. Continue current cardiac management. No BB, ACEI/ARB in setting of hypotension. Will likely defer ischemic evaluation to OP setting once COVID is adequately managed and pt is medically stabilized. Pt noted to have persistent anemia and thrombocytopenia requiring PRBC. S/p EGD with cauterization of gastric ulcer on 12/28/2020. S/p angiography and empiric coil embolization of the right gastro epiploic artery and gastroduodenal artery per IR yesterday. Per GI team, no blood thinners for 1 wk if avoidable. Per GI team, repeat EGD as outpatient in ~ 4-6 wks, to exclude malignancy. F/u vascular recs regarding resumption of systemic AC, as well. Cont to hold Eliquis. F/u CBC in AM. - Patient Problems (1) COVID-19 virus infection Current Visit: Yes Status: Acute (2) Pneumonia Current Visit: Yes Status: Suspected (3) History of pulmonary embolism Current Visit: Yes Status: Chronic (4) Symptomatic anemia Current Visit: Yes Status: Acute (5) Thrombocytopenia Current Visit: Yes Status: Acute (6) GI bleed Current Visit: Yes Status: Acute (7) ROBSON (acute kidney injury) Current Visit: Yes Status: Acute (8) UTI (urinary tract infection) Current Visit: Yes Status: Acute (9) Failure to thrive Current Visit: Yes Status: Acute Subjective Principal diagnosis: COVID Interval history: no new symptoms Objective Vital Signs Temp Pulse Resp BP Pulse Ox 01/02/21 04:29 97.0 F L 102 H 18 104/77 100 01/01/21 21:56 94 01/01/21 20:04 98.0 F 96 H 18 91/68 61 L 01/01/21 17:15 97.7 F 102 H 19 99/68 99 - Physical Examination General: No Apparent Distress HEENT: Positive: PERRL, Normocephaly, Mucus Membranes Moist Neck: Positive: neck supple, trachea midline Neuro: Positive: Grossly Intact Abdomen: Positive: Unremarkable Skin: Negative: Rash, Wound Extremities: Present: upper extr. pulses, lower extr. pulses. Absent: edema - Labs and Meds CBC 01/02/21 Range/Units 05:39 WBC 14.0 H (4.5-11.0) K/mm3 RBC 2.73 L (3.65-5.03) M/mm3 Hgb 8.0 L (11.8-15.2) gm/dl Hct 22.8 L (35.5-45.6) % Plt Count 123 L (140-440) K/mm3 Lymph # (Auto) 1.7 (1.2-5.4) K/mm3 [place] # (Auto) 1.3 H (0.0-0.8) K/mm3 Eos # (Auto) 0.0 (0.0-0.4) K/mm3 Baso # (Auto) 0.0 (0.0-0.1) K/mm3 Comprehensive Metabolic Panel 01/02/21 Range/Units 05:39 Sodium 135 L (137-145) mmol/L Potassium 3.6 (3.6-5.0) mmol/L Chloride 103.8 (98-107) mmol/L Carbon Dioxide 21 L (22-30) mmol/L BUN 27 H (9-20) mg/dL Creatinine 0.7 L (0.8-1.3) mg/dL Glucose 109 H (75-100) mg/dL Calcium 7.9 L (8.4-10.2) mg/dL - Imaging and Cardiology EKG: report reviewed, image reviewed Echo: report reviewed (EF 15-20%, Left ventricle severely dilated, atria are mildly dilated. Mild AR, Mild MR, Mild HI. Mild TR.)
[2021-01-02] MEDS: ACETAMINOPHEN 325 MG TAB PO PRN (22:14)
--- NOTE | 2021-01-03 08:31 | Progress Note ---
Assessment and Plan Assessment and plan: Sepsis. Patient meets criteria given the tachycardia, tachypnea and diagnosis of UTI. COVID-19 pneumonia UTI. Patient with previous CT July 2020 which revealed Mild bilateral hydronephrosis and moderate distention of the urinary bladder GI bleed/melena. Anemia. Etiology likely secondary to acute blood loss anemia. Weight loss. 40 pound weight loss in 2 weeks History pulmonary embolism. Patient on home Eliquis. Pyoderma gangrenosum 12/27/2020. Patient's urinalysis reveals UTI and patient has significant lactic acidosis. Follow-up blood and urine cultures. Initiate antibiotics of Rocephin and consult ID for further evaluation. Patient will receive 2 more units of PRBCs and follow-up occult stool. GI consultation pending. Start Protonix drip. Hold Eliquis. 12/28/2020. Patient reportedly with positive Covid testing on 04/19/2020 and subsequent negative testing on 07/07 and 07/25. Patient now with new positive testing on 12/27/2020. Consult ID for further evaluation. Continue to hold Eliquis for GI bleed. Gastroenterology following. Etiology likely secondary to peptic ulcer disease versus malignancy. Endoscopy per GI. CT of the abdomen pelvis reveals persistent gross distention of the urinary bladder related to chronic outlet obstruction. Persistent moderate bilateral hydronephrosis. Urology consultation. Also, new rounded masslike structure in the lingula measuring 2.5 cm. Consider pulmonary consultation. 12/29/2020; COVID-19 infection continue with remdesivir and Decadron. Evaluated by ID and recommend to continue Rocephin empirically. Severe anemia status post transfusion of 3 units of blood this morning with 8. GI bleed; GI was consulted and did EGD and found gastric ulcer and epinephrine injection was done. 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 Eliquis was on hold because of GI bleed. Vascular surgery was consulted and is considering to do IVC filter. CT of the abdomen pelvis reveals persistent gross distention of the urinary bladder related to chronic outlet obstruction. Persistent moderate bilateral hydronephrosis. Urology consulted. Also, new rounded masslike structure in the lingula measuring 2.5 cm. Consider pulmonary consultation. Pulmonary consulted and recommend outpatient repeat imaging. Evaluated by urology and recommend to continue with Justin catheter, he also recommends prostate biopsy given his weight loss, patient is positive for Covid, wanting biopsy can be done at this time. Covid test is positive on 12/27/2020. 12/30/2020; continue remdesivir and Decadron for COVID-19 infection. H&H from this morning is pending. Anemia due to GI bleed and EGD was done and showed gastric ulcer, evaluated by GI and recommend to hold anticoagulation for at least a week, continue with PPI drip. Patient was evaluated by urology for hydronephrosis and recommended biopsy but patient has Covid and could not do a biopsy at this time. Pulmonary was consulted for lingual mass and recommend outpatient follow-up. Hemoglobin this morning is 6.7, patient did have bowel movement today but yesterday he had one episode of dark stool. We will transfuse him, continue to monitor. Patient has further bleeding, patient may need embolization and interventional radiology already consulted. 12/31/2020; patient's hemoglobin was low yesterday, transfused 2 more units of blood [total of 5 units], interventional radiology was consulted and did coil embolization of the right proximal gastroepiploic artery and gastroduodenal artery with 6 mm x 20 cm interlock coils. Hemoglobin this morning was 8.5. Patient had thrombocytopenia yesterday 51. Platelet was ordered yesterday but was not transfused and his platelet count is 121 this morning. No need for transfusion of platelet. Patient is on remdesivir and Decadron for COVID-19 infection. ID is following. GI is following. Continue inpatient care. 01/01/2021 -Patient's hemoglobin is stable, blood pressure is low and midodrine started. Patient will finish remdesivir today and will continue with Decadron for Covid infection. Patient need outpatient EGD in 4 to 6 weeks to evaluate for malignancy. Patient need prostate biopsy to rule out prostate cancer because patient has unintentional weight loss and asymmetric enlarged prostate. PT OT evaluation needed. Patient need to go to rehab after discharge. We will keep him here today 01/01/2021; she is doing well, H&H is stable. PPI drip changed to p.o. GI said anticoagulation could be resumed on 01/04/2021 if needed. 01/03/2021: Patient's hemoglobin is stable, blood pressure is improved with midodrine. Status post coil embolization of the right proximal gastroepiploic artery and gastroduodenal artery. Patient transfused total of 6 units of packed RBC and 1 unit of plasmapheresis. Patient finished remdesivir and day 7 of Decadron. Patient need outpatient EGD in 4 to 6 weeks to evaluate for ma lignancy. Patient need prostate biopsy to rule out prostate cancer because patient has unintentional weight loss and asymmetric enlarged prostate. PT OT recommended rehab and case management is working on it. Patient need outpatient GI and urology appointment. History Interval history: Patient was seen and evaluated this morning No bleeding overnight Patient is doing well Hospitalist Physical - Physical exam Narrative exam: Not in cardiopulmonary distress. The patient appeared well nourished and normally developed. Vital signs as documented. Head exam is unremarkable. No scleral icterus . Neck is without jugular venous distension, thyromegaly, or carotid bruits. Lungs are clear to auscultation. Cardiac exam reveals regular rate and Rhythm. Abdominal exam reveals normal bowel sounds, nontender, no organomegaly. Extremities are nonedematous and both femoral and pedal pulses are normal. [employer]: Alert and oriented 3. No focal weakness. - Constitutional Vitals: Temp Pulse Resp BP Pulse Ox 97.7 F 99 H 18 117/76 99 01/03/21 04:20 01/03/21 04:20 01/03/21 04:20 01/03/21 04:20 01/03/21 04:20 General appearance: Present: no acute distress HEART Score - HEART Score Troponin: Troponin T < 0.010 ng/mL (0.00-0.029) 12/26/20 22:36 Results - Labs CBC & Chem 7: 01/02/21 05:39 01/02/21 05:39 Labs: Laboratory Last Values WBC 14.0 K/mm3 (4.5-11.0) H 01/02/21 05:39 RBC 2.73 M/mm3 (3.65-5.03) L 01/02/21 05:39 Hgb 8.0 gm/dl (11.8-15.2) L 01/02/21 05:39 Hct 22.8 % (35.5-45.6) L 01/02/21 05:39 MCV 84 fl (84-94) 01/02/21 05:39 MCH 29 pg (28-32) 01/02/21 05:39 MCHC 35 % (32-34) H 01/02/21 05:39 RDW 18.8 % (13.2-15.2) H 01/02/21 05:39 Plt Count 123 K/mm3 (140-440) L 01/02/21 05:39 Lymph % (Auto) 12.1 % (13.4-35.0) L 01/02/21 05:39 [place] % (Auto) 9.5 % (0.0-7.3) H 01/02/21 05:39 Eos % (Auto) 0.1 % (0.0-4.3) 01/02/21 05:39 Baso % (Auto) 0.0 % (0.0-1.8) 01/02/21 05:39 Lymph # (Auto) 1.7 K/mm3 (1.2-5.4) 01/02/21 05:39 [place] # (Auto) 1.3 K/mm3 (0.0-0.8) H 01/02/21 05:39 Eos # (Auto) 0.0 K/mm3 (0.0-0.4) 01/02/21 05:39 Baso # (Auto) 0.0 K/mm3 (0.0-0.1) 01/02/21 05:39 Seg Neutrophils % 78.3 % (40.0-70.0) H 01/02/21 05:39 Seg Neutrophils # 10.9 K/mm3 (1.8-7.7) H 01/02/21 05:39 PT 13.8 Sec. (12.2-14.9) 12/31/20 07:33 INR 1.08 (0.87-1.13) 12/31/20 07:33 APTT 30.1 Sec. (24.2-36.6) 12/26/20 20:36 Fibrinogen 299 mg/dl (211-480) 12/31/20 07:33 D-Dimer 423.53 ng/mlDDU (0-234) H 12/29/20 04:07 ABG pH 7.390 (7.320-7.450) 12/28/20 01:45 POC ABG pCO2 33.8 mmHg (32.0-48.0) 12/28/20 01:45 POC ABG pO2 188.9 mmHg (83-108) H 12/28/20 01:45 POC ABG HCO3 20.0 12/28/20 01:45 POC ABG Base Excess -4.5 12/28/20 01:45 ABG Hemoglobin 7.2 (12.0-17.5) L 12/28/20 01:45 ABG Sodium 135.3 mmol/L (136.0-145.0) L 12/28/20 01:45 ABG Potassium 3.9 mmol/L (3.40-4.50) 12/28/20 01:45 ABG Chloride 111.0 mmol/L (98-107) H 12/28/20 01:45 ABG Glucose 76 mg/dL (65-95) 12/28/20 01:45 FiO2 31 12/28/20 01:45 Sodium 135 mmol/L (137-145) L 01/02/21 05:39 Potassium 3.6 mmol/L (3.6-5.0) 01/02/21 05:39 Chloride 103.8 mmol/L (98-107) 01/02/21 05:39 Carbon Dioxide 21 mmol/L (22-30) L 01/02/21 05:39 Anion Gap 14 mmol/L 01/02/21 05:39 BUN 27 mg/dL (9-20) H 01/02/21 05:39 Creatinine 0.7 mg/dL (0.8-1.3) L 01/02/21 05:39 Estimated GFR > 60 ml/min 01/02/21 05:39 BUN/Creatinine Ratio 39 % 01/02/21 05:39 Glucose 109 mg/dL (75-100) H 01/02/21 05:39 POC Glucose 109 mg/dL (70-105) H 12/30/20 16:15 Lactic Acid 1.60 mmol/L (0.7-2.0) 12/27/20 19:46 Calcium 7.9 mg/dL (8.4-10.2) L 01/02/21 05:39 Ferritin 473.1 ng/mL (30.0-300.0) H 12/29/20 04:07 Total Bilirubin 0.60 mg/dL (0.1-1.2) 01/01/21 04:19 Direct Bilirubin 0.5 mg/dL (0-0.2) H 12/26/20 20:36 Indirect Bilirubin 0.4 mg/dL 12/26/20 20:36 AST 18 units/L (5-40) 01/01/21 04:19 ALT 11 units/L (7-56) 01/01/21 04:19 Alkaline Phosphatase 59 units/L (35-129) 01/01/21 04:19 Lactate Dehydrogenase 166 units/L (91-180) 12/31/20 07:33 Troponin T < 0.010 ng/mL (0.00-0.029) 12/26/20 22:36 C-Reactive Protein 6.50 mg/dL (0.00-1.30) H 12/29/20 04:07 NT-Pro-B Natriuret Pep 4048 pg/mL (0-900) H 12/26/20 20:36 Total Protein 5.5 g/dL (6.3-8.2) L 01/01/21 04:19 Albumin 2.6 g/dL (3.9-5) L 01/01/21 04:19 Albumin/Globulin Ratio 0.9 % 01/01/21 04:19 Prostate Specific Ag 0.31 ng/mL (0.00-4.00) 12/29/20 04:07 Procalcitonin 2.10 ng/mL (<0.15) 12/29/20 04:07 Arterial Blood Glucose 76 mg/dL (65-95) 12/28/20 01:45 Arterial Blood Ionized Calcium 4.6 mg/dL (4.6-5.3) 12/28/20 01:45 Urine Color Red (Yellow) 12/27/20 03:49 Urine Turbidity Slightly-cloudy (Clear) 12/27/20 03:49 Urine pH 5.0 (5.0-7.0) 12/27/20 03:49 Ur Specific [place] 1.014 (1.003-1.030) 12/27/20 03:49 Urine Protein 100 mg/dl mg/dL (Negative) 12/27/20 03:49 Urine Glucose (UA) Neg mg/dL (Negative) 12/27/20 03:49 Urine Ketones Neg mg/dL (Negative) 12/27/20 03:49 Urine Blood Lg (Negative) 12/27/20 03:49 Urine Nitrite Neg (Negative) 12/27/20 03:49 Urine Bilirubin Neg (Negative) 12/27/20 03:49 Urine Urobilinogen < 2.0 mg/dL (<2.0) 12/27/20 03:49 Ur Leukocyte Esterase Mod (Negative) 12/27/20 03:49 Urine WBC (Auto) > 182.0 /HPF (0.0-6.0) H 12/27/20 03:49 Urine RBC (Auto) > 182.0 /HPF (0.0-6.0) 12/27/20 03:49 U Epithel Cells (Auto) 2.0 /HPF (0-13.0) 12/27/20 03:49 Urine WBC Clumps 2+ /HPF 12/27/20 03:49 Coronavirus (PCR) Positive (Negative) A 12/27/20 09:48 Blood Type B POSITIVE 12/30/20 10:35 Antibody Screen Negative 12/30/20 10:35 Crossmatch See Detail 12/30/20 10:35 Justin/IV: Voiding Method Indwelling Catheter Active Medications - Current Medications Current Medications: Generic Name Dose Route Start Last Admin Trade Name Freq PRN Reason Stop Dose Admin Acetaminophen 650 mg 12/26/20 23:35 01/02/21 22:14 Acetaminophen 325 Mg Tab PO 650 mg Q4H PRN Administration Pain MILD(1-3)/Fever >100.5/SARMIENTO Dexamethasone 4 mg 12/28/20 10:00 01/02/21 09:02 Dexamethasone 4 Mg/Ml Vial IV 01/06/21 10:01 4 mg DAILY MELVNIA Administration Midodrine 2.5 mg 01/01/21 08:00 01/02/21 17:37 Midodrine 2.5 Mg Tab PO Not Given TID@0800,1200,1600 MELVINA Morphine Sulfate 2 mg 12/26/20 23:35 12/28/20 08:53 Morphine 2 Mg/1 Ml Inj IV 2 mg Q4H PRN Administration Pain, Moderate (4-6) Ondansetron HCl 4 mg 12/26/20 23:35 12/28/20 08:53 Ondansetron 4 Mg/2 Ml Inj IV 4 mg Q8H PRN Administration Nausea And Vomiting Pantoprazole Sodium 40 mg 01/01/21 16:30 01/02/21 17:31 Pantoprazole 40 Mg Tab PO 40 mg BIDAC MELVINA Administration Sodium Chloride 10 ml 12/27/20 10:00 01/02/21 22:15 Sodium Chloride 0.9% 10 Ml Flush Syringe IV 10 ml BID MELVINA Administration Sodium Chloride 10 ml 12/26/20 23:35 Sodium Chloride 0.9% 10 Ml Flush Syringe IV PRN PRN LINE FLUSH Nutrition/Malnutrition Assess - Dietary Evaluation Nutrition/Malnutrition Findings: Nutrition Notes Start: 12/27/20 07:22 Freq: Status: Active Protocol: Document 12/31/20 08:54 AB (Rec: 12/31/20 09:04 AB [id number]) Co-Sign 12/31/20 08:54 MK Nutrition Notes Initial or Follow up Reassessment Current Diagnosis Acute Kidney Injury,Sepsis, Hypertension,Heart Failure Other Pertinent Diagnosis COVID(+), FTT, GIB, UTI, Anemia, PUD, pneu, Pyoderma Gangrenosum Current Diet Clear Liquid Labs/Tests 12/30 Na 134 BUN 50 Ca 8.0 Pertinent Medications Remdesivir Zithromax Height 6 ft 3 in Weight 62.2 kg [place] Body Weight (kg) 89.09 BMI 17.1 Weight change and time frame 6% wt gain in 4 days Weight Status Underweight Subjective/Other Information F/u for intakes and diet advancement. Per RN, pt is tolerating current diet, intakes at 75-100% and has no GI issues. Per RN, pt received a regular breakfast plate this morning by mistake. No diet advancement at this time but will advanced to GI soft for lunch today. Pt had empiric embolization procedure and blood transfusions on . Percent of energy/protein needs met: 59%/53% Burn Absent Trauma Absent GI Symptoms None Food Allergy No Current % PO Good (75-100%) Minimum of two criteria Yes Energy Intake (non-severe) <75% Estimated Energy Requirement >7 days Interpretation of Weight Loss (severe) >7.5% in 3 months #1 Nutrition Diagnosis Malnutrition Diagnosis Progress(for reassessment Continues documentation) Is patient on ventilator? No Is Patient Ambulatory and/or Out of Bed Yes REE-(Bandy-St. Jeor-ambulatory/OOB) [ 1953.419 [id number]] Kcal/Kg value to use for calculation 36 Approximate Energy Requirements Using 2239 kcal/Kg Calculation Used for Recommendations Kcal/kg Additional Notes Protein needs: 75-93 g (1.2-1. 5 g/kg) Fluid needs: 1 mL/kcal or per MD Nutrition Intervention Change Diet Order: Advance when medically feasible Add Supplement/Snack (indicate name/kcal Ensure Clear TID /protein ) Provides kCal: 720 Provides Protein (gm) 24 Goal #1 Weight gain and weight maintenance Goal #2 Meet energy and protein needs as best as possible Goal #3 Diet advancement Anticipated Discharge Needs: Cardiac Diet Follow-Up By: 01/04/21 Additional Comments F/U for intakes and diet advancement
[2021-01-03] MEDS: PANTOPRAZOLE 40 MG TAB PO SCH ×2 (08:51→17:17)
[2021-01-03] MEDS: MIDODRINE 5 MG TAB PO SCH ×3 (08:52→16:58)
[2021-01-03] MEDS: dexAMETHasone 4 MG/ML VIAL IV SCH (09:00)
--- NOTE | 2021-01-03 11:53 | Progress Note ---
Assessment and Plan Cultures: SARS CoV2 PCR: positive 12/26/2020 blood culture: No growth 12/27/2020 blood culture: No growth A/P: 65-year-old male with hypertension, CHF, history of PE was admitted to the hospital with decreased oral intake, fatigue over the last 2 weeks. Patient had COVID-19 back in March 2020 when he did not have hypoxia and did not receive remdesivir. Upon evaluation in the ER at this time, noted to have anemia,: #COVID-19: Likely reinfection since previous COVID-19 was back in March 2020. D- dimer 423.5, ferritin 473, CRP 6.5, procalcitonin 2.1. Completed abx and remdesivir #Acute hypoxic respiratory failure: improved. #Possible UTI: UA with severe pyuria, hematuria. Completed empiric ceftriaxone. #ROBSON: Creatinine improved. #GI bleed, anemia: Status post EGD which revealed a gastric ulcer. Underwent IR embolization Recs: -weaned to room air, can taper steroids -completed abx and remdesivir ID will sign off. Please call with questions. Eyal Dixon MD, FACP [facility] ([facility] O: [phone] F: [phone] Subjective Date of service: 01/03/21 Principal diagnosis: COVID Interval history: No fever. Weaned to room air. Objective - Exam Narrative Exam: Physical Exam (reviewed in chart to minimize risk of transmission) Constitutional: deferred Head, Ears, Nose: deferred Eyes: deferred Neck: deferred Oral: deferred Cardiovascular: deferred Respiratory: deferred GI: deferred Musculoskeletal: deferred Skin: deferred Hem/Lymphatic: deferred Psych: deferred Neurological: deferred - Constitutional Vitals: Vital Signs Temp Pulse Resp BP Pulse Ox 97.7 F 99 H 18 117/76 99 01/03/21 04:20 01/03/21 04:20 01/03/21 04:20 01/03/21 04:20 01/03/21 04:20 Temperature -Last 24 Hours Temperature 97.7 F Temperature 97.9 F Temperature 97.8 F Temperature 97.5 F - Labs CBC & Chem 7: 01/02/21 05:39 01/02/21 05:39
[2021-01-03] MEDS: MIDODRINE 2.5 MG TAB PO SCH (12:00)
[2021-01-04] MEDS: ACETAMINOPHEN 325 MG TAB PO PRN (02:53)
[2021-01-04 04:19] VITALS: BP 107/76
[2021-01-04 07:22] LABS: Basophils % (Auto) 0.1 % (0.0-1.8); Eosinophils # (Auto) 0.1 K/mm3 (0.0-0.4); Eosinophils % (Auto) 0.5 % (0.0-4.3); Hematocrit 24.1 % (35.5-45.6); Hemoglobin 8.1 gm/dl (11.8-15.2); Lymphocytes % (Auto) 11.7 % (13.4-35.0); Mean Corpuscular HGB Conc 34 % (32-34); Mean Corpuscular Volume 84 fl (84-94); Monocytes # (Auto) 1.3 K/mm3 (0.0-0.8); Monocytes % (Auto) 7.3 % (0.0-7.3); Platelet Count 188 K/mm3 (140-440); Red Blood Count 2.88 M/mm3 (3.65-5.03); Red Cell Distribution Width 18.6 % (13.2-15.2)
[2021-01-04 07:44] LABS: Alanine Aminotransferase 14 units/L (7-56); Albumin 2.5 g/dL (3.9-5); Blood Urea Nitrogen 20 mg/dL (9-20); Calcium 7.8 mg/dL (8.4-10.2); Hemolysis Index 5
[2021-01-04 08:17] LABS: BUN/Creatinine Ratio 29
[2021-01-04] MEDS: MIDODRINE 5 MG TAB PO SCH (08:20)
[2021-01-04] MEDS: PANTOPRAZOLE 40 MG TAB PO SCH (08:20)
--- NOTE | 2021-01-04 10:35 | Progress Note ---
Assessment and Plan Echo 12/26/2020: EF 15-20%, Left ventricle severely dilated, atria are mildly dilated. Mild AR, Mild MR, Mild [place]. Mild TR. No current clinical evidence of acutely decompensated heart failure. No apparent clinical evidence of acutely decompensated HF. Patient has reported hx of CMP and HFrEF, although unknown chronicity and etiology as he is a rather poor historian. Patient states may have had stress test at [facility] in 06/2020. Records have been requested. Continue current cardiac management. Consider addition of BB and/or ACEI/ARB if blood pressures permit. Pt initiated on Midodrine per primary care team. Will plan for ischemic evaluation as outpatient once medically stabilized. Pt noted to have persistent anemia and thrombocytopenia requiring PRBC. S/p EGD with cauterization of gastric ulcer on 12/28/2020. S/p angiography and empiric coil embolization of the right gastro epiploic artery and gastroduodenal artery per IR on 12/30/2020. Per GI team, no blood thinners for 1 wk s/p procedure if avoidable. Per GI team, repeat EGD as outpatient in ~ 4-6 wks, to exclude malignancy. F/u vascular recs regarding resumption of systemic AC, as well. Cont to hold Eliquis. F/u CBC in AM. Patient is considering leaving hospital AMA today. Strongly encouraged against leaving AMA. Plan for patient to follow up with [facility] cardiology within 1-2 weeks of discharge. This patient was seen in conjunction with Dr Little who agrees with this assessment and plan of care. - Patient Problems (1) COVID-19 virus infection Current Visit: Yes Status: Acute (2) Pneumonia Current Visit: Yes Status: Suspected (3) History of pulmonary embolism Current Visit: Yes Status: Chronic (4) Symptomatic anemia Current Visit: Yes Status: Acute (5) Thrombocytopenia Current Visit: Yes Status: Acute (6) GI bleed Current Visit: Yes Status: Acute (7) ROBSON (acute kidney injury) Current Visit: Yes Status: Acute (8) UTI (urinary tract infection) Current Visit: Yes Status: Acute (9) Failure to thrive Current Visit: Yes Status: Acute Subjective Date of service: 01/04/21 Principal diagnosis: COVID Interval history: Patient is ambulating around room with no current cardiac complaints, alert and oriented. Pt states he intends to leave AMA today. Tele reviewed: SR 97. Objective Last Vital Signs Temp 97.5 F L 01/04/21 04:18 Pulse 95 H 01/04/21 04:18 Resp 18 01/04/21 04:18 BP 107/76 01/04/21 04:18 Pulse Ox 100 01/04/21 04:18 - Physical Examination General: No Apparent Distress HEENT: Positive: PERRL, Normocephaly, Mucus Membranes Moist Neck: Positive: neck supple, trachea midline Cardiac: Positive: Reg Rate and Rhythm, S1/S2 Lungs: Positive: Normal Breath Sounds Neuro: Positive: Grossly Intact Abdomen: Positive: Unremarkable Skin: Negative: Rash, Wound Extremities: Present: upper extr. pulses, lower extr. pulses. Absent: edema - Labs and Meds Cardiac Enzymes 01/04/21 Range/Units 06:07 AST 18 (5-40) units/L CBC 01/04/21 Range/Units 06:07 WBC 17.3 H (4.5-11.0) K/mm3 RBC 2.88 L (3.65-5.03) M/mm3 Hgb 8.1 L (11.8-15.2) gm/dl Hct 24.1 L (35.5-45.6) % Plt Count 188 (140-440) K/mm3 Lymph # (Auto) 2.0 (1.2-5.4) K/mm3 [place] # (Auto) 1.3 H (0.0-0.8) K/mm3 Eos # (Auto) 0.1 (0.0-0.4) K/mm3 Baso # (Auto) 0.0 (0.0-0.1) K/mm3 Comprehensive Metabolic Panel 01/04/21 Range/Units 06:07 Sodium 133 L (137-145) mmol/L Potassium 3.7 (3.6-5.0) mmol/L Chloride 102.3 (98-107) mmol/L Carbon Dioxide 24 (22-30) mmol/L BUN 20 (9-20) mg/dL Creatinine 0.7 L (0.8-1.3) mg/dL Glucose 69 L (75-100) mg/dL Calcium 7.8 L (8.4-10.2) mg/dL AST 18 (5-40) units/L ALT 14 (7-56) units/L Alkaline Phosphatase 68 (35-129) units/L Total Protein 5.1 L (6.3-8.2) g/dL Albumin 2.5 L (3.9-5) g/dL - Imaging and Cardiology EKG: report reviewed, image reviewed Echo: report reviewed (EF 15-20%, Left ventricle severely dilated, atria are mildly dilated. Mild AR, Mild MR, Mild [place]. Mild TR.) - Telemetry EKG Rhythm: Sinus Rhythm
--- NOTE | 2021-01-04 13:38 | Discharge Summary ---
Providers - Providers Date of Admission: 12/26/20 23:13 Attending physician: JOSÉ MIGUEL SUAZO MD 12/26/20 23:35 Consult to Physician [CONS] Routine Comment: Consulting Provider: PAN RAHMAN Physician Instructions: Reason For Exam: Acute on chronic CHF 12/27/20 00:51 Consult to Physician [CONS] Routine Comment: Consulting Provider: MAIRA CACERES Physician Instructions: Reason For Exam: Rectal bleeding 12/27/20 09:02 Consult to Physician [CONS] Routine Comment: Consulting Provider: LATRELL UGALDE Physician Instructions: Reason For Exam: uti, sepsis 12/28/20 07:55 Consult to Physician [CONS] Routine Comment: Consulting Provider: AMY HAMPTON Physician Instructions: Reason For Exam: hydronephrosis 12/31/20 11:07 Physical Therapy Evaluation and Treat [CONS] Routine Comment: Reason For Exam: Deconditioning Primary care physician: ENGINE MONITOR Hospitalization Reason for admission: COVID-19 Condition: Stable Hospital course: Sepsis. Patient meets criteria given the tachycardia, tachypnea and diagnosis of UTI. COVID-19 pneumonia UTI. Patient with previous CT July 2020 which revealed Mild bilateral hydronephrosis and moderate distention of the urinary bladder GI bleed/melena. Anemia. Etiology likely secondary to acute blood loss anemia. Weight loss. 40 pound weight loss in 2 weeks History pulmonary embolism. Patient on home Eliquis. Pyoderma gangrenosum 12/27/2020. Patient's urinalysis reveals UTI and patient has significant lactic acidosis. Follow-up blood and urine cultures. Initiate antibiotics of Rocephin and consult ID for further evaluation. Patient will receive 2 more units of PRBCs and follow-up occult stool. GI consultation pending. Start Protonix drip. Hold Eliquis. 12/28/2020. Patient reportedly with positive Covid testing on 04/19/2020 and subsequent negative testing on 07/07 and 07/25. Patient now with new positive testing on 12/27/2020. Consult ID for further evaluation. Continue to hold Eliquis for GI bleed. Gastroenterology following. Etiology likely secondary to peptic ulcer disease versus malignancy. Endoscopy per GI. CT of the abdomen pelvis reveals persistent gross distention of the urinary bladder related to chronic outlet obstruction. Persistent moderate bilateral hydronephrosis. Urology consultation. Also, new rounded masslike structure in the lingula measuring 2.5 cm. Consider pulmonary consultation. 12/29/2020; COVID-19 infection continue with remdesivir and Decadron. Evaluated by ID and recommend to continue Rocephin empirically. Severe anemia status post transfusion of 3 units of blood this morning with 8. GI bleed; GI was consulted and did EGD and found gastric ulcer and epinephrine injection was don e. 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 Eliquis was on hold because of GI bleed. Vascular surgery was consulted and is considering to do IVC filter. CT of the abdomen pelvis reveals persistent gross distention of the urinary bladder related to chronic outlet obstruction. Persistent moderate bilateral hydronephrosis. Urology consulted. Also, new rounded masslike structure in the lingula measuring 2.5 cm. Consider pulmonary consultation. Pulmonary consulted and recommend outpatient repeat imaging. Evaluated by urology and recommend to continue with Justin catheter, he also recommends prostate biopsy given his weight loss, patient is positive for Covid, wanting biopsy can be done at this time. Covid test is positive on 12/27/2020. 12/30/2020; continue remdesivir and Decadron for COVID-19 infection. H&H from this morning is pending. Anemia due to GI bleed and EGD was done and showed gastric ulcer, evaluated by GI and recommend to hold anticoagulation for at least a week, continue with PPI drip. Patient was evaluated by urology for hydronephrosis and recommended biopsy but patient has Covid and could not do a biopsy at this time. Pulmonary was consulted for lingual mass and recommend outpatient follow-up. Hemoglobin this morning is 6.7, patient did have bowel movement today but yesterday he had one episode of dark stool. We will transfuse him, continue to monitor. Patient has further bleeding, patient may need embolization and interventional radiology already consulted. 12/31/2020; patient's hemoglobin was low yesterday, transfused 2 more units of blood [total of 5 units], interventional radiology was consulted and did coil embolization of the right proximal gastroepiploic artery and gastroduodenal artery with 6 mm x 20 cm interlock coils. Hemoglobin this morning was 8.5. Patient had thrombocytopenia yesterday 51. Platelet was ordered yesterday but was not transfused and his platelet count is 121 this morning. No need for transfusion of platelet. Patient is on remdesivir and Decadron for COVID-19 infection. ID is following. GI is following. Continue inpatient care. 01/01/2021 -Patient's hemoglobin is stable, blood pressure is low and midodrine started. Patient will finish remdesivir today and will continue with Decadron for Covid infection. Patient need outpatient EGD in 4 to 6 weeks to evaluate for malignancy. Patient need prostate biopsy to rule out prostate cancer because patient has unintentional weight loss and asymmetric enlarged prostate. PT OT evaluation needed. Patient need to go to rehab after discharge. We will keep him here today 01/01/2021; she is doing well, H&H is stable. PPI drip changed to p.o. GI said anticoagulation could be resumed on 01/04/2021 if needed. 01/03/2021: Patient's hemoglobin is stable, blood pressure is improved with midodrine. Status post coil embolization of the right proximal gastroepiploic artery and gastroduodenal artery. Patient transfused total of 6 units of packed RBC and 1 unit of plasmapheresis. Patient finished remdesivir and day 7 of Decadron. Patient need outpatient EGD in 4 to 6 weeks to evaluate for malignancy. Patient need prostate biopsy to rule out prostate cancer because patient has unintentional weight loss and asymmetric enlarged prostate. PT OT recommended rehab and case management is working on it. Patient need outpatient GI and urology appointment. 01/04: Work-up is ongoing to arrange placement for the patient. Patient unfortunately left AGAINST MEDICAL ADVICE before I could see him. Disposition: [id number] LEFT AGAINST MED ADVICE Final Discharge Diagnosis (Prints w/discharge instructions): Acute pneumonia secondary to Covid Core Measure Documentation - Palliative Care Palliative Care/ Comfort Measures: Not Applicable - Core Measures Any of the following diagnoses?: none Exam - Physical Exam Narrative exam: Patient not seen by me - Constitutional Vitals: Temp Pulse Resp BP Pulse Ox 97.5 F L 95 H 18 107/76 100 01/04/21 04:18 01/04/21 04:18 01/04/21 04:18 01/04/21 04:18 01/04/21 04:18 Plan Follow up with: PRIMARY MD PATSY [Primary Care Provider] - 3-5 Days
== END 2021-01-04 11:45 | disposition left against medical advice (07) | DRG 853 ==
LOC: ED 19:52 → 4A 23:13 → 3A 12-27 18:17
PROVIDERS: ADMIT Internal Medicine Geriatric Medicine; ATTEND Internal Medicine
PROC: 30233N1 Transfusion of Nonautologous Red Blood Cells into Peripheral Vein, Percutaneous Approach (ICD-10-PCS; 2020-12-27)
PROC: 0W3P8ZZ Control Bleeding in Gastrointestinal Tract, Via Natural or Artificial Opening Endoscopic (ICD-10-PCS; principal; 2020-12-28)
PROC: XW033E5 Introduction of Remdesivir Anti-infective into Peripheral Vein, Percutaneous Approach, New Technology Group 5 (ICD-10-PCS; 2020-12-28)
PROC: 4A033R1 Measurement of Arterial Saturation, Peripheral, Percutaneous Approach (ICD-10-PCS; 2020-12-28)
PROC: 04L23DZ Occlusion of Gastric Artery with Intraluminal Device, Percutaneous Approach (ICD-10-PCS; 2020-12-30)
PROC: 30233R1 Transfusion of Nonautologous Platelets into Peripheral Vein, Percutaneous Approach (ICD-10-PCS; 2020-12-30)
PROC: B44LZZZ Ultrasonography of Femoral Artery (ICD-10-PCS; 2020-12-30)
PROC: B4141ZZ Fluoroscopy of Superior Mesenteric Artery using Low Osmolar Contrast (ICD-10-PCS; 2020-12-30)
PROC: B412ZZZ Fluoroscopy of Hepatic Artery (ICD-10-PCS; 2020-12-30)
PROC: B41B1ZZ Fluoroscopy of Other Intra-Abdominal Arteries using Low Osmolar Contrast (ICD-10-PCS; 2020-12-30)
DX: A41.89 Other specified sepsis (principal); U07.1 COVID-19; J12.82 Pneumonia due to coronavirus disease 2019; K25.4 Chronic or unspecified gastric ulcer with hemorrhage; J96.01 Acute respiratory failure with hypoxia; N39.0 Urinary tract infection, site not specified; Z68.1 Body mass index [BMI] 19.9 or less, adult; L88 Pyoderma gangrenosum; N17.9 Acute kidney failure, unspecified; I42.9 Cardiomyopathy, unspecified; R64 Cachexia; D62 Acute posthemorrhagic anemia; I50.20 Unspecified systolic (congestive) heart failure; I74.8 Embolism and thrombosis of other arteries; I82.512 Chronic embolism and thrombosis of left femoral vein; I82.532 Chronic embolism and thrombosis of left popliteal vein; R62.7 Adult failure to thrive; Z86.711 Personal history of pulmonary embolism; Z79.01 Long term (current) use of anticoagulants; I11.0 Hypertensive heart disease with heart failure; D69.6 Thrombocytopenia, unspecified; I95.9 Hypotension, unspecified
CPT/HCPCS: 36415; 36430; 36600; 37242; 71045; 74176; 75726; 80048; 80053; 80076; 81001; 82140; 82728; 82805; 82962; 83615; 83880; 84145; 84153; 84484; 85014; 85018; 85025; 85379; 85384; 85610; 85730; 86140; 86850; 86900; 86901; 86920; 87040; 87116; 93005; 93306; 93970; 94760; 96365; 96366; 96375; G0378; C1769; C1887; C9113; J0171; J0456; J0696; J1100; J1644; J2250; J2270; J2370; J2405; J2704; J3010; J3490; J7030; J7040; J7050; P9016; P9035; Q9967; U0003